=== PATIENT | female | born 1945 | race Caucasian/White ===

== ENCOUNTER 2019-12-16 10:18 | Outpatient (CLI) | payer MEDICARE, BC, SELFPAY ==
--- NOTE | ~2019-12-16 | MM_ITS ---
EXAMINATION: MM screening [facility] BI w bud HISTORY: Screening mammogram TECHNIQUE: Craniocaudal and mediolateral oblique 3-D tomosynthesis images were obtained and synthetic 2-D images were generated. CAD analysis was submitted and interpreted. COMPARISON: 12/12/2018, 11/06/2017, 05/15/2016 bilateral digital screening mammogram examinations BREAST PARENCHYMAL COMPOSITION: There are scattered areas of fibroglandular density. FINDINGS: New microcalcifications are noted in the central left breast anteriorly; diagnostic mammogr am with magnification views is recommended. Otherwise there is no evidence of suspicious mass, calcification, or architectural distortion to sugg est malignancy in either breast. There has been no other suspicious interval change. IMPRESSION: 1. New microcalcifications on the left 2. Diagnostic left mammogram with magnification views is recommended. BI-RADS Category 0: Incomplete: Needs additional imaging evaluation. Reviewed, dictated and finalized at location A.
== END 2019-12-16 10:19 | disposition home or self-care (01) ==
LOC: ANHIMG 10:26
PROVIDERS: PCP Family Medicine; Visit Provider Family Medicine
DX: Z12.31 Encounter for screening mammogram for malignant neoplasm of breast (principal); R92.8 Other abnormal and inconclusive findings on diagnostic imaging of breast
CPT/HCPCS: 77063; 77067

== ENCOUNTER 2020-01-01 13:10 | Outpatient (CLI) | payer MEDICARE, BC, SELFPAY ==
--- NOTE | ~2020-01-01 | MMUS_ITS ---
EXAMINATION: MM diagnostic mammo unilat LT, US breast LT complete HISTORY: 12/16/2019 mammogram report of new microcalcifications on the left TECHNIQUE: Additional ML 3-D tomosynthesis images of the left breast were performed and synthetic 2-D images were generated. Magnification views of left breast in ML, MLO and CC projections. CAD analysi s was submitted and interpreted. High resolution complete left breast ultrasound was performed. COMPARISON: 12/16/2019 bilateral digital screening mammogram FINDINGS: MAMMOGRAPHIC FINDINGS: There are scattered primarily punctate and rounded microcalcifications and an approximately 2.3 mm sm all area of calcified fat necrosis. No apparent malignant features are noted at any of the calcificat ions. As a precaution, complete left breast ultrasound examination was performed. ULTRASOUND: There is no evidence of focal abnormal solid or cystic lesion or shadowing of the left breast. IMPRESSION: 1. No mammographic or sonographic evidence of malignancy; benign-appearing calcifications 2. 6 month diagnostic left mammogram follow-up is recommended for the microcalcifications. BI-RADS category 3, probably benign findings. Reviewed, dictated and finalized at location A. IMPRESSION: 1. No mammographic or sonographic evidence of malignancy; benign-appearing calc ifications 2. 6 month diagnostic left mammogram follow-up is recommended for the microcalc ifications. BI-RADS category 3, probably benign findings.
== END 2020-01-01 13:11 | disposition home or self-care (01) ==
LOC: ANHIMG 13:17
PROVIDERS: PCP Family Medicine; Visit Provider Family Medicine
DX: R92.8 Other abnormal and inconclusive findings on diagnostic imaging of breast (principal)
CPT/HCPCS: 76641; 77065

== ENCOUNTER 2020-07-29 13:22 | Outpatient (CLI) | payer MEDICARE, BC, SELFPAY ==
--- NOTE | ~2020-07-29 | MM_ITS ---
EXAMINATION: MM diagnostic [facility] LT w bud HISTORY: Follow-up left breast calcifications TECHNIQUE: Additional 3-D tomosynthesis images of the left breast were performed and synthetic 2-D im ages were generated. CAD analysis was submitted and interpreted. COMPARISON: Comparison to multiple prior studies sequentially, with oldest reviewed study dated 11/18. BREAST PARENCHYMAL COMPOSITION: Breast composed of scattered areas of fibroglandular density. FINDINGS: There are clustered calcifications centered in the upper central aspect of the left breast which have increased slightly in number and density. There are no masses or architectural distortion. . IMPRESSION: 1. Clustered indeterminate left breast calcifications. 2. Stereotactic left breast biopsy. BI-RADS category 4, suspicious findings. Reviewed, dictated and finalized at location A. GER FLORAL
== END 2020-07-29 13:23 | disposition home or self-care (01) ==
LOC: ANHIMG 13:23
PROVIDERS: PCP Family Medicine; Visit Provider Family Medicine
DX: R92.8 Other abnormal and inconclusive findings on diagnostic imaging of breast (principal)
CPT/HCPCS: 77061; 77065; G0279

== ENCOUNTER 2023-02-28 14:16 | Outpatient (CLI) | payer MEDICARE, BC, SELFPAY ==
--- NOTE | ~2023-02-28 | XR_ITS ---
XR chest 2V DATE: 02/28/2023 15:16 INDICATION: Leukocytosis TECHNIQUE: PA and lateral views COMPARISON: 08/04/2014 portable AP chest FINDINGS: Heart size is within normal range. Is aortic calcification and unfolding. No hilar or media stinal enlargement. No pulmonary infiltrate or consolidation, pleural effusion or pulmonary vascular congestion or pneumo thorax. Degenerative changes of the thoracic and lumbar spine. Postoperative change of the abdomen. Ursula coleman IMPRESSION: No active cardiopulmonary disease Aortic atherosclerosis Reviewed, dictated and finalized at location []
[2023-02-28 15:34] LABS: Basophils Absolute Auto 0.1 K/mm3 (0.0-0.1); Basophils Percent Auto 0.4 % (0.2-1.2); Eosinophils Absolute Auto 0.1 K/mm3 (0-0.3); Eosinophils Percent Auto 0.7 % (0-4.4); Hematocrit 39.7 % (37.0-47.0); Hemoglobin 13.1 g/dL (12.0-15.0); Immature Granulocyte Absolute 0.07 K/mm3 (0.00-0.031); Immature Granulocyte Percent A 0.6 % (0-0.5); Lymphocytes Absolute Auto 1.62 K/mm3 (0.9-3.2); Lymphocytes Percent Auto 12.9 % (18.3-44.2); Mean Corpuscular Hemoglobin 29.5 pg (26-34); Mean Corpuscular Volume 89.4 fl (80-100); Mean Platelet Volume 10.8 fl (7.4-10.4); Monocytes Absolute Auto 1.2 K/mm3 (0.1-0.6); Monocytes Percent Auto 9.7 % (2.6-8.5); Neutrophils Absolute Auto 9.6 K/mm3 (1.3-6.7); Neutrophils Percent Auto 75.7 % (45.5-73.1); Platelet Count Result 340 k/mm3 (150-375); Red Blood Count 4.44 M/mm3 (4.2-5.4); Red Cell Distribution Width 12.2 % (11.5-14.5); White Blood Count 12.6 K/mm3 (4.5-10.0)
[2023-02-28 15:44] LABS: Alanine Aminotransferase 89 U/L (6-35); Albumin Level 4.1 g/dL (3.5-5.1); Alkaline Phosphatase 113 U/L (38-126); Anion Gap 7 mmol/L (8-16); Aspartate Amino Transferase 34 U/L (14-36); Bilirubin,Total 0.8 mg/dL (0.2-1.3); Blood Urea Nitrogen 38 mg/dL (7-17); Calcium 10.5 mg/dL (8.4-10.2); Carbon Dioxide 32 mmol/L (22-30); Chloride 94 mmol/L (98-107); Estimated Glomerular Filt Rate 44; Glucose 106 mg/dL (65-110); Potassium 3.4 mmol/L (3.4-5.0); Sodium 133 mmol/L (137-145)
[2023-02-28 15:54] LABS: Hemoglobin A1C 6.2 % (<5.7)
[2023-02-28 15:55] LABS: Monoscreen Negative (Negative); Negative Monotest Control Negative (Negative); Positive Monotest Control Positive (Positive)
== END 2023-02-28 14:17 | disposition home or self-care (01) ==
PROVIDERS: PCP Family Medicine; Visit Provider Nurse Practitioner Gerontology
DX: D72.829 Elevated white blood cell count, unspecified (principal); R59.1 Generalized enlarged lymph nodes; R55 Syncope and collapse; J02.9 Acute pharyngitis, unspecified; R53.83 Other fatigue; R50.9 Fever, unspecified; R73.9 Hyperglycemia, unspecified
CPT/HCPCS: 36415; 71046; 80053; 83036; 85025; 86308

== ENCOUNTER 2023-03-14 12:49 | Outpatient (CLI) | payer MEDICARE, BC, SELFPAY ==
[2023-03-14 13:11] LABS: Appearance Urine Turbid (Clear); Bacteria Urine 4+ /hpf; Bilirubin Urine Negative (Negative); Color Urine Yellow (Yellow); Glucose Urine UA Negative (Negative); Ketones Urine Negative (Negative); Leukocyte Esterase Ur 3+ LEU/UL (Negative); Nitrate Urine Positive (Negative); Non Pathogenic Casts 0-2; Protein Urine Negative (Negative); RBC Urine 0-2 /hpf (0-2); Specific Grav Ur 1.015 (1.001-1.035); Squamous Epithelial Cell Urine None seen /hpf (Few); Urobilinogen Urine 0.2 mg/dL (<2.0); WBC Urine >100 /hpf; pH Urine 6.5 (5.0-9.0)
[2023-03-14 13:46] LABS: Add Urine Microscopic? YES
== END 2023-03-14 12:50 | disposition home or self-care (01) ==
PROVIDERS: PCP Family Medicine; Visit Provider Physician Assistant
DX: R30.0 Dysuria (principal)
CPT/HCPCS: 81001; 87077; 87086; 87186

== ENCOUNTER 2023-03-30 11:29 | Outpatient (CLI) | payer MEDICARE, BC, SELFPAY ==
[2023-03-30 13:08] LABS: Appearance Urine Clear (Clear); Bacteria Urine None Seen /hpf; Bilirubin Urine Negative (Negative); Blood Urine Negative (Negative); Color Urine Yellow (Yellow); Glucose Urine UA Negative (Negative); Ketones Urine Negative (Negative); Leukocyte Esterase Ur 1+ LEU/UL (Negative); Need Manual Microscopic Reviewed; Nitrate Urine Negative (Negative); Non Pathogenic Casts 0-2; Protein Urine Negative (Negative); RBC Urine 0-2 /hpf (0-2); Specific Grav Ur 1.013 (1.001-1.035); Squamous Epithelial Cell Urine None seen /hpf (Few); Urobilinogen Urine 0.2 mg/dL (<2.0); WBC Urine 0-5 /hpf; pH Urine 6.5 (5.0-9.0)
[2023-03-30 13:28] LABS: Add Urine Microscopic? YES
== END 2023-03-30 11:30 | disposition home or self-care (01) ==
LOC: ANHLAB 11:31
PROVIDERS: PCP Family Medicine; Visit Provider Physician Assistant
DX: R30.0 Dysuria (principal)
CPT/HCPCS: 81001

== ENCOUNTER 2023-09-05 10:35 | Outpatient (CLI) | payer MEDICARE, BC, SELFPAY ==
[2023-09-05 11:11] LABS: Appearance Urine Cloudy (Clear); Bacteria Urine 4+ /hpf; Bilirubin Urine Negative (Negative); Blood Urine Negative (Negative); Color Urine Yellow (Yellow); Glucose Urine UA Negative (Negative); Ketones Urine Negative (Negative); Leukocyte Esterase Ur 2+ LEU/UL (Negative); Nitrate Urine Negative (Negative); Non Pathogenic Casts 0-2; Protein Urine Negative (Negative); RBC Urine 0-2 /hpf (0-2); Specific Grav Ur 1.017 (1.001-1.035); Squamous Epithelial Cell Urine None seen /hpf (Few); Urobilinogen Urine 0.2 mg/dL (<2.0); WBC Urine >100 /hpf; pH Urine 6.5 (5.0-9.0)
[2023-09-05 11:14] LABS: Add Urine Microscopic? YES
== END 2023-09-05 10:36 | disposition home or self-care (01) ==
PROVIDERS: PCP Family Medicine; Visit Provider Family Medicine
DX: R30.0 Dysuria (principal)
CPT/HCPCS: 81001; 87077; 87086; 87186

== ENCOUNTER 2023-09-25 14:03 | Outpatient (CLI) | payer MEDICARE, BC, SELFPAY ==
[2023-09-25 14:48] LABS: Appearance Urine Cloudy (Clear); Bacteria Urine 1+ /hpf; Bilirubin Urine Negative (Negative); Color Urine Yellow (Yellow); Glucose Urine UA Negative (Negative); Ketones Urine Negative (Negative); Leukocyte Esterase Ur 3+ LEU/UL (Negative); Nitrate Urine Negative (Negative); Non Pathogenic Casts 0-2; Protein Urine Negative (Negative); RBC Urine 0-2 /hpf (0-2); Squamous Epithelial Cell Urine None seen /hpf (Few); Urobilinogen Urine 0.2 mg/dL (<2.0); WBC Urine >100 /hpf
[2023-09-25 15:21] LABS: Add Urine Microscopic? YES
== END 2023-09-25 14:04 | disposition home or self-care (01) ==
PROVIDERS: PCP Family Medicine; Visit Provider Physician Assistant
DX: R30.0 Dysuria (principal)
CPT/HCPCS: 81001; 87077; 87086; 87186

== ENCOUNTER 2023-10-08 14:31 | Outpatient (CLI) | payer MEDICARE, BC, SELFPAY ==
--- NOTE | ~2023-10-08 | US_ITS ---
EXAMINATION: US renal BI DATE: 10/08/2023 15:16 INDICATION: Chronic kidney disease TECHNIQUE: Multiple grayscale and Doppler ultrasound images of the kidneys were obtained. COMPARISON: None. FINDINGS: The right kidney measures 9.7 x 4.8 x 4.6 cm. The left kidney measures 10.1 x 5.7 x 6.0 cm. The kidneys demonstrate normal parenchymal echogenicity. There is no hydronephrosis. The bladder is normal. IMPRESSION: 1. Normal kidneys without hydronephrosis. Reviewed, dictated and finalized at location F. LINE WALKER
== END 2023-10-08 14:32 | disposition home or self-care (01) ==
LOC: ANHIMG 14:32
PROVIDERS: PCP Family Medicine; Visit Provider Physician Assistant
DX: N18.9 Chronic kidney disease, unspecified (principal)
CPT/HCPCS: 76775

== ENCOUNTER 2024-02-20 12:27 | Outpatient (CLI) | payer MEDICARE, BC, SELFPAY ==
[2024-02-20 13:00] LABS: Appearance Urine Clear (Clear); Bacteria Urine None Seen /hpf; Bilirubin Urine Negative (Negative); Blood Urine Negative (Negative); Color Urine Yellow (Yellow); Glucose Urine UA Negative (Negative); Ketones Urine Negative (Negative); Leukocyte Esterase Ur 2+ LEU/UL (Negative); Nitrate Urine Negative (Negative); Non Pathogenic Casts 0-2; Protein Urine Negative (Negative); RBC Urine 0-2 /hpf (0-2); Specific Grav Ur 1.009 (1.001-1.035); Squamous Epithelial Cell Urine None Seen /hpf (Few); Urobilinogen Urine 0.2 mg/dL (<2.0); WBC Urine 21-50 /hpf (0-3); pH Urine 6.5 (5.0-9.0)
[2024-02-20 13:08] LABS: Add Urine Microscopic? YES
== END 2024-02-20 12:28 | disposition home or self-care (01) ==
PROVIDERS: PCP Family Medicine; Visit Provider Physician Assistant
DX: N39.0 Urinary tract infection, site not specified (principal)
CPT/HCPCS: 81001; 87077; 87086; 87088; 87186

== ENCOUNTER 2024-04-08 10:59 | Outpatient (CLI) | payer MEDICARE, BC, SELFPAY ==
[2024-04-08 11:32] LABS: Appearance Urine Turbid (Clear); Bacteria Urine 4+ /hpf; Bilirubin Urine Negative (Negative); Blood Urine Negative (Negative); Color Urine Yellow (Yellow); Glucose Urine UA Negative (Negative); Ketones Urine Negative (Negative); Leukocyte Esterase Ur 3+ LEU/UL (Negative); Nitrate Urine Positive (Negative); Protein Urine Negative (Negative); RBC Urine 0-2 /hpf (0-2); Specific Grav Ur 1.018 (1.001-1.035); Squamous Epithelial Cell Urine None Seen /hpf (Few); WBC Urine >100 /hpf (0-3)
[2024-04-08 12:03] LABS: Add Urine Microscopic? YES
== END 2024-04-08 11:00 | disposition home or self-care (01) ==
LOC: ANHLAB 11:02
PROVIDERS: PCP Family Medicine; Visit Provider Student in an Organized Health Care Education/Training Program
DX: R30.0 Dysuria (principal)
CPT/HCPCS: 81001; 87077; 87086; 87186

== ENCOUNTER 2024-09-11 14:58 | Outpatient (CLI) | payer MEDICARE, BC, OTHER, SELFPAY ==
[2024-09-11 15:35] LABS: Add Urine Microscopic? YES; Appearance Urine Turbid (Clear); Bacteria Urine 4+ /hpf; Bilirubin Urine Negative (Negative); Blood Urine Non-Hemolyzed Trace (Negative); Color Urine Yellow (Yellow); Glucose Urine UA Negative (Negative); Ketones Urine Trace mg/dL (Negative); Leukocyte Esterase Ur 3+ LEU/UL (Negative); Need Manual Microscopic Reviewed; Nitrate Urine Positive (Negative); Non Pathogenic Casts 0-2; Protein Urine Negative (Negative); Specific Grav Ur 1.018 (1.001-1.035); Squamous Epithelial Cell Urine None Seen /hpf (Few); Urobilinogen Urine 0.2 mg/dL (<2.0); WBC Clumps Urine Present /HPF; WBC Urine >100 /hpf (0-3)
[2024-09-11 16:23] LABS: Amorphous Sediment Urine Few
== END 2024-09-11 14:59 | disposition home or self-care (01) ==
LOC: ANHLAB 14:59
PROVIDERS: PCP Family Medicine; Visit Provider Physician Assistant
DX: R30.0 Dysuria (principal)
CPT/HCPCS: 81001; 87077; 87086; 87186

== ENCOUNTER 2024-10-10 06:38 | Outpatient (CLI) | payer MEDICARE, BC, OTHER, SELFPAY ==
--- NOTE | ~2024-10-10 | MR_ITS ---
EXAMINATION: MR lumbar spine wo con DATE: 10/10/2024 07:18 INDICATION: Intervertebral disc disorders with radiculopathy. TECHNIQUE: Magnetic resonance imaging (MRI) of the lumbar spine was performed without intravenous con trast. Sequences included sagittal T2-weighted FSE, sagittal T2-weighted FS FSE, sagittal T1-weighted FSE, and axial T2-weighted FSE. COMPARISON: Lumbar spine MRI 10/19/2005 FINDINGS: There is 10 degrees dextroscoliosis of lumbar spine. There is 3 mm retrolisthesis of T12 on L1, 6 mm retrolisthesis of L1 on L2, 5 mm retrolisthesis of L2 on L3, 4 mm retrolisthesis of L3 on L 4, and 5 mm anterolisthesis of L4 on L5. The distal spinal cord signal intensity is normal. The conus medullaris is at at L1. The following disc levels are specifically discussed: L1-L2: The disc is bulging and has an annular fissure. There is severe bilateral facet joint osteoart hritis. There is moderate bilateral neural foraminal stenosis. There is mild central canal stenosis. L2-L3: The disc is bulging. There is severe bilateral facet joint osteoarthritis. There is mild bilat eral neural foraminal stenosis. There is mild central canal stenosis. L3-L4: The disc is bulging and has an annular fissure. There is severe bilateral facet joint osteoart hritis. There is mild bilateral neural foraminal stenosis. There is mild central canal stenosis. L4-L5: The disc is bulging and has an annular fissure. There is severe bilateral facet joint osteoart hritis. There is moderate bilateral neural foraminal stenosis. There is moderate central canal stenos is. L5-S1: The disc is bulging and has an annular fissure. There is severe bilateral facet joint osteoart hritis. There is mild bilateral neural foraminal stenosis. There is mild central canal stenosis. IMPRESSION: 1. Severe lumbar spondylosis, worsened from 10/19/2005. 2. Lumbar dextroscoliosis. Reviewed, dictated and finalized at location A. 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
--- OUTSIDE RECORDS SUMMARY | 2024-10-16 04:59 | XMS_ITS | Clinical Summary ---
Author Organization [facility] Address [address] [place] [address] Care Team Providers Care Abstract Checker Name Role Phone Rizwana Thakkar MD Primary Care Provider + Source Comments [facility],non-owned Affiliates and Associated Physician Practices is amultiple site organization consisting of ambulatory clinics and hospital sitesin [place], [place], [place] and [place]. This disclosure is being madepursuant to the Care Everywhere program and may not contain all information available regarding this patient. Last updated 18.[facility] Allergies Active Allergy Reactions Criticality Noted Date Comments Gadobenate Nausea Low 07/06/2015 MRI Contrast-Patient became nauseated after Multihance injection. Not enough to stop the test Lisinopril Other Low 04/01/2015 COUGH Lorazepam Shortness of Breath,Other High 08/09/2014 Pt becomes SOB and Hallucinates Medications * Be aware that medications may not be up to date on this document. Alwaysverify current medications with the patient. Medication Sig Dispensed Refills Start Date End Date Status ELIQUIS 5 MG tablet Take 5 mg by mouth 2 times daily 12/19/2017 Active ACETAMINOPHEN, ANALGESICS OTHER, Take 650 mg by mouth 09/28/2015 Active docusate sodium (COLACE) 100 MG capsule Take 100 mg by mouth once daily as needed twice a week Active clobetasol propionate (CLOBEX) 0.05 % shampoo Apply to affected area every 7 days 08/24/2018 Active MAGNESIUM PO Take 250 mg by mouth once daily Active metoprolol succinate XL 24hr (TOPROL XL) 25 MG tablet 12.5 mg once daily 05/28/2019 Acti ve losartan (COZAAR) 100 MG tablet once daily 07/04/2019 Active hydroCHLOROthiazide (HYDRODIURIL) 25 MG tablet 12.5 mg every 24 hours Active SUPER B COMPLEX/C PO Take by mouth at bedtime Active Biotin 97136 MCG TABS Act brock Ascorbic Acid (VITAMIN C) 500 MG Take by mouth at bedtime Active VITAMIN D, ERGOCALCIFEROL, PO Take 1,000 mg by mouth Active oxybutynin CR 24hr (DITROPAN-XL) 5 MG tablet Take 5 mg by mouth once daily 07/05/2020 Active pancrelipase (CREON) 70869-55058 units capsule Take 1 capsule by mouth 3 times daily with meals Active Active Problems Problem Noted Date Diagnosed Date NAFLD (nonalcoholic fatty liver disease) 018 Overview (03/26/2018): 10/03/17 MRI: There is moderate diffuse hepatic steatosis without evidence of cirrhosis. No arterially-enhancing liver lesions are identified. A 9 mm hemangioma in segment 7 is unchanged. 03/11/18 Fibroscan CAP 279, E 7.2 kPa mcm Hypertension 02/04/2018 Colon adenomas 02/04/2018 Overview (03/09/2019): 08/26/15 colonoscopy: multiple adenomas, one SSA removed. 11/07/18 colonoscopy: 2 non-adenomatous polyps removed, repeat in 5 years. Obesity 02/04/2018 Psoriasis 02/04/2018 Overview (02/04/2018): A bit in scalp at hairline. 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 Recurrent right leg DVT in 2017 off apixaban, restarted. Acute pancreatitis 12/22/2014 Overview (02/04/2018): Severe acute necrotizing pancreatitis??s/p endoscopic necrosectomy, IR drains for fluid collections in 2013- at [facility]. DILIP neg, IgG4 wnls, TG 88. No strong family history of pancreatitis Possibly related to gallstone/debris Resolved Problems Problem Noted Date Diagnosed Date Resolved Date Cutaneous abscess 09/18/2015 02/04/2018 Abdominal pain 08/06/2015 02/04/2018 Gastrointestinal hemorrhage 02/28/2015 02/04/2018 Pseudoaneurysm 02/28/2015 02/04/2018 Overview (02/04/2018): Coiled in 2014 Hematemesis 02/08/2015 02/03/2018 Immunizations Name Administration Dates Next Due DTaP VACCINE IM (6wk-6yrs) 06/24/2019 FLU VACCINE TRI IIV3 SPLIT PF IM (FLUVIRIN) 07/25 HEP A VACCINE, ADULT 07/25/2019,06/24/2019 HEP B VACCINE ADOL/ADULT 2 DOSE 07/25/2019,06/24 HIB-PRP-T 4 DOSE 02/27/2015 MENINGOCOCAL MENINGITIS 02/27/2015 Zoster Hzv Vacc Recombinant Inj Im 06/24/2019 Family History Medical History Relation Name Comments Heart Disease Brother 1 Status: Alive Heart Disease Brother 2 Status: Alive Cancer Brother 3 Lung; Status: D eceased None Known Brother 4 Status: Alive None Known Brother 5 Status: Alive Diabetes Father 81 post CABG Heart Disease Father Status: Deceas ed Cancer Mother Status: d Cancer Sister Breast; Status: Alive Thyroid Disease Neg Hx Relation Name Status Comments Brother 1 Brother 2 Brother 3 Brother 4 Brother 5 Father Mother Sister Social History Tobacco Use Types Packs/Day Years Used Date Smoking Tobacco: Former Cigarettes Q uit: 07/27/2014 Smokeless Tobacco: Never Tobacco Cessation:Counseling Given: No Alcohol Use Standard Drinks/Week Comments No 0 (1 standard drink = 0.6 oz pur e alcohol) Sex and Gender Information Value Date Recorded Sex Assigned at Not on file Gender Identity Not on file Sexual Orientation Not on file Last Filed Vital Signs Vital Sign Reading Time Taken Comments Blood Pressure 145/74 07/16/2020 11:04 AM CDT Pulse 57 07/16/2020 11:04 AM CDT Temperature 36.2 ??C (97.2 ??F) 07/16/2020 1 1:04 AM CDT Respiratory Rate 18 09/05/2019 8:03 AM DRY DRUG WORKER Oxygen Saturation 96% 07/16/2020 11: 04 AM CDT Inhaled Oxygen Concentration - - Weight 100.9 kg (222 lb 6.4 oz) 020 11:04 AM CDT Height 162.6 cm (5' 4 ) 07/16/2020 11:0 4 AM CDT Body Mass Index 38.17 07/16/2020 11:04 AM CDT Plan of Treatment Health Maintenance Due Date Last Done Comments BONE DENSITY TESTING 1945 MEDICARE AWV ? 12 MONTHS 1945 HEPATITIS C SCREENING 12/19/1964 PNEUMOCOCCAL VACCINE 50+ (1 of 1 - PCV) 1996 ZOSTER VACCINE (2 of 2) 08/19/2019 06/24/2019 HEPATITIS B VACCINE (3 of 3 - 19+ 3-dose series) 2019 07/25/2019, 06/24/2019 Respiratory Syncytial Virus (RSV) Vaccine Pt: or over 60 yrs (1 - 1-dose 75+ series) 2021 COVID-19 VACCINE ( - 2023-2 5 season) 2024 INFLUENZA VACCINE (#1) 2024 08/07/2015 DEPRESSION SCREENING 09/24/2024 DTAP/TDAP/TD VACCINES (2 - Tdap) 06/24/2029 06/24/2019 HIB VACCINE Aged Out 02/27/2015 No longer eligi ble based on patient's age to complete this topic MENINGOCOCCAL VACCINE Aged Out 02/27/2015 No bethel art eligible based on patient's age to complete this topic HPV VACCINE Aged Out No longer eligi ble based on patient's age to complete this topic MENINGOCOCCAL (Group B) VACCINE Aged Out No longer eligible b ased on patient's age to complete this topic Goals Goal Patient Goal Type Associated Problems Recent Progress Patient-Stated? 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
--- OUTSIDE RECORDS SUMMARY | 2024-10-16 04:59 | XMS_ITS | Referral Summary ---
Author Organization [facility] Address [address] [place] [address] Care Team Providers Care Condenser Operator Name Role Phone Rizwana Thakkar MD Primary Care Provider + Source Comments [facility],non-owned Affiliates and Associated Physician Practices is amultiple site organization consisting of ambulatory clinics and hospital sitesin [place], [place], [place] and [place]. This disclosure is being madepursuant to the Care Everywhere program and may not contain all information available regarding this patient. Last updated 18.[facility] Allergies Active Allergy Reactions Criticality Noted [...] Take by mouth at bedtime Active Biotin 09175 MCG TABS Act brock Ascorbic Acid (VITAMIN C) 500 MG Take by mouth at bedtime Active VITAMIN D, ERGOCALCIFEROL, PO Take 1,000 mg by mouth Active oxybutynin CR 24hr (DITROPAN-XL) 5 MG tablet Take 5 mg by mouth once daily 07/05/2020 Active pancrelipase (CREON) 46232-76424 units capsule Take 1 capsule by mouth [...] drains for fluid collections in 2013- at [facility]. DILIP neg, IgG4 wnls, TG 88. 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 [place] [address] PCP - General 04/27/15
--- OUTSIDE RECORDS SUMMARY | 2024-10-16 05:00 | XMS_ITS | Clinical Summary ---
Author Organization [facility] Address [address] [place] [address] Phone Care Team Providers Care Project Geologist Name Role Phone Rizwana Thakkar MD Primary Care Provider [phone] Allergies Active Allergy Reactions Criticality Noted Date Comments Gadobenate Nausea Low 07/06/2015 MRI Contrast-Patient became nauseated after Multihance injection. ??Not enough to stop the test MRI Contrast-Patient became nauseated after Multihance injection. ??Not enough to stop the test MRI Contrast-Patient became nauseated after Multihance injection. ??Not enough to stop the test MRI Contrast-Patient became nauseated after Multihance injection. ??Not enough to stop the test MRI Contrast-Patient became nauseated after Multihance injection. ??Not enough to stop the test Lisinopril Other (see Comments) Low 04/01/2015 cough Other reaction(s): Cough, Other COUGH COUGH COUGH COUGH COUGH Lorazepam Shortness of Breath,Hallucinations,O ther (see Comments) High 08/09/2014 Other reaction(s): Other Pt becomes SOB and Hallucinates Other reaction(s): Other Pt becomes SOB and Hallucinates Pt becomes SOB and Hallucinates Medications apixaban (ELIQUIS) 5 MG Tablet Take 5 mg by mouth 2 times daily. Active Biotin 1000 MCG Tablet Take by mouth daily. Active Multiple Vitamins-Minera ls (MULTIVITAMIN PO) Take by mouth daily. Active Magnesium 250 MG Tablet Take by mouth daily. Active hydroCHLOROthia zide 25 MG Tablet Take 25 mg by mouth. 07/04/2019 Active losartan (COZAAR) 100 MG Tablet TAKE 1 TABLET BY MOUTH EVERY DAY IN THE MORNING 3 07/04/2019 Active Ascorbic Acid 500 MG Capsule CR Take 500 mg by mouth. Active B Complex Vitamins (Vitamin B-Complex) Tablet Take 1 Tablet by mouth. Active cholecalciferol 25 mcg Tablet Take 1,000 Units by mouth. Active Clobetasol Propionate 0.05 % Shampoo APPLY TO AFFECTED AREA EVERY DAY 01/22/2018 Active oxyCODONE (ROXICODONE) 5 MG Tablet TAKE 1 TABLET BY MOUTH EVERY 4 HOURS NEEDED (BREAKTHROUGH PAIN DESPITE TYLENOL) 10/25/2020 Active Probiotic Product (ALIGN PO) Take by mouth. Active albuterol 108 (90 Base) MCG/ACT Aerosol Solution take 2 Puffs by inhalation. 01/05/2021 Active NIFEdipine CR (PROCARDIA-XL) 60 MG TABLET SR 24 HR TAKE 1 TABLET BY MOUTH IN THE EVENING 10/03/2021 Active omeprazole (PriLOSEC) 40 MG CAPSULE DELAYED RELEASE TAKE 1 CAPSULE BY MOUTH EVERY DAY 1 HOUR PRIOR TO LAST MEAL OF DAY 05/22/2022 Active nebivolol (BYSTOLIC) 2.5 MG Tablet 05/26/2022 Active vitamin E 100 UNIT Capsule Take 100 Units by mouth. Active Mirabegron ER 50 MG TABLET SR 24 HR Take 1 Tablet by mouth daily. 06/04/2024 Active Active Problems Patient Care Coordination No te Formatting of this note migh t be different from the original. 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 01/21/2018 Encounters Date Type Department Care Team Description 08/07/2024 1:15 PM SECURITY COMPLIANCE SPECIALIST Office Visit [facility] [address] [address] Conchita Guzman, VERIFICATION SPECIALIST, WORD PROCESSOR TECHNICIAN Acute embolism and thrombosis of vein of left upper extremity (Primary Dx); Acute deep vein thrombosis (DVT) of lower extremity, unspecified laterality, unspecified vein (HCC) 08/07/2024 Travel from Last 3 Months Immunizations Immunization Administration Dates Next Due Covid-19, Mrna, Lnp-s, PF, 1 00 mcg/0.5 mL Dose (Moderna) 11/05/2020 HEP A/HEP B Combined Vaccine 03/14/2020,08/05/20 19 Hepatitis A And Hepatitis B Vaccine 03/14/2020,1 10/05/2018,07/04/2019 Influenza, High-dose, Quadrivalent 05/18/2020, Pneumococcal Vaccine Adult - 23 Valent 8 TDAP Vaccine 07/02/2019 Zoster Vaccine Recombinant 10/05/2019,08/05/2019 ,06/24/2019 Family History Medical History Relation Name Comments Heart Attack Brother 1 Cancer Brother 2 lung Diabetes Father Heart Attack Father Cancer Mother tongue Cancer Sister breast Relation Name Status Comments Brother 1 Brother 2 Father Mother Sister Social History Tobacco Use Types Packs/Day Years Used Date Smoking Tobacco: Former Cigarettes Q uit: 2013 Smokeless Tobacco: Never Tobacco Cessation:Counseling Given: Not Answered Alcohol Use Standard Drinks/Week Comments No 0 (1 standard drink = 0.6 oz pur e alcohol) PHQ-2 Answer Date Recorded Total Score - Questions 1-9 0 11/22 Comments No Sex and Gender Information Value Date Recorded Sex Assigned at Not on file Legal Sex Female 11:11 PM CDT Gender Identity Not on file Sexual Orientation Not on file Last Filed Vital Signs Vital Sign Reading Time Taken Comments Blood Pressure 140/78 08/07/2024 1:22 PM SECURITY COMPLIANCE SPECIALIST Pulse 66 08/07/2024 1:22 PM SECURITY COMPLIANCE SPECIALIST Temperature 36.2 ??C (97.1 ??F) 08/07/2024 1:22 PM CS T Respiratory Rate 18 08/07/2024 1:22 PM SECURITY COMPLIANCE SPECIALIST Oxygen Saturation 96% 08/07/2024 1:22 PM SECURITY COMPLIANCE SPECIALIST Inhaled Oxygen Concentration - - Weight 98.9 kg (218 lb) 08/07/2024 1:22 PM SECURITY COMPLIANCE SPECIALIST Height 162.6 cm (5' 4 ) 08/07/2024 1:22 PM SECURITY COMPLIANCE SPECIALIST Body Mass Index 37.42 08/07/2024 1:22 PM SECURITY COMPLIANCE SPECIALIST Plan of Treatment Upcoming Encounters Date Type Department Care Team (Late st Contact Info) Description 02/05/2025 1:30 PM CDT Office Visit [facility] [address] [place] [address] Luis Titus MD [address] [place] [address] Health Maintenance Due Date Last Done Comments Pneumococcal Immunization (50+ years) (2 of 2 - PCV) 06/23/2019 06/23/2018 SARS-COV-2 Immunization ( season) 2024 06/09/2024, 06/13/2023, 06/26/2022, Additional history exists DEXA Bone Density 04/19/2025 04/19/2023, 03/31/2020 Td Immunization Every 10 Years (Adults With 1 Tdap) 07/02/2029 07/02/2019 Hepatitis C Virus (HCV) Screening Completed 04/10/2018 Pneumococcal Immunization Combined Discontinued 06/23/2018 Colonoscopy High Risk Discontinued 11/07/2018 Colonoscopy Discontinued 11/07/2018 Colorectal Cancer Screening Discontinued DTaP/Tdap/Td Immunization Discontinued 07/02/2019, 09/2018 Zoster Immunization Completed 10/05/2019, 08/05/2019, 06/24/2019 Hepatitis B Immunization Completed 020, 03/14/2020, 08/05/2019, Additional history exists Mammogram Discontinued 06/02/2024, 01/2023, 05/30/2022, Additional history exists Respiratory Syncytial Virus (RSV) Immunization (Adult) Completed 06/05/2024 Influenza Immunization Completed , 07/11/2023, 07/18/2022, Additional history exists Cologuard Discontinued Immunochemical Fecal Occult Blood Discontinued Meningococcal Immunization (ACWY) Aged Out No longer eligible based on patient's age to complete this topic Rotavirus Immunization Aged Out No lo nger eligible based on patient's age to complete this topic Insurance MEDICARE [facility] Care Teams Project Geologist Relationship Specialty Start Date End Date Rizwana Thakkar MD [address] [address] PCP - General Family Medicine 01/17/18
--- OUTSIDE RECORDS SUMMARY | 2024-10-16 05:00 | XMS_ITS | Encounter Summary ---
Author Organization [facility] Address [address] [place] [address]. [place] [address] [place] [address] Care Team Providers Care Hand Plate Stacker Name Role Phone Rizwana Thakkar MD Primary Care Provider + [phone] Kamaljit Dowell MD Unavailable [phone] Encounter Details Date Type Department Care Team (Late st Contact Info) Description 11/26/2017 Abstract [facility] at [facility], [address] [address] Parker Bright MA Social History Tobacco Use Types Packs/Day Years Used Date Smoking Tobacco: Never Assessed Comments Unknown Sex and Gender Information Value Date Recorded Sex Assigned at Female 09/20/2018 10:57 AM PAN CLEANER Legal Sex Female 7:39 PM CDT Gender Identity Female 09/20/2018 10:57 AM PAN CLEANER Sexual Orientation Straight 09/20/2018 10 :57 AM PAN CLEANER documented as of this encounter Plan of Treatment Upcoming Encounters Date Type Department Care Team (Late st Contact Info) Description 05/04/2025 9:15 AM CDT [facility] [address] [place] [phone] Kamaljit Dowell MD [facility]. [facility] [address] [place], [place] [phone] documented as of this encounter Procedures Procedure Name Priority Date/Time Associated Diagnosis Comments COMPREHENSIVE METABOLIC PANEL Routine 04/10/2018 LIPID PANEL Routine 04/10/2018 COMPREHENSIVE METABOLIC PANEL Routine 11/23/2017 MAGNESIUM Routine 11/23/2017 COMPREHENSIVE METABOLIC PANEL Routine 05/01/2016 LIPID PANEL Routine 05/01/2016 HEMOGLOBIN, GLYCOSYLATED Routine 05/01/2016 documented in this encounter Results * LIPID PANEL (04/10/2018) CHOLESTEROL 189 HDL 42 TRIGLYCERIDES 173 NON HDL CHOLESTEROL 147 LDL (CALCULATED) 112.4 04/10/2018 us [facility] Abstract LABORATORY Final Result * COMPREHENSIVE METABOLIC PANEL (04/10/2018) SODIUM S/P/B 143 POTASSIUM S/P/B 4.5 CO2 28.9 CHLORIDE S/P/B 106 GLUCOSE 114 mg/dL CALCIUM S/P/B 10.2 BUN 33 CREATININE S/P/B 0.99 0.5 - 1.0 EGFR AFR. AMER. 66 <=90 EGFR NON-AFR. AMER. 57 <=90 ALKALINE PHOSPHATASE S/P/B 87 ALT 25 AST 11 BILIRUBIN TOTAL S/P/B 0.5 ALBUMIN S/P/B 3.7 3.5 - 5.0 TOTAL PROTEIN S/P/B 7.0 04/10/2018 [facility] Abstract LABORATORY Final Result * MAGNESIUM (11/23/2017) MAGNESIUM 1.9 11/23/2017 us Doc [facility] Abstract LABORATORY Edited Resul t - Final * COMPREHENSIVE METABOLIC PANEL (11/23/2017) SODIUM S/P/B 139 POTASSIUM S/P/B 4.3 CO2 23 CHLORIDE S/P/B 104 GLUCOSE 124 mg/dL CALCIUM S/P/B 10.6 BUN 18 CREATININE S/P/B 0.89 0.5 - 1.0 EGFR NON-AFR. AMER. >60 <=90 ALKALINE PHOSPHATASE S/P/B 74 ALT 19 AST 11 BILIRUBIN TOTAL S/P/B 0.6 ALBUMIN S/P/B 4.0 3.5 - 5.0 TOTAL PROTEIN S/P/B 6.4 PHOSPHORUS 2.6 11/23/2017 us Doc [facility] Abstract LABORATORY Edited [facility] t - Final * LIPID PANEL (05/01/2016) CHOLESTEROL 175 HDL 39 TRIGLYCERIDES 113 LDL (CALCULATED) 113.4 05/01/2016 us Doc [facility] Abstract LABORATORY Edited [facility] t - Final * HEMOGLOBIN, GLYCOSYLATED (05/01/2016) HGB A1C 5.7 05/01/2016 us Doc [facility] Abstract LABORATORY Edited [facility] t - Final * COMPREHENSIVE METABOLIC PANEL (05/01/2016) SODIUM S/P/B 140 POTASSIUM S/P/B 4.1 CO2 26 CHLORIDE S/P/B 107 GLUCOSE 99 mg/dL CALCIUM S/P/B 9.9 BUN 40 CREATININE S/P/B 0.81 0.5 - 1.0 EGFR NON-AFR. AMER. >60 <=90 ALKALINE PHOSPHATASE S/P/B 120 ALT 18 AST 15 BILIRUBIN TOTAL S/P/B 0.4 ALBUMIN S/P/B 3.9 3.5 - 5.0 TOTAL PROTEIN S/P/B 6.1 05/01/2016 us Doc [facility] Abstract LABORATORY Edited [facility] t - Final documented in this encounter Visit Diagnoses Not on filedocumented in this encounter Additional Health Concerns Infection Onset Date Last Indicated Resolved Time COVID-19 Rule Out 07/03/2020 07/03/2020 07/04/2020 12:44 PM CDT COVID-19 Rule Out 02/26/2023 02/26/2023 02/26/2023 2:50 PM CDT documented as of this encounter Care Teams Hand Plate Stacker Relationship Specialty Start Date End Date Rizwana Thakkar MD [address] [facility] [address] [place] [address] PCP - General FAMILY PRACTICE 10/25/17 Kamaljit Dowell MD [facility]. [address] [place] [address] [place] [facility] CARDIOVASCULAR DISEASE 11/15/17 documented as of this encounter
--- OUTSIDE RECORDS SUMMARY | 2024-10-16 05:00 | XMS_ITS | Clinical Summary ---
Author Organization [facility] Address [address] [place] [address]. [place] [address] [place] [address] Care Team Providers Care Irrigation Equipment Remover Name Role Phone Rizwana Gonzalez MD Primary Care Provider [phone] Kamaljit Dowell MD Unavailable [phone] Allergies Active Allergy Reactions Criticality Noted Date Comments Gadobenate Nausea Only Low 07/06/2015 MRI Contrast-Patient became nauseated after Multihance injection. ??Not enough to stop the test MRI Contrast-Patient became nauseated after Multihance injection. ??Not enough to stop the test Lisinopril Other (see comment),Cough Low 04/01/2015 COUGH COUGH Lorazepam Other (see comment),Shortness of Breath High 08/09/2014 Pt becomes SOB and Hallucinates Other reaction(s): Other Pt becomes SOB and Hallucinates Medications Docusate Sodium 100 MG Tab Take 1 tablet by mouth daily as needed. 30 tablet 8 Active Magnesium Gluconate 250 MG Tab Take 1 tablet by mouth daily. 120 tablet 8 Active Clobetasol Propionate 0.05 % Shampoo Apply topically once a week. 8 Active CREON 56020 units CAPSULE ENTERIC COATED PARTICLES as needed. 9 Active losartan 100 MG tablet Take 1 tablet (100 mg total) by mouth every morning. 90 tablet 3 9 Active ELIQUIS 5 MG tablet TAKE 1 TABLET TWICE A DAY 180 tablet 1 9 Active cholecalciferol (VITAMIN D3) 400 Units/mL Liquid liquid Take 100,000 mLs (1,000,000 mcg total) by mouth 3 (three) times a week. Active nebivolol 2.5 MG tablet Take 1 tablet (2.5 mg total) by mouth daily. 30 tablet 4 1 Active omeprazole 40 MG capsule 1 Active B Complex Vitamins (VITAMIN B-COMPLEX) Tab Take 1 tablet by mouth. Active albuterol sulfate HFA 108 (90 Base) MCG/ACT inhalerIndicatio ns:Chronic obstructive pulmonary disease, unspecified COPD type ([facility]) Inhale 2 puffs into the lungs every 6 (six) hours as needed for Wheezing. 6.7 g 6 1 Active NIFEdipine ER (ADALAT CC) 60 MG 24 hr tablet Take 1 tablet (60 mg total) by mouth every evening. 2 Active hydroCHLOROthiaz fina (HYDRODIURIL) 25 MG tablet TAKE 1 TABLET BY MOUTH EVERY DAY IN THE MORNING 90 tablet 1 3 Active Collagen-Vitamin C-Biotin (COLLAGEN 1500/C OR) Take by mouth daily. 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 03/18/2024 Obstructive lung disease ([facility]) 01/04 Posterior tibial tendinitis, left 05/11/2020 Peroneal tendinitis of left lower leg 05/11/2020 Greater trochanteric bursitis of left hip 2018 Chronic deep vein thrombosis (DVT) of proximal vein of lower extremity ([facility]) 2017 Dyspnea on exertion 2017 Hypertension, essential Encounters Date Type Department Care Team Description 10/06/2024 3:20 PM DOVETAILER Office Visit [facility] - [place] [address] Johan Richardson MD Follow Up (Rt hip pain ) 10/06/2024 Travel from Last 3 Months Immunizations Name Administration Dates Next Due Dtap (Acel-Immune) 06/24/2019 Dtap (Generic) 06/24/2019 Fluzone High Dose - >Age 65 (Prefilled Syringe) 05/18/2020,07/04/2019 Hepatitis A (Generic) 03/14/2020, 019,07/25/2019,2018 Hepatitis A/Hepatitis B (Aka Twinrix) 03/14/2020 ,08/05/2019 Hepatitis A/Hepatitis B(Twinrix) 03/14/2020,07/25,07/04/2019 Hepatitis B (Generic: Adult) 07/25/2019,06/24/20 19 Hib Vaccine, Prp-T 02/27/2015 Influenza (Generic) 08/07/2015 Influenza Adult (Generic) 05/18/2020,07/2019,06/23/2018,2016,08/01/2016 MODERNA COVID-19 (12+) MRNA, LNP-S, PF, 100 MCG/ 0.5 ML DOSE 12/03/2020,11/05/2020 Meningococcal(Mcv 4)Aka Menactra 02/27/2015 Pneumococcal (Pneumovax 23) 06/23/2018 Shingrix 10/05/2019,08/05/2019,06/24/2019 Tdap (Boostrix) 07/02/2019 Tdap (Generic) 07/02/2019,01/12/2018 Family History Medical History Relation Comments Heart Attack Brother 1 Cancer Brother 2 Heart Attack Father No Known Problems Maternal Aunt No Known Problems Maternal Grandfather No Known Problems Maternal Grandmother No Known Problems Maternal Uncle Cancer Mother No Known Problems Paternal Aunt No Known Problems Paternal Grandfather No Known Problems Paternal Grandmother No Known Problems Paternal Uncle Cancer Sister Relation Status Comments Brother 1 Alive Brother 2 (Age 59) Father (Age 89) Maternal Aunt Maternal Grandfather Maternal Grandmother Maternal Uncle Mother (Age 87) Paternal Aunt Paternal Grandfather Paternal Grandmother Paternal Uncle Sister Alive Social History Tobacco Use Types Packs/Day Years Used Date Smoking Tobacco: Former Cigarettes 1 1 2013 Smokeless Tobacco: Never Tobacco Cessation:Counseling Given: No Alcohol Use Standard Drinks/Week Comments No 0 (1 standard drink = 0.6 oz pur e alcohol) PHQ-2 Answer Date Recorded Patient Health Questionnaire-2 Score 0 10/06/2024 Comments No Sex and Gender Information Value Date Recorded Sex Assigned at Female 09/20/2018 10:57 AM DOVETAILER Legal Sex Female 7:39 PM CDT Gender Identity Female 09/20/2018 10:57 AM DOVETAILER Sexual Orientation Straight 09/20/2018 10 :57 AM DOVETAILER Occupation Industry Job Start Date Job End Date Not on file Not on file Not on file Not on file Last Filed Vital Signs Vital Sign Reading Time Taken Comments Blood Pressure 125/71 10/06/2024 3:16 PM DOVETAILER Pulse 70 10/06/2024 3:16 PM DOVETAILER Temperature 36.5 ??C (97.7 ??F) 10/06/2024 3:16 PM CS T Respiratory Rate 27 02/26/2023 5:05 PM CDT Oxygen Saturation 97% 03/12/2024 2:19 PM CDT Inhaled Oxygen Concentration - - Weight 98.8 kg (217 lb 12.8 oz) 10/06/2024 3:16 PM DOVETAILER Height 160 cm (5' 3 ) 10/06/2024 3:16 PM DOVETAILER Body Mass Index 38.58 10/06/2024 3:16 PM DOVETAILER Plan of Treatment Upcoming Encounters Date Type Department Care Team (Late st Contact Info) Description 05/04/2025 9:15 AM CDT Office Visit [facility] [id number] [place] [phone] Kamaljit Dowell MD [address] [address] Health Maintenance Due Date Last Done Comments Annual Medicare Wellness Visit 12/25/2011 Lung Cancer Screening 08/10/2015 08/10/2014 Pneumococcal Vaccine: 65+ Years (2 of 2 - PCV) 06/23/2019 06/23/2018 RSV Immunization or 60+ Years (1 - 1-dose 75+ series) 2021 COVID-19 Vaccine ( - season) 2024 12/03/2020, 11/05/2020 Influenza Adult (#1) 2024 05/18/2020, 05/18/2020, 07/04/2019, Additional history exists PHQ-2 (Physician Jarratt) 10/06/2025 10/06/2024 DTaP, Tdap and Td Vaccines (6 - Td or Tdap) 07/02/2029 07/02/2019, 07/02/2019, 06/24/2019, Additional history exists Hepatitis C Completed 04/10/2018 Zoster Vaccines Completed 10/05/2019, 07/25, 06/24/2019 Dexa Scan (General) Completed 04/19/2023, 04/19/2023, 03/31/2020 Meningococcal Vaccine Aged Out No bethel art eligible based on patient's age to complete this topic RSV Immunizations Under 20 Months Aged Out No longer eligible based on patient's age to complete this topic Procedures Procedure Name Priority Date/Time Associated Diagnosis Comments BONE DENSITY/DEXA Routine 04/19/2023 11: 08 AM CDT Asymptomatic menopausal state HEPATITIS C ANTIBODY Routine 04/10/2018 8:07 AM CDT from Last 3 Months or Most Recently Relevant to Health Maintenance Results * BONE DENSITY/DEXA (04/19/2023 11:08 AM CDT) Anatomical Region Laterality Modality Bone Bone Density 04/20/2023 4:01 AM CDT Impressions 04/20/2023 4:04 AM CDT IMPRESSION: WHO Classification: normal. Fracture risk: Not increased Referred By: RIZWANA GONZALEZ Interpreted By: Bubba Melgoza MD, 04/20/2023 4:01 AM Narrative 04/20/2023 4:04 AM CDT Examination: Bone Density Axial Exam Date/Time: 04/19/2023 10:37 AM Reason For Exam: ??asymptomatic menopausal state ?? Asymptomatic menopausal state Comparison: None Findings: ??DEXA bone densitometry ?The bone mineral density (BMD) was determined by dual-energy x-ray absorptiometry, the results are as follows: ?AP Lumbar Spine L1 through L4 ?BMD Patient (/[facility]): 1.406 ?T-Score (Standard deviations from young adult peak bone density): 3.3 ?Right femoral neck: ?BMD Patient (/[facility]): 0.787 ?T-Score (Standard deviations from young adult peak bone density): -0.6 ? Total Left femur: ?BMD Patient (/[facility]): 0.888 ? T-Score (Standard deviations from young adult peak bone density): -0.4 Recommendations: All patients should ensure an adequate intake of dietary calcium and vitamin D. The NOF recommend adults under the age of 50 need 1000 mg of calcium and 400-800 IU of vitamin D daily. Effective therapy for the prevention and treatment of osteoporosis include biphosphonates. Follow-up: People with diagnosed cases of osteoporosis or at high risk for fracture should have regular bone mineral density test. For patients eligible for Medicare, routine testing is allowed once every 2 years. Testing frequency can be increased to one year for patients who have rapidly progressing disease, those who are receiving or discontinuing medical therapy to restore bone mass, or have additional risk factors. Procedure Note Bubba Melgoza MD - 04/20/2023 Examination: Bone Density Axial Exam Date/Time: 04/19/2023 10:37 AM Reason For Exam: asymptomatic menopausal state Asymptomatic menopausal state Comparison: None Findings: DEXA bone densitometry The bone mineral density (BMD) was determined bydual-energy x-ray absorptiometry, the results are as follows: AP Lumbar Spine L1 through L4 BMD Patient (GM/SQCM): 1.406 T-Score (Standard deviations from young adult peak bonedensity): 3.3 Right femoral neck: BMD Patient (GM/SQCM): 0.787 T-Score (Standard deviations from young adult peak bonedensity): -0.6 Total Left femur: BMD Patient (GM/SQCM): 0.888 T-Score (Standard deviations from young adult peak bonedensity): -0.4 Recommendations: All patients should ensure an adequate intake of dietary calcium andvitamin D. The NOF recommend adults under the age of 50 need 1000 mg ofcalcium and 400-800 IU of vitamin D daily. Effective therapy for theprevention and treatment of osteoporosis include biphosphonates. Follow-up: People with diagnosed cases of osteoporosis or at high risk for fractureshould have regular bone mineral density test. For patients eligible forMedicare, routine testing is allowed once every 2 years. Testing frequencycan be increased to one year for patients who have rapidly progressingdisease, those who are receiving or discontinuing medical therapy torestore bone mass, or have additional risk factors. IMPRESSION: WHO Classification: normal. Fracture risk: Not increased Referred By: RIZWANA GONZALEZ Interpreted By: Bubba Melgoza MD, 04/20/2023 4:01 AM Rizwana Gonzalez MD DEXA Final Resu lt * HEPATITIS C ANTIBODY (04/10/2018 8:07 AM CDT) HEPATITIS C AB NON-REACTI VE NON-REACTI VE 04/10/2018 3:03 PM CDT [facility] SERUM OR PLASMA SPECIMEN / Unknown 04/10/2018 8:07 AM CDT 04/10/2018 8:08 AM CDT us Generic Conversion Md [facility] Final R esult [facility] [address] [place] [address], from Last 3 Months or Most Recently Relevant to Health Maintenance Insurance MEDICARE [facility] MEDICARE [facility] Care Teams Irrigation Equipment Remover Relationship Specialty Start Date End Date Rizwana Gonzalez MD [address] [facility] [address] [place] [address] PCP - General FAMILY PRACTICE 10/25/17 Kamaljit Dowell MD [facility]. [address] [place] [address] [place] Softball Player CARDIOVASCULAR DISEASE 11/15/17
--- OUTSIDE RECORDS SUMMARY | 2024-10-16 05:00 | XMS_ITS | Encounter Summary ---
Author Organization [facility] Address [address] [facility] [place] [address] Care Team Providers Care Billboard Poster Helper Name Role Phone Rizwana Thakkar MD Primary Care Provider + Encounter Details Date Type Department Care Team (Late st Contact Info) Description 09/28/2021 Lab Requisition [facility] [address] [facility] [place] [phone] Tomer Grey MD [address] [place] [address] Social History Tobacco Use Types Packs/Day Years Used Date Smoking Tobacco: Former Cigarettes Q uit: 07/27/2014 Smokeless Tobacco: Never Alcohol Use Standard Drinks/Week Comments No 0 (1 standard drink = 0.6 oz pur e alcohol) Sex and Gender Information Value Date Recorded Sex Assigned at Not on file Gender Identity Not on file Sexual Orientation Not on file documented as of this encounter Plan of Treatment Not on file documented as of this encounter Goals Goal Patient Goal Type Associated Problems Recent Progress Patient-Stated? Author Safety General On track( 018 9:32 AM BODY AND FRAME MAN) No Holli Loera RN Note: Expected end date: Ongoing Interventions: Your nurse will assess your risk for falls/injury each visit Use appropriate and safe transfer methods Medication Management General On track( 019 8:15 AM BODY AND FRAME MAN) No Holli Loera RN Note: Expected end date: Ongoing Interventions: Take all medications as prescribed Let your doctor know right away about any changes in your medications documented as of this encounter Procedures Procedure Name Priority Date/Time Associated Diagnosis Comments DERMATOPATHOLOGY Routine 09/27/2021 3:33 AM BODY AND FRAME MAN documented in this encounter Results * DERMATOPATHOLOGY (09/27/2021 3:33 AM BODY AND FRAME MAN) Case Report Dermatopathology Report ? Case: [id number] ? Authorizing Provider: ??Tomer Grey MD ?Collected: ? 09/27/2021 03:33 AM ? Ordering Location: ? [facility] ?Received: ?09/28/2021 06:13 AM ? Pathologist: ? Moon Hill MD ? Specimen: ?Skin, left shoulder ? 2 5:01 PM [facility] Final Diagnosis Specimen A. 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 Path # [id number]. 2 5:01 PM [facility] Gross Description Specimen A: Received is one formalin filled container labeled with the patient's name and designated left shoulder. The specimen consists of a shave biopsy measuring [id number]. Jar 0. 2 5:01 PM [facility]MAT[facility] Microscopic Description Specimen A. SKIN, left shoulder: Sections show nests, cords, and strands of cytologically bland melanocytes that mature with descent into the dermis. There are areas in which the melanocytes have a neuroid appearance. 2 5:01 PM [facility]ERMAT[facility]ORATORY Disclaimer An external and internal positive and negative controls are appropriate for the histochemical, immunohistochemical and immunofluorescence stain(s) in this case (if any), except where stated explicitly. The performance characteristics of the stain(s) cited in this report were developed and its performance characteristic determined by the Dermatopathology Laboratory at [facility], directed by Dr. Jasmin Hill. These tests need not be, and therefore are not, approved by the [place] Food and Drug Administration. The tests are used for clinical purposes. Billing Codes Specimen Charges Stain Charges 73820 1 2 5:01 PM [facility] Embedded Images 2 5:01 PM [facility] Pathology/Cytolo gy TISSUE SPECIMEN FROM SKIN / Unknown 09/27/2021 3:33 AM BODY AND FRAME MAN 09/28/2021 6:13 AM BODY AND FRAME MAN Tomer Grey MD LAB - PATHOLOGY/[facility]TO [facility] ORDERABLES DERMATOPATHOLOGY LABORATORY [facility] - Department of Dermatology [address] [phone] documented in this encounter Visit Diagnoses Not on filedocumented in this encounter Care Teams Billboard Poster Helper Relationship Specialty Start Date End Date Rizwana Thakkar MD [address] [place] [address] PCP - General 04/27/15 documented as of this encounter
--- OUTSIDE RECORDS SUMMARY | 2024-10-16 05:00 | XMS_ITS | Encounter Summary ---
Author Organization [facility] Address [address] [place] [address] Care Team Providers Care Sales Representative Aircraft Name Role Phone Rizwana Thakkar MD Primary Care Provider + Encounter Details Date Type Department Care Team (Late st Contact Info) Description 09/22/2019 Immunization [facility] [address] [place] [address] Deirdre Vu RN Social History Tobacco Use Types Packs/Day Years [...] Safety General On track( 018 9:32 AM LINE ORDERING CLINICIAN) No Koeper, Holli K., RN Note: Expected end date: Ongoing Interventions: Your nurse will assess your risk for falls/injury each visit Use appropriate and safe transfer methods Medication Management General On track( 019 8:15 AM LINE ORDERING CLINICIAN) No Holli Loera, RN Note: Expected end date: Ongoing Interventions: Take all medications as prescribed Let your doctor know right away about any changes in your medications documented as of this encounter Visit Diagnoses Not on filedocumented in this encounter Care Teams Sales Representative Aircraft Relationship Specialty Start Date End Date Rizwana Thakkar MD [address] [place] [address] PCP - General 04/27/15 documented as of this encounter
--- OUTSIDE RECORDS SUMMARY | 2024-10-16 05:00 | XMS_ITS | Referral Summary ---
Author Organization [facility] Address [address] [place] [address] Care Team Providers Care Wagon Washer Name Role Phone Rizwana Thakkar MD Primary Care Provider Rizwana Thakkar MD Unavailable [phone] Allergies Active Allergy Reactions Criticality Noted Date Comments Lorazepam Hallucinations Medium 07/16/2019 Gadobenate Dimeglumine Nausea only Low 07/06/2015 MRI Contrast-Patient became nauseated after Multihance injection. ??Not enough to stop the test MRI Contrast-Patient became nauseated after Multihance injection. ??Not enough to stop the test Lisinopril Cough,Other (See comments) Low 04/01/2015 COUGH COUGH Medications losartan (COZAAR) 100 mg tablet Take 1 tablet (100 mg total) by mouth every morning 3 9 Active MAGNESIUM ORAL Take 400 mg by mouth every morning Active ELIQUIS 5 mg tabletIndications :VTE Prophylaxis Take 1 tablet (5 mg total) by mouth 2 (two) times a day 9 Active clobetasoL (CLOBEX) 0.05 % shampoo APPLY TO AFFECTED AREA EVERY DAY 0 Active oxybutynin XL (DITROPAN-XL) 10 mg 24 hr tabletIndications :Bladder Hyperactivity Take 1 tablet (10 mg total) by mouth nightly 0 Active NIFEdipine (NIFEdipine CC) 60 mg 24 hr tabletIndications :for BP Take 1 tablet (60 mg total) by mouth nightly Active lipase/protease/a mylase (CREON ORAL) Take by mouth as needed Active vitamin b complex tablet Take 1 tablet by mouth nightly Active biotin 10,000 mcg capsule Take by mouth nightly Active ascorbic acid, vitamin C, (Vitamin C) 500 mg capsule, extended release CR capsule Take 1 capsule (500 mg total) by mouth nightly Active cholecalciferol (VITAMIN D-3) 25 mcg (1,000 unit) tablet Take 1 tablet (1,000 Units total) by mouth every other day Active diphenhydrAMINE-a cetaminophen (TYLENOL PM) 25-500 mg tablet Take 1 tablet by mouth as needed for sleep Active blood pressure test kit-large kit 1 Active nystatin-triamcin olone cream APPLY TO AFFECTED AREA TWICE A DAY 1 Active multivitamin tablet Take 1 tablet by mouth daily 8 Active albuterol HFA (PROVENTIL HFA,VENTOLIN HFA,PROAIR HFA) 90 mcg/actuation inhaler Inhale 2 puffs 1 Active nebivoloL (Bystolic) 2.5 mg tablet 1 Active omeprazole (PriLOSEC) 40 mg capsule TAKE 1 CAPSULE BY MOUTH 1 HOUR PRIOR TO LAST MEAL OF DAY ONCE PER DAY 1 Active furosemide (LASIX) 20 mg tablet TAKE 1 TAB BY MOUTH EVERY MORNING . 2 Active tiZANidine (ZANAFLEX) 2 mg tablet TAKE 1 TABLET BY MOUTH THREE TIMES A DAY NEEDED FOR MUSCLE SPASTICITY 2 Active hydroCHLOROthiazi de (HYDRODIURIL) 25 mg tablet Take 1 tablet (25 mg total) by mouth every morning 2 Active Active Problems Problem Noted Date Diagnosed Date Sensorineural hearing loss (SNHL) of both ears 0 05/31/2021 Chronic sore throat 05/31/2021 Ductal carcinoma in situ (DCIS) of left breast 0 09/29/2020 Abnormal mammography 08/24/2020 Posterior tibialis tendon insufficiency 08/06/20 20 Overview (08/06/2020): Added automatically from request for surgery [id number] Enthesopathy of hip region 04/02/2020 Primary localized osteoarthrosis of shoulder reg ion 04/02/2020 Osteoarthritis 04/02/2020 Knee pain 04/02/2020 Greater trochanteric bursitis of left hip 2018 Colon adenomas 02/04/2018 Overview (04/02/2020): 08/26/15 colonoscopy: multiple adenomas, one SSA removed. 11/07/18 colonoscopy: 2 non-adenomatous polyps removed, repeat in 5 years. Hypertension, essential 02/04/2018 Psoriasis 02/04/2018 Overview (04/02/2020): A bit in scalp at hairline. Obesity 02/04/2018 NAFLD (nonalcoholic fatty liver disease) 018 Overview (04/02/2020): 10/03/17 MRI: There is moderate diffuse hepatic steatosis without evidence of cirrhosis. No arterially-enhancing liver lesions are identified. A 9 mm hemangioma in segment 7 is unchanged. 03/11/18 Fibroscan CAP 279, E 7.2 kPa mcm DVT (deep venous thrombosis) (CMS/HCC) 8 Chronic deep vein thrombosis (DVT) of proximal vein of lower extremity 2017 Dyspnea on exertion 2017 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 Anemia 03/01/2015 Exocrine pancreatic insufficiency 02/28/2015 Acute pancreatitis 12/22/2014 Overview (04/02/2020): Severe acute necrotizing pancreatitis??s/p endoscopic necrosectomy, IR drains for fluid collections in 2013- at [facility]. DILIP neg, IgG4 wnls, TG 88. No strong family history of pancreatitis Possibly related to gallstone/debris Social History Tobacco Use Types Packs/Day Years Used Date Smoking Tobacco: Former Cigarettes 1 30.8 1 984 - 07/28/2014 Smokeless Tobacco: Never Tobacco Cessation:Counseling Given: No Alcohol Use Standard Drinks/Week Comments Yes 0 (1 standard drink = 0.6 oz pur e alcohol) rare Comments No Sex and Gender Information Value Date Recorded Sex Assigned at Not on file Legal Sex Female 2:53 AM [employer] Gender Identity Female 05/17/2021 10:12 AM CDT Sexual Orientation Not on file Last Filed Vital Signs Vital Sign Reading Time Taken Comments Blood Pressure 131/72 10/25/2020 11:40 AM [employer]KE K[employer]ER Pulse 80 10/25/2020 11:40 AM [employer]KE [employer]ER Temperature 36.8 ??C (98.2 ??F) 05/31/2021 1:57 PM CD T Respiratory Rate 9 10/25/2020 11:20 AM CAKE KNOCKER Oxygen Saturation 96% 10/25/2020 11:40 AM CAKE KN[employer]ER Inhaled Oxygen Concentration - - Weight 95.3 kg (210 lb) 05/29/2023 7:47 AM CDT Height 162.6 cm (5' 4 ) 05/29/2023 7:47 AM CDT Body Mass Index 36.05 05/29/2023 7:47 AM CDT Plan of Treatment Not on file Medical Devices Implanted Type Area Head Of Business Development Device Identifier Shelf Expiration Date Model / Serial / Lot Aneurysm Coils Aneurysm Coils Arterial Description:Multiple coils i n splenic artery Ivc Filter IVC Filter Heart Procedures Procedure Name Priority Date/Time Associated Diagnosis Comments SCREENING MAMMOGRAM BILATERAL W JORGE Schedule Routine, Read Routine (OP Routine) 06/02/2024 8:16 AM CDT Ductal carcinoma in situ (DCIS) of left breast Encounter for screening mammogram for malignant neoplasm of breast from Last 3 Months or Most Recently Relevant to Health Maintenance Results * Screening Mammogram Bilateral W Jorge (06/02/2024 8:16 AM CDT) Anatomical Region Laterality Modality Breast Bilateral Mammography Narrative 06/02/2024 3:48 PM CDT Mammogram Technique: Bilateral Digital Breast Tomosynthesis, Bilateral C-view 2D Screening mammogram. ??Views obtained: ??bilateral craniocaudal and bilateral mediolateral oblique. ??Computer Aided Detection was performed. Mammogram Findings: The present examination has been compared to prior imaging studies performed at [facility] on 05/24/2021, 05/30/2022 and 05/29/2023. There are scattered areas of fibroglandular density. There are post breast conservation therapy changes in the left breast. There is no suspicious abnormality in either breast. Impression: There is no mammographic evidence of malignancy. As this patient is over 75 years of age, further mammographic screening can be obtained as clinically indicated. OVERALL FINAL ASSESSMENT: BI-RADS CATEGORY 2: ??Benign. Procedure Note Ellen Torres MD - 06/02/2024 Mammogram Technique: Bilateral Digital Breast Tomosynthesis, Bilateral C-view 2D Screening mammogram. Views obtained: bilateral craniocaudal and bilateral mediolateral oblique. Computer Aided Detection was performed. Mammogram Findings: The present examination has been compared to prior imaging studies performed at [facility] on 05/24/2021, 05/30/2022 and 05/29/2023. There are scattered areas of fibroglandular density. There are post breast conservation therapy changes in the left breast. There is no suspicious abnormality in either breast. Impression: There is no mammographic evidence of malignancy. As this patient is over 75 years of age, further mammographic screeningcan be obtained as clinically indicated. OVERALL FINAL ASSESSMENT: BI-RADS CATEGORY 2: Benign. Re Dial MD IMG MAMMO PROCEDURES Fi nal Result from Last 3 Months or Most Recently Relevant to Health Maintenance Insurance MEDICARE [facility] [place] [address] [place] [address] [place] [address] MEDICARE [facility] MEDICARE [facility] [address] [facility] Advance Directives For more information, please contact: [phone] Documents on File Type Date Recorded Patient Online Merchandising Specialist Expl anation ADVANCE DIRECTIVE 10/22/2020 7:37 AM Care Teams Wagon Washer Relationship Specialty Start Date End Date Rizwana Thakkar MD [address] [place] [address] PCP - General 11/04/20 Rizwana Thakkar MD [address] [place] [address] Family Medicine 11/04/20
--- OUTSIDE RECORDS SUMMARY | 2024-10-16 05:00 | XMS_ITS | Patient Health Summary ---
Author Organization [facility] Address [address] 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 This disclosure is being madepursuant to the Care Everywhere program and may not contain all information available regarding this patient. Last updated 18.[facility] Allergies * Gadobenate(Nausea) -Low Criticality * Lisinopril(Other) -Low Criticality * Lorazepam(Shortness of Breath,Other) -High Criticality Medications * Be aware that medications may not be up to date on this document. Alwaysverify current medications with the patient. * ELIQUIS 5 MG tablet(Started 12/19/2017) Take 5 mg by mouth 2 times daily * ACETAMINOPHEN, ANALGESICS OTHER,(Started 09/28/2015) Take 650 mg by mouth * docusate sodium (COLACE) 100 MG capsule Take 100 mg by mouth once daily as needed twice a week * clobetasol propionate (CLOBEX) 0.05 % shampoo(Started 08/24/2018) Apply to affected area every 7 days * MAGNESIUM PO Take 250 mg by mouth once daily * metoprolol succinate XL 24hr (TOPROL XL) 25 MG tablet(Started 05/28/2019) 12.5 mg once daily * losartan (COZAAR) 100 MG tablet(Started 07/04/2019) once daily * hydroCHLOROthiazide (HYDRODIURIL) 25 MG tablet 12.5 mg every 24 hours * SUPER B COMPLEX/C PO Take by mouth at bedtime * Biotin 12517 MCG TABS * Ascorbic Acid (VITAMIN C) 500 MG Take by mouth at bedtime * VITAMIN D, ERGOCALCIFEROL, PO Take 1,000 mg by mouth * oxybutynin CR 24hr (DITROPAN-XL) 5 MG tablet(Started 07/05/2020) Take 5 mg by mouth once daily * pancrelipase (CREON) [id number] units capsule Take 1 capsule by mouth 3 times daily with meals Active Problems Problem Noted Date Diagnosed Date NAFLD (nonalcoholic fatty liver disease) 018 Hypertension 02/04/2018 Colon adenomas 02/04/2018 Obesity 02/04/2018 Psoriasis 02/04/2018 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 Anemia 03/01/2015 Exocrine pancreatic insufficiency 02/28/2015 DVT, bilateral lower limbs 02/28/2015 Acute pancreatitis 12/22/2014 Resolved Problems Problem Noted Date Diagnosed Date Resolved Date Cutaneous abscess 09/18/2015 02/04/2018 Abdominal pain 08/06/2015 02/04/2018 Gastrointestinal hemorrhage 02/28/2015 02/04/2018 Pseudoaneurysm 02/28/2015 02/04/2018 Hematemesis 02/08/2015 02/03/2018 Immunizations * DTaP VACCINE IM (6wk-6yrs)(Given 06/24/2019) * FLU VACCINE TRI IIV3 SPLIT PF IM (FLUVIRIN)(Given 08/07/2015) * HEP A VACCINE, ADULT(Given 07/25/2019, 06/24/2019) * HEP B VACCINE ADOL/ADULT 2 DOSE(Given 07/25/2019, 06/24/2019) * HIB-PRP-T 4 DOSE(Given 02/27/2015) * MENINGOCOCAL MENINGITIS(Given 02/27/2015) * Zoster Hzv Vacc Recombinant Inj Im(Given 06/24/2019) Social History Tobacco Use Types Packs/Day Years [...] CDT Respiratory Rate 18 09/05/2019 8:03 AM 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 Oxygen Saturation 96% 07/16/2020 11: 04 AM CDT Inhaled Oxygen Concentration - - Weight 100.9 kg (222 lb 6.4 oz) 020 11:04 AM CDT Height 162.6 cm (5' 4 ) 07/16/2020 11:0 4 AM CDT Body Mass Index 38.17 07/16/2020 11:04 AM CDT Procedures * DERMATOPATHOLOGY(Performed 09/27/2021) * COMP MET PANEL (EXTERNAL RESULT ENTRY)(Performed 02/11/2019) * COMP MET PANEL (EXTERNAL RESULT ENTRY)(Performed 02/11/2019) * PATHOLOGY TISSUE(Performed 11/07/2018) Performed for History of colon polyps * COLONOSCOPY DIAGNOSTIC(Performed 11/07/2018) Performed for History of colon polyps * ENDOSCOPY, COLON, SCREENING(Performed 11/07/2018) * LIPID PROFILE (EXTERAL RESULT ENTRY)(Performed 04/10/2018) * IRON/SATURATION (EXTERNAL RESULT ENTRY)(Performed 04/10/2018) * COMP MET PANEL (EXTERNAL RESULT ENTRY)(Performed 04/10/2018) * ND LIVER ELASTOGRAPHY(Performed 03/20/2018) Performed for NAFLD (nonalcoholic fatty liver disease) * PROC FIBROSCAN(Performed 03/11/2018) Performed for NAFLD (nonalcoholic fatty liver disease) * MRI ABDOMEN W MRCP WWO CONT W3D(Performed 10/03/2017) * CREATININE BLOOD - POCT (IP) SL[facility](Performed 10/03/2017) * VITAMIN B12(Performed 08/29/2016) * VITAMIN K1(Performed 08/29/2016) * VITAMIN E(Performed 08/29/2016) * VITAMIN D 25-HYDROXY D2+D3(Performed 08/29/2016) * VITAMIN A(Performed 08/29/2016) * MRI PELVIS WWO CONTRAST(Performed 07/31/2016) * MRI ABDOMEN WWO CONTRAST(Performed 07/31/2016) * CREATININE BLOOD - POCT (IP) [facility](Performed 07/31/2016) * IR CHOLANGIOGRAM(Performed 01/11/2016) * IR BILIARY DRAIN REMOVE(Performed 01/11/2016) * IR BILIARY DRAIN CATH EXCHANGE(Performed 12/09/2015) * IR CHOLANGIOGRAM(Performed 12/09/2015) * IR DRAIN W CATH PLACEMENT(Performed 11/19/2015) * MRI PELVIS WWO CONTRAST(Performed 11/08/2015) * MRI ABDOMEN WWO CONTRAST(Performed 11/08/2015) * CREATININE BLOOD - POCT (IP) [facility](Performed 11/08/2015) * PATHOLOGY TISSUE(Performed 10/04/2015) * CULTURE AEROBIC(Performed 10/04/2015) * TYPE + SCREEN PANEL(Performed 10/04/2015) * BASIC METABOLIC PANEL (CALCIUM TOTAL)(Performed 09/28/2015) * CBC W AUTO DIFFERENTIAL(Performed 09/28/2015) * CBC W AUTO DIFFERENTIAL(Performed 09/28/2015) * US ABDOMEN LIMITED(Performed 09/27/2015) * BASIC METABOLIC PANEL (CALCIUM TOTAL)(Performed 09/27/2015) * CBC W AUTO DIFFERENTIAL(Performed 09/27/2015) * CBC W AUTO DIFFERENTIAL(Performed 09/27/2015) * CULTURE BLOOD(Performed 09/26/2015) * CULTURE BLOOD(Performed 09/26/2015) * PT-INR [facility](Performed 09/26/2015) * LIPASE BLOOD(Performed 09/26/2015) * COMPREHENSIVE METABOLIC PANEL(Performed 09/26/2015) * LACTIC ACID BLOOD(Performed 09/26/2015) * CBC W AUTO DIFFERENTIAL(Performed 09/26/2015) * CBC W AUTO DIFFERENTIAL(Performed 09/26/2015) * PT-INR [facility](Performed 09/20/2015) * COMPREHENSIVE METABOLIC PANEL(Performed 09/20/2015) * CBC W AUTO DIFFERENTIAL(Performed 09/20/2015) * CBC W AUTO DIFFERENTIAL(Performed 09/20/2015) * CULTURE BLOOD(Performed 09/19/2015) * CULTURE BLOOD(Performed 09/19/2015) * PT-INR [facility](Performed 09/19/2015) * COMPREHENSIVE METABOLIC PANEL(Performed 09/19/2015) * CBC W AUTO DIFFERENTIAL(Performed 09/19/2015) * CBC W AUTO DIFFERENTIAL(Performed 09/19/2015) * DIFFERENTIAL MANUAL FLUID(Performed 09/18/2015) * CELL COUNT W DIFFERENTIAL FLUID(Performed 09/18/2015) * CELL COUNT FLUID(Performed 09/18/2015) * CULTURE AEROBIC(Performed 09/18/2015) * CULTURE ANAEROBE(Performed 09/18/2015) * CT GUIDED NEEDLE PLACEMENT(Performed 09/18/2015) * CT GUIDED NEEDLE PLACEMENT(Performed 09/18/2015) * URINALYSIS W/MICROSCOPIC NO CULTURE(Performed 09/18/2015) * CT ABDOMEN PELVIS W CONTRAST(Performed 09/18/2015) * PTT [facility](Performed 09/18/2015) * PT-INR [facility](Performed 09/18/2015) * LIPASE BLOOD(Performed 09/18/2015) * COMPREHENSIVE METABOLIC PANEL(Performed 09/18/2015) * LACTIC ACID BLOOD(Performed 09/18/2015) * CBC W AUTO DIFFERENTIAL(Performed 09/18/2015) * CBC W AUTO DIFFERENTIAL(Performed 09/18/2015) * MRI ABDOMEN WWO CONTRAST(Performed 09/01/2015) * MRI PELVIS WWO CONTRAST(Performed 09/01/2015) * PATHOLOGY TISSUE(Performed 08/26/2015) * AMYLASE BLOOD(Performed 08/13/2015) * LIPASE BLOOD(Performed 08/13/2015) * COMPREHENSIVE METABOLIC PANEL(Performed 08/13/2015) * CBC W AUTO DIFFERENTIAL(Performed 08/13/2015) * PANCREATIC ELASTASE FECES(Performed 08/07/2015) * FAT QUALITATIVE FECES RANDOM(Performed 08/07/2015) * PHOSPHORUS BLOOD(Performed 08/07/2015) * MAGNESIUM BLOOD(Performed 08/07/2015) * HEPATIC FUNCTION PANEL(Performed 08/07/2015) * BASIC METABOLIC PANEL (CALCIUM TOTAL)(Performed 08/07/2015) * CBC W AUTO DIFFERENTIAL(Performed 08/07/2015) * CBC W AUTO DIFFERENTIAL(Performed 08/07/2015) * CULTURE URINE(Performed 08/07/2015) * URINALYSIS NO MICROSCOPIC NO CULTURE(Performed 08/07/2015) * SODIUM URINE RANDOM(Performed 08/07/2015) * CREATININE URINE RANDOM(Performed 08/07/2015) * LIPASE BLOOD(Performed 08/06/2015) * VITAMIN A(Performed 08/06/2015) * VITAMIN E(Performed 08/06/2015) * VITAMIN B12(Performed 08/06/2015) * VITAMIN D 25-HYDROXY(Performed 08/06/2015) * FERRITIN(Performed 08/06/2015) * TRANSFERRIN(Performed 08/06/2015) * IRON BLOOD(Performed 08/06/2015) * PTH INTACT W/O CALCIUM(Performed 08/06/2015) * CBC W AUTO DIFFERENTIAL(Performed 08/06/2015) * CBC W AUTO DIFFERENTIAL(Performed 08/06/2015) * COMPREHENSIVE METABOLIC PANEL(Performed 08/06/2015) * PT-INR [facility](Performed 08/06/2015) * MRI PELVIS WWO CONTRAST(Performed 07/06/2015) * MRI ABDOMEN WWO CONTRAST(Performed 07/06/2015) * IR FISTULA OR SINUS TRACT STUDY(Performed 06/22/2015) * IR FISTULA OR SINUS TRACT STUDY(Performed 06/22/2015) * BASIC METABOLIC PANEL (CALCIUM TOTAL)(Performed 06/22/2015) * PTT [facility](Performed 06/22/2015) * PT-INR [facility](Performed 06/22/2015) * CBC W AUTO DIFFERENTIAL(Performed 06/22/2015) * CBC W AUTO DIFFERENTIAL(Performed 06/22/2015) * MRI ABDOMEN WWO CONTRAST(Performed 06/08/2015) * MRI PELVIS WWO CONTRAST(Performed 06/08/2015) * IR FISTULA OR SINUS TRACT STUDY(Performed 05/21/2015) * IR FISTULA OR SINUS TRACT STUDY(Performed 05/21/2015) * MRI PELVIS WWO CONTRAST(Performed 05/19/2015) * MRI ABDOMEN WWO CONTRAST(Performed 05/19/2015) * CREATININE BLOOD - POCT (IP) [facility](Performed 05/19/2015) * CT DRAIN W CATH PLACEMENT(Performed 05/14/2015) * CT LIMITED FOLLOWUP STUDY(Performed 05/14/2015) * CT DRAIN W CATH PLACEMENT(Performed 05/14/2015) * IR FISTULA OR SINUS TRACT STUDY(Performed 05/14/2015) * IR FISTULA OR SINUS TRACT STUDY(Performed 05/14/2015) * CT LIMITED FOLLOWUP STUDY(Performed 05/14/2015) * MRI PELVIS WWO CONTRAST(Performed 04/13/2015) * MRI ABDOMEN WWO CONTRAST(Performed 04/13/2015) * CREATININE BLOOD - POCT (IP) [facility](Performed 04/13/2015) * IR FISTULA OR SINUS TRACT STUDY(Performed 04/08/2015) * IR FISTULA OR SINUS TRACT STUDY(Performed 04/08/2015) * CBC W AUTO DIFFERENTIAL(Performed 04/01/2015) * CBC W AUTO DIFFERENTIAL(Performed 04/01/2015) * IR PERC DRAINAGE CATH EXCHANGE(Performed 04/01/2015) * IR PERC DRAINAGE CATH EXCHANGE(Performed 04/01/2015) * CT DRAIN W CATH PLACEMENT(Performed 03/16/2015) * CULTURE AFB+SMEAR(Performed 03/16/2015) * CULTURE FUNGUS OTHER+FUNGUS SMEAR(Performed 03/16/2015) * CULTURE ANAEROBE(Performed 03/16/2015) * CULTURE AEROBIC(Performed 03/16/2015) * PTT [facility](Performed 03/16/2015) * PT-INR [facility](Performed 03/16/2015) * MRI PELVIS WWO CONTRAST(Performed 03/12/2015) * MRI ABDOMEN WWO CONTRAST(Performed 03/12/2015) * GLUCOSE ACCUCHECK(Performed 03/08/2015) * CT GUIDED NEEDLE PLACEMENT(Performed 03/08/2015) * CT FISTULA OR SINUS TRACT(Performed 03/08/2015) * GLUCOSE ACCUCHECK(Performed 03/08/2015) * PTT [facility](Performed 03/08/2015) * PT-INR [facility](Performed 03/08/2015) * GLUCOSE ACCUCHECK(Performed 03/08/2015) * CBC W/O DIFFERENTIAL(Performed 03/08/2015) * GLUCOSE ACCUCHECK(Performed 03/07/2015) * GLUCOSE ACCUCHECK(Performed 03/07/2015) * GLUCOSE ACCUCHECK(Performed 03/07/2015) * PHOSPHORUS BLOOD(Performed 03/07/2015) * MAGNESIUM BLOOD(Performed 03/07/2015) * COMPREHENSIVE METABOLIC PANEL(Performed 03/07/2015) * PTT [facility](Performed 03/07/2015) * PT-INR [facility](Performed 03/07/2015) * CBC W/O DIFFERENTIAL(Performed 03/07/2015) * GLUCOSE ACCUCHECK(Performed 03/07/2015) * GLUCOSE ACCUCHECK(Performed 03/06/2015) * GLUCOSE ACCUCHECK(Performed 03/06/2015) * GLUCOSE ACCUCHECK(Performed 03/06/2015) * GLUCOSE ACCUCHECK(Performed 03/06/2015) * PHOSPHORUS BLOOD(Performed 03/06/2015) * MAGNESIUM BLOOD(Performed 03/06/2015) * COMPREHENSIVE METABOLIC PANEL(Performed 03/06/2015) * PTT [facility](Performed 03/06/2015) * PT-INR [facility](Performed 03/06/2015) * CBC W/O DIFFERENTIAL(Performed 03/06/2015) * GLUCOSE ACCUCHECK(Performed 03/05/2015) * GLUCOSE ACCUCHECK(Performed 03/05/2015) * CT ABDOMEN WO CONTRAST(Performed 03/05/2015) * PTT [facility](Performed 03/05/2015) * PT-INR [facility](Performed 03/05/2015) * GLUCOSE ACCUCHECK(Performed 03/05/2015) * GLUCOSE ACCUCHECK(Performed 03/05/2015) * PHOSPHORUS BLOOD(Performed 03/05/2015) * MAGNESIUM BLOOD(Performed 03/05/2015) * COMPREHENSIVE METABOLIC PANEL(Performed 03/05/2015) * PTT [facility](Performed 03/05/2015) * CBC W/O DIFFERENTIAL(Performed 03/05/2015) * PTT [facility](Performed 03/04/2015) * GLUCOSE ACCUCHECK(Performed 03/04/2015) * PTT [facility](Performed 03/04/2015) * GLUCOSE ACCUCHECK(Performed 03/04/2015) * PTT [facility](Performed 03/04/2015) * GLUCOSE ACCUCHECK(Performed 03/04/2015) * GLUCOSE ACCUCHECK(Performed 03/04/2015) * PHOSPHORUS BLOOD(Performed 03/04/2015) * MAGNESIUM BLOOD(Performed 03/04/2015) * COMPREHENSIVE METABOLIC PANEL(Performed 03/04/2015) * CBC W/O DIFFERENTIAL(Performed 03/04/2015) * PT-INR [facility](Performed 03/04/2015) * PTT [facility](Performed 03/04/2015) * GLUCOSE ACCUCHECK(Performed 03/03/2015) * PTT [facility](Performed 03/03/2015) * GLUCOSE ACCUCHECK(Performed 03/03/2015) * GLUCOSE ACCUCHECK(Performed 03/03/2015) * PTT [facility](Performed 03/03/2015) * GLUCOSE ACCUCHECK(Performed 03/03/2015) * PTT [facility](Performed 03/02/2015) * GLUCOSE ACCUCHECK(Performed 03/02/2015) * GLUCOSE ACCUCHECK(Performed 03/02/2015) * VAS BILATERAL VENOUS DUPLEX LE(Performed 03/02/2015) * GLUCOSE ACCUCHECK(Performed 03/02/2015) * GLUCOSE ACCUCHECK(Performed 03/02/2015) * PHOSPHORUS BLOOD(Performed 03/02/2015) * MAGNESIUM BLOOD(Performed 03/02/2015) * COMPREHENSIVE METABOLIC PANEL(Performed 03/02/2015) * PT-INR [facility](Performed 03/02/2015) * CBC W/O DIFFERENTIAL(Performed 03/02/2015) * GLUCOSE ACCUCHECK(Performed 03/01/2015) * GLUCOSE ACCUCHECK(Performed 03/01/2015) * GLUCOSE ACCUCHECK(Performed 03/01/2015) * GLUCOSE ACCUCHECK(Performed 03/01/2015) * COMPREHENSIVE METABOLIC PANEL(Performed 03/01/2015) * PHOSPHORUS BLOOD(Performed 03/01/2015) * MAGNESIUM BLOOD(Performed 03/01/2015) * PT-INR [facility](Performed 03/01/2015) * CBC W/O DIFFERENTIAL(Performed 03/01/2015) * GLUCOSE ACCUCHECK(Performed 02/28/2015) * GLUCOSE ACCUCHECK(Performed 02/28/2015) * CBC W/O DIFFERENTIAL(Performed 02/28/2015) * GLUCOSE ACCUCHECK(Performed 02/28/2015) * CBC W AUTO DIFFERENTIAL(Performed 02/28/2015) * CBC W AUTO DIFFERENTIAL(Performed 02/28/2015) * GLUCOSE ACCUCHECK(Performed 02/28/2015) * CBC W/O DIFFERENTIAL(Performed 02/28/2015) * COMPREHENSIVE METABOLIC PANEL(Performed 02/28/2015) * MAGNESIUM BLOOD(Performed 02/28/2015) * PHOSPHORUS BLOOD(Performed 02/28/2015) * TROPONIN I(Performed 02/28/2015) * PT-INR [facility](Performed 02/28/2015) * GLUCOSE ACCUCHECK(Performed 02/27/2015) * TROPONIN I(Performed 02/27/2015) * CBC W/O DIFFERENTIAL(Performed 02/27/2015) * GLUCOSE ACCUCHECK(Performed 02/27/2015) * TROPONIN I(Performed 02/27/2015) * CBC W/O DIFFERENTIAL(Performed 02/27/2015) * GLUCOSE ACCUCHECK(Performed 02/27/2015) * CBC W/O DIFFERENTIAL(Performed 02/27/2015) * TROPONIN I(Performed 02/27/2015) * PHOSPHORUS BLOOD(Performed 02/27/2015) * MAGNESIUM BLOOD(Performed 02/27/2015) * PT-INR [facility](Performed 02/27/2015) * COMPREHENSIVE METABOLIC PANEL(Performed 02/27/2015) * IR ANGIO EXTREMITY PROCEDURAL CODE(Performed 02/26/2015) * IR IVC FILTER PLACEMENT(Performed 02/26/2015) * IR EMBOLIZATION TRANSCATH THPY(Performed 02/26/2015) * IR US GUIDE VASCULAR ACCESS(Performed 02/26/2015) * IR US GUIDE VASCULAR ACCESS(Performed 02/26/2015) * IR VISCERAL ANGIO(Performed 02/26/2015) * IR CAROTID CEREBRAL ANGIOGRAM(Performed 02/26/2015) * VAS BILATERAL VENOUS DUPLEX LE(Performed 02/26/2015) * GLUCOSE ACCUCHECK(Performed 02/26/2015) * TROPONIN I(Performed 02/26/2015) * CBC W/O DIFFERENTIAL(Performed 02/26/2015) * CT ABDOMEN PELVIS W CONTRAST(Performed 02/26/2015) * COMPREHENSIVE METABOLIC PANEL(Performed 02/26/2015) * PHOSPHORUS BLOOD(Performed 02/26/2015) * MAGNESIUM BLOOD(Performed 02/26/2015) * TROPONIN I(Performed 02/26/2015) * PT-INR [facility](Performed 02/26/2015) * CBC W/O DIFFERENTIAL(Performed 02/26/2015) * CROSSMATCH RBC LEUKOREDUCED(Performed 02/25/2015) * CULTURE BLOOD(Performed 02/25/2015) * TYPE + SCREEN PANEL(Performed 02/25/2015) * GLUCOSE ACCUCHECK(Performed 02/25/2015) * URINALYSIS W/MICROSCOPIC NO CULTURE(Performed 02/25/2015) * CULTURE BLOOD(Performed 02/25/2015) * MAGNESIUM BLOOD(Performed 02/25/2015) * COMPREHENSIVE METABOLIC PANEL(Performed 02/25/2015) * TROPONIN I(Performed 02/25/2015) * CK + CKMB PANEL(Performed 02/25/2015) * LIPID PROFILE(Performed 02/25/2015) * PHOSPHORUS BLOOD(Performed 02/25/2015) * AMYLASE BLOOD(Performed 02/25/2015) * LIPASE BLOOD(Performed 02/25/2015) * LACTIC ACID BLOOD(Performed 02/25/2015) * PTT [facility](Performed 02/25/2015) * PT-INR [facility](Performed 02/25/2015) * CBC W AUTO DIFFERENTIAL(Performed 02/25/2015) * CBC W AUTO DIFFERENTIAL(Performed 02/25/2015) * XR CHEST 1VW PORTABLE(Performed 02/25/2015) * ECHO COMPLETE(Performed 02/25/2015) * GLUCOSE ACCUCHECK(Performed 02/12/2015) * PHOSPHORUS BLOOD(Performed 02/12/2015) * MAGNESIUM BLOOD(Performed 02/12/2015) * COMPREHENSIVE METABOLIC PANEL(Performed 02/12/2015) * CBC W AUTO DIFFERENTIAL(Performed 02/12/2015) * CBC W AUTO DIFFERENTIAL(Performed 02/12/2015) * GLUCOSE ACCUCHECK(Performed 02/11/2015) * CBC W/O DIFFERENTIAL(Performed 02/11/2015) * GLUCOSE ACCUCHECK(Performed 02/11/2015) * GLUCOSE ACCUCHECK(Performed 02/11/2015) * CBC W/O DIFFERENTIAL(Performed 02/11/2015) * GLUCOSE ACCUCHECK(Performed 02/11/2015) * CBC W AUTO DIFFERENTIAL(Performed 02/11/2015) * DIFFERENTIAL MANUAL(Performed 02/11/2015) * PHOSPHORUS BLOOD(Performed 02/11/2015) * MAGNESIUM BLOOD(Performed 02/11/2015) * COMPREHENSIVE METABOLIC PANEL(Performed 02/11/2015) * CBC W AUTO DIFFERENTIAL(Performed 02/11/2015) * CBC W/O DIFFERENTIAL(Performed 02/10/2015) * GLUCOSE ACCUCHECK(Performed 02/10/2015) * GLUCOSE ACCUCHECK(Performed 02/10/2015) * GLUCOSE ACCUCHECK(Performed 02/10/2015) * CBC W/O DIFFERENTIAL(Performed 02/10/2015) * GLUCOSE ACCUCHECK(Performed 02/10/2015) * CBC W AUTO DIFFERENTIAL(Performed 02/10/2015) * CBC W AUTO DIFFERENTIAL(Performed 02/10/2015) * PHOSPHORUS BLOOD(Performed 02/10/2015) * COMPREHENSIVE METABOLIC PANEL(Performed 02/10/2015) * CBC W/O DIFFERENTIAL(Performed 02/10/2015) * MAGNESIUM BLOOD(Performed 02/10/2015) * GLUCOSE ACCUCHECK(Performed 02/09/2015) * CBC W/O DIFFERENTIAL(Performed 02/09/2015) * CBC W/O DIFFERENTIAL(Performed 02/09/2015) * GLUCOSE ACCUCHECK(Performed 02/09/2015) * GLUCOSE ACCUCHECK(Performed 02/09/2015) * COMPREHENSIVE METABOLIC PANEL(Performed 02/09/2015) * PHOSPHORUS BLOOD(Performed 02/09/2015) * MAGNESIUM BLOOD(Performed 02/09/2015) * CBC W/O DIFFERENTIAL(Performed 02/09/2015) * CT FISTULA OR SINUS TRACT(Performed 02/09/2015) * CT FISTULA OR SINUS TRACT(Performed 02/09/2015) * CBC W/O DIFFERENTIAL(Performed 02/09/2015) * COMPREHENSIVE METABOLIC PANEL(Performed 02/09/2015) * PHOSPHORUS BLOOD(Performed 02/09/2015) * MAGNESIUM BLOOD(Performed 02/09/2015) * CBC W AUTO DIFFERENTIAL(Performed 02/09/2015) * CBC W AUTO DIFFERENTIAL(Performed 02/09/2015) * CBC W/O DIFFERENTIAL(Performed 02/08/2015) * CBC W/O DIFFERENTIAL(Performed 02/08/2015) * XR CHEST 1VW PORTABLE(Performed 02/08/2015) * CBC W AUTO DIFFERENTIAL(Performed 02/08/2015) * DIFFERENTIAL MANUAL(Performed 02/08/2015) * CK + CKMB PANEL(Performed 02/08/2015) * TROPONIN I(Performed 02/08/2015) * COMPREHENSIVE METABOLIC PANEL(Performed 02/08/2015) * LACTIC ACID BLOOD(Performed 02/08/2015) * PTT [facility](Performed 02/08/2015) * CBC W AUTO DIFFERENTIAL(Performed 02/08/2015) * PT-INR [facility](Performed 02/08/2015) * XR CHEST 1VW PORTABLE(Performed 02/08/2015) * CROSSMATCH RBC LEUKOREDUCED(Performed 02/08/2015) * TYPE + SCREEN PANEL(Performed 02/08/2015) * GLUCOSE ACCUCHECK(Performed 02/08/2015) * COMPREHENSIVE METABOLIC PANEL(Performed 02/08/2015) * DIFFERENTIAL MANUAL(Performed 02/08/2015) * CBC W AUTO DIFFERENTIAL(Performed 02/08/2015) * CBC W AUTO DIFFERENTIAL(Performed 02/08/2015) * PT-INR [facility](Performed 02/08/2015) * PHOSPHORUS BLOOD(Performed 02/08/2015) * MAGNESIUM BLOOD(Performed 02/08/2015) * COMPREHENSIVE METABOLIC PANEL(Performed 02/08/2015) * CBC W AUTO DIFFERENTIAL(Performed 02/08/2015) * CBC W AUTO DIFFERENTIAL(Performed 02/08/2015) * EKG 12-LEAD(Performed 02/08/2015) * PHOSPHORUS BLOOD(Performed 02/07/2015) * MAGNESIUM BLOOD(Performed 02/07/2015) * COMPREHENSIVE METABOLIC PANEL(Performed 02/07/2015) * CBC W AUTO DIFFERENTIAL(Performed 02/07/2015) * CBC W AUTO DIFFERENTIAL(Performed 02/07/2015) * MRI ABDOMEN WWO CONTRAST(Performed 02/06/2015) * CULTURE BLOOD(Performed 02/06/2015) * LIPASE BLOOD(Performed 02/06/2015) * AMYLASE BLOOD(Performed 02/06/2015) * PHOSPHORUS BLOOD(Performed 02/06/2015) * MAGNESIUM BLOOD(Performed 02/06/2015) * COMPREHENSIVE METABOLIC PANEL(Performed 02/06/2015) * CBC W AUTO DIFFERENTIAL(Performed 02/06/2015) * CBC W AUTO DIFFERENTIAL(Performed 02/06/2015) * CULTURE BLOOD(Performed 02/06/2015) * URINALYSIS REFLEX TO MICROSCOPIC NO CULTURE(Performed 02/05/2015) * DIFFERENTIAL MANUAL(Performed 02/05/2015) * CBC W AUTO DIFFERENTIAL(Performed 02/05/2015) * LIPASE BLOOD(Performed 02/05/2015) * COMPREHENSIVE METABOLIC PANEL(Performed 02/05/2015) * CBC W AUTO DIFFERENTIAL(Performed 02/05/2015) * CT ABDOMEN PELVIS WO CONTRAST(Performed 02/05/2015) * IR PERC DRAINAGE CATH EXCHANGE(Performed 01/25/2015) * IR PERC DRAINAGE CATH EXCHANGE(Performed 01/25/2015) * IR PERC DRAINAGE CATH EXCHANGE(Performed 01/25/2015) * IR PERC DRAINAGE CATH EXCHANGE(Performed 01/25/2015) * COMPREHENSIVE METABOLIC PANEL(Performed 01/25/2015) * CBC W AUTO DIFFERENTIAL(Performed 01/25/2015) * CBC W AUTO DIFFERENTIAL(Performed 01/25/2015) * MRI ABDOMEN WWO CONTRAST(Performed 01/18/2015) * CBC W AUTO DIFFERENTIAL(Performed 01/08/2015) * RBC MORPHOLOGY(Performed 01/08/2015) * COMPREHENSIVE METABOLIC PANEL(Performed 01/08/2015) * CBC W AUTO DIFFERENTIAL(Performed 01/08/2015) * CBC W AUTO DIFFERENTIAL(Performed 01/07/2015) * RBC MORPHOLOGY(Performed 01/07/2015) * COMPREHENSIVE METABOLIC PANEL(Performed 01/07/2015) * CBC W AUTO DIFFERENTIAL(Performed 01/07/2015) * MAGNESIUM BLOOD(Performed 01/06/2015) * RBC MORPHOLOGY(Performed 01/06/2015) * CBC W AUTO DIFFERENTIAL(Performed 01/06/2015) * COMPREHENSIVE METABOLIC PANEL(Performed 01/06/2015) * CBC W AUTO DIFFERENTIAL(Performed 01/06/2015) * GLUCOSE ACCUCHECK(Performed 01/05/2015) * RBC MORPHOLOGY(Performed 01/05/2015) * CBC W AUTO DIFFERENTIAL(Performed 01/05/2015) * CBC W AUTO DIFFERENTIAL(Performed 01/05/2015) * COMPREHENSIVE METABOLIC PANEL(Performed 01/05/2015) * GLUCOSE ACCUCHECK(Performed 01/04/2015) * GLUCOSE ACCUCHECK(Performed 01/04/2015) * GLUCOSE ACCUCHECK(Performed 01/04/2015) * GLUCOSE ACCUCHECK(Performed 01/04/2015) * COMPREHENSIVE METABOLIC PANEL(Performed 01/04/2015) * CBC W AUTO DIFFERENTIAL(Performed 01/04/2015) * CBC W AUTO DIFFERENTIAL(Performed 01/04/2015) * GLUCOSE ACCUCHECK(Performed 01/03/2015) * GLUCOSE ACCUCHECK(Performed 01/03/2015) * GLUCOSE ACCUCHECK(Performed 01/03/2015) * CT DRAIN W CATH PLACEMENT(Performed 01/03/2015) * CULTURE AFB+SMEAR(Performed 01/03/2015) * CULTURE FUNGUS OTHER+FUNGUS SMEAR(Performed 01/03/2015) * CULTURE CYTOMEGALOVIRUS(Performed 01/03/2015) * CULTURE ANAEROBE(Performed 01/03/2015) * CULTURE AEROBIC(Performed 01/03/2015) * BLOOD GASES ARTERIAL(Performed 01/03/2015) * GLUCOSE ACCUCHECK(Performed 01/03/2015) * CBC W AUTO DIFFERENTIAL(Performed 01/03/2015) * DIFFERENTIAL MANUAL(Performed 01/03/2015) * COMPREHENSIVE METABOLIC PANEL(Performed 01/03/2015) * CBC W AUTO DIFFERENTIAL(Performed 01/03/2015) * GLUCOSE ACCUCHECK(Performed 01/02/2015) * CBC W AUTO DIFFERENTIAL(Performed 01/02/2015) * CBC W AUTO DIFFERENTIAL(Performed 01/02/2015) * GLUCOSE ACCUCHECK(Performed 01/02/2015) * GLUCOSE ACCUCHECK(Performed 01/02/2015) * GLUCOSE ACCUCHECK(Performed 01/02/2015) * CULTURE BLOOD(Performed 01/02/2015) * CULTURE BLOOD(Performed 01/02/2015) * DIFFERENTIAL MANUAL(Performed 01/02/2015) * CBC W AUTO DIFFERENTIAL(Performed 01/02/2015) * CBC W AUTO DIFFERENTIAL(Performed 01/02/2015) * COMPREHENSIVE METABOLIC PANEL(Performed 01/02/2015) * CBC W/O DIFFERENTIAL(Performed 01/01/2015) * GLUCOSE ACCUCHECK(Performed 01/01/2015) * GLUCOSE ACCUCHECK(Performed 01/01/2015) * GLUCOSE ACCUCHECK(Performed 01/01/2015) * CROSSMATCH RBC LEUKOREDUCED(Performed 01/01/2015) * CROSSMATCH RBC LEUKOREDUCED(Performed 01/01/2015) * CROSSMATCH RBC LEUKOREDUCED(Performed 01/01/2015) * TYPE + SCREEN PANEL(Performed 01/01/2015) * GLUCOSE ACCUCHECK(Performed 01/01/2015) * CBC W AUTO DIFFERENTIAL(Performed 01/01/2015) * DIFFERENTIAL MANUAL(Performed 01/01/2015) * COMPREHENSIVE METABOLIC PANEL(Performed 01/01/2015) * CBC W AUTO DIFFERENTIAL(Performed 01/01/2015) * GLUCOSE ACCUCHECK(Performed 12/31/2014) * GLUCOSE ACCUCHECK(Performed 12/31/2014) * XR CHEST 1VW PORTABLE(Performed 12/31/2014) * DIFFERENTIAL MANUAL(Performed 12/31/2014) * CBC W AUTO DIFFERENTIAL(Performed 12/31/2014) * CBC W AUTO DIFFERENTIAL(Performed 12/31/2014) * PT-INR SLH(Performed 12/31/2014) * COMPREHENSIVE METABOLIC PANEL(Performed 12/31/2014) * GLUCOSE ACCUCHECK(Performed 12/31/2014) * GLUCOSE ACCUCHECK(Performed 12/30/2014) * GLUCOSE ACCUCHECK(Performed 12/30/2014) * GLUCOSE ACCUCHECK(Performed 12/30/2014) * GLUCOSE ACCUCHECK(Performed 12/30/2014) * COMPREHENSIVE METABOLIC PANEL(Performed 12/30/2014) * CBC W AUTO DIFFERENTIAL(Performed 12/30/2014) * CBC W AUTO DIFFERENTIAL(Performed 12/30/2014) * GLUCOSE ACCUCHECK(Performed 12/29/2014) * GLUCOSE ACCUCHECK(Performed 12/29/2014) * GLUCOSE ACCUCHECK(Performed 12/29/2014) * GLUCOSE ACCUCHECK(Performed 12/29/2014) * CBC W AUTO DIFFERENTIAL(Performed 12/29/2014) * DIFFERENTIAL MANUAL(Performed 12/29/2014) * PT-INR SLH(Performed 12/29/2014) * COMPREHENSIVE METABOLIC PANEL(Performed 12/29/2014) * CBC W AUTO DIFFERENTIAL(Performed 12/29/2014) * GLUCOSE ACCUCHECK(Performed 12/28/2014) * GLUCOSE ACCUCHECK(Performed 12/28/2014) * GLUCOSE ACCUCHECK(Performed 12/28/2014) * MRI ABDOMEN WWO CONTRAST(Performed 12/28/2014) * COMPREHENSIVE METABOLIC PANEL(Performed 12/28/2014) * CBC W AUTO DIFFERENTIAL(Performed 12/28/2014) * CBC W AUTO DIFFERENTIAL(Performed 12/28/2014) * GLUCOSE ACCUCHECK(Performed 12/28/2014) * GLUCOSE ACCUCHECK(Performed 12/27/2014) * GLUCOSE ACCUCHECK(Performed 12/27/2014) * GLUCOSE ACCUCHECK(Performed 12/27/2014) * GLUCOSE ACCUCHECK(Performed 12/27/2014) * CBC W AUTO DIFFERENTIAL(Performed 12/27/2014) * DIFFERENTIAL MANUAL(Performed 12/27/2014) * COMPREHENSIVE METABOLIC PANEL(Performed 12/27/2014) * CBC W AUTO DIFFERENTIAL(Performed 12/27/2014) * GLUCOSE ACCUCHECK(Performed 12/26/2014) * GLUCOSE ACCUCHECK(Performed 12/26/2014) * GLUCOSE ACCUCHECK(Performed 12/26/2014) * GLUCOSE ACCUCHECK(Performed 12/26/2014) * CBC W AUTO DIFFERENTIAL(Performed 12/26/2014) * DIFFERENTIAL MANUAL(Performed 12/26/2014) * CBC W AUTO DIFFERENTIAL(Performed 12/26/2014) * COMPREHENSIVE METABOLIC PANEL(Performed 12/26/2014) * LIPASE BLOOD(Performed 12/26/2014) * CULTURE BLOOD(Performed 12/26/2014) * CBC W AUTO DIFFERENTIAL(Performed 12/26/2014) * DIFFERENTIAL MANUAL(Performed 12/26/2014) * CBC W AUTO DIFFERENTIAL(Performed 12/26/2014) * COMPREHENSIVE METABOLIC PANEL(Performed 12/26/2014) * PHOSPHORUS BLOOD(Performed 12/26/2014) * MAGNESIUM BLOOD(Performed 12/26/2014) * CULTURE BLOOD(Performed 12/26/2014) * URINALYSIS W/MICROSCOPIC NO CULTURE(Performed 12/25/2014) * XR CHEST 1VW PORTABLE(Performed 12/25/2014) * GLUCOSE ACCUCHECK(Performed 12/25/2014) * GLUCOSE ACCUCHECK(Performed 12/25/2014) * BASIC METABOLIC PANEL (CALCIUM TOTAL)(Performed 12/25/2014) * HEPATIC FUNCTION PANEL(Performed 12/25/2014) * PHOSPHORUS BLOOD(Performed 12/25/2014) * MAGNESIUM BLOOD(Performed 12/25/2014) * CBC W AUTO DIFFERENTIAL(Performed 12/25/2014) * DIFFERENTIAL MANUAL(Performed 12/25/2014) * CBC W AUTO DIFFERENTIAL(Performed 12/25/2014) * EKG 12-LEAD(Performed 12/25/2014) * GLUCOSE ACCUCHECK(Performed 2014) * GLUCOSE ACCUCHECK(Performed 2014) * GLUCOSE ACCUCHECK(Performed 2014) * IR PICC LINE INSERT(Performed 2014) * IR PICC LINE INSERT(Performed 2014) * IR US GUIDE VASCULAR ACCESS(Performed 2014) * GLUCOSE ACCUCHECK(Performed 2014) * CBC W AUTO DIFFERENTIAL(Performed 2014) * DIFFERENTIAL MANUAL(Performed 2014) * CBC W AUTO DIFFERENTIAL(Performed 2014) * HEPATIC FUNCTION PANEL(Performed 2014) * PHOSPHORUS BLOOD(Performed 2014) * MAGNESIUM BLOOD(Performed 2014) * BASIC METABOLIC PANEL (CALCIUM TOTAL)(Performed 2014) * GLUCOSE ACCUCHECK(Performed 12/23/2014) * GLUCOSE ACCUCHECK(Performed 12/23/2014) * GLUCOSE ACCUCHECK(Performed 12/23/2014) * CULTURE BLOOD(Performed 12/23/2014) * GLUCOSE ACCUCHECK(Performed 12/23/2014) * GLUCOSE ACCUCHECK(Performed 12/23/2014) * PHOSPHORUS BLOOD(Performed 12/23/2014) * DIFFERENTIAL MANUAL(Performed 12/23/2014) * CBC W AUTO DIFFERENTIAL(Performed 12/23/2014) * HEPATIC FUNCTION PANEL(Performed 12/23/2014) * BASIC METABOLIC PANEL (CALCIUM TOTAL)(Performed 12/23/2014) * MAGNESIUM BLOOD(Performed 12/23/2014) * CBC W AUTO DIFFERENTIAL(Performed 12/23/2014) * URINALYSIS W/MICROSCOPIC NO CULTURE(Performed 12/23/2014) * CULTURE URINE(Performed 12/23/2014) * GLUCOSE ACCUCHECK(Performed 12/22/2014) * GLUCOSE ACCUCHECK(Performed 12/22/2014) * CULTURE FUNGUS OTHER+FUNGUS SMEAR(Performed 12/22/2014) * GLUCOSE ACCUCHECK(Performed 12/22/2014) * CT DRAIN W CATH PLACEMENT(Performed 12/22/2014) * CT PERC DRAINAGE CATH EXCHANGE(Performed 12/22/2014) * CT DRAIN W CATH PLACEMENT(Performed 12/22/2014) * CT DRAIN W CATH PLACEMENT(Performed 12/22/2014) * POTASSIUM FLUID(Performed 12/22/2014) * SODIUM FLUID(Performed 12/22/2014) * CULTURE AFB+SMEAR(Performed 12/22/2014) * CULTURE AFB+SMEAR(Performed 12/22/2014) * CULTURE FUNGUS OTHER+FUNGUS SMEAR(Performed 12/22/2014) * CULTURE ANAEROBE(Performed 12/22/2014) * CULTURE ANAEROBE(Performed 12/22/2014) * CULTURE AEROBIC(Performed 12/22/2014) * CULTURE AEROBIC(Performed 12/22/2014) * GLUCOSE ACCUCHECK(Performed 12/22/2014) * CBC W AUTO DIFFERENTIAL(Performed 12/22/2014) * DIFFERENTIAL MANUAL(Performed 12/22/2014) * HEPATIC FUNCTION PANEL(Performed 12/22/2014) * BASIC METABOLIC PANEL (CALCIUM TOTAL)(Performed 12/22/2014) * PHOSPHORUS BLOOD(Performed 12/22/2014) * MAGNESIUM BLOOD(Performed 12/22/2014) * CBC W AUTO DIFFERENTIAL(Performed 12/22/2014) * GLUCOSE ACCUCHECK(Performed 12/21/2014) * GLUCOSE ACCUCHECK(Performed 12/21/2014) * GLUCOSE ACCUCHECK(Performed 12/21/2014) * GLUCOSE ACCUCHECK(Performed 12/21/2014) * CBC W AUTO DIFFERENTIAL(Performed 12/21/2014) * DIFFERENTIAL MANUAL(Performed 12/21/2014) * PT-INR SLH(Performed 12/21/2014) * HEPATIC FUNCTION PANEL(Performed 12/21/2014) * PHOSPHORUS BLOOD(Performed 12/21/2014) * MAGNESIUM BLOOD(Performed 12/21/2014) * BASIC METABOLIC PANEL (CALCIUM TOTAL)(Performed 12/21/2014) * CBC W AUTO DIFFERENTIAL(Performed 12/21/2014) * GLUCOSE ACCUCHECK(Performed 12/20/2014) * GLUCOSE ACCUCHECK(Performed 12/20/2014) * GLUCOSE ACCUCHECK(Performed 12/20/2014) * CT ABDOMEN PELVIS W CONTRAST(Performed 12/20/2014) * GLUCOSE ACCUCHECK(Performed 12/20/2014) * DIFFERENTIAL MANUAL(Performed 12/20/2014) * CBC W AUTO DIFFERENTIAL(Performed 12/20/2014) * HEPATIC FUNCTION PANEL(Performed 12/20/2014) * BASIC METABOLIC PANEL (CALCIUM TOTAL)(Performed 12/20/2014) * PHOSPHORUS BLOOD(Performed 12/20/2014) * MAGNESIUM BLOOD(Performed 12/20/2014) * CBC W AUTO DIFFERENTIAL(Performed 12/20/2014) * URINALYSIS REFLEX TO MICROSCOPIC NO CULTURE(Performed 12/20/2014) * CULTURE URINE(Performed 12/20/2014) * XR CHEST 1VW PORTABLE(Performed 12/19/2014) * GLUCOSE ACCUCHECK(Performed 12/19/2014) * CULTURE BLOOD(Performed 12/19/2014) * CULTURE BLOOD(Performed 12/19/2014) * GLUCOSE ACCUCHECK(Performed 12/19/2014) * GLUCOSE ACCUCHECK(Performed 12/19/2014) * PANCREATIC ELASTASE FECES(Performed 12/19/2014) * LACTOFERRIN FECAL QUALITATIVE(Performed 12/19/2014) * CULTURE STOOL+ E COLI SHIGA-LIKE TOXIN(Performed 12/19/2014) * GLUCOSE ACCUCHECK(Performed 12/19/2014) * VITAMIN E(Performed 12/19/2014) * VITAMIN A(Performed 12/19/2014) * HEMOGLOBIN A1C(Performed 12/19/2014) * DIFFERENTIAL MANUAL(Performed 12/19/2014) * CBC W AUTO DIFFERENTIAL(Performed 12/19/2014) * CBC W AUTO DIFFERENTIAL(Performed 12/19/2014) * BASIC METABOLIC PANEL (CALCIUM TOTAL)(Performed 12/19/2014) * MAGNESIUM BLOOD(Performed 12/19/2014) * PHOSPHORUS BLOOD(Performed 12/19/2014) * HEPATIC FUNCTION PANEL(Performed 12/19/2014) * GLUCOSE ACCUCHECK(Performed 12/18/2014) * GLUCOSE ACCUCHECK(Performed 12/18/2014) * GLUCOSE ACCUCHECK(Performed 12/18/2014) * GLUCOSE ACCUCHECK(Performed 12/18/2014) * CBC W AUTO DIFFERENTIAL(Performed 12/18/2014) * DIFFERENTIAL MANUAL(Performed 12/18/2014) * HEPATIC FUNCTION PANEL(Performed 12/18/2014) * PHOSPHORUS BLOOD(Performed 12/18/2014) * MAGNESIUM BLOOD(Performed 12/18/2014) * BASIC METABOLIC PANEL (CALCIUM TOTAL)(Performed 12/18/2014) * CBC W AUTO DIFFERENTIAL(Performed 12/18/2014) * GLUCOSE ACCUCHECK(Performed 12/17/2014) * GLUCOSE ACCUCHECK(Performed 12/17/2014) * CT DRAIN W CATH PLACEMENT(Performed 12/17/2014) * PATHOLOGY SMEAR BODY FLUID(Performed 12/17/2014) * CELL COUNT W DIFFERENTIAL FLUID(Performed 12/17/2014) * DIFFERENTIAL MANUAL FLUID(Performed 12/17/2014) * CELL COUNT FLUID(Performed 12/17/2014) * CULTURE AFB+SMEAR(Performed 12/17/2014) * CULTURE FUNGUS OTHER+FUNGUS SMEAR(Performed 12/17/2014) * CULTURE ANAEROBE(Performed 12/17/2014) * CULTURE AEROBIC(Performed 12/17/2014) * LIPASE BODY FLUID STL(Performed 12/17/2014) * AMYLASE BODY FLUID(Performed 12/17/2014) * PROTEIN FLUID(Performed 12/17/2014) * GLUCOSE ACCUCHECK(Performed 12/17/2014) * VAS RIGHT VENOUS DUPLEX LE(Performed 12/17/2014) * URINALYSIS W/MICROSCOPIC NO CULTURE(Performed 12/17/2014) * CULTURE URINE(Performed 12/17/2014) * GLUCOSE ACCUCHECK(Performed 12/17/2014) * VITAMIN E(Performed 12/17/2014) * VITAMIN A(Performed 12/17/2014) * VITAMIN K1(Performed 12/17/2014) * HEMOGLOBIN A1C(Performed 12/17/2014) * VITAMIN D 25-HYDROXY(Performed 12/17/2014) * BASIC METABOLIC PANEL (CALCIUM TOTAL)(Performed 12/17/2014) * HEPATIC FUNCTION PANEL(Performed 12/17/2014) * PHOSPHORUS BLOOD(Performed 12/17/2014) * MAGNESIUM BLOOD(Performed 12/17/2014) * CBC W AUTO DIFFERENTIAL(Performed 12/17/2014) * CBC W AUTO DIFFERENTIAL(Performed 12/17/2014) * GLUCOSE ACCUCHECK(Performed 12/17/2014) * CULTURE BLOOD(Performed 12/16/2014) * SOLUBLE TRANSFERRIN RECEPTOR(Performed 12/16/2014) * IGG SUBCLASS 4(Performed 12/16/2014) * DILIP BLOOD SCREEN(Performed 12/16/2014) * FOLATE(Performed 12/16/2014) * VITAMIN B12(Performed 12/16/2014) * LIPASE BLOOD(Performed 12/16/2014) * FERRITIN(Performed 12/16/2014) * DIFFERENTIAL MANUAL(Performed 12/16/2014) * CBC W AUTO DIFFERENTIAL(Performed 12/16/2014) * BASIC METABOLIC PANEL (CALCIUM TOTAL)(Performed 12/16/2014) * HEPATIC FUNCTION PANEL(Performed 12/16/2014) * IRON BLOOD(Performed 12/16/2014) * TRANSFERRIN(Performed 12/16/2014) * PREALBUMIN(Performed 12/16/2014) * PT-INR SLH(Performed 12/16/2014) * CBC W AUTO DIFFERENTIAL(Performed 12/16/2014) * RETIC COUNT(Performed 12/16/2014) * CULTURE BLOOD(Performed 12/16/2014) * MRI ABDOMEN W MRCP WWO CONT W3D(Performed 12/16/2014) * CREATININE BLOOD - POCT (IP) SLH(Performed 12/16/2014) * GLUCOSE ACCUCHECK(Performed 08/20/2014) * GLUCOSE ACCUCHECK(Performed 08/20/2014) * BASIC METABOLIC PANEL (CALCIUM TOTAL)(Performed 08/19/2014) * PHOSPHORUS BLOOD(Performed 08/19/2014) * MAGNESIUM BLOOD(Performed 08/19/2014) * CBC W AUTO DIFFERENTIAL(Performed 08/19/2014) * CBC W AUTO DIFFERENTIAL(Performed 08/19/2014) * GLUCOSE ACCUCHECK(Performed 08/19/2014) * GLUCOSE ACCUCHECK(Performed 08/19/2014) * GLUCOSE ACCUCHECK(Performed 08/19/2014) * GLUCOSE ACCUCHECK(Performed 08/19/2014) * PHOSPHORUS BLOOD(Performed 08/19/2014) * MAGNESIUM BLOOD(Performed 08/19/2014) * VANCOMYCIN LEVEL TROUGH(Performed 08/19/2014) * BASIC METABOLIC PANEL (CALCIUM TOTAL)(Performed 08/19/2014) * CBC W AUTO DIFFERENTIAL(Performed 08/19/2014) * CBC W AUTO DIFFERENTIAL(Performed 08/19/2014) * BLOOD GASES ARTERIAL(Performed 08/19/2014) * GLUCOSE ACCUCHECK(Performed 08/18/2014) * GLUCOSE ACCUCHECK(Performed 08/18/2014) * VAS BILATERAL VENOUS DUPLEX LE(Performed 08/18/2014) * GLUCOSE ACCUCHECK(Performed 08/18/2014) * XR CHEST 1VW PORTABLE(Performed 08/18/2014) * GLUCOSE ACCUCHECK(Performed 08/18/2014) * CBC W AUTO DIFFERENTIAL(Performed 08/18/2014) * CBC W AUTO DIFFERENTIAL(Performed 08/18/2014) * PHOSPHORUS BLOOD(Performed 08/18/2014) * MAGNESIUM BLOOD(Performed 08/18/2014) * BASIC METABOLIC PANEL (CALCIUM TOTAL)(Performed 08/18/2014) * BLOOD GASES ARTERIAL(Performed 08/18/2014) * GLUCOSE ACCUCHECK(Performed 08/17/2014) * GLUCOSE ACCUCHECK(Performed 08/17/2014) * GLUCOSE ACCUCHECK(Performed 08/17/2014) * XR CHEST 1VW PORTABLE(Performed 08/17/2014) * GLUCOSE ACCUCHECK(Performed 08/17/2014) * CHLORIDE FECES(Performed 08/17/2014) * SODIUM FECES(Performed 08/17/2014) * POTASSIUM FECES(Performed 08/17/2014) * FECAL LEUKOCYTES(Performed 08/17/2014) * CULTURE STOOL+ E COLI SHIGA-LIKE TOXIN(Performed 08/17/2014) * C DIFFICILE GDH AG + TOXIN A+B(Performed 08/17/2014) * HEMOGLOBIN A1C(Performed 08/17/2014) * PHOSPHORUS BLOOD(Performed 08/17/2014) * MAGNESIUM BLOOD(Performed 08/17/2014) * BASIC METABOLIC PANEL (CALCIUM TOTAL)(Performed 08/17/2014) * CBC W AUTO DIFFERENTIAL(Performed 08/17/2014) * CBC W AUTO DIFFERENTIAL(Performed 08/17/2014) * BLOOD GASES ARTERIAL(Performed 08/17/2014) * GLUCOSE ACCUCHECK(Performed 08/16/2014) * GLUCOSE ACCUCHECK(Performed 08/16/2014) * URINALYSIS W/MICROSCOPIC NO CULTURE(Performed 08/16/2014) * CULTURE URINE(Performed 08/16/2014) * XR CHEST 1VW PORTABLE(Performed 08/16/2014) * CULTURE BLOOD(Performed 08/16/2014) * GLUCOSE ACCUCHECK(Performed 08/16/2014) * BLOOD GASES ARTERIAL(Performed 08/16/2014) * BASIC METABOLIC PANEL (CALCIUM TOTAL)(Performed 08/16/2014) * PHOSPHORUS BLOOD(Performed 08/16/2014) * MAGNESIUM BLOOD(Performed 08/16/2014) * CBC W AUTO DIFFERENTIAL(Performed 08/16/2014) * CBC W AUTO DIFFERENTIAL(Performed 08/16/2014) * CULTURE BLOOD(Performed 08/16/2014) * XR CHEST 1VW PORTABLE(Performed 08/15/2014) * GLUCOSE ACCUCHECK(Performed 08/15/2014) * COMPREHENSIVE METABOLIC PANEL(Performed 08/15/2014) * LIPASE BLOOD(Performed 08/15/2014) * AMYLASE BLOOD(Performed 08/15/2014) * GLUCOSE ACCUCHECK(Performed 08/15/2014) * GLUCOSE ACCUCHECK(Performed 08/15/2014) * XR CHEST 1VW PORTABLE(Performed 08/15/2014) * GLUCOSE ACCUCHECK(Performed 08/15/2014) * BASIC METABOLIC PANEL (CALCIUM TOTAL)(Performed 08/15/2014) * PHOSPHORUS BLOOD(Performed 08/15/2014) * MAGNESIUM BLOOD(Performed 08/15/2014) * CBC W AUTO DIFFERENTIAL(Performed 08/15/2014) * CBC W AUTO DIFFERENTIAL(Performed 08/15/2014) * BLOOD GASES ARTERIAL(Performed 08/15/2014) * GLUCOSE ACCUCHECK(Performed 08/14/2014) * XR ABDOMEN KUB PORTABLE(Performed 08/14/2014) * GLUCOSE ACCUCHECK(Performed 08/14/2014) * XR CHEST 1VW PORTABLE(Performed 08/14/2014) * GLUCOSE ACCUCHECK(Performed 08/14/2014) * BASIC METABOLIC PANEL (CALCIUM TOTAL)(Performed 08/14/2014) * PHOSPHORUS BLOOD(Performed 08/14/2014) * MAGNESIUM BLOOD(Performed 08/14/2014) * CBC W AUTO DIFFERENTIAL(Performed 08/14/2014) * CBC W AUTO DIFFERENTIAL(Performed 08/14/2014) * BLOOD GASES ARTERIAL(Performed 08/14/2014) * GLUCOSE ACCUCHECK(Performed 08/13/2014) * BASIC METABOLIC PANEL (CALCIUM TOTAL)(Performed 08/13/2014) * GLUCOSE ACCUCHECK(Performed 08/13/2014) * GLUCOSE ACCUCHECK(Performed 08/13/2014) * XR CHEST 1VW PORTABLE(Performed 08/13/2014) * GLUCOSE ACCUCHECK(Performed 08/13/2014) * BASIC METABOLIC PANEL (CALCIUM TOTAL)(Performed 08/13/2014) * PHOSPHORUS BLOOD(Performed 08/13/2014) * MAGNESIUM BLOOD(Performed 08/13/2014) * CBC W AUTO DIFFERENTIAL(Performed 08/13/2014) * CBC W AUTO DIFFERENTIAL(Performed 08/13/2014) * BLOOD GASES ARTERIAL(Performed 08/13/2014) * GLUCOSE ACCUCHECK(Performed 08/12/2014) * BASIC METABOLIC PANEL (CALCIUM TOTAL)(Performed 08/12/2014) * GLUCOSE ACCUCHECK(Performed 08/12/2014) * LDH BLOOD(Performed 08/12/2014) * GLUCOSE ACCUCHECK(Performed 08/12/2014) * XR CHEST 1VW PORTABLE(Performed 08/12/2014) * GLUCOSE ACCUCHECK(Performed 08/12/2014) * BLOOD GASES ARTERIAL(Performed 08/12/2014) * BASIC METABOLIC PANEL (CALCIUM TOTAL)(Performed 08/12/2014) * PHOSPHORUS BLOOD(Performed 08/12/2014) * MAGNESIUM BLOOD(Performed 08/12/2014) * VANCOMYCIN LEVEL TROUGH(Performed 08/12/2014) * CBC W AUTO DIFFERENTIAL(Performed 08/12/2014) * CBC W AUTO DIFFERENTIAL(Performed 08/12/2014) * XR CHEST 1VW PORTABLE(Performed 08/11/2014) * GLUCOSE ACCUCHECK(Performed 08/11/2014) * BASIC METABOLIC PANEL (CALCIUM TOTAL)(Performed 08/11/2014) * BLOOD GASES ARTERIAL(Performed 08/11/2014) * GLUCOSE ACCUCHECK(Performed 08/11/2014) * MANUAL DIFFERENTIAL REVIEWED(Performed 08/11/2014) * CELL COUNT W DIFFERENTIAL FLUID(Performed 08/11/2014) * DIFFERENTIAL MANUAL FLUID(Performed 08/11/2014) * CELL COUNT FLUID(Performed 08/11/2014) * PROTEIN FLUID(Performed 08/11/2014) * LDH BODY FLUID(Performed 08/11/2014) * CHOLESTEROL FLUID(Performed 08/11/2014) * GLUCOSE BODY FLUID(Performed 08/11/2014) * AMYLASE BODY FLUID(Performed 08/11/2014) * PH FLUID(Performed 08/11/2014) * CULTURE AEROBIC(Performed 08/11/2014) * XR CHEST 1VW PORTABLE(Performed 08/11/2014) * GLUCOSE ACCUCHECK(Performed 08/11/2014) * GLUCOSE ACCUCHECK(Performed 08/11/2014) * DIFFERENTIAL MANUAL(Performed 08/11/2014) * CBC W AUTO DIFFERENTIAL(Performed 08/11/2014) * PHOSPHORUS BLOOD(Performed 08/11/2014) * MAGNESIUM BLOOD(Performed 08/11/2014) * BASIC METABOLIC PANEL (CALCIUM TOTAL)(Performed 08/11/2014) * CBC W AUTO DIFFERENTIAL(Performed 08/11/2014) * CT CHEST PE W ABD PELVIS W CONT(Performed 08/10/2014) * GLUCOSE ACCUCHECK(Performed 08/10/2014) * VANCOMYCIN LEVEL TROUGH(Performed 08/10/2014) * GLUCOSE ACCUCHECK(Performed 08/10/2014) * BLOOD GASES ARTERIAL(Performed 08/10/2014) * XR CHEST 1VW PORTABLE(Performed 08/10/2014) * BLOOD GASES ARTERIAL(Performed 08/10/2014) * VAS BILATERAL VENOUS DUPLEX LE(Performed 08/10/2014) * GLUCOSE ACCUCHECK(Performed 08/10/2014) * C DIFFICILE GDH AG + TOXIN A+B(Performed 08/10/2014) * GLUCOSE ACCUCHECK(Performed 08/10/2014) * CBC W AUTO DIFFERENTIAL(Performed 08/10/2014) * DIFFERENTIAL MANUAL(Performed 08/10/2014) * CBC W AUTO DIFFERENTIAL(Performed 08/10/2014) * BASIC METABOLIC PANEL (CALCIUM TOTAL)(Performed 08/10/2014) * PHOSPHORUS BLOOD(Performed 08/10/2014) * MAGNESIUM BLOOD(Performed 08/10/2014) * EKG 12-LEAD(Performed 08/10/2014) * GLUCOSE ACCUCHECK(Performed 08/09/2014) * GLUCOSE ACCUCHECK(Performed 08/09/2014) * BASIC METABOLIC PANEL (CALCIUM TOTAL)(Performed 08/09/2014) * GLUCOSE ACCUCHECK(Performed 08/09/2014) * CULTURE URINE(Performed 08/09/2014) * CK + CKMB PANEL(Performed 08/09/2014) * TROPONIN I(Performed 08/09/2014) * BASIC METABOLIC PANEL (CALCIUM TOTAL)(Performed 08/09/2014) * CULTURE BLOOD(Performed 08/09/2014) * CULTURE BLOOD(Performed 08/09/2014) * INFLUENZA A+B ANTIGEN RAPID(Performed 08/09/2014) * URINALYSIS W/MICROSCOPIC NO CULTURE(Performed 08/09/2014) * UREA NITROGEN URINE RANDOM(Performed 08/09/2014) * CREATININE URINE RANDOM(Performed 08/09/2014) * SODIUM URINE RANDOM(Performed 08/09/2014) * EOSINOPHIL URINE SMEAR(Performed 08/09/2014) * LACTIC ACID BLOOD(Performed 08/09/2014) * BLOOD GASES ARTERIAL(Performed 08/09/2014) * CBC W AUTO DIFFERENTIAL(Performed 08/09/2014) * DIFFERENTIAL MANUAL(Performed 08/09/2014) * COMPREHENSIVE METABOLIC PANEL(Performed 08/09/2014) * CBC W AUTO DIFFERENTIAL(Performed 08/09/2014) * BLOOD GASES ARTERIAL(Performed 08/09/2014) * EKG 12-LEAD(Performed 08/09/2014) * EKG 12-LEAD(Performed 08/09/2014) * XR CHEST 1VW PORTABLE(Performed 08/09/2014) * BASIC METABOLIC PANEL (CALCIUM TOTAL)(Performed 08/08/2014) * DIFFERENTIAL MANUAL(Performed 08/08/2014) * CBC W AUTO DIFFERENTIAL(Performed 08/08/2014) * CBC W AUTO DIFFERENTIAL(Performed 08/08/2014) * BASIC METABOLIC PANEL (CALCIUM TOTAL)(Performed 08/08/2014) * HEPATIC FUNCTION PANEL(Performed 08/08/2014) * PHOSPHORUS BLOOD(Performed 08/08/2014) * MAGNESIUM BLOOD(Performed 08/08/2014) * LACTIC ACID BLOOD(Performed 08/08/2014) * PT-INR SLH(Performed 08/08/2014) * XR ABDOMEN KUB PORTABLE(Performed 08/07/2014) * XR ABDOMEN KUB PORTABLE(Performed 08/07/2014) * XR ABDOMEN KUB PORTABLE(Performed 08/07/2014) * CBC W AUTO DIFFERENTIAL(Performed 08/07/2014) * DIFFERENTIAL MANUAL(Performed 08/07/2014) * HEPATIC FUNCTION PANEL(Performed 08/07/2014) * BASIC METABOLIC PANEL (CALCIUM TOTAL)(Performed 08/07/2014) * PHOSPHORUS BLOOD(Performed 08/07/2014) * MAGNESIUM BLOOD(Performed 08/07/2014) * LACTIC ACID BLOOD(Performed 08/07/2014) * PT-INR SLH(Performed 08/07/2014) * CBC W AUTO DIFFERENTIAL(Performed 08/07/2014) * VANCOMYCIN LEVEL TROUGH(Performed 08/06/2014) * IR PICC LINE INSERT(Performed 08/06/2014) * IR US GUIDE VASCULAR ACCESS(Performed 08/06/2014) * CULTURE BLOOD(Performed 08/06/2014) * CULTURE BLOOD(Performed 08/06/2014) * BASIC METABOLIC PANEL (CALCIUM TOTAL)(Performed 08/06/2014) * HEPATIC FUNCTION PANEL(Performed 08/06/2014) * PHOSPHORUS BLOOD(Performed 08/06/2014) * MAGNESIUM BLOOD(Performed 08/06/2014) * LACTIC ACID BLOOD(Performed 08/06/2014) * PT-INR [facility](Performed 08/06/2014) * CBC W AUTO DIFFERENTIAL(Performed 08/06/2014) * CBC W AUTO DIFFERENTIAL(Performed 08/06/2014) * TROPONIN I(Performed 08/05/2014) * CT ABDOMEN PELVIS W CONTRAST(Performed 08/05/2014) * CULTURE SPUTUM+GRAM STAIN(Performed 08/05/2014) * TYPE + SCREEN PANEL(Performed 08/05/2014) * C-REACTIVE PROTEIN(Performed 08/05/2014) * XR ABDOMEN KUB(Performed 08/05/2014) * XR CHEST 1VW PORTABLE(Performed 08/05/2014) * BLOOD GASES ARTERIAL(Performed 08/05/2014) * CULTURE BLOOD(Performed 08/05/2014) * CK + CKMB PANEL(Performed 08/05/2014) * TROPONIN I(Performed 08/05/2014) * POTASSIUM URINE RANDOM(Performed 08/05/2014) * SODIUM URINE RANDOM(Performed 08/05/2014) * CREATININE URINE RANDOM(Performed 08/05/2014) * LIPID PROFILE(Performed 08/05/2014) * PT-INR [facility](Performed 08/05/2014) * DIFFERENTIAL MANUAL(Performed 08/05/2014) * CBC W AUTO DIFFERENTIAL(Performed 08/05/2014) * CBC W AUTO DIFFERENTIAL(Performed 08/05/2014) * MAGNESIUM BLOOD(Performed 08/05/2014) * LIPASE BLOOD(Performed 08/05/2014) * COMPREHENSIVE METABOLIC PANEL(Performed 08/05/2014) * AMYLASE BLOOD(Performed 08/05/2014) * PHOSPHORUS BLOOD(Performed 08/05/2014) * URINALYSIS W/MICROSCOPIC NO CULTURE(Performed 08/05/2014) * LACTIC ACID BLOOD(Performed 08/05/2014) * CULTURE BLOOD(Performed 08/05/2014) * CULTURE URINE(Performed 08/05/2014) * ECHO COMPLETE(Performed 08/05/2014) * EKG 12-LEAD(Performed 08/05/2014) * CULTURE BLOOD(Performed 08/03/2014) * CULTURE BLOOD(Performed 08/03/2014) * CULTURE SPUTUM+GRAM STAIN(Performed 08/02/2014) * CULTURE URINE(Performed 07/31/2014) * CULTURE BLOOD(Performed 07/31/2014) * CULTURE BLOOD(Performed 07/31/2014) * CULTURE MRSA(Performed 07/30/2014) Results * DERMATOPATHOLOGY (09/27/2021 3:33 AM 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) Case Report Dermatopathology Report ? Case: [id number] ? Authorizing Provider: ??Tomer Grey MD ?Collected: ? 09/27/2021 03:33 AM ? Ordering Location: ? [facility] ?Received: ?09/28/2021 06:13 AM ? Pathologist: ? Moon Hill MD ? Specimen: ?Skin, left shoulder ? 2 5:01 PM [facility] Final Diagnosis Specimen A. 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 Path # [id number]. 2 5:01 PM [facility] Gross Description Specimen A: Received is one formalin filled container labeled with the patient's name and designated left shoulder. The specimen consists of a shave biopsy measuring [id number]. Jar 0. 2 5:01 PM [facility] Microscopic Description Specimen A. SKIN, left shoulder: Sections show nests, cords, and strands of cytologically bland melanocytes that mature with descent into the dermis. There are areas in which the melanocytes have a neuroid appearance. 2 5:01 PM [facility] Disclaimer An external and internal positive and negative controls are appropriate for the histochemical, immunohistochemical and immunofluorescence stain(s) in this case (if any), except where stated explicitly. The performance characteristics of the stain(s) cited in this report were developed and its performance characteristic determined by the Dermatopathology Laboratory at [facility], directed by Dr. Jasmin Hill. These tests need not be, and therefore are not, approved by the [place] Food and Drug Administration. The tests are used for clinical purposes. Billing Codes Specimen Charges Stain Charges 96856 1 2 5:01 PM [facility] DERMATOPATHOLOGY LABORATORY Embedded Images 2 5:01 PM [facility] DERMATOPATHOLOGY LABORATORY Pathology/Cytolo gy TISSUE SPECIMEN FROM SKIN / Unknown 09/27/2021 3:33 AM 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 09/28/2021 6:13 AM 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 Tomer Grey MD LAB - PATHOLOGY/CYTO LOGY ORDERABLES DERMATOPATHOLOGY LABORATORY [facility] - Department of Dermatology [address], 3rd Floor [address] [phone] * (ABNORMAL) COMP MET PANEL (EXTERNAL RESULT ENTRY) (02/11/2019 7:14 AM CDT) Only the most recent of3 resultswithin the time period is included. Glucose (EXTERNAL) 129(A) 70 - 99 mg/dL Sodium (EXTERNAL RESULT) 141 136 - 145 mmol/L Potassium (EXTERNAL RESULT) 4.4 3.5 - 5.1 mmol/L Chloride (EXTERNAL RESULT) 103 100 - 108 mmol/L CO2 (EXTERNAL) 28.3 21 - 32 mmol/L Calcium (EXTERNAL RESULT) 10.1 8.5 - 10.1 mg/dL Anion Gap (EXTERNAL RESULT) 14.1 8 - 20 mmol/L BUN (EXTERNAL RESULT) 38(A) 7 - 18 mg/dL Creatinine (EXTERNAL RESULT) 0.88 0.55 - 1.02 mg/dl Alkaline Phosphatase (EXTERNAL RESULT) 113 50 - 136 U/L ALT (EXTERNAL RESULT) 34 14 - 55 U/L AST (EXTERNAL RESULT) 14(A) 15 - 37 U/L Protein Total (EXTERNAL RESULT) 6.5 6.4 - 8.2 gm/dL Albumin (EXTERNAL RESULT) 3.7 3.4 - 5.0 gm/dL Bilirubin Total (EXTERNAL RESULT) 0.4 0.2 - 1.2 mg/dL eGFR MDRD (EXTERNAL RESULT) 66 >90 mL/min/1.7 3m2 eGFR (EXTERNAL) mL/min/1.7 3m2 Blood BLOOD SPECIMEN / Unknown 02/11/2019 7:14 AM CDT Historical Provider LAB - CHEMISTRY O RDERABLES * PATHOLOGY TISSUE (11/07/2018 1:45 PM 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) Only the most recent of3 resultswithin the time period is included. Case Report Surgical Pathology Report ? Case: [id number] ? Authorizing Provider: ??Martir Vee MD ?Collected: ? 11/07/2018 01:45 PM ? Ordering Location: ? [facility] ?Received: ?11/07/2018 03:14 PM ? Pathologist: ? Ban Garcia MD ? Specimens: ?? A) - Colon, Cecal Polyp ? B) - Large Intestine, Transverse Colon, Transverse Colon Polyp ? 11/08/2018 3:24 PM [facility] PATHOLOGY LAB Final Diagnosis Large intestine, cecal polyp, biopsy (A): - Benign polypoid mucosa Large intestine, transverse colon polyp, biopsy (B): - Hyperplastic polyp 11/08/2018 3:24 PM [facility] PATHOLOGY LAB Microscopic Description and Comment Microscopic examination including multiple deeper levels on A and B substantiates the final diagnosis. 11/08/2018 3:24 PM [facility] PATHOLOGY LAB Clinical History The patient is a 72-year-old woman who presents for screening colonoscopy. Findings: 1 mm polyp in the cecum; 4 mm polyp in the transverse colon. 11/08/2018 3:24 PM [facility] PATHOLOGY LAB Gross Description The requisition and specimen label(s) are identified with the patient name, Rissa Pemberton. Received in formalin, specimen A, cecal polyp , is one soft, pink-luna tissue fragment measuring 0.3 x 0.2 x 0.2 cm. The specimen is submitted in toto in cassette A1. Received in formalin, specimen B, transverse colon polyp , is one soft, pale luna tissue fragment measuring 0.3 x 0.1 x 0.1 cm. The specimen is submitted in toto in cassette B1. DORON/miguel 11/08/2018 3:24 PM [facility] PATHOLOGY LAB Disclaimer The performance characteristics of all immunohistochemical and indirect immunofluorescence stains (if any) cited in this report were determined by the Histopathology Laboratory of [facility]. Some of these tests were developed by our own laboratory and have not been cleared or approved by the US Food and Drug Administration. The FDA does not require this test to go through premarket FDA review. These tests are used for clinical purposes. They should not be regarded as investigational or for research. This laboratory is certified under the Clinical Laboratory Improvement Amendments (CLIA) as qualified to perform high complexity clinical laboratory testing. This case has been personally reviewed and interpreted by the attending (teaching) pathologist. 11/08/2018 3:24 PM 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 [facility] PATHOLOGY LAB Embedded Images 11/08/2018 3:24 PM 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 [facility] PATHOLOGY LAB Biopsy, NOS COLON PART / Unknown 11/07/2018 1:45 PM 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 11/07/2018 3:14 PM 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 Biopsy, NOS (Large Intestine, Transverse Colon) 11/07/2018 1:49 PM 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 11/07/2018 3:14 PM 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 Martir Vee MD LAB - PATHOLOGY/CYTO LOGY ORDERABLES Performing Organization Address City/State/[facility] de Phone Number [facility] PATHOLOGY LAB [address] [facility] [phone] * ENDOSCOPY, COLON, SCREENING (11/07/2018 1:17 PM 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) Report Endoscopy POC Endoscopy Department Report _ Patient Name: Rissa Pemberton ? Procedure Date: 11/07/2018 1:17 PM ? Date of : 1945 Classification: Outpatient ?Gender: Female _ Providers: ?Martir Vee MD Referring MD: ? Rizwana Thakkar MD (Referring MD) Procedure: ?Colonoscopy Indications: ?Screening for colorectal malignant neoplasm Medications: ?Monitored Anesthesia Care Description of Procedure: Pre-Anesthesia Assessment: ?- Prior to the procedure, a History and Physical ?was performed, and patient medications and ?allergies were reviewed. The patient's tolerance of ?previous anesthesia was also reviewed. The risks ?and benefits of the procedure and the sedation ?options and risks were discussed with the patient. ?All questions were answered, and informed consent ?was obtained. Prior Anticoagulants: The patient has ?taken Eliquis (apixaban), last dose was 3 days ?prior to procedure. ASA Grade Assessment: III - A ?patient with severe systemic disease. After ?reviewing the risks and benefits, the patient was ?deemed in satisfactory condition to undergo the ?procedure. ?After I obtained informed consent, the scope was ?passed under direct vision. Throughout the ?procedure, the patient's blood pressure, pulse, and ?oxygen saturations were monitored continuously. The ?[id number] was introduced through the anus and ?advanced to the cecum, identified by appendiceal ?orifice and ileocecal valve. The ileocecal valve, ?appendiceal orifice, and rectum were photographed. ?The quality of the bowel preparation was good. ? Findings: ? The perianal and digital rectal examinations were normal. ? A 1 mm polyp was found in the cecum. The polyp was sessile. The polyp ? was removed with a jumbo cold forceps. Resection and retrieval were ? complete. To prevent bleeding after the polypectomy, one hemostatic clip ? was successfully placed (MR conditional). There was no bleeding at the ? end of the procedure. ? A 4 mm polyp was found in the transverse colon. The polyp was sessile. ? The polyp was removed with a cold snare. Resection and retrieval were ? complete. ? Multiple small and large-mouthed diverticula were found in the ? recto-sigmoid colon, descending colon, transverse colon and ascending ? colon. ? External hemorrhoids were found during retroflexion. ? Estimated Blood Loss: ? Estimated blood loss was minimal. Complications: ?No immediate complications. Estimated blood loss: ?Minimal. Impression: ? 1) One 1 mm polyp in the cecum, removed with a ?jumbo cold forceps. Resected and retrieved. Clip ?(MR conditional) was placed. ?2) One 4 mm polyp in the transverse colon, removed ?with a cold snare. Resected and retrieved. ?3) Diverticulosis in the recto-sigmoid colon, in ?the descending colon, in the transverse colon and ?in the ascending colon. ?4) External hemorrhoids. Recommendation: ? - Discharge patient to home (ambulatory). ?- Patient has a contact number available for ?emergencies. The signs and symptoms of potential ?delayed complications were discussed with the ?patient. Return to normal activities tomorrow. ?Written discharge instructions were provided to the ?patient. ?- Resume previous diet. ?- Continue present medications. ?- Await pathology results. ?- Repeat colonoscopy in 5 years for surveillance. ?- Resume Eliquis ? Attending Participation: ??I personally performed the entire procedure. ? Procedure Code(s): ? --- Professional --- ? 41153, Colonoscopy, flexible; with removal of tumor(s), polyp(s), or ? other lesion(s) by snare technique ? 67992, 59, Colonoscopy, flexible; with biopsy, single or multiple Diagnosis Code(s): ?--- Professional --- ?Z12.11, Encounter for screening for malignant ?neoplasm of colon ?D12.0, Benign neoplasm of cecum ?D12.3, Benign neoplasm of transverse colon (hepatic ?flexure or splenic flexure) ?K64.4, Residual hemorrhoidal skin tags ?K57.30, Diverticulosis of large intestine without ?perforation or abscess without bleeding CPT copyright 2016 [employer] [place] [employer]. All rights reserved. The codes documented in this report are preliminary and upon shear scrapman review may be revised to meet current compliance requirements. Martir Vee MD 11/07/2018 2:00:56 PM This report has been signed electronically. Note Initiated On: 11/07/2018 1:17 PM Number of Addenda: 0 ? [facility] ? [address] [place] [address] [facility] 11/07/2018 1:17 PM 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 Martir Vee MD GI PROCEDURE ORDERAB LES [facility] [employer] * IRON/SATURATION (EXTERNAL RESULT ENTRY) (04/10/2018) Iron (EXTERNAL RESULT) 83 50 - 170 mcg/dl Transferrin (EXTERNAL RESULT) mg/dl Transferrin Saturation (EXTERNAL RESULT) % Blood BLOOD SPECIMEN / Unknown 04/10/2018 Historical Provider LAB - CHEMISTRY O RDERABLES * LIPID PROFILE (EXTERAL RESULT ENTRY) (04/10/2018) Cholesterol (EXTERNAL RESULT) 189 mg/dL Triglycerides (EXTERNAL RESULT) 173 mg/dL HDL (EXTERNAL RESULT) 42 mg/dL LDL (EXTERNAL RESULT) 112.4 mg/dL VLDL (EXTERNAL RESULT) 35 mg/dL Chol HDL Ratio (External Result) Blood BLOOD SPECIMEN / Unknown 04/10/2018 Historical Provider LAB - CHEMISTRY O RDERABLES * ND LIVER ELASTOGRAPHY (03/20/2018 3:31 PM CDT) Narrative Shlomo Root MD - 03/20/2018 3:31 PM CDT Shlomo Root MD ? 03/20/2018 ??3:31 PM Diagnosis: NAFLD RN verified patient not , no implanted devices and NPO for prior 3 hours. Vital signs taken, procedure explained and consent signed. Date of Exam: 03/11/2018 Liver Stiffness: (E, kPa) median: ??7.2 IQR (interquartile range): ?? 0.5 IQR/Median% (ideally < 30%): ??7% CAP (controlled attenuation parameter): ??279 Technical Difficulty: None Ordering Provider: Dr. Shlomo Root Phone Fax Fibroscan interpretation: I have personally reviewed the Fibroscan report and associated tracings. The calculated liver stiffness (E, kPa) indicates that: The probability of advanced liver fibrosis is: low to moderate. The loss of ultrasound signal, (controlled attenuation parameter, CAP [dB/m]), indicates that the probability of hepatic steatosis is: moderate. Shlomo Root MD The following criteria are used to indicate the probability of advanced (stage 3-4) fibrosis: < 7.0 kPa: low 7.0-8.9 kPa: low to moderate 9.0-14.9 kPa: moderate 15-20 kPa: high > 20 kPa: very high Liver stiffness > 20 kPa is also associated with a high probability of complications of portal hypertension including varices and ascites. Liver stiffness > 50 kPa is associated with a high risk of variceal bleeding. Note: Liver stiffness is increased by factors other than fibrosis including passive congestion, infiltrative processes, active alcoholism, biliary obstruction and marked inflammation. The interpretation of the Fibroscan result provided above may not have taken such factors into account. Disease etiology also influences Fibroscan cutoff values for fibrosis stages and the following cutoffs have been proposed (Kwadwo et al, Clin Gastro Hepatol 2015; 13:27-36): Cutoffs for Stage 3 and Stage 4 fibrosis respectively: Hepatitis B: >9 and >11.7 kPa Hepatitis C: >9.5 and >12.5 kPa HCV-HIV: >11 and >14 kPa Cholestatic liver diseases: >10 and >17.9 kPa NAFLD/ROBERTSON: >10 and >14 kPa CAP estimates of steatosis: normal <200 dB/m maybe present 200 to 250 dB/m moderate 250-300 dB/m substantial > 300 dB/m (Note that Fibroscan is not a quantitative measure of liver fat and the risk of NAFLD progression is unrelated to the degree of steatosis.) These criteria are estimates and may change as additional supporting data becomes available. [email or web address] Shlomo Matthews MD PROCEDURE/ MINOR SURGICAL ORDERABLES * PROC FIBROSCAN (03/11/2018 9:22 AM CDT) Shlomo Matthews MD PROCEDURE/ MINOR SURGICAL ORDERABLES * MRI ABDOMEN W MRCP WWO CONT W3D (10/03/2017 1:42 PM 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) Only the most recent of2 resultswithin the time period is included. Anatomical Region Laterality Modality Other Impressions 10/03/2017 5:39 PM 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 IMPRESSION: 1. ??Chronic changes of prior necrotizing pancreatitis. No acute findings within the abdomen. 2. ??Moderate diffuse hepatic steatosis. 3. ??Normal MRCP. Dictated by Rajan Root MD (president and chief operating officer). This report was approved ??by Rajan Root M.D. ?? on 10/03/2017 3:14 PM . I, Dr. DYANA PEÑA M.D. have personally reviewed and interpreted this examination/study. This report was electronically signed by DYANA PEÑA M.D. ??on 10/03/2017 5:39 PM . Narrative 10/03/2017 5:39 PM 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 EXAMINATION: 1. Magnetic resonance imaging (MRI) of the abdomen without and with contrast 2. Magnetic resonance cholangiopancreatography (MRCP) with 3-D reconstruction and analysis HISTORY: 71-year-old female with history of necrotizing pancreatitis and walled off necrosis TECHNIQUE: MRI of the abdomen was performed prior to and following the uneventful administration of 18 mL of Multihance intravenous gadolinium contrast according to standard protocol, including dynamic imaging for MRCP. Image data was analyzed on a dedicated 3-D workstation for the MRCP portion of the exam. COMPARISON: Comparison is made to MR abdomen and pelvis dated 07/31/2016 and MRCP dated 12/16/2014 FINDINGS: MRI: The visible lung bases are clear. There is moderate diffuse hepatic steatosis without evidence of cirrhosis. No arterially-enhancing liver lesions are identified. A 9 mm hemangioma in segment 7 is unchanged. The hepatic arterial anatomy is conventional. The portal vein and its major branches are patent. The hepatic veins are patent. An accessory left renal artery is noted. Areas of susceptibility artifact may relate to infrarenal IVC filter placement and are unchanged. The gallbladder is surgically absent. Mildly decreased signal in portions of the pancreas can be seen in the setting of chronic pancreatitis. There is no peripancreatic fluid collection. A few cysts in the pancreatic tail are unchanged. No pancreatic mass is identified. 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 Other than a 10 mm left renal cysts, the adrenal glands and kidneys are normal. No free intraperitoneal fluid is identified. Multilevel degenerative changes are again seen in the thoracolumbar spine. A hemangioma is seen in the L2 vertebral body, unchanged. A fat containing left lumbar hernia is present. MRCP: The intrahepatic and extrahepatic bile ducts are nondilated. No filling defect or stricture is seen in the biliary system. The pancreatic duct is nondilated. Procedure Note Anh Garcia MD - 12/26/2017 EXAMINATION: 1. Magnetic resonance imaging (MRI) of the abdomen without and withcontrast 2. Magnetic resonance cholangiopancreatography (MRCP) with 3-Dreconstruction and analysis HISTORY: 71-year-old female with history of necrotizing pancreatitis andwalled off necrosis TECHNIQUE: MRI of the abdomen was performed prior to and following theuneventful administration of 18 mL of Multihance intravenous gadoliniumcontrast according to standard protocol, including dynamic imaging forMRCP. Image data was analyzed on a dedicated 3-D workstation for the MRCP portion of the exam. COMPARISON: Comparison is made to MR abdomen and pelvis dated 07/31/2016and MRCP dated 12/16/2014 FINDINGS: MRI: The visible lung bases are clear. There is moderate diffuse hepatic steatosis without evidence of cirrhosis.No arterially-enhancing liver lesions are identified. A 9 mm hemangioma insegment 7 is unchanged. The hepatic arterial anatomy is conventional. The portal vein and itsmajor branches are patent. The hepatic veins are patent. An accessory leftrenal artery is noted. Areas of susceptibility artifact may relate toinfrarenal IVC filter placement and are unchanged. The gallbladder is surgically absent. Mildly decreased signal in portionsof the pancreas can be seen in the setting of chronic pancreatitis. Thereis no peripancreatic fluid collection. A few cysts in the pancreatic tailare unchanged. No pancreatic mass is identified. 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 Other than a 10 mm leftrenal cysts, the adrenal glands and kidneys are normal. No freeintraperitoneal fluid is identified. Multilevel degenerative changes are again seen in the thoracolumbar spine.A hemangioma is seen in the L2 vertebral body, unchanged. A fat containingleft lumbar hernia is present. MRCP: The intrahepatic and extrahepatic bile ducts are nondilated. No fillingdefect or stricture is seen in the biliary system. The pancreatic duct is nondilated. IMPRESSION IMPRESSION: 1. Chronic changes of prior necrotizing pancreatitis. No acute findingswithin the abdomen. 2. Moderate diffuse hepatic steatosis. 3. Normal MRCP. Dictated by Rajan Root MD (president and chief operating officer). This report was approved by Rajan Root M.D. on 10/03/2017 3:14 PM. I, Dr. DYANA PEÑA M.D. have personally reviewed and interpreted thisexamination/study. This report was electronically signed by DYANA PEÑA M.D. on10/03/2017 5:39 PM . Martir Vee MD MR ORDERABLES * (ABNORMAL) CREATININE BLOOD - POCT (IP) [facility] (10/03/2017) Only the most recent of6 resultswithin the time period is included. Creatinine POCT 1.03 0.3 - 1.3 mg/dL [facility] eGFR POCT 56(A) 60 ml/min [facility] 10/03/2017 Martir Vee MD LAB - POINT OF CARE ORDERABLES [facility] [address] * (ABNORMAL) VITAMIN D 25-HYDROXY D2+D3 BY TANDEM MASS (08/29/2016 9:55 AM 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) [facility] Vitamin D, 25 Hydroxy 29(L) ng/mL [facility] ([facility]) Comment: Reference Range: All Ages: Target levels 30 - 100 Vitamin D, 2 25 Hydroxy <1.0 ng/mL [facility] (BEAKER) Vitamin D 3 25 Hydroxy 28 ng/mL [facility] ([facility]) Blood specimen (specimen) BLOOD SPECIMEN / Unknown 08/29/2016 9:55 AM 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 08/29/2016 Narrative [facility] ([facility]) - 09/01/2016 5:09 PM 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 Performed at: ??01 - [facility] [address] [place] [address] ??[phone] Meeting Facilitator: Steve Borjas MD, Phone: ??[phone] Martir Vee MD LAB - CHEMISTRY [place] Performing Organization Address City/[facility]/ZIP Co de Phone Number [facility] ([facility]) * VITAMIN K1 (08/29/2016 9:55 AM 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) Only the most recent of2 resultswithin the time period is included. [facility] Vitamin K 1.21 0.13 - 1.88 ng/mL [facility] ([facility]) Blood specimen (specimen) BLOOD SPECIMEN / Unknown 08/29/2016 9:55 AM 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 08/29/2016 Narrative [facility] ([facility]) - 09/01/2016 5:09 PM 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 Performed at: ??02 - [facility] [address] ??[phone] Meeting Facilitator: Adebayo Landaverde MD, Phone: ??[phone] Martir Vee MD LAB - CHEMISTRY [place] Performing Organization Address City/[facility]/ZIP Co de Phone Number [facility] ([facility]) * VITAMIN A (08/29/2016 9:55 AM 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) Only the most recent of4 resultswithin the time period is included. [facility] Vitamin A 67 26 - 82 ug/dL [facility] ([facility]) Blood specimen (specimen) BLOOD SPECIMEN / Unknown 08/29/2016 9:55 AM 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 08/29/2016 Narrative [facility] ([place]) - 09/01/2016 5:09 PM 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 Performed at: ??02 - [address] ??[phone] Meeting Facilitator: Adebayo Landaverde MD, Phone: ??[phone] Martir Vee MD LAB - CHEMISTRY [place] Performing Organization Address [facility] Co de Phone Number [facility] ([facility]) * VITAMIN E (08/29/2016 9:55 AM 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) Only the most recent of4 resultswithin the time period is included. Vitamin E Alpha Tocopherol 11.6 6.5 - 21.5 mg/L [facility] ([facility]) Blood specimen (specimen) BLOOD SPECIMEN / Unknown 08/29/2016 9:55 AM 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 08/29/2016 Narrative [facility] - 09/01/2016 5:09 PM 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 Performed at: ??02 - [address] ??[phone] Meeting Facilitator: Adebayo Landvaerde MD, Phone: ??[phone] Martir Vee MD LAB - CHEMISTRY [place] Performing Organization Address [facility] Co de Phone Number [facility] * VITAMIN B12 (08/29/2016 9:55 AM 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) Only the most recent of3 resultswithin the time period is included. Vitamin B12 758 211 - 946 pg/mL [facility] Blood specimen (specimen) BLOOD SPECIMEN / Unknown 08/29/2016 9:55 AM 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 08/29/2016 Narrative [facility] ([facility]) - 09/01/2016 5:09 PM 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 Performed at: ??03 - [facility] [address] ??[phone] Meeting Facilitator: Jaime Alan PhD, Phone: ??[phone] Martir Vee MD LAB - CHEMISTRY [place] [facility] ([facility]) * MRI PELVIS WWO CONTRAST (07/31/2016 2:17 PM 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) Only the most recent of8 resultswithin the time period is included. Anatomical Region Laterality Modality Pelvis Other Impressions 07/31/2016 3:29 PM 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 IMPRESSION: Resolved left posterior abdominal and paraspinal fluid collections. Dictated by Alfonzo Renae MD (president and chief operating officer). This report was approved ??by Alfonzo Renae M.D. ?? on 07/31/2016 3:29 PM . I, Dr. MANOLO GONSALES M.D. have personally reviewed and interpreted this examination/study. This report was electronically signed by MANOLO GONSALES M.D. ??on 07/31/2016 3:29 PM . Narrative 07/31/2016 3:29 PM 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 EXAMINATION: Magnetic resonance imaging (MRI) of the abdomen and pelvis without and with contrast HISTORY: Necrotizing pancreatitis and walled off necrosis status post drainage TECHNIQUE: MRI of the abdomen and pelvis was performed prior to and following the uneventful administration of 16 mL of Multihance intravenous gadolinium contrast according to standard protocol. COMPARISON: Comparison is made with a study from 11/08/2015 and 01/18/2015. FINDINGS: Abdomen: The visible lung bases are clear. There is no evidence of hepatic steatosis. No liver surface nodularity is seen to suggest hepatic cirrhosis. A wedge-shaped area of peripheral arterial hyperenhancement in hepatic segments 8/5 is unchanged and likely represents transient hepatic intensity difference. A 10 mm hemangioma in hepatic segment 7 is unchanged (series 23 image 20). The intrahepatic and extrahepatic bile ducts are nondilated. The hepatic arterial anatomy is conventional. An accessory left renal artery is noted. The abdominal aorta is atherosclerotic but normal in course and caliber. The portal vein and its major branches are patent. The hepatic veins are patent. An inferior vena cava filter is in place. The gallbladder is surgically absent. A small wedge-shaped splenic infarct is unchanged. Other than an unchanged 10 mm left renal cyst, the adrenal glands and kidneys are normal. Trace perisplenic fluid is unchanged. Scarring at the site of a resolved left perinephric fluid collection is unchanged (series 22 images 15-17). Left posterior abdominal and paraspinal fluid collections are resolved with scarring. The pancreas has unchanged mildly decreased signal intensity diffusely, which can be seen in the setting of chronic pancreatitis. The pancreas enhances normally without evidence of mass or peripancreatic fluid collection. A few cysts in the pancreatic tail measuring up to 3 mm are unchanged (for reference, series 31 image 13). Pelvis: The bladder is distended with fluid and appears normal. Small nabothian cysts are unchanged. Otherwise the uterus and adnexa appear normal. No free pelvic fluid is identified. Multilevel degenerative changes are again seen throughout the thoracolumbar spine with unchanged L4-5 grade 1 anterolisthesis. A hemangioma in the right aspect of L2 vertebral body is unchanged. 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 COMPARISON: Comparison is made with a study from 11/08/2015 and01/18/2015. FINDINGS: Abdomen: The visible lung bases are clear. There is no evidence of hepatic steatosis. No liver surface nodularity isseen to suggest hepatic cirrhosis. A wedge-shaped area of peripheralarterial hyperenhancement in hepatic segments 8/5 is unchanged and likelyrepresents transient hepatic intensity difference. A 10 mm hemangioma in hepatic segment 7 is unchanged(series 23 image 20). The intrahepatic and extrahepatic bile ducts are nondilated. The hepaticarterial anatomy is conventional. An accessory left renal artery is noted.The abdominal aorta is atherosclerotic but normal in course and caliber.The portal vein and its major branches are patent. The hepatic veins are patent. An inferior vena cavafilter is in place. The gallbladder is surgically absent. A small wedge-shaped splenic infarctis unchanged. Other than an unchanged 10 mm left renal cyst, the adrenalglands and kidneys are normal. Trace perisplenic fluid is unchanged.Scarring at the site of a resolved left perinephric fluid collection is unchanged (series 22 images 15-17).Left posterior abdominal and paraspinal fluid collections are resolvedwith scarring. The pancreas has unchanged mildly decreased signal intensity diffusely,which can be seen in the setting of chronic pancreatitis. The pancreasenhances normally without evidence of mass or peripancreatic fluidcollection. A few cysts in the pancreatic tail measuring up to 3 mm are unchanged (for reference, series 31 image13). Pelvis: The bladder is distended with fluid and appears normal. Small nabothiancysts are unchanged. Otherwise the uterus and adnexa appear normal. Nofree pelvic fluid is identified. Multilevel degenerative changes are againseen throughout the thoracolumbar spine with unchanged L4-5 grade 1 anterolisthesis. A hemangioma in theright aspect of L2 vertebral body is unchanged. IMPRESSION IMPRESSION: Resolved left posterior abdominal and paraspinal fluid collections. Dictated by Alfonzo Renae MD (president and chief operating officer). This report was approved by Alfonzo Renae M.D. on 07/31/2016 3:[address] MANOLO Mir M.D. have personally reviewed and interpreted thisexamination/study. This report was electronically signed by MANOLO GONSALES M.D. on 07/31/20163:29 PM . Martir Vee MD MR ORDERABLES * MRI ABDOMEN WWO CONTRAST (07/31/2016 2:16 PM 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) Only the most recent of11 resultswithin the time period is included. Anatomical Region Laterality Modality Abdomen Other Impressions 07/31/2016 3:29 PM 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 IMPRESSION: Resolved left posterior abdominal and paraspinal fluid collections. Dictated by Alfonzo Renae MD (president and chief operating officer). This report was approved ??by Alfonzo Renae M.D. ?? on 07/31/2016 3:[address] MANOLO Mir M.D. have personally reviewed and interpreted this examination/study. This report was electronically signed by MANOLO GONSALES M.D. ??on 07/31/2016 3:29 PM . Narrative 07/31/2016 3:29 PM 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 EXAMINATION: Magnetic resonance imaging (MRI) of the abdomen and pelvis without and with contrast HISTORY: Necrotizing pancreatitis and walled off necrosis status post drainage TECHNIQUE: MRI of the abdomen and pelvis was performed prior to and following the uneventful administration of 16 mL of Multihance intravenous gadolinium contrast according to standard protocol. COMPARISON: Comparison is made with a study from 11/08/2015 and 01/18/2015. FINDINGS: Abdomen: The visible lung bases are clear. There is no evidence of hepatic steatosis. No liver surface nodularity is seen to suggest hepatic cirrhosis. A wedge-shaped area of peripheral arterial hyperenhancement in hepatic segments 8/5 is unchanged and likely represents transient hepatic intensity difference. A 10 mm hemangioma in hepatic segment 7 is unchanged (series 23 image 20). The intrahepatic and extrahepatic bile ducts are nondilated. The hepatic arterial anatomy is conventional. An accessory left renal artery is noted. The abdominal aorta is atherosclerotic but normal in course and caliber. The portal vein and its major branches are patent. The hepatic veins are patent. An inferior vena cava filter is in place. The gallbladder is surgically absent. A small wedge-shaped splenic infarct is unchanged. Other than an unchanged 10 mm left renal cyst, the adrenal glands and kidneys are normal. Trace perisplenic fluid is unchanged. Scarring at the site of a resolved left perinephric fluid collection is unchanged (series 22 images 15-17). Left posterior abdominal and paraspinal fluid collections are resolved with scarring. The pancreas has unchanged mildly decreased signal intensity diffusely, which can be seen in the setting of chronic pancreatitis. The pancreas enhances normally without evidence of mass or peripancreatic fluid collection. A few cysts in the pancreatic tail measuring up to 3 mm are unchanged (for reference, series 31 image 13). Pelvis: The bladder is distended with fluid and appears normal. Small nabothian cysts are unchanged. Otherwise the uterus and adnexa appear normal. No free pelvic fluid is identified. Multilevel degenerative changes are again seen throughout the thoracolumbar spine with unchanged L4-5 grade 1 anterolisthesis. A hemangioma in the right aspect of L2 vertebral body is unchanged. 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 COMPARISON: Comparison is made with a study from 11/08/2015 and01/18/2015. FINDINGS: Abdomen: The visible lung bases are clear. There is no evidence of hepatic steatosis. No liver surface nodularity isseen to suggest hepatic cirrhosis. A wedge-shaped area of peripheralarterial hyperenhancement in hepatic segments 8/5 is unchanged and likelyrepresents transient hepatic intensity difference. A 10 mm hemangioma in hepatic segment 7 is unchanged(series 23 image 20). The intrahepatic and extrahepatic bile ducts are nondilated. The hepaticarterial anatomy is conventional. An accessory left renal artery is noted.The abdominal aorta is atherosclerotic but normal in course and caliber.The portal vein and its major branches are patent. The hepatic veins are patent. An inferior vena cavafilter is in place. The gallbladder is surgically absent. A small wedge-shaped splenic infarctis unchanged. Other than an unchanged 10 mm left renal cyst, the adrenalglands and kidneys are normal. Trace perisplenic fluid is unchanged.Scarring at the site of a resolved left perinephric fluid collection is unchanged (series 22 images 15-17).Left posterior abdominal and paraspinal fluid collections are resolvedwith scarring. The pancreas has unchanged mildly decreased signal intensity diffusely,which can be seen in the setting of chronic pancreatitis. The pancreasenhances normally without evidence of mass or peripancreatic fluidcollection. A few cysts in the pancreatic tail measuring up to 3 mm are unchanged (for reference, series 31 image13). Pelvis: The bladder is distended with fluid and appears normal. Small nabothiancysts are unchanged. Otherwise the uterus and adnexa appear normal. Nofree pelvic fluid is identified. Multilevel degenerative changes are againseen throughout the thoracolumbar spine with unchanged L4-5 grade 1 anterolisthesis. A hemangioma in theright aspect of L2 vertebral body is unchanged. IMPRESSION IMPRESSION: Resolved left posterior abdominal and paraspinal fluid collections. Dictated by Alfonzo Renae MD (president and chief operating officer). This report was approved by Alfonzo Renae M.D. on 07/31/2016 3:29 PM. I, Dr. MANOLO GONSALES M.D. have personally reviewed and interpreted thisexamination/study. This report was electronically signed by MANOLO GONSALES M.D. on 07/31/20163:29 PM . Martir Vee MD MR ORDERABLES * IR BILIARY DRAIN REMOVE (01/11/2016 9:09 AM CDT) Anatomical Region Laterality Modality Abdomen Other Impressions 01/14/2016 8:47 AM CDT Impression:?Abscessogram through existing catheter demonstrated no significant residual cavity. Removal of existing 10 Russian APDL catheter. I, Dr. Carter, was present and performed/supervised the entire procedure. This report was approved ??by Cade Issa D.O. ?? on 01/11/2016 3:58 PM . I, Dr. PATRICIA CARTER M.D. have personally reviewed and interpreted this examination/study. This report was electronically signed by PATRICIA CARTER M.D. ??on 01/14/2016 8:47 AM . Narrative 01/14/2016 8:47 AM CDT Clinical History: 70-year-old female with a history of necrotizing pancreatitis and walled off necrosis status post drainage catheter placement. She presents today for evaluation of the drainage catheter with possible exchange or removal. Operators: 1. ??Dr. Carter, Attending Physician 2. ??Dr. Issa, Resident Physician Anesthesia: 1. ??None Procedure: 1. ??Abscessogram through existing catheter 2. Removal of 10 Russian APDL catheter Duration of the procedure: Approximately 10 minutes. Fluoroscopy time: 0.1 minutes. Contrast used: 5 mL Omnipaque 240 Procedure in detail: ??The procedure, possible complications and the use of conscious sedation were explained to the patient in detail, and informed consent was obtained.? The patient was brought to the angiography suite and placed in the supine position on the fluoroscopic table and the external component of left flank catheter (10 Russian APDL) and the skin around the region was prepped and draped in a sterile manner. A qualified radiology nurse monitored patient?s vital signs. A neonatal doctor film of the abdomen was obtained which demonstrated the known left flank catheter with tip overlying the left mid abdomen. After anesthetizing with 1% lidocaine at the catheter entry site, contrast was hand injected through the existing catheter and an abscessogram was obtained. The abscessogram through the existing catheter demonstrates no significant residual pocket. The existing 10 Russian APDL catheter was cut and then removed. Procedure Note Patricia Carter MD - 12/22/2017 Clinical History: 70-year-old female with a history of necrotizingpancreatitis and walled off necrosis status post drainage catheterplacement. She presents today for evaluation of the drainage catheter withpossible exchange or removal. Operators: 1. Dr. Carter, Attending Physician 2. Dr. Issa, Resident Physician Anesthesia: 1. None Procedure: 1. Abscessogram through existing catheter 2. Removal of 10 Russian APDL catheter Duration of the procedure: Approximately 10 minutes. Fluoroscopy time: 0.1 minutes. Contrast used: 5 mL Omnipaque 240 Procedure in detail: The procedure, possible complications and the use ofconscious sedation were explained to the patient in detail, and informedconsent was obtained.? The patient was brought to the angiography suite and placed in the supineposition on the fluoroscopic table and the external component of leftflank catheter (10 Russian APDL) and the skin around the region was preppedand draped in a sterile manner. A qualified radiology nurse monitored patient?s vital signs. A neonatal doctor film of the abdomen was obtained which demonstrated the known leftflank catheter with tip overlying the left mid abdomen. Afteranesthetizing with 1% lidocaine at the catheter entry site, contrast washand injected through the existing catheter and an abscessogram was obtained. The abscessogram through the existing catheter demonstrates no significantresidual pocket. The existing 10 Russian APDL catheter was cut and thenremoved. IMPRESSION Impression:?Abscessogram through existing catheter demonstrated nosignificant residual cavity. Removal of existing [address] Esa Mir, was present and performed/supervised the entireprocedure. This report was approved by Cade Issa D.O. on 01/11/2016 3:[address] PATRICIA Mir M.D. have personally reviewed and interpreted thisexamination/study. This report was electronically signed by PATRICIA CARTER M.D. on 01/14/20168:47 AM . Patricia Carter MD IR ORDERABLES * IR CHOLANGIOGRAM (01/11/2016 9:09 AM CDT) Only the most recent of2 resultswithin the time period is included. Anatomical Region Laterality Modality Abdomen Other Impressions 01/14/2016 8:47 AM CDT Impression:?Abscessogram through existing catheter demonstrated no significant residual cavity. Removal of existing 10 Russian APDL catheter. I, Dr. Carter, was present and performed/supervised the entire procedure. This report was approved ??by Cade Issa D.O. ?? on 01/11/2016 3:58 PM . IDr. PATRICIA M.D. have personally reviewed and interpreted this examination/study. This report was electronically signed by PATRICIA CARTER M.D. ??on 01/14/2016 8:47 AM . Narrative 01/14/2016 8:47 AM CDT Clinical History: 70-year-old female with a history of necrotizing pancreatitis and walled off necrosis status post drainage catheter placement. She presents today for evaluation of the drainage catheter with possible exchange or removal. Operators: 1. ??Dr. Carter, Attending Physician 2. ??Dr. Issa, Resident Physician Anesthesia: 1. ??None Procedure: 1. ??Abscessogram through existing catheter 2. Removal of 10 Russian APDL catheter Duration of the procedure: Approximately 10 minutes. Fluoroscopy time: 0.1 minutes. Contrast used: 5 mL Omnipaque 240 Procedure in detail: ??The procedure, possible complications and the use of conscious sedation were explained to the patient in detail, and informed consent was obtained.? The patient was brought to the angiography suite and placed in the supine position on the fluoroscopic table and the external component of left flank catheter (10 Russian APDL) and the skin around the region was prepped and draped in a sterile manner. A qualified radiology nurse monitored patient?s vital signs. A neonatal doctor film of the abdomen was obtained which demonstrated the known left flank catheter with tip overlying the left mid abdomen. After anesthetizing with 1% lidocaine at the catheter entry site, contrast was hand injected through the existing catheter and an abscessogram was obtained. The abscessogram through the existing catheter demonstrates no significant residual pocket. The existing 10 Russian APDL catheter was cut and then removed. Procedure Note Patricia Carter MD - 12/22/2017 Clinical History: 70-year-old female with a history of necrotizingpancreatitis and walled off necrosis status post drainage catheterplacement. She presents today for evaluation of the drainage catheter withpossible exchange or removal. Operators: 1. Dr. Carter, Attending Physician 2. Dr. Issa, Resident Physician Anesthesia: 1. None Procedure: 1. Abscessogram through existing catheter 2. Removal of 10 Russian APDL catheter Duration of the procedure: Approximately 10 minutes. Fluoroscopy time: 0.1 minutes. Contrast used: 5 mL Omnipaque 240 Procedure in detail: The procedure, possible complications and the use ofconscious sedation were explained to the patient in detail, and informedconsent was obtained.? The patient was brought to the angiography suite and placed in the supineposition on the fluoroscopic table and the external component of leftflank catheter (10 Russian APDL) and the skin around the region was preppedand draped in a sterile manner. A qualified radiology nurse monitored patient?s vital signs. A neonatal doctor film of the abdomen was obtained which demonstrated the known leftflank catheter with tip overlying the left mid abdomen. Afteranesthetizing with 1% lidocaine at the catheter entry site, contrast washand injected through the existing catheter and an abscessogram was obtained. The abscessogram through the existing catheter demonstrates no significantresidual pocket. The existing 10 Russian APDL catheter was cut and thenremoved. IMPRESSION Impression:?Abscessogram through existing catheter demonstrated nosignificant residual cavity. Removal of existing [address] Esa Mir, was present and performed/supervised the entireprocedure. This report was approved by Cade Issa D.O. on 01/11/2016 3:58 PM. IDr. PATRICIA M.D. have personally reviewed and interpreted thisexamination/study. This report was electronically signed by PATRICIA CARTER M.D. on 01/14/20168:47 AM . Patricia Carter MD IR ORDERABLES * IR BILIARY DRAIN CATH EXCHANGE (12/09/2015 9:40 AM CDT) Anatomical Region Laterality Modality Other Impressions 12/13/2015 9:16 AM CDT Impression:?Abscessogram through existing catheter demonstrated small residual cavity. No significant communication with bowel was seen in this study. Exchange of cholecystostomy catheter (10 Russian APDL catheter) for a new 10 Russian APDL catheter, under fluoroscopic guidance. Plan and follow up: The catheter should be flushed with 10 mL of saline. Catheter output should be monitored. The catheter needs to be exchanged in 4 weeks. I, Dr. Carter, was present and performed/supervised the entire procedure. This report was approved ??by Cade Issa D.O. ?? on 12/10/2015 5:40 PM . IDr. PATRICIA M.D. have personally reviewed and interpreted this examination/study. This report was electronically signed by PATRICIA CARTER M.D. ??on 12/13/2015 9:16 AM . Narrative 12/13/2015 9:16 AM CDT Clinical History: 69 year-old female the history of necrotizing pancreatitis and walled off necrosis status post percutaneous drainage catheter placement. Operators: 1. ??Dr. Carter, Attending Physician 2. ??Dr. Issa, Resident Physician Anesthesia: 1. ??Local anesthesia - 5 ml of 1 % lidocaine Procedure: 1. ??Abscessogram through existing catheter 2. Exchange of 10 Russian APDL catheter Duration of the procedure: Approximately 15 minutes. Fluoroscopy time: 2.1 minutes. Contrast used: 5 mL Omnipaque 240 Procedure in detail: ??The procedure, possible complications and the use of conscious sedation were explained to the patient in detail, and informed consent was obtained.? The patient was brought to the angiography suite and placed in the supine position on the fluoroscopic table and the external component of left flank catheter (10 Russian APDL) and the skin around the region was prepped and draped in a sterile manner. A qualified radiology nurse monitored patient?s vital signs. A neonatal doctor film of the abdomen was obtained which demonstrated the known left flank catheter with tip overlying the left mid abdomen. After anesthetizing with 1% lidocaine at the catheter entry site, contrast was hand injected through the existing catheter and an abscessogram was obtained. The abscessogram through the existing catheter demonstrates a small residual pocket. Over a wire, the existing 10 Russian APDL catheter was exchanged for a new 10 Russian APDL catheter. Hand injection of contrast through new catheter confirmed the position of the catheter. The catheter was secured and connected to gravity drainage. There were no complication and the patient tolerated the procedure well. Procedure Note Patricia Carter MD - 12/22/2017 Clinical History: 69 year-old female the history of necrotizingpancreatitis and walled off necrosis status post percutaneous drainagecatheter placement. Operators: 1. Dr. Carter, Attending Physician 2. Dr. Issa, Resident Physician Anesthesia: 1. Local anesthesia - 5 ml of 1 % lidocaine Procedure: 1. Abscessogram through existing catheter 2. Exchange of 10 Russian APDL catheter Duration of the procedure: Approximately 15 minutes. Fluoroscopy time: 2.1 minutes. Contrast used: 5 mL Omnipaque 240 Procedure in detail: The procedure, possible complications and the use ofconscious sedation were explained to the patient in detail, and informedconsent was obtained.? The patient was brought to the angiography suite and placed in the supineposition on the fluoroscopic table and the external component of leftflank catheter (10 Russian APDL) and the skin around the region was preppedand draped in a sterile manner. A qualified radiology nurse monitored patient?s vital signs. A neonatal doctor film of the abdomen was obtained which demonstrated the known leftflank catheter with tip overlying the left mid abdomen. Afteranesthetizing with 1% lidocaine at the catheter entry site, contrast washand injected through the existing catheter and an abscessogram was obtained. The abscessogram through the existing catheter demonstrates a smallresidual pocket. Over a wire, the existing 10 Russian APDL catheter wasexchanged for a new 10 Russian APDL catheter. Hand injection of contrastthrough new catheter confirmed the position of the catheter. The catheter was secured and connected to gravity drainage. There were nocomplication and the patient tolerated the procedure well. IMPRESSION Impression:?Abscessogram through existing catheter demonstrated smallresidual cavity. No significant communication with bowel was seen in thisstudy. Exchange of cholecystostomy catheter (10 Russian APDL catheter) fora new 10 Russian APDL catheter, under fluoroscopic guidance. Plan and follow up: The catheter should be flushed with 10 mL of saline.Catheter output should be monitored. The catheter needs to be exchanged in4 weeks. I, Dr. Carter, was present and performed/supervised the entireprocedure. This report was approved by Cade Issa D.O. on 12/10/2015 5:[address] PATRICIA Mir M.D. have personally reviewed and interpreted thisexamination/study. This report was electronically signed by PATRICIA CARTER M.D. on 12/13/20159:16 AM . Jocelyn Lazar MD IR ORDERABLES * IR DRAIN W CATH PLACEMENT (11/19/2015 2:15 PM 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) Anatomical Region Laterality Modality Abdomen Other Impressions 11/21/2015 5:02 PM 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 Impression: Cutaneous fistulogram demonstrated draining a significant sized cavity in the subcutaneous tissues. A 10 Russian pigtail catheter was subsequently placed under fluoroscopic guidance and should be downsized and 10-14 days. Note: Patient needs flushing with Betadine (5-10 cc) and leave it for 30 -60 minutes before draining, every day until the cavity closes. The catheter also needs to be downsized over time. This report was approved ??by Kyle Parra M.D. ?? on 11/19/2015 5:[address] JOCELYN Mir M.D. have personally reviewed and interpreted this examination/study. This report was electronically signed by JOCELYN LAZAR M.D. ??on 11/21/2015 5:02 PM . 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 Patient was referred for fistulogram and if needed percutaneous drain placement. Operators: 1. ??Dr. Dr Lazar, Attending Physician 2. ??Dr. Parra, Resident Physician Anesthesia: Local anesthesia - 5 ml of 1 % lidocaine Procedure: 1. ??Fistulogram or Sinogram through a catheter placed in the cutaneous fistula. 2. ??Placement of a 10 Russian pigtail catheter under fluoroscopic guidance. Duration of Procedure: Appx 15 minutes. Fluoroscopic time: 3.7 minutes Contrast: 10 mL Omnipaque 240 Procedure in detail: The procedure, risks and possible complications were explained to the patient in detail, and an informed consent was obtained. The patient was placed supine on the angiographic table. ??A neonatal doctor film of abdomen was obtained and demonstrated cholecystectomy clips, an IVC filter, and splenic artery coils Patient?s vital signs were monitored throughout the procedure by a qualified Radiology Nurse. After anesthetizing with local anesthesia, a 4 Russian KMP catheter was inserted into the cutaneous fistula and contrast was hand injected. This demonstrated a significantly sized cavity communicating with fistulous tracts directed superiorly. There is no obvious communication to pancreatic duct was noted, however, since the collection is clear fluid, it is thought to be pancreatic secretion from an injured duct. In view of the size of the cavity and the patient's symptoms, it was decided to place a 10 Russian drain over wire in order to facilitate sclerosis and eventual obliteration of the fistulous cavity. A final hand injection demonstrated the pigtail catheter loop within the largest portion of the cavity with free flow into the communicating tracts. The catheter was secured and connected to gravity drainage bag. The patient tolerated the procedure well was transferred in stable condition. There were no immediate complications associated with the procedure. 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 Patientpresented with recurrent outburst of fluid from a cutaneous sinus. Patientwas referred for fistulogram and if needed percutaneous drain placement. Operators: 1. Dr. Dr Lazar, Attending Physician 2. Dr. Parra, Resident Physician Anesthesia: Local anesthesia - 5 ml of 1 % lidocaine Procedure: 1. Fistulogram or Sinogram through a catheter placed in the cutaneousfistula. 2. Placement of a 10 Russian pigtail catheter under fluoroscopicguidance. Duration of Procedure: Appx 15 minutes. Fluoroscopic time: 3.7 minutes Contrast: 10 mL Omnipaque 240 Procedure in detail: The procedure, risks and possible complications wereexplained to the patient in detail, and an informed consent was obtained.The patient was placed supine on the angiographic table. A neonatal doctor film ofabdomen was obtained and demonstrated cholecystectomy clips, an IVC filter, and splenic arterycoils Patient?s vital signs were monitored throughout the procedure by aqualified Radiology Nurse. After anesthetizing with local anesthesia, a 4 Russian KMP catheter wasinserted into the cutaneous fistula and contrast was hand injected. Thisdemonstrated a significantly sized cavity communicating with fistuloustracts directed superiorly. There is no obvious communication to pancreatic duct was noted, however, since thecollection is clear fluid, it is thought to be pancreatic secretion froman injured duct. In view of the size of the cavity and the patient's symptoms, it wasdecided to place a 10 Russian drain over wire in order to facilitatesclerosis and eventual obliteration of the fistulous cavity. A final handinjection demonstrated the pigtail catheter loop within the largest portion of the cavity with free flow into thecommunicating tracts. The catheter was secured and connected to gravity drainage bag. Thepatient tolerated the procedure well was transferred in stable condition.There were no immediate complications associated with the procedure. IMPRESSION Impression: Cutaneous fistulogram demonstrated draining a significantsized cavity in the subcutaneous tissues. A 10 Russian pigtail catheter wassubsequently placed under fluoroscopic guidance and should be downsizedand 10-14 days. Note: Patient needs flushing with Betadine (5-10 cc) and leave it for 30-60 minutes before draining, every day until the cavity closes. Thecatheter also needs to be downsized over time. This report was approved by Kyle Parra M.D. on 11/19/2015 5:38 PM . I, Dr. JOCELNY LAZAR M.D. have personally reviewed and interpretedthis examination/study. This report was electronically signed by JOCELYN LAZAR M.D. on11/21/2015 5:02 PM . Martir Vee MD IR ORDERABLES * CULTURE AEROBIC (10/04/2015 11:06 AM 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) Only the most recent of8 resultswithin the time period is included. Culture Aerobic No Growth at 1 week [facility] Gram Stain No Organism Seen [facility] Fluid specimen (specimen) 10/04/2015 11:06 AM 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 10/04/2015 12:29 PM 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 Narrative [facility] - 10/11/2015 2:07 PM 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 Peritoneal fluid Specimen Type->Body Fluid Gram Stains are routinely screened for the presence of Polymorphonuclear Cells. Aleisha Robertson MD LAB - MICROBIOLOGY O RDERABLES Performing Organization Address [facility]/ZIP Co de Phone Number [facility] [address] [place] [address] * TYPE + SCREEN PANEL (10/04/2015 8:35 AM 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) Only the most recent of5 resultswithin the time period is included. Typem O POS [facility] Antibody Screen NEG [facility] Blood specimen (specimen) 10/04/2015 8:35 AM 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 10/04/2015 9:02 AM 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 Aleisha Robertson MD LAB - BLOOD BANK ORD ERABLES Performing Organization Address [facility] Co de Phone Number [facility] [address] [place] [address] * CBC W AUTO DIFFERENTIAL (09/28/2015 3:24 AM 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) Only the most recent of131 resultswithin the time period is included. Blood specimen (specimen) BLOOD SPECIMEN / Unknown 09/28/2015 3:24 AM 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 Narrative [facility] - 09/28/2015 3:55 AM 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 The following orders were created for panel order CBC w Differential. Procedure ? Abnormality ? Status ? --------- ? ------ ? CBC WITH DIFFERENTIAL[[id number]] ? Abnormal ?Final result ? Please view results for these tests on the individual orders. Martir Vee MD LAB - HEMATOLOGY ORD LUIS ANTONIO Performing Organization Address [facility]/ZIP Co de Phone Number [facility] [address] * (ABNORMAL) BASIC METABOLIC PANEL (CALCIUM TOTAL) (09/28/2015 3:24 AM 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) Only the most recent of34 resultswithin the time period is included. BUN 17 7 - 26 mg/dL [facility] Creatinine 0.8 0.6 - 1.2 mg/dL [facility] Sodium 142 136 - 145 mmol/L [facility] Potassium 3.7 3.5 - 4.5 mmol/L [facility] Chloride 109(H) 98 - 107 mmol/L [facility] CO2 26 22 - 29 mmol/L [facility] Glucose 81 70 - 115 mg/dL [facility] Calcium 9.4 8.4 - 10.2 mg/dL [facility] Anion Gap 11 8 - 18 [facility] BUN/Creatinine Ratio 21 7 - 23 [facility] Osmolality Calculated 280 270 - 300 mOsm/kg [facility] eGFR >60 >60 mL/min/1.7 3 m2 [facility] Blood specimen (specimen) BLOOD SPECIMEN / Unknown 09/28/2015 3:24 AM 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 09/28/2015 3:48 AM 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 Martir Vee MD LAB - CHEMISTRY [place] CHOI Performing Organization Address [facility]/ZIP Co de Phone Number [facility] [address] [phone] * US ABDOMEN LIMITED (09/27/2015 9:53 AM 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) Anatomical Region Laterality Modality Abdomen Other Impressions 09/27/2015 10:44 AM 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 Impression: Cholelithiasis and mild gallbladder wall thickening with negative Day's sign. ??These findings are equivocal for acute cholecystitis. Further evaluation with a HIDA scan may be obtained if clinically indicated. Reported dictated by Kyle Parra MD (president and chief operating officer). I, Dr. DYANA PEÑA M.D. have personally reviewed and interpreted this examination/study. This report was electronically signed by DYANA PEÑA M.D. ??on 09/27/2015 10:44 AM . Narrative 09/27/2015 10:44 AM 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 Exam: Abdominal ultrasound limited History: Concern for cholecystitis Comparison: CT from similar [address] from September 2015. Findings: The liver is normal in echotexture. There is an indeterminate 1.3 cm hyperechoic lesion in the posterior and lateral right hepatic lobe. No intrahepatic biliary dilation is seen. Limited color Doppler evaluation demonstrates patency of the hepatic and portal veins. No ascites is present. Several gallstones are present with mild gallbladder wall thickening to 5 mm. There is no pericholecystic fluid and Day's sign is negative. The common bile duct is not dilated. The right kidney measures 9.6 cm in length. Limited views demonstrate no evidence of hydronephrosis or calculus. A small renal cyst is noted. The visible pancreatic head and body show normal echogenicity. The spleen is not enlarged. There is an inhomogeneously hypoechoic area within the splenic parenchyma consistent with infarction as demonstrated on prior CT imaging. Procedure Note Dyana Peña MD - 12/22/2017 Exam: Abdominal ultrasound limited History: Concern for cholecystitis Comparison: CT from similar [address] from September2015. Findings: The liver is normal in echotexture. There is an indeterminate 1.3 cmhyperechoic lesion in the posterior and lateral right hepatic lobe. Nointrahepatic biliary dilation is seen. Limited color Doppler evaluationdemonstrates patency of the hepatic and portal veins. No ascites is present. Several gallstones are present with mild gallbladder wall thickening to 5mm. There is no pericholecystic fluid and Day's sign is negative. Thecommon bile duct is not dilated. The right kidney measures 9.6 cm in length. Limited views demonstrate noevidence of hydronephrosis or calculus. A small renal cyst is noted. Thevisible pancreatic head and body show normal echogenicity. The spleen isnot enlarged. There is an inhomogeneously hypoechoic area within the splenic parenchyma consistentwith infarction as demonstrated on prior CT imaging. IMPRESSION Impression: Cholelithiasis and mild gallbladder wall thickening with negative Day'ssign. These findings are equivocal for acute cholecystitis. Furtherevaluation with a HIDA scan may be obtained if clinically indicated. Reported dictated by Kyle Parra MD (president and chief operating officer). I, Dr. DYANA PEÑA M.D. have personally reviewed and interpreted thisexamination/study. This report was electronically signed by DYANA PEÑA M.D. on 09/27/201510:44 AM . Martir Vee MD US ORDERABLES * CULTURE BLOOD (09/26/2015 8:30 PM 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) Only the most recent of29 resultswithin the time period is included. Culture Blood No Growth at 5 days [facility] Blood specimen (specimen) 09/26/2015 8:30 PM 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 09/26/2015 8:36 PM 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 Narrative [facility] - 10/01/2015 8:45 PM 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 Draw 15 minutes after Culture 1 from a different site Martir Vee MD LAB - MICROBIOLOGY O RDERABLES Performing Organization Address [facility] Co de Phone Number [address] [phone] * (ABNORMAL) PT-INR SLU (09/26/2015 5:18 PM 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) Only the most recent of28 resultswithin the time period is included. PT 16.1(H) 12.1 - 14.8 Seconds [facility] INR 1.3 See Comment [facility] Comment: Suggested therapeutic range for low-intensity coumadin therapy for venous thromboembolism prophylaxis is an INR of 2.0-3.0. ??For high risk patients (Mitral Valve Prosthesis, Atrial Fibrillation, history of TIA/stroke), suggested prophylactic therapeutic range is an INR of 2.5-3.5. Blood specimen (specimen) BLOOD SPECIMEN / Unknown 09/26/2015 5:18 PM 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 09/26/2015 5:18 PM 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 Narrative [facility] - 09/26/2015 5:56 PM 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 Is patient on Heparin, Argatroban or Dabigatran?->N Martir Vee MD LAB - COAGULATION OR DERABLES [facility] [address] [place] [address] * (ABNORMAL) COMPREHENSIVE METABOLIC PANEL (09/26/2015 5:18 PM 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) Only the most recent of46 resultswithin the time period is included. BUN 20 7 - 26 mg/dL [facility] Creatinine 0.7 0.6 - 1.2 mg/dL [facility] Sodium 140 136 - 145 mmol/L [facility] Potassium 3.4(L) 3.5 - 4.5 mmol/L [facility] Chloride 109(H) 98 - 107 mmol/L [facility] CO2 26 22 - 29 mmol/L [facility] Glucose 76 70 - 115 mg/dL [facility] Calcium 9.3 8.4 - 10.2 mg/dL [facility] Protein Total 6.1 6.0 - 8.3 g/dL [facility] Albumin 3.2(L) 3.4 - 5.0 g/dL [facility] Bilirubin Total 0.3 0.2 - 1.2 mg/dL [facility] Alkaline Phosphatase 141 40 - 150 Units/L [facility] ALT 27 0 - 55 Units/L [facility] AST 16 5 - 34 Units/L [facility] Anion Gap 8 8 - 18 [facility] BUN/Creatinine Ratio 29(H) 7 - 23 [facility] Osmolality Calculated 277 270 - 300 mOsm/kg [facility] Albumin/Globulin Ratio 1.1 1.1 - 2.3 [facility] eGFR >60 >60 mL/min/1.7 3 m2 [facility] Blood specimen (specimen) BLOOD SPECIMEN / Unknown 09/26/2015 5:18 PM 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 09/26/2015 5:18 PM 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 Martir Vee MD LAB - CHEMISTRY [place] [facility] [address] [phone] * (ABNORMAL) LIPASE BLOOD (09/26/2015 5:18 PM 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) Only the most recent of11 resultswithin the time period is included. Lipase 1,595(H) 8 - 78 Units/L [facility] Comment:Result obtained by kelton espinoza. Blood specimen (specimen) BLOOD SPECIMEN / Unknown 09/26/2015 5:18 PM 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 09/26/2015 5:18 PM 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 Martir Vee MD LAB - CHEMISTRY REM[place] CHOI Performing Organization Address [facility] Co de Phone Number [address] [phone] * LACTIC ACID BLOOD (09/26/2015 5:18 PM 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) Only the most recent of9 resultswithin the time period is included. [facility] Lactic Acid-Stat 0.9 0.5 - 2.2 mmol/L [facility] Blood specimen (specimen) BLOOD SPECIMEN / Unknown 09/26/2015 5:18 PM 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 09/26/2015 5:18 PM 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 Martir Vee MD LAB - CHEMISTRY [place] CHOI Performing Organization Address [facility] Co de Phone Number [address] [phone] * CELL COUNT W DIFFERENTIAL FLUID (09/18/2015 5:59 PM 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) Only the most recent of3 resultswithin the time period is included. Fluid specimen (specimen) SPECIMEN FROM ABSCESS / Unknown 09/18/2015 5:59 PM 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 Narrative [facility] - 09/18/2015 6:48 PM 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 The following orders were created for panel order Body fluid cell count with diff. Procedure ? Abnormality ? Status ? --------- ? ------ ? Body fluid cell count wit...[[id number]] ??Abnormal ?Final result ? MANUAL DIFFERENTIAL FLUID[[id number]] ? Final result ? Please view results for these tests on the individual orders. Dimitris Spence MD LAB - BODY FLUID ORD ERABLES Performing Organization Address [facility] Co de Phone Number [facility] [address] * DIFFERENTIAL MANUAL FLUID (09/18/2015 5:59 PM 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) Only the most recent of3 resultswithin the time period is included. Segs % Fluid 97 % [facility] Monocytes % Fluid 1 % [facility] Eosinophils % Fluid 2 % [facility] Fluid specimen (specimen) SPECIMEN FROM ABSCESS / Unknown 09/18/2015 5:59 PM 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 09/18/2015 6:45 PM 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 Dimitris Spence MD LAB - BODY FLUID ORD ERABLES Performing Organization Address [facility] de Phone Number [facility] [address] [phone] * (ABNORMAL) CULTURE ANAEROBE (09/18/2015 5:59 PM 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) Only the most recent of6 resultswithin the time period is included. Culture Anaerobic BACTEROIDES CACCAE(A) [facility] Comment:Light Growth - anaer obic Bacteroides Caccae Culture Anaerobic BACTEROIDES OVATUS(A) [facility] Comment:Light Growth - anaer obic Bacteroides Ovatus Culture Anaerobic Aerobic growth compatible with Routine Culture. [facility] Abscess 09/18/2015 5:59 PM 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 09/19/2015 7:55 AM 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 Narrative [facility] - 09/26/2015 12:14 PM 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 Left flank Specimen Type->Abscess Organism Antibiotic Method Susceptibility Bacteroides caccae Beta-Lactamase SUSCEPTIBILITY Resistant Bacteroides ovatus Beta-Lactamase SUSCEPTIBILITY Resistant Comment: Resistant Result: ??Organism is Beta-Lactamase Positive. Sensitive Result: ??Organism is Beta-Lactamase Negative. Beta-Lactamase positive results predict resistance to Penicillin and Ampicillin. Anaerobes can be resistant to Beta-Lactam Antimicr obial agents by mechanisms other than Beta-Lactamase production, so a negative result does not rule out resistance. William Sullivan MD LAB - MICROBIOLOGY O RDERABLES Performing Organization Address [facility] Co de Phone Number [address] [phone] * (ABNORMAL) CELL COUNT FLUID (09/18/2015 5:59 PM 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) Only the most recent of3 resultswithin the time period is included. Color Fluid Red(A) Colorles s, Straw [facility] Clarity Fluid Bloody(A) Clear [facility] Volume Fluid mL [facility] Comment:Test not performed. WBC Fluid 53,990 /uL [facility] RBC Fluid 290,000 /uL [facility] Differential Manual Differential to follow. [facility] Fluid specimen (specimen) 09/18/2015 5:59 PM 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 09/18/2015 6:44 PM 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 Narrative [facility] - 09/18/2015 6:46 PM 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 No established reference ranges for WBC and RBC body fluid count. Dimitris Spence MD LAB - BODY FLUID ORD ERABLES Performing Organization Address [facility] [place] [address], [facility] [phone] * CT GUIDED NEEDLE PLACEMENT (09/18/2015 5:49 PM 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) Only the most recent of3 resultswithin the time period is included. Anatomical Region Laterality Modality Abdomen Other Impressions 09/20/2015 3:43 PM 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 Impression: CT guided aspiration of left flank fluid collection, as described above. Note: The aspirate serosanguineous and approximately 3 cc amount of fluid was drained. I Dr. William Sullivan, was present and performed/supervised the entire procedure under moderate sedation. This report was electronically signed by WILLIAM SULLIVAN M.D. ??on 09/20/2015 3:43 PM . Narrative 09/20/2015 3:43 PM 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 History: 69-year-old woman with leukocytosis and left flank presumed abscess. Urgent percutaneous drainage is requested Operators: 1. ??Dr. William Sullivan, Attending Physician Anesthesia: 1. ??Local anesthesia - 5 ml of 1 % lidocaine 2. ??Intravenous Conscious Sedation (Versed 2 mg and Fentanyl 100 mcg). Procedure: 1. ??Limited non-contrast CT examination of abdomen. 2. ??CT guided aspiration of left flank fluid collection Sedation time: 30 minutes Procedure in Detail: The procedure and possible complications were explained to the patient in detail, and informed consent was obtained. The patient was placed in a oblique position on the CT table and a limited non-contrast CT examination was performed with radio-opaque grid markers over the region of interest. The limited CT examination of the abdomen was performed, demonstrating unchanged left flank fluid collection. Patient received intravenous conscious sedation with Versed and Fentanyl. Patient?s vital signs were monitored by a qualified radiology nurse throughout the procedure. The marked site and skin around the region was prepped and draped in a sterile fashion. ??Local anesthesia was provided by the injection with 1% Lidocaine. ??A co-axial needle system was advanced in stages under CT guidance. Upon aspiration, the out-sheath was advanced within the collection. The initial aspirate was serosanguineous and approximately 3 cc amount of fluid was drained. Appropriate amount of aspirate was sent for necessary laboratory work up. ??A final CT image was performed showing near-complete resolution of fluid collection. There is no ??immediate complication like hemorrhage noted. The patient tolerated the procedure. ??The patient was transferred to the holding area in stable condition. Procedure Note William Sullivan MD - 12/22/2017 History: 69-year-old woman with leukocytosis and left flank presumedabscess. Urgent percutaneous drainage is requested Operators: 1. Dr. William Sullivan, Attending Physician Anesthesia: 1. Local anesthesia - 5 ml of 1 % lidocaine 2. Intravenous Conscious Sedation (Versed 2 mg and Fentanyl 100 mcg). Procedure: 1. Limited non-contrast CT examination of abdomen. 2. CT guided aspiration of left flank fluid collection Sedation time: 30 minutes Procedure in Detail: The procedure and possible complications wereexplained to the patient in detail, and informed consent was obtained. The patient was placed in a oblique position on the CT table and a limitednon-contrast CT examination was performed with radio-opaque grid markersover the region of interest. The limited CT examination of the abdomen wasperformed, demonstrating unchanged left flank fluid collection. Patient received intravenous conscious sedation with Versed and Fentanyl.Patient?s vital signs were monitored by a qualified radiology nursethroughout the procedure. The marked site and skin around the region was prepped and draped in asterile fashion. Local anesthesia was provided by the injection with 1%Lidocaine. A co- axial needle system was advanced in stages under CTguidance. Upon aspiration, the out-sheath was advanced within the collection. The initial aspirate wasserosanguineous and approximately 3 cc amount of fluid was drained.Appropriate amount of aspirate was sent for necessary laboratory work up.A final CT image was performed showing near-complete resolution of fluid collection. There is no immediate complication like hemorrhage noted. The patient tolerated the procedure. [facility]. IMPRESSION Impression: CT guided aspiration of left flank fluid collection, asdescribed above. Note: The aspirate serosanguineous and approximately 3 cc amount of fluidwas drained. I Dr. William Sullivan, was present and performed/supervised the entireprocedure under moderate sedation. This report was electronically signed by WILLIAM SULLIVAN M.D. on09/20/2015 3:43 PM . Dimitris Spence MD CT ORDERABLES * (ABNORMAL) URINALYSIS W/MICROSCOPIC NO CULTURE (09/18/2015 11:16 AM 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) Only the most recent of8 resultswithin the time period is included. Color UA Yellow Straw, Yellow, Colorless, Light Yellow [facility] Clarity UA Clear Clear [facility] Specific [place] UA 1.014 1.001 - 1.030 [facility] pH UA 5.5 5.0 - 8.0 [facility] Protein UA Negative <=20 mg/dL [facility] Glucose UA Negative Negative mg/dL [facility] Ketone UA Negative Negative mg/dL [facility] Bilirubin UA Negative Negative mg/dL [facility] Blood UA Negative Negative [facility] Nitrite UA Negative Negative [facility] Leukocyte Esterase Trace(A) Negative [facility] Urobilinogen UA <2.0 <2.0 mg/dL [facility] RBC UA 1 0 - 8 /HPF [facility] WBC UA 1 0 - 2 /HPF [facility] Squamous Epithelial Cells UA <1 0 - 1 /HPF [facility] Mucus UA Rare(A) None /LPF [facility] Urine specimen (specimen) 09/18/2015 11:16 AM 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 09/18/2015 11:23 AM 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 Benny Blake DO LAB - URINALYSIS ORD ERABLES [address] [phone] * CT ABDOMEN PELVIS W CONTRAST (09/18/2015 10:55 AM 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) Only the most recent of4 resultswithin the time period is included. Anatomical Region Laterality Modality Abdomen, Pelvis Other Impressions 09/19/2015 10:26 AM 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 IMPRESSION: Reaccumulation of a rim-enhancing fluid collection in the deep left flank subcutaneous tissues containing foci of gas and measuring 2.7 x 4.4 x 5.3 cm with minimal extension into the left retroperitoneum. Reaccumulation of a fluid collection posterolateral to the left kidney. Evolving splenic infarct without evidence of complication. Incomplete opacification of the portal vein having the appearance of nonocclusive thrombus. Consider correlation with Doppler ultrasound. Findings discussed with Dr. Rolon by Suzi Nguyen on 09/18/2015 at 11:35 AM. Report dictated by Suzi Nguyen M.D. (Resident). I, Dr. LIDIA TUTTLE M.D. have personally reviewed and interpreted this examination/study. This report was electronically signed by LIDIA TUTTLE M.D. ??on 09/19/2015 10:26 AM . Narrative 09/19/2015 10:26 AM 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 EXAMINATION: Computed tomography (CT) of the abdomen and pelvis with contrast HISTORY: 69-year-old female with history of pancreatitis and walled off necrosis presenting with left flank fullness. TECHNIQUE: CT of the abdomen and pelvis was performed after the uneventful administration of 100 mL Omnipaque 350 intravenous contrast according to standard protocol. COMPARISON: CT abdomen and pelvis dated 03/05/2015 and MR abdomen dated 09/01/2015. FINDINGS: Abdomen/Pelvis: Wedge-shaped area of hyperenhancement in the right hepatic lobe is unchanged when compared to the prior MR dated 09/01/2015, most consistent with transient hepatic attenuation difference. A 10 mm hypoattenuating focus within hepatic segment 7 correlates with a hemangioma on the MRI. No new hepatic lesions are identified. Nonocclusive clot is seen within the portal vein; there is decreased opacification of the right and left portal veins. The hepatic veins are patent. The gallbladder is normal without evidence of wall thickening, pericholecystic fluid, or gallstones. The intrahepatic and extrahepatic bile ducts are nondilated. 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 There are calcified splenic granulomas which are unchanged. The adrenal glands are normal. The kidneys enhance symmetrically. There is no evidence of renal calculi or hydronephrosis. The pancreatic parenchymal enhancement is normal. There is mild atrophy of the pancreatic tail with parenchymal calcifications. No peripancreatic stranding or fluid collections are identified. The pancreatic duct is nondilated. There is persistent thickening of the Gerota's fascia posterior to the left kidney in the region of the previous fluid collection. A gas and fluid collection are seen posterolateral to the left kidney at a previous drain site, measuring 3.8 x 1.0 x 2.5 cm. There is reaccumulation of a rim-enhancing fluid collection in the deep left flank subcutaneous tissues with scattered foci of gas and minimal extension into the left retroperitoneum (image 78 series 5). The fluid collection measures 2.7 cm AP by 4.4 cm TV by 5.3 cm CC (image 56 series 7). Hyperdense tract of the previous drain catheter is redemonstrated. The stomach, small bowel, and large bowel are normal in caliber without evidence of wall thickening or obstruction. Normal appendix is identified in the right lower quadrant (image 118 series 5). A left upper abdominal lymph node measures 8 mm in short axis (image 62 series 5). There is no free intraperitoneal air. No free fluid is seen in the abdomen or pelvis. The urinary bladder is distended with fluid and appears normal. The uterus and ovaries are normal. There is no pelvic lymphadenopathy. Other: The visualized lung bases are clear. The imaged heart size is normal. There is no pericardial effusion. The abdominal aorta is normal in course and caliber. Coils are seen in the distal splenic artery and the splenic hilum consistent with prior splenic pseudoaneurysm embolization. An accessory left renal artery is present. An infrarenal inferior vena cava filter is unchanged. Small umbilical hernia is noted. Bone windows demonstrate no suspicious lytic or blastic lesions. Degenerative changes are seen in the lumbar spine with grade 1 anterolisthesis of L4 and L5. Procedure Note Lidia Tuttle MD - 12/22/2017 EXAMINATION: Computed tomography (CT) of the abdomen and pelvis withcontrast HISTORY: 69-year-old female with history of pancreatitis and walled offnecrosis presenting with left flank fullness. TECHNIQUE: CT of the abdomen and pelvis was performed after the uneventfuladministration of 100 mL Omnipaque 350 intravenous contrast according tostandard protocol. COMPARISON: CT abdomen and pelvis dated 03/05/2015 and MR abdomen dated111/02/2014. FINDINGS: Abdomen/Pelvis: Wedge-shaped area of hyperenhancement in the right hepatic lobe isunchanged when compared to the prior MR dated 09/01/2015, most consistentwith transient hepatic attenuation difference. A 10 mm hypoattenuatingfocus within hepatic segment 7 correlates with a hemangioma on the MRI. No new hepatic lesions are identified.Nonocclusive clot is seen within the portal vein; there is decreasedopacification of the right and left portal veins. The hepatic veins arepatent. The gallbladder is normal without evidence of wall thickening, pericholecystic fluid, or gallstones. Theintrahepatic and extrahepatic bile ducts are nondilated. Wedge-shapedevolving splenic infarct is redemonstrated. There are calcified splenicgranulomas which are unchanged. The adrenal glands are normal. The kidneys enhance symmetrically. There is noevidence of renal calculi or hydronephrosis. The pancreatic parenchymal enhancement is normal. There is mild atrophy ofthe pancreatic tail with parenchymal calcifications. No peripancreaticstranding or fluid collections are identified. The pancreatic duct isnondilated. There is persistent thickening of the Gerota's fascia posterior to the left kidney in theregion of the previous fluid collection. A gas and fluid collection areseen posterolateral to the left kidney at a previous drain site, measuring3.8 x 1.0 x 2.5 cm. There is reaccumulation of a rim-enhancing fluid collection in the deep left flanksubcutaneous tissues with scattered foci of gas and minimal extension intothe left retroperitoneum (image 78 series 5). The fluid collectionmeasures 2.7 cm AP by 4.4 cm TV by 5.3 cm CC (image 56 series 7). Hyperdense tract of the previous draincatheter is redemonstrated. The stomach, small bowel, and large bowel are normal in caliber withoutevidence of wall thickening or obstruction. Normal appendix is identifiedin the right lower quadrant (image 118 series 5). A left upper abdominallymph node measures 8 mm in short axis (image 62 series 5). There is no free intraperitoneal air. No freefluid is seen in the abdomen or pelvis. The urinary bladder is distended with fluid and appears normal. The uterusand ovaries are normal. There is no pelvic lymphadenopathy. Other: The visualized lung bases are clear. The imaged heart size is normal.There is no pericardial effusion. The abdominal aorta is normal in course and caliber. Coils are seen in thedistal splenic artery and the splenic hilum consistent with prior splenicpseudoaneurysm embolization. An accessory left renal artery is present. Aninfrarenal inferior vena cava filter is unchanged. Small umbilical hernia is noted. Bone windows demonstrate no suspicious lytic or blastic lesions.Degenerative changes are seen in the lumbar spine with grade 1anterolisthesis of L4 and L5. IMPRESSION IMPRESSION: Reaccumulation of a rim-enhancing fluid collection in the deep left flanksubcutaneous tissues containing foci of gas and measuring 2.7 x 4.4 x 5.3cm with minimal extension into the left retroperitoneum. Reaccumulation of a fluid collection posterolateral to the left kidney. Evolving splenic infarct without evidence of complication. Incomplete opacification of the portal vein having the appearance ofnonocclusive thrombus. Consider correlation with Doppler ultrasound. Findings discussed with Dr. Rolon by Suzi Nguyen on 09/18/2015 at 11:35AM. Report dictated by Suzi Nguyen M.D. (Resident). I, Dr. LIDIA TUTTLE M.D. have personally reviewed and interpreted thisexamination/study. This report was electronically signed by LIDIA TUTTLE M.D. on 09/19/201510:26 AM . Benny Blake DO CT ORDERABLES * PTT SLU (09/18/2015 9:37 AM 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) Only the most recent of17 resultswithin the time period is included. APTT 30.3 23.0 - 38.4 Seconds [facility] Comment:Suggested therapeuti c range for full dose I.V. heparin therapy for venous thromboembolism is 66.0-91.0 seconds. Blood specimen (specimen) BLOOD SPECIMEN / Unknown 09/18/2015 9:37 AM 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 09/18/2015 9:41 AM 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 Narrative [facility] - 09/18/2015 10:15 AM 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 Is patient on Heparin, Argatroban or Dabigatran?->N Benny Blake DO LAB - COAGULATION OR DERABLES [address] [phone] * AMYLASE BLOOD (08/13/2015 10:27 AM 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) Only the most recent of5 resultswithin the time period is included. Amylase 52 31 - 124 U/L [facility] Blood specimen (specimen) BLOOD SPECIMEN / Unknown 08/13/2015 10:27 AM 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 08/13/2015 12:38 PM 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 Narrative [facility] (BEAKER) - 08/14/2015 6:13 AM 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 Performed at: ??01 - [facility] [address] ??[id number] Meeting Facilitator: Jaime Alan PhD, Phone: ??[phone] Martir Vee MD LAB - CHEMISTRY [place] CHOI Performing Organization Address [facility] de Phone Number [facility] ([facility]) * (ABNORMAL) PANCREATIC ELASTASE FECES (08/07/2015 1:43 PM 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) Only the most recent of2 resultswithin the time period is included. Pathologist [facility] Pancreatic Elastase 1 79(L) >=201 ug/g [facility] ([facility]) Comment: INTERPRETIVE INFORMATION: Pancreatic Elastase ??201 ug/g or greater .......... Normal ??100-200 ug/g ................. Moderate to mild ? pancreatic insufficiency. ??99 ug/g or less............... Severe exocrine ? pancreatic insufficiency. Stool specimen (specimen) 08/07/2015 1:43 PM 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 08/07/2015 1:43 PM 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 Rivka Alcaraz MD LAB - BODY FLUID ORDERABLES Performing Organization Address [facility] de Phone Number [facility] ([facility]) * (ABNORMAL) FAT QUALITATIVE FECES RANDOM (08/07/2015 1:43 PM 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) Pathologist [facility] Fat Fecal - Neutral Normal Normal [facility] ([facility]) Fat Fecal - Split Increased( A) Normal [facility] ([facility]) Comment: INTERPRETIVE INFORMATION: Fecal Fat Qualitative Neutral fats include the monoglycerides, diglycerides, and triglycerides while split fats are the free fatty acids that are liberated from them. Impaired synthesis or secretion of pancreatic enzymes or bile may cause an increase in neutral fats while an increase in split fats suggests impaired absorption of nutrients. Stool specimen (specimen) 08/07/2015 1:43 PM 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 08/07/2015 1:43 PM 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 Rivka Alcaraz MD LAB - BODY FLUID ORDERABLES Performing Organization Address City/[facility]/ZIP Co de Phone Number [facility] (BEAKER) * (ABNORMAL) PHOSPHORUS BLOOD (08/07/2015 4:30 AM 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) Only the most recent of44 resultswithin the time period is included. Phosphorus 2.0(L) 2.3 - 4.7 mg/dL [facility] Blood specimen (specimen) BLOOD SPECIMEN / Unknown 08/07/2015 4:30 AM 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 08/07/2015 4:35 AM 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 Rivka Alcaraz MD LAB - CHEMISTRY O RDERALINO Performing Organization Address [facility] Co de Phone Number [address] [phone] * (ABNORMAL) HEPATIC FUNCTION PANEL (08/07/2015 4:30 AM 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) Only the most recent of14 resultswithin the time period is included. Protein Total 5.7(L) 6.0 - 8.3 g/dL [facility] Albumin 2.9(L) 3.4 - 5.0 g/dL [facility] Bilirubin Total 0.4 0.2 - 1.2 mg/dL [facility] Bilirubin Conjugated 0.1 0.0 - 0.5 mg/dL [facility] Bilirubin Unconjugated 0.3 Unconjugated Bilirubin is a calculated value: Reference ranges have not been established. mg/dL [facility] Alkaline Phosphatase 140 40 - 150 Units/L [facility] ALT 40 0 - 55 Units/L [facility] AST 23 5 - 34 Units/L [facility] Albumin/Globulin Ratio 1.0(L) 1.1 - 2.3 [facility] Blood specimen (specimen) BLOOD SPECIMEN / Unknown 08/07/2015 4:30 AM 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 08/07/2015 4:35 AM 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 Rivka Alcaraz MD LAB - CHEMISTRY O RDLUIS ANTONIO [address] [phone] * MAGNESIUM BLOOD (08/07/2015 4:30 AM 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) Only the most recent of45 resultswithin the time period is included. Magnesium 2.0 1.6 - 2.6 mg/dL [facility] Blood specimen (specimen) BLOOD SPECIMEN / Unknown 08/07/2015 4:30 AM 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 08/07/2015 4:35 AM 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 Rivka Alcaraz MD LAB - CHEMISTRY O RDERABLES Performing Organization Address [facility] Co de Phone Number [address] [phone] * CULTURE URINE (08/07/2015 2:30 AM 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) Only the most recent of8 resultswithin the time period is included. Pathologist [facility] Culture Urine Less than 10,000 CFU/ML of Normal Urogenital/ Skin Merry [facility] Comment: Urine specimen (specimen) URINE SPECIMEN OBTAINED BY CLEAN CATCH PROCEDURE / Unknown 08/07/2015 2:30 AM 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 08/07/2015 2:34 AM 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 Narrative [facility] - 08/09/2015 9:14 AM 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 Specimen Type->Urine Rivka Alcaraz MD LAB - MICROBIOLOG Y ORDERABLES Performing Organization Address [facility] Co de Phone Number [address] [phone] * URINALYSIS DIPSTICK AUTO (08/07/2015 2:29 AM 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) Color UA Yellow Straw, Yellow, Colorless, Light Yellow [facility] Clarity UA Clear Clear [facility] Specific [place] UA 1.011 1.001 - 1.030 [facility] pH UA 6.5 5.0 - 8.0 [facility] Protein UA Negative <=20 mg/dL [facility] Glucose UA Negative Negative mg/dL [facility] Ketone UA Negative Negative mg/dL [facility] Bilirubin UA Negative Negative mg/dL [facility] Blood UA Negative Negative [facility] Nitrite UA Negative Negative [facility] Leukocyte Esterase Negative Negative [facility] Urobilinogen UA <2.0 <2.0 mg/dL [facility] Urine specimen (specimen) URINE SPECIMEN OBTAINED BY CLEAN CATCH PROCEDURE / Unknown 08/07/2015 2:29 AM 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 08/07/2015 2:35 AM 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 Rivka Alcaraz MD LAB - URINALYSIS ORDERABLES Performing Organization Address [facility]/ZIP Co de Phone Number [address] [phone] * SODIUM URINE RANDOM (08/07/2015 2:29 AM 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) Only the most recent of3 resultswithin the time period is included. Sodium Urine 61 Not Established mmol/L [facility] Urine specimen (specimen) URINE SPECIMEN OBTAINED BY CLEAN CATCH PROCEDURE / Unknown 08/07/2015 2:29 AM 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 08/07/2015 2:35 AM 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 Rivka Alcaraz MD LAB - URINE CHEMI STRY ORDERABLES Performing Organization Address [facility] Co de Phone Number [address] [phone] * CREATININE URINE RANDOM (08/07/2015 2:29 AM 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) Only the most recent of3 resultswithin the time period is included. Creatinine Urine 82 Not Established mg/dL [facility] Comment:Result obtained by d alexis. Urine specimen (specimen) URINE SPECIMEN OBTAINED BY CLEAN CATCH PROCEDURE / Unknown 08/07/2015 2:29 AM 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 08/07/2015 2:35 AM 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 Rivka Alcaraz MD LAB - URINE CHEMI STRY ORDERABLES Performing Organization Address [facility] Co de Phone Number [address] [phone] * (ABNORMAL) PTH INTACT W/O CALCIUM (08/06/2015 3:25 PM 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) PTH Intact 80.6(H) 15.0 - 65.0 pg/mL [facility] Blood specimen (specimen) BLOOD SPECIMEN / Unknown 08/06/2015 3:25 PM 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 08/06/2015 3:39 PM 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 Rivka Alcaraz MD LAB - CHEMISTRY O ROGELIO Performing Organization Address [facility] de Phone Number [address] [phone] * TRANSFERRIN (08/06/2015 3:25 PM 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) Only the most recent of2 resultswithin the time period is included. Transferrin 181 174 - 382 mg/dL [facility] Transferrin Saturation % 22 16 - 50 % [facility] Blood specimen (specimen) BLOOD SPECIMEN / Unknown 08/06/2015 3:25 PM 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 08/06/2015 3:39 PM 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 Rivka Alcaraz MD LAB - CHEMISTRY O ROGELIO Performing Organization Address [facility] de Phone Number [address] [phone] * VITAMIN D 25-HYDROXY (08/06/2015 3:25 PM 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) Only the most recent of2 resultswithin the time period is included. Vitamin D, 25 Hydroxy 35.0 >30.0 ng/mL [facility] Comment: The recommendations for 25-Hydroxy Vitamin D clinical decision points are as follows: ? Deficient: ? <20.0 ng/mL ? Insufficient: ??20.0 - 30.0 ng/mL ? Sufficient: ?>30.0 ng/mL If the 25-Hydroxy Vitamin D results are inconsitent with clinical evidence, it is recommended that follow-up testing using a method such as LC/MS/MS be performed to confirm the result. ? Blood specimen (specimen) BLOOD SPECIMEN / Unknown 08/06/2015 3:25 PM 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 08/06/2015 3:39 PM 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 Rivka Alcaraz MD LAB - CHEMISTRY O RDERALINO Performing Organization Address [facility] de Phone Number [address] [phone] * IRON BLOOD (08/06/2015 3:25 PM 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) Only the most recent of2 resultswithin the time period is included. Iron 50 40 - 150 mcg/dL [facility] Blood specimen (specimen) BLOOD SPECIMEN / Unknown 08/06/2015 3:25 PM 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 08/06/2015 3:39 PM 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 Rivka Alcaraz MD LAB - CHEMISTRY O ROGELIO Performing Organization Address [facility] de Phone Number [address] [phone] * (ABNORMAL) FERRITIN (08/06/2015 3:25 PM 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) Only the most recent of2 resultswithin the time period is included. Ferritin 274(H) 13 - 204 ng/mL [facility] Blood specimen (specimen) BLOOD SPECIMEN / Unknown 08/06/2015 3:25 PM 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 08/06/2015 3:39 PM 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 Rivka Alcaraz MD LAB - CHEMISTRY O RDERALINO Performing Organization Address [facility] [place] [address], [facility] [phone] * IR FISTULA OR SINUS TRACT STUDY (06/22/2015 11:32 AM CDT) Only the most recent of8 resultswithin the time period is included. Anatomical Region Laterality Modality Abdomen Other Impressions 06/24/2015 1:40 PM CDT Impression: ??Abscessogram/Tube check through both abdominal drainage catheters demonstrated no significant residual abscess cavity. No fistula noted. In view of resolution of the abscess cavity and no clinical symptoms, it was decided to remove both catheters. The catheters were removed under fluoroscopic guidance. Note: The findings were discussed with the patient. The patient was explained possibility of recurrent disease (abscess or collection formation). Dr. Villalba was present and performed/supervised the entire procedure. This report was approved ??by Wilfredo Marquez M.D. ?? on 06/22/2015 1:32 PM . I, Dr. EDITH VILLALBA M.D. have personally reviewed and interpreted this examination/study. This report was electronically signed by EDITH VILLALBA M.D. ??on 06/24/2015 1:40 PM . 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 Percutaneous drainage catheters were originally placed on 12/17/2014 and 01/02/2015 with subsequent exchanges. The patient reports minimal drainage from one of the catheters and no drainage from the other catheter. Recent MRI dated 06/08/2015 demonstrated minimal residual fluid collection. Operators: 1. ??Dr. Villalba, Attending Physician 2. ??Dr. Maddy Marquez, Resident Physician Anesthesia: None Procedure: 1. ??Abscessogram/tube check through existing catheters near the midline and left posterolateral aspect of the back. 2. ??Removal of existing 10 Russian and 8.5 Russian catheters under fluoroscopic guidance. Duration of Procedure: Appx 10 minutes. Fluoroscopic time: 0.3 minutes Contrast: 20 mL of Omnipaque-240 Procedure in detail: The procedure, risks and possible complications were explained to the patient in detail, and an informed consent was obtained. The patient was placed prone on the angiographic table. ??A neonatal doctor film of abdomen was obtained, which showed both catheters terminating in the left abdomen. Patients vital signs were monitored throughout the procedure by a qualified Radiology Nurse. Contrast was injected through the existing 10 Russian catheter just to the left of midline posteriorly and an abscessogram was obtained. No significant residual abscess cavity was seen. Subsequently, contrast was injected through the existing 8.5 Russian catheter in the left posterolateral aspect of the abdomen and an abscessogram was obtained. Again, no significant residual abscess cavity was seen. In view of resolution of the abscess cavity and no clinical symptoms, it was decided to remove both catheters. Both catheters were removed, under fluoroscopic guidance. Gauze and Tegaderm were applied at each site. The patient tolerated the procedure well and was transferred in stable condition. There were no immediate complications associated with the procedure. Procedure Note Edith Villalba MD - 12/22/2017 History: 69-year-old female with history of necrotizing pancreatitiscomplicated by walled off necrosis and multiple intra-abdominal abscesses.Percutaneous drainage catheters were originally placed on 12/17/2014 and01/02/2015 with subsequent exchanges. The patient reports minimal drainage from one of the catheters and nodrainage from the other catheter. Recent MRI dated 06/08/2015 demonstratedminimal residual fluid collection. Operators: 1. Dr. Villalba, Attending Physician 2. Dr. Maddy Marquez, Resident Physician Anesthesia: None Procedure: 1. Abscessogram/tube check through existing catheters near the midlineand left posterolateral aspect of the back. 2. Removal of existing 10 Russian and 8.5 Russian catheters underfluoroscopic guidance. Duration of Procedure: Appx 10 minutes. Fluoroscopic time: 0.3 minutes Contrast: 20 mL of Omnipaque-240 Procedure in detail: The procedure, risks and possible complications wereexplained to the patient in detail, and an informed consent was obtained.The patient was placed prone on the angiographic table. A neonatal doctor film ofabdomen was obtained, which showed both catheters terminating in the left abdomen. Patients vital signs were monitored throughout the procedure by aqualified Radiology Nurse. Contrast was injected through the existing 10 Russian catheter just to theleft of midline posteriorly and an abscessogram was obtained. Nosignificant residual abscess cavity was seen. Subsequently, contrast was injected through the existing 8.5 Frenchcatheter in the left posterolateral aspect of the abdomen and anabscessogram was obtained. Again, no significant residual abscess cavitywas seen. In view of resolution of the abscess cavity and no clinical symptoms, itwas decided to remove both catheters. Both catheters were removed, underfluoroscopic guidance. Gauze and Tegaderm were applied at each site. The patient tolerated the procedure well and was transferred in stablecondition. There were no immediate complications associated with theprocedure. IMPRESSION Impression: Abscessogram/Tube check through both abdominal drainagecatheters demonstrated no significant residual abscess cavity. No fistulanoted. In view of resolution of the abscess cavity and no clinical symptoms, itwas decided to remove both catheters. The catheters were removed underfluoroscopic guidance. Note: The findings were discussed with the patient. The patient wasexplained possibility of recurrent disease (abscess or collectionformation). Dr. Villalba was present and performed/supervised the entire procedure. This report was approved by Wilfredo Marquez M.D. on 06/22/2015 1:32 PM . I, Dr. EDITH VILLALBA M.D. have personally reviewed and interpreted thisexamination/study. This report was electronically signed by EDITH VILLALBA M.D. on06/24/2015 1:40 PM . Edith Villalba MD IR ORDERABLES * CT LIMITED FOLLOWUP STUDY (05/14/2015 1:41 PM CDT) Only the most recent of2 resultswithin the time period is included. Anatomical Region Laterality Modality Other 05/14/2015 1:41 PM CDT Narrative 05/15/2015 8:39 AM CDT Please schedule for tube check. Please define the region or anatomy of interest.->Abscess Reason for Exam->pt. called blood in drain History: 69-year-old female with history of necrotizing pancreatitis and pseudocyst formation. Now presents with drainage from the tract of a previously placed drain. Operators: 1. ??Dr. Villalba, Attending Physician 2. ??Dr. Simmons, Resident Physician Anesthesia: 1. ??Local anesthesia - 8 ml of 1 % lidocaine Procedure: 1. ??Limited computed tomography evaluation of the abdomen. 2. ??Fluoroscopic guided placement of 10 Russian APDL (pig tail) through the previously existing abdominal drain tract. Approximate procedure time: 35 minutes. Procedure in Detail: The procedure and possible complications were explained to the patient in detail, and informed consent was obtained. The patient was placed in a supine position on the computed tomography table and a limited evaluation of the abdomen was performed. It demonstrated good positioning of the indwelling catheter in the subcutaneous collection with a tract which runs up to the tail of the pancreas. The soft tissue track of a previously placed catheter could be followed to a small fluid collection superior to the site of entry of the previous catheter, this tract also runs inferiorly up to the psoas muscle. The patient was then transferred to the fluoroscopy table and he was placed in a left lateral position. Patient?s vital signs were monitored by a qualified radiology nurse throughout the procedure. The marked site and skin around the region was prepped and draped in a sterile fashion. ??Local anesthesia was provided by the injection with 1% Lidocaine. A 0.35 Glidewire was advanced through the skin opening from the prior catheter, this was looped in the fluid collection which is superior to the site of entry. Following a series of exchanges a 10 Russian APDL (pigtail) ??catheter was advanced into the collection. A final imaging showed the catheter in satisfactory position. There is no ??immediate complication like hemorrhage noted. The patient tolerated the procedure well. The patient was transferred to holding area in stable condition. Jocelyn Lazar MD CT ORDERABLES * CT DRAIN W CATH PLACEMENT (05/14/2015 1:41 PM CDT) Only the most recent of8 resultswithin the time period is included. Anatomical Region Laterality Modality Abdomen Other 05/14/2015 1:41 PM CDT Narrative 05/15/2015 8:39 AM CDT Reason for Exam->DRAINAGE CATHETER PLMT History: 69-year-old female with history of necrotizing pancreatitis and pseudocyst formation. Now presents with drainage from the tract of a previously placed drain. Operators: 1. ??Dr. Villalba, Attending Physician 2. ??Dr. Simmons, Resident Physician Anesthesia: 1. ??Local anesthesia - 8 ml of 1 % lidocaine Procedure: 1. ??Limited computed tomography evaluation of the abdomen. 2. ??Fluoroscopic guided placement of 10 Russian APDL (pig tail) through the previously existing abdominal drain tract. Approximate procedure time: 35 minutes. Procedure in Detail: The procedure and possible complications were explained to the patient in detail, and informed consent was obtained. The patient was placed in a supine position on the computed tomography table and a limited evaluation of the abdomen was performed. It demonstrated good positioning of the indwelling catheter in the subcutaneous collection with a tract which runs up to the tail of the pancreas. The soft tissue track of a previously placed catheter could be followed to a small fluid collection superior to the site of entry of the previous catheter, this tract also runs inferiorly up to the psoas muscle. The patient was then transferred to the fluoroscopy table and he was placed in a left lateral position. Patient?s vital signs were monitored by a qualified radiology nurse throughout the procedure. The marked site and skin around the region was prepped and draped in a sterile fashion. ??Local anesthesia was provided by the injection with 1% Lidocaine. A 0.35 Glidewire was advanced through the skin opening from the prior catheter, this was looped in the fluid collection which is superior to the site of entry. Following a series of exchanges a 10 Russian APDL (pigtail) ??catheter was advanced into the collection. A final imaging showed the catheter in satisfactory position. There is no ??immediate complication like hemorrhage noted. The patient tolerated the procedure well. The patient was transferred to holding area in stable condition. Edith Villalba MD CT ORDERABLES * IR PERC DRAINAGE CATH EXCHANGE (04/01/2015 12:02 PM CDT) Only the most recent of6 resultswithin the time period is included. Anatomical Region Laterality Modality Abdomen Other Impressions 04/01/2015 5:42 PM CDT Impression: ??Abscessogram and tube check through indwelling 10 Russian APDL catheter and exchanged over a wire for an 8 Russian APDL catheter. Note: Patient will return in approximately one week for image guided tube check and/or removal. I Dr Lazar was present for the entire procedure. This report was approved ??by Blair Santacruz M.D. ?? on 04/01/2015 12:10 PM . I, Dr. JOCELYN LAZAR M.D. have personally reviewed and interpreted this examination/study. This report was electronically signed by JOCELYN LAZAR M.D. ??on 04/01/2015 5:42 PM . Narrative 04/01/2015 5:42 PM CDT History: 69-year-old female with history of necrotizing pancreatitis complicated by walled off necrosis and multiple intra-abdominal abscesses. Patient underwent IR guided drainage of left posterior subcutaneous fluid collection on 03/16/2015. Patient denies any symptoms at this time, however the drainage tube is still putting out approximately 30-40 mL of purulent fluid per day. Operators: 1. ??Dr. Lazar, Attending Physician 2. ??Dr. Santacruz, Fellow Physician Anesthesia: Local anesthesia - 7 ml of 1 % lidocaine Procedure: 1. ??Abscessogram/tube check through existing catheter in the 10 Russian APDL catheter the posterior left abdomen. 2. ??Exchange of existing 10 Russian catheter for an 8 Russian APDL catheter, under fluoroscopic guidance. Duration of Procedure: Appx 10 minutes. Fluoroscopic time: 0.7 minutes Procedure start time: 1145. ??Initiation of sedation: 1144 ??End time: 1155 Sedation: 1 mg of Versed and 50 mcg of fentanyl. Contrast: 5 mL of Omnipaque-240 Procedure in detail: The procedure, risks and possible complications were explained to the patient in detail, and an informed consent was obtained. The patient was placed supine on the angiographic table. ??A neonatal doctor film of abdomen was obtained, which showed 10 Russian APDL catheter in the in the left posterior abdomen. Patient was given intravenous conscious sedation with Versed and Fentanyl. Patient?s vital signs were monitored throughout the procedure by a qualified Radiology Nurse. After anesthetizing with local anesthesia, the catheter aspirated. The initial aspirate was 3 cc of purulent fluid. Contrast was injected through the existing catheter and an abscessogram was obtained. The abscessogram/tube-check demonstrated a small fistulous tract with the posterior fluid collection is suspected after contrast injection. Over a Bentsen wire the existing 10 Russian APDL was exchanged for a new 8 Russian APDL catheter. Contrast injection confirmed the catheter position. Aspiration of the catheter yielded approximately 3 mL of purulent fluid. The catheter was secured and connected to gravity drainage bag. The patient tolerated the procedure well and was transferred in stable condition. There were no immediate complications associated with the procedure. Procedure Note Jocelyn Lazar MD - 12/22/2017 History: 69-year-old female with history of necrotizing pancreatitiscomplicated by walled off necrosis and multiple intra-abdominal abscesses.Patient underwent IR guided drainage of left posterior subcutaneous fluidcollection on 03/16/2015. Patient denies any symptoms at this time, however the drainage tube is stillputting out approximately 30-40 mL of purulent fluid per day. Operators: 1. Dr. Lazar, Attending Physician 2. Dr. Santacruz, Fellow Physician Anesthesia: Local anesthesia - 7 ml of 1 % lidocaine Procedure: 1. Abscessogram/tube check through existing catheter in the 10 FrenchAPDL catheter the posterior left abdomen. 2. Exchange of existing 10 Russian catheter for an 8 Russian APDL catheter,under fluoroscopic guidance. Duration of Procedure: Appx 10 minutes. Fluoroscopic time: 0.7 minutes Procedure start time: 1145. Initiation of sedation: 1144 End time:1155 Sedation: 1 mg of Versed and 50 mcg of fentanyl. Contrast: 5 mL of Omnipaque-240 Procedure in detail: The procedure, risks and possible complications wereexplained to the patient in detail, and an informed consent was obtained.The patient was placed supine on the angiographic table. A neonatal doctor film ofabdomen was obtained, which showed 10 Russian APDL catheter in the in the left posterior abdomen. Patient was given intravenous conscious sedation with Versed and Fentanyl.Patient?s vital signs were monitored throughout the procedure by aqualified Radiology Nurse. After anesthetizing with local anesthesia, the catheter aspirated. Theinitial aspirate was 3 cc of purulent fluid. Contrast was injected throughthe existing catheter and an abscessogram was obtained. Theabscessogram/tube-check demonstrated a small fistulous tract with the posterior fluid collection is suspected aftercontrast injection. Over a Bentsen wire the existing 10 Russian APDL was exchanged for a new 8French APDL catheter. Contrast injection confirmed the catheter position.Aspiration of the catheter yielded approximately 3 mL of purulent fluid.The catheter was secured and connected to gravity drainage bag. The patient tolerated the procedurewell and was transferred in stable condition. There were no immediatecomplications associated with the procedure. IMPRESSION Impression: Abscessogram and tube check through indwelling 10 Russian APDLcatheter and exchanged over a wire for an 8 Russian APDL catheter. Note: Patient will return in approximately one week for image guided tubecheck and/or removal. I Dr Lazar was present for the entire procedure. This report was approved by Blair Santacruz M.D. on 04/01/2015 12:10 PM. I, Dr. JOCELYN LAZAR M.D. have personally reviewed and interpretedthis examination/study. This report was electronically signed by JOCELYN LAZAR M.D. on04/01/2015 5:42 PM . William Sullivan MD IR ORDERABLES * CULTURE FUNGUS OTHER+FUNGUS SMEAR (03/16/2015 3:49 PM CDT) Only the most recent of5 resultswithin the time period is included. Culture Fungus-Other No Growth Fungi. [facility] Fungus Smear No Fungi seen. [facility] Abscess 03/16/2015 3:49 PM CDT 03/16/2015 4:11 PM CDT Narrative [facility] - 04/13/2015 9:18 AM CDT Left back Specimen Type->Abscess William Sullivan MD LAB - MICROBIOLOGY O RDLUIS ANTONIO Performing Organization Address [facility] Co de Phone Number [address] [phone] * CULTURE AFB+SMEAR (03/16/2015 3:49 PM CDT) Only the most recent of5 resultswithin the time period is included. Culture Acid Fast Bacilli No Growth of Acid Fast bacilli after 8 weeks. [facility] AFB Smear No Acid Fast bacilli seen on direct smear. [facility] AFB Smear No Acid Fast bacilli seen on concentrated smear. [facility] Abscess 03/16/2015 3:49 PM CDT 03/16/2015 4:11 PM CDT Narrative [facility] - 05/10/2015 12:04 PM CDT Specimen Type->Abscess William Sullivan MD LAB - MICROBIOLOGY O RDLUIS ANTONIO Performing Organization Address [place]/[facility] Co de Phone Number [address] [phone] * (ABNORMAL) GLUCOSE ACCUCHECK (03/08/2015 4:50 PM CDT) Only the most recent of172 resultswithin the time period is included. Glucose, Fingerstick 116(H) 70-115mg/d L mg/dL [facility] [place]) Comment:Wirer: GETACHEW Cloud 03/08/2015 4:50 PM CDT Rodri Lo MD LAB - [facility]Y [facility] * CT FISTULA OR SINUS TRACT (03/08/2015 12:09 PM CDT) Only the most recent of3 resultswithin the time period is included. Anatomical Region Laterality Modality Other Impressions 03/08/2015 5:13 PM CDT Impression: ??CT guided tube through two existing catheters in the left retroperitoneal space and left abdominal wall with near complete resolution of the abscesses/collections. In view of symptom free and complete resolution of the cavity, it was decided to remove the catheters. The catheters were removed under CT guidance. The patient was explained possibility of recurrent disease (abscess or collection formation). This report was approved ??by Rajinder Encarnacion M.D. ?? on 03/08/2015 3:06 PM . I, Dr. JOCELYN LAZAR M.D. have personally reviewed and interpreted this examination/study. This report was electronically signed by JOCELYN LAZAR M.D. ??on 03/08/2015 5:13 PM . Narrative 03/08/2015 5:13 PM CDT History: 69 year old female with pancreatitis, intraabdominal abscess, and paraspinal abscess status post drainage catheter placement on 12/17/14 with multiple drain checks since. IR consulted for removal of two drains which are no longer draining. Operators: 1. ??Dr. Jocelyn Lazar, Attending Physician 2. ??Dr. Rajinder Encarnacion, Resident Physician Anesthesia: 1. ??None Procedure: 1. ??CT guided abscessogram/tube check through existing catheter in the left retroperitoneal space. 2. CT guided abscessogram/tube check through existing catheter in the subcutaneous tissues of the left abdominal wall. 3. ??Removal of existing 12 Russian catheter. 4. Removal of existing 14 Russian catheter. Duration of Procedure: Appx 20 minutes. Procedure in detail: The procedure, risks and possible complications were explained to the patient/proxy in detail, and an informed consent was obtained. The patient was placed supine on the CT table. Contrast was hand injected through the existing 12 Russian catheter in the left retroperitoneal space and abscessogram/tube check was performed. The study demonstrated near complete resolution of the previously seen abscess cavity with the known residual abscess/collection. Now attention was directed to the other catheter in the left postero-lateral abdominal wall . Contrast was hand injected and an abscessogram/tube check was performed. The study demonstrated near complete resolution of the previously seen abscess cavity with the known residual abscess/collection. In view of symptom free and complete resolution of the cavity, it was decided to remove the catheters. The catheters were cut and removed. Followup CT examination no residual fragment. Dressing was placed at the catheter entry site over the skin. There were no immediate complications associated with the procedure. Procedure Note Jocelyn Lazar MD - 12/22/2017 History: 69 year old female with pancreatitis, intraabdominal abscess, andparaspinal abscess status post drainage catheter placement on 12/17/14 withmultiple drain checks since. IR consulted for removal of two drains whichare no longer draining. Operators: 1. Dr. Jocelyn Lazar, Attending Physician 2. Dr. Rajinder Encarnacion, Resident Physician Anesthesia: 1. None Procedure: 1. CT guided abscessogram/tube check through existing catheter in theleft retroperitoneal space. 2. CT guided abscessogram/tube check through existing catheter in thesubcutaneous tissues of the left abdominal wall. 3. Removal of existing 12 Russian catheter. 4. Removal of existing 14 Russian catheter. Duration of Procedure: Appx 20 minutes. Procedure in detail: The procedure, risks and possible complications wereexplained to the patient/proxy in detail, and an informed consent wasobtained. The patient was placed supine on the CT table. Contrast was hand injected through the existing 12 Russian catheter in theleft retroperitoneal space and abscessogram/tube check was performed. Thestudy demonstrated near complete resolution of the previously seen abscesscavity with the known residual abscess/collection. Now attention was directed to the other catheter in the leftpostero-lateral abdominal wall . Contrast was hand injected and anabscessogram/tube check was performed. The study demonstrated nearcomplete resolution of the previously seen abscess cavity with the known residual abscess/collection. In view of symptom free and complete resolution of the cavity, it wasdecided to remove the catheters. The catheters were cut and removed.Followup CT examination no residual fragment. Dressing was placed at the catheter entry site over the skin. There wereno immediate complications associated with the procedure. IMPRESSION Impression: CT guided tube through two existing catheters in the leftretroperitoneal space and left abdominal wall with near completeresolution of the abscesses/collections. In view of symptom free and complete resolution of the cavity, it wasdecided to remove the catheters. The catheters were removed under CTguidance. The patient was explained possibility of recurrent disease (abscess orcollection formation). This report was approved by Rajinder Encarnacion M.D. on 03/08/2015 3:06 PM . I, Dr. JOCELYN LAZAR M.D. have personally reviewed and interpretedthis examination/study. This report was electronically signed by JOCELYN LAZAR M.D. on03/08/2015 5:13 PM . Rodri Lo MD CT ORDERABLES * (ABNORMAL) CBC W/O DIFFERENTIAL (03/08/2015 4:39 AM CDT) Only the most recent of26 resultswithin the time period is included. WBC 6.4 3.5 - 10.5 10? 3 /uL [facility] RBC 3.42(L) 3.90 - 5.00 10? 6 /uL [facility] Hemoglobin 9.9(L) 12.0 - 15.5 g/dL [facility] Hematocrit 31.6(L) 35.0 - 45.0 % [facility] MCV 92.4 81.0 - 97.0 fL [facility] MCH 28.9 28.0 - 34.0 pg [facility] MCHC 31.3(L) 32.0 - 36.0 g/dL [facility] Platelet Count 463(H) 150 - 400 10? 3 /uL [facility] RDW-SD 55.4(H) 36.0 - 50.0 fL [facility] RDW-CV 16.4(H) 11.2 - 14.8 % [facility] MPV 9.3 9.3 - 12.8 fL [facility] Blood specimen (specimen) BLOOD SPECIMEN / Unknown 03/08/2015 4:39 AM CDT 03/08/2015 5:00 AM CDT Rodri Lo MD LAB - HEMATOLOGY ORD ERABLES [address] [phone] * CT ABDOMEN WO CONTRAST (03/05/2015 3:40 PM CDT) Anatomical Region Laterality Modality Abdomen Other Impressions 03/05/2015 5:36 PM CDT IMPRESSION: 1. 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 No significant intraperitoneal hemorrhage is identified. 2. Decreased size of left retroperitoneal fluid collection. 3. Minimal residual fluid around the tip of the left paraspinal drainage catheter. 4. Trace left pleural effusion. Report dictated by David Francisco M.D. (resident). I, Dr. DYANA PEÑA M.D. have personally reviewed and interpreted this examination/study. This report was electronically signed by DYANA PEÑA M.D. ??on 03/05/2015 5:36 PM . Narrative 03/05/2015 5:36 PM CDT EXAMINATION: Computed tomography of the abdomen and pelvis without contrast HISTORY: Splenic artery pseudoaneurysm TECHNIQUE: Computed tomography of the abdomen and pelvis was performed without contrast according to standard protocol. FINDINGS: Comparison is made to the prior study of 02/26/2015 There is a small left pleural effusion and associated atelectasis. The heart size is normal without pericardial effusion. Lack of intravenous contrast limits evaluation of the solid intra-abdominal organs. The liver is within normal limits. No focal lesion is identified. The gallbladder contains small stones or sludge. No intrahepatic or extrahepatic biliary ductal dilatation is seen. The adrenal glands are normal. Other than a 8mm hemorrhagic left renal cyst, the kidneys are within normal limits for a noncontrast exam. No hydronephrosis, hydroureter, or urolithiasis is seen. There has been interval embolization of a splenic artery pseudoaneurysm. Streak artifact from coils limits evaluation of this region. Multiple splenic infarcts are noted. Gas is seen in the left anterior pararenal space likely related to the nearby percutaneous drain. No significant fluid is seen around the pigtail drainage catheter. There is trace perisplenic fluid. The body and proximal tail of the pancreas appear normal. The position of the left paraspinal/subcutaneous percutaneous drain is unchanged. A fluid and gas containing collection approximately size of the drainage catheter tip is unchanged. The small and large bowel are normal in caliber and without evidence of obstruction. No free intraperitoneal air is identified. Subcentimeter mesenteric and retroperitoneal lymph nodes are present. Mild fat stranding adjacent to the pancreatic head and mesenteric root could relate to pancreatitis. The unenhanced abdominal aorta is moderately atherosclerotic but normal in caliber. An infrarenal inferior vena cava filter is in place. The urinary bladder is normal. The uterus is unremarkable. Trace free pelvic fluid is present. Bone windows demonstrate no suspicious lytic or blastic lesions. Multilevel degenerative changes are present including grade 1 anterolisthesis of L4 on L5. Procedure Note Dyana Peña MD - 12/22/2017 EXAMINATION: Computed tomography of the abdomen and pelvis withoutcontrast HISTORY: Splenic artery pseudoaneurysm TECHNIQUE: Computed tomography of the abdomen and pelvis was performedwithout contrast according to standard protocol. FINDINGS: Comparison is made to the prior study of 02/26/2015 There is a small left pleural effusion and associated atelectasis. Theheart size is normal without pericardial effusion. Lack of intravenous contrast limits evaluation of the solidintra-abdominal organs. The liver is within normal limits. No focal lesionis identified. The gallbladder contains small stones or sludge. Nointrahepatic or extrahepatic biliary ductal dilatation is seen. The adrenal glands are normal. Other than a 8mmhemorrhagic left renal cyst, the kidneys are within normal limits for anoncontrast exam. No hydronephrosis, hydroureter, or urolithiasis isseen. There has been interval embolization of a splenic artery pseudoaneurysm.Streak artifact from coils limits evaluation of this region. Multiplesplenic infarcts are noted. Gas is seen in the left anterior pararenalspace likely related to the nearby percutaneous drain. No significant fluid is seen around the pigtaildrainage catheter. There is trace perisplenic fluid. The body and proximaltail of the pancreas appear normal. The position of the left paraspinal/subcutaneous percutaneous drain isunchanged. A fluid and gas containing collection approximately size of thedrainage catheter tip is unchanged. The small and large bowel are normal in caliber and without evidence ofobstruction. No free intraperitoneal air is identified. Subcentimetermesenteric and retroperitoneal lymph nodes are present. Mild fat strandingadjacent to the pancreatic head and mesenteric root could relate to pancreatitis. The unenhanced abdominal aorta is moderately atherosclerotic but normal incaliber. An infrarenal inferior vena cava filter is in place. The urinary bladder is normal. The uterus is unremarkable. Trace freepelvic fluid is present. Bone windows demonstrate no suspicious lytic or blastic lesions.Multilevel degenerative changes are present including grade 1anterolisthesis of L4 on L5. IMPRESSION IMPRESSION: 1. 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 No significantintraperitoneal hemorrhage is identified. 2. Decreased size of left retroperitoneal fluid collection. 3. Minimal residual fluid around the tip of the left paraspinal drainagecatheter. 4. Trace left pleural effusion. Report dictated by David Francisco M.D. (resident). I, Dr. DYANA PEÑA M.D. have personally reviewed and interpreted thisexamination/study. This report was electronically signed by DYANA PEÑA M.D. on03/05/2015 5:36 PM . Rodri Lo MD CT ORDERABLES * VAS BILATERAL VENOUS DUPLEX LE (03/02/2015 2:59 PM CDT) Only the most recent of4 resultswithin the time period is included. Anatomical Region Laterality Modality Other Rodri Lo MD VASCULAR LAB ORDERAB LES * TROPONIN I (02/28/2015 12:39 AM CDT) Only the most recent of11 resultswithin the time period is included. Troponin I <0.032 <0.032 ng/mL [facility] Blood specimen (specimen) BLOOD SPECIMEN / Unknown 02/28/2015 12:39 AM CDT 02/28/2015 12:48 AM CDT Omar Tellez MD LAB - CHEMISTRY [facility] [address] [phone] * IR ANGIO EXTREMITY PROCEDURAL CODE (02/26/2015 8:45 PM CDT) Anatomical Region Laterality Modality Other Impressions 03/11/2015 5:15 PM CDT Impression: Successful coil embolization of splenic pseudoaneurysm with fluoroscopy guidance. Successful placement of retrievable IVC filter. This report was electronically signed by EDITH VILLALBA M.D. ??on 03/11/2015 5:15 PM . Narrative 03/11/2015 5:15 PM CDT History: 69-year-old female patient with history of pancreatitis. 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 Pseudoaneurysm embolization requested. Patient also had bilateral lower extremity DVT. Because of pseudoaneurysm and echo ablation has contraindication. IVC filter placement was also requested. Indication: Pseudoaneurysm of the splenic artery. Bilateral lower extremity DVT with contraindication for anticoagulation (IVC filter placement.). Procedure performed: Visceral angiogram and embolization: 1. Ultrasound-guided access of right common femoral artery. 2. Catheterization of celiac axis and angiogram in frontal projection. 3. Catheterization of splenic artery and angiogram in multiple projections. 4. Coil embolization proximal, distal as well as within the pseudoaneurysm with multiple coils. 5. Right common femoral angiogram in frontal projection. 6. Closure of arteriotomy using a closure device. IVC filter placement: 7. Right internal jugular venous access using ultrasound guidance. 8. Inferior venacavogram in frontal projection. 9. Placement of retrievable IVC filter in the infrarenal IVC. Consent: Written and oral consent was obtained after explaining the procedure and its risk factors to the patient in detail. Medications and monitoring: The patient was given 3 mg of Versed and 150 mcg of fentanyl during the procedure. 1 g of Ancef was given during the procedure. Procedure time: 150 minutes. Sedation time: 150 minutes. Fluoroscopy time: 36 minutes. Contrast: 200 ML of Omni 240. Procedure details and findings: The patient was placed supine on the fluoroscopy table. Right groin was prepped and draped in usual sterile fashion. After giving 5 mL lidocaine right common femoral artery was accessed using a micropuncture needle. The micropuncture needle was replaced by micropuncture sheath over the guidewire. The micropuncture sheath was then replaced by 5 Russian sheath over the guidewire. Through this 5 Russian sheath 5 Russian Regalado B. catheter was advanced in the proximal abdominal aorta and celiac axis was catheterized. Celiac angiogram was obtained. Celiac angiogram revealed antegrade flow in the branches of celiac axis. A pseudoaneurysm was noted along the distal portion of the splenic artery. Through this Regalado B. catheter high flow Renegade microcatheter was advanced reaching up to the distal portion of the splenic artery and splenic angiogram was obtained. The splenic angiogram revealed large pseudoaneurysm located along the distal portion of the splenic artery with patent proximal and distal flow. Multiple coils were deployed distal and proximal to the pseudoaneurysm as well as within this should aneurysms with complete occlusion of the splenic artery in that region. Post coil embolization angiogram revealed complete nonvisualization of pseudoaneurysm. Regalado B. catheter as well as microcatheter were removed. Right common femoral angiogram was done in left anterior oblique projection which revealed antegrade flow in the right common femoral artery. Arteriotomy appeared appropriate for using a closure device. The arteriotomy was then closed using Mynx closure device. Subsequently, right neck was prepped and draped in usual sterile fashion. After giving 5 mL lidocaine right internal jugular vein was accessed using a micropuncture needle under real-time ultrasound guidance. The micropuncture needle was replaced by micropuncture sheath over the guidewire. The micropunch the sheath was replaced by 5 Russian Omni Flush catheter. The Omni Flush catheter was advanced in the inferior vena cava over the guidewire an inferior venacavogram was obtained. Inferior venacavogram confirmed patent IVC with size of the IVC appropriate for using a closure device. The Omni Flush catheter was replaced by a 10 Russian sheath over the guidewire. Through this sheath for the deployment device was advanced over the guidewire and retrievable crux filter was deployed in the infrarenal IVC. Inferior venacavogram was obtained through Omni Flush catheter which revealed intra-and the catheter in appropriate location. The sheath was removed and sterile dressing was applied. Both the procedures were done without any immediate complications. Patient left the procedure may preprocedure baseline condition. Procedure Note Edith Villalba MD - 12/22/2017 History: 69-year-old female patient with history of pancreatitis. 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 Patient also had bilateral lowerextremity DVT. Because of pseudoaneurysm and echo ablation has contraindication. IVC filter placement was alsorequested. Indication: Pseudoaneurysm of the splenic artery. Bilateral lowerextremity DVT with contraindication for anticoagulation (IVC filterplacement.). Procedure performed: Visceral angiogram and embolization: 1. Ultrasound-guided access of right common femoral artery. 2. Catheterization of celiac axis and angiogram in frontal projection. 3. Catheterization of splenic artery and angiogram in multipleprojections. 4. Coil embolization proximal, distal as well as within the pseudoaneurysmwith multiple coils. 5. Right common femoral angiogram in frontal projection. 6. Closure of arteriotomy using a closure device. IVC filter placement: 7. Right internal jugular venous access using ultrasound guidance. 8. Inferior venacavogram in frontal projection. 9. Placement of retrievable IVC filter in the infrarenal IVC. Consent: Written and oral consent was obtained after explaining theprocedure and its risk factors to the patient in detail. Medications and monitoring: The patient was given 3 mg of Versed and 150mcg of fentanyl during the procedure. 1 g of Ancef was given during theprocedure. Procedure time: 150 minutes. Sedation time: 150 minutes. Fluoroscopy time: 36 minutes. Contrast: 200 ML of Omni 240. Procedure details and findings: The patient was placed supine on the fluoroscopy table. Right groin wasprepped and draped in usual sterile fashion. After giving 5 mL lidocaineright common femoral artery was accessed using a micropuncture needle. Themicropuncture needle was replaced by micropuncture sheath over the guidewire. The micropuncture sheath wasthen replaced by 5 Russian sheath over the guidewire. Through this 5 Russian sheath 5 Russian Regalado B. catheter was advanced inthe proximal abdominal aorta and celiac axis was catheterized. Celiacangiogram was obtained. Celiac angiogram revealed antegrade flow in thebranches of celiac axis. A pseudoaneurysm was noted along the distal portion of the splenic artery.Through this Regalado B. catheter high flow Renegade microcatheter wasadvanced reaching up to the distal portion of the splenic artery andsplenic angiogram was obtained. The splenic angiogram revealed large pseudoaneurysm located along the distal portionof the splenic artery with patent proximal and distal flow. Multiple coilswere deployed distal and proximal to the pseudoaneurysm as well as withinthis should aneurysms with complete occlusion of the splenic artery in that region. Post coilembolization angiogram revealed complete nonvisualization ofpseudoaneurysm. Regalado B. catheter as well as microcatheter were removed. Right commonfemoral angiogram was done in left anterior oblique projection whichrevealed antegrade flow in the right common femoral artery. Arteriotomyappeared appropriate for using a closure device. The arteriotomy was then closed using Mynx closure device. Subsequently, right neck was prepped and draped in usual sterile fashion.After giving 5 mL lidocaine right internal jugular vein was accessed usinga micropuncture needle under real-time ultrasound guidance. Themicropuncture needle was replaced by micropuncture sheath over the guidewire. The micropunch the sheath wasreplaced by 5 Russian Omni Flush catheter. The Omni Flush catheter wasadvanced in the inferior vena cava over the guidewire an inferiorvenacavogram was obtained. Inferior venacavogram confirmed patent IVC with size of the IVC appropriate forusing a closure device. The Omni Flush catheter was replaced by a 10French sheath over the guidewire. Through this sheath for the deploymentdevice was advanced over the guidewire and retrievable crux filter was deployed in the infrarenal IVC. Inferiorvenacavogram was obtained through Omni Flush catheter which revealedintra-and the catheter in appropriate location. The sheath was removed andsterile dressing was applied. Both the procedures were done without any immediate complications. Patientleft the procedure may preprocedure baseline condition. IMPRESSION Impression: Successful coil embolization of splenic pseudoaneurysm with fluoroscopyguidance. Successful placement of retrievable IVC filter. This report was electronically signed by EDITH VILLALBA M.D. on03/11/2015 5:15 PM . Jocelyn Lazar MD IR ORDERABLES * IR CAROTID CEREBRAL ANGIOGRAM (02/26/2015 8:45 PM CDT) Anatomical Region Laterality Modality Head Other Impressions 03/11/2015 5:15 PM CDT Impression: Successful coil embolization of splenic pseudoaneurysm with fluoroscopy guidance. Successful placement of retrievable IVC filter. This report was electronically signed by EDITH VILLALBA M.D. ??on 03/11/2015 5:15 PM . Narrative 03/11/2015 5:15 PM CDT History: 69-year-old female patient with history of pancreatitis. 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 Pseudoaneurysm embolization requested. Patient also had bilateral lower extremity DVT. Because of pseudoaneurysm and echo ablation has contraindication. IVC filter placement was also requested. Indication: Pseudoaneurysm of the splenic artery. Bilateral lower extremity DVT with contraindication for anticoagulation (IVC filter placement.). Procedure performed: Visceral angiogram and embolization: 1. Ultrasound-guided access of right common femoral artery. 2. Catheterization of celiac axis and angiogram in frontal projection. 3. Catheterization of splenic artery and angiogram in multiple projections. 4. Coil embolization proximal, distal as well as within the pseudoaneurysm with multiple coils. 5. Right common femoral angiogram in frontal projection. 6. Closure of arteriotomy using a closure device. IVC filter placement: 7. Right internal jugular venous access using ultrasound guidance. 8. Inferior venacavogram in frontal projection. 9. Placement of retrievable IVC filter in the infrarenal IVC. Consent: Written and oral consent was obtained after explaining the procedure and its risk factors to the patient in detail. Medications and monitoring: The patient was given 3 mg of Versed and 150 mcg of fentanyl during the procedure. 1 g of Ancef was given during the procedure. Procedure time: 150 minutes. Sedation time: 150 minutes. Fluoroscopy time: 36 minutes. Contrast: 200 ML of Omni 240. Procedure details and findings: The patient was placed supine on the fluoroscopy table. Right groin was prepped and draped in usual sterile fashion. After giving 5 mL lidocaine right common femoral artery was accessed using a micropuncture needle. The micropuncture needle was replaced by micropuncture sheath over the guidewire. The micropuncture sheath was then replaced by 5 Russian sheath over the guidewire. Through this 5 Russian sheath 5 Russian Regalado B. catheter was advanced in the proximal abdominal aorta and celiac axis was catheterized. Celiac angiogram was obtained. Celiac angiogram revealed antegrade flow in the branches of celiac axis. A pseudoaneurysm was noted along the distal portion of the splenic artery. Through this Regalado B. catheter high flow Renegade microcatheter was advanced reaching up to the distal portion of the splenic artery and splenic angiogram was obtained. The splenic angiogram revealed large pseudoaneurysm located along the distal portion of the splenic artery with patent proximal and distal flow. Multiple coils were deployed distal and proximal to the pseudoaneurysm as well as within this should aneurysms with complete occlusion of the splenic artery in that region. Post coil embolization angiogram revealed complete nonvisualization of pseudoaneurysm. Regalado B. catheter as well as microcatheter were removed. Right common femoral angiogram was done in left anterior oblique projection which revealed antegrade flow in the right common femoral artery. Arteriotomy appeared appropriate for using a closure device. The arteriotomy was then closed using Mynx closure device. Subsequently, right neck was prepped and draped in usual sterile fashion. After giving 5 mL lidocaine right internal jugular vein was accessed using a micropuncture needle under real-time ultrasound guidance. The micropuncture needle was replaced by micropuncture sheath over the guidewire. The micropunch the sheath was replaced by 5 Russian Omni Flush catheter. The Omni Flush catheter was advanced in the inferior vena cava over the guidewire an inferior venacavogram was obtained. Inferior venacavogram confirmed patent IVC with size of the IVC appropriate for using a closure device. The Omni Flush catheter was replaced by a 10 Russian sheath over the guidewire. Through this sheath for the deployment device was advanced over the guidewire and retrievable crux filter was deployed in the infrarenal IVC. Inferior venacavogram was obtained through Omni Flush catheter which revealed intra-and the catheter in appropriate location. The sheath was removed and sterile dressing was applied. Both the procedures were done without any immediate complications. Patient left the procedure may preprocedure baseline condition. Procedure Note Edith Villalba MD - 12/22/2017 History: 69-year-old female patient with history of pancreatitis. 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 Patient also had bilateral lowerextremity DVT. Because of pseudoaneurysm and echo ablation has contraindication. IVC filter placement was alsorequested. Indication: Pseudoaneurysm of the splenic artery. Bilateral lowerextremity DVT with contraindication for anticoagulation (IVC filterplacement.). Procedure performed: Visceral angiogram and embolization: 1. Ultrasound-guided access of right common femoral artery. 2. Catheterization of celiac axis and angiogram in frontal projection. 3. Catheterization of splenic artery and angiogram in multipleprojections. 4. Coil embolization proximal, distal as well as within the pseudoaneurysmwith multiple coils. 5. Right common femoral angiogram in frontal projection. 6. Closure of arteriotomy using a closure device. IVC filter placement: 7. Right internal jugular venous access using ultrasound guidance. 8. Inferior venacavogram in frontal projection. 9. Placement of retrievable IVC filter in the infrarenal IVC. Consent: Written and oral consent was obtained after explaining theprocedure and its risk factors to the patient in detail. Medications and monitoring: The patient was given 3 mg of Versed and 150mcg of fentanyl during the procedure. 1 g of Ancef was given during theprocedure. Procedure time: 150 minutes. Sedation time: 150 minutes. Fluoroscopy time: 36 minutes. Contrast: 200 ML of Omni 240. Procedure details and findings: The patient was placed supine on the fluoroscopy table. Right groin wasprepped and draped in usual sterile fashion. After giving 5 mL lidocaineright common femoral artery was accessed using a micropuncture needle. Themicropuncture needle was replaced by micropuncture sheath over the guidewire. The micropuncture sheath wasthen replaced by 5 Russian sheath over the guidewire. Through this 5 Russian sheath 5 Russian Regalado B. catheter was advanced inthe proximal abdominal aorta and celiac axis was catheterized. Celiacangiogram was obtained. Celiac angiogram revealed antegrade flow in thebranches of celiac axis. A pseudoaneurysm was noted along the distal portion of the splenic artery.Through this Regalado B. catheter high flow Renegade microcatheter wasadvanced reaching up to the distal portion of the splenic artery andsplenic angiogram was obtained. The splenic angiogram revealed large pseudoaneurysm located along the distal portionof the splenic artery with patent proximal and distal flow. Multiple coilswere deployed distal and proximal to the pseudoaneurysm as well as withinthis should aneurysms with complete occlusion of the splenic artery in that region. Post coilembolization angiogram revealed complete nonvisualization ofpseudoaneurysm. Regalado B. catheter as well as microcatheter were removed. Right commonfemoral angiogram was done in left anterior oblique projection whichrevealed antegrade flow in the right common femoral artery. Arteriotomyappeared appropriate for using a closure device. The arteriotomy was then closed using Mynx closure device. Subsequently, right neck was prepped and draped in usual sterile fashion.After giving 5 mL lidocaine right internal jugular vein was accessed usinga micropuncture needle under real-time ultrasound guidance. Themicropuncture needle was replaced by micropuncture sheath over the guidewire. The micropunch the sheath wasreplaced by 5 Russian Omni Flush catheter. The Omni Flush catheter wasadvanced in the inferior vena cava over the guidewire an inferiorvenacavogram was obtained. Inferior venacavogram confirmed patent IVC with size of the IVC appropriate forusing a closure device. The Omni Flush catheter was replaced by a 10French sheath over the guidewire. Through this sheath for the deploymentdevice was advanced over the guidewire and retrievable crux filter was deployed in the infrarenal IVC. Inferiorvenacavogram was obtained through Omni Flush catheter which revealedintra-and the catheter in appropriate location. The sheath was removed andsterile dressing was applied. Both the procedures were done without any immediate complications. Patientleft the procedure may preprocedure baseline condition. IMPRESSION Impression: Successful coil embolization of splenic pseudoaneurysm with fluoroscopyguidance. Successful placement of retrievable IVC filter. This report was electronically signed by EDITH VILLALBA M.D. on03/11/2015 5:15 PM . Jocelyn Lazar MD IR ORDERABLES * IR US GUIDE VASCULAR ACCESS (02/26/2015 8:45 PM CDT) Only the most recent of4 resultswithin the time period is included. Anatomical Region Laterality Modality Other Impressions 03/11/2015 5:15 PM CDT Impression: Successful coil embolization of splenic pseudoaneurysm with fluoroscopy guidance. Successful placement of retrievable IVC filter. This report was electronically signed by EDITH VILLALBA M.D. ??on 03/11/2015 5:15 PM . Narrative 03/11/2015 5:15 PM CDT History: 69-year-old female patient with history of pancreatitis. 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 Pseudoaneurysm embolization requested. Patient also had bilateral lower extremity DVT. Because of pseudoaneurysm and echo ablation has contraindication. IVC filter placement was also requested. Indication: Pseudoaneurysm of the splenic artery. Bilateral lower extremity DVT with contraindication for anticoagulation (IVC filter placement.). Procedure performed: Visceral angiogram and embolization: 1. Ultrasound-guided access of right common femoral artery. 2. Catheterization of celiac axis and angiogram in frontal projection. 3. Catheterization of splenic artery and angiogram in multiple projections. 4. Coil embolization proximal, distal as well as within the pseudoaneurysm with multiple coils. 5. Right common femoral angiogram in frontal projection. 6. Closure of arteriotomy using a closure device. IVC filter placement: 7. Right internal jugular venous access using ultrasound guidance. 8. Inferior venacavogram in frontal projection. 9. Placement of retrievable IVC filter in the infrarenal IVC. Consent: Written and oral consent was obtained after explaining the procedure and its risk factors to the patient in detail. Medications and monitoring: The patient was given 3 mg of Versed and 150 mcg of fentanyl during the procedure. 1 g of Ancef was given during the procedure. Procedure time: 150 minutes. Sedation time: 150 minutes. Fluoroscopy time: 36 minutes. Contrast: 200 ML of Omni 240. Procedure details and findings: The patient was placed supine on the fluoroscopy table. Right groin was prepped and draped in usual sterile fashion. After giving 5 mL lidocaine right common femoral artery was accessed using a micropuncture needle. The micropuncture needle was replaced by micropuncture sheath over the guidewire. The micropuncture sheath was then replaced by 5 Russian sheath over the guidewire. Through this 5 Russian sheath 5 Russian Regalado B. catheter was advanced in the proximal abdominal aorta and celiac axis was catheterized. Celiac angiogram was obtained. Celiac angiogram revealed antegrade flow in the branches of celiac axis. A pseudoaneurysm was noted along the distal portion of the splenic artery. Through this Regalado B. catheter high flow Renegade microcatheter was advanced reaching up to the distal portion of the splenic artery and splenic angiogram was obtained. The splenic angiogram revealed large pseudoaneurysm located along the distal portion of the splenic artery with patent proximal and distal flow. Multiple coils were deployed distal and proximal to the pseudoaneurysm as well as within this should aneurysms with complete occlusion of the splenic artery in that region. Post coil embolization angiogram revealed complete nonvisualization of pseudoaneurysm. Regalado B. catheter as well as microcatheter were removed. Right common femoral angiogram was done in left anterior oblique projection which revealed antegrade flow in the right common femoral artery. Arteriotomy appeared appropriate for using a closure device. The arteriotomy was then closed using Mynx closure device. Subsequently, right neck was prepped and draped in usual sterile fashion. After giving 5 mL lidocaine right internal jugular vein was accessed using a micropuncture needle under real-time ultrasound guidance. The micropuncture needle was replaced by micropuncture sheath over the guidewire. The micropunch the sheath was replaced by 5 Russian Omni Flush catheter. The Omni Flush catheter was advanced in the inferior vena cava over the guidewire an inferior venacavogram was obtained. Inferior venacavogram confirmed patent IVC with size of the IVC appropriate for using a closure device. The Omni Flush catheter was replaced by a 10 Russian sheath over the guidewire. Through this sheath for the deployment device was advanced over the guidewire and retrievable crux filter was deployed in the infrarenal IVC. Inferior venacavogram was obtained through Omni Flush catheter which revealed intra-and the catheter in appropriate location. The sheath was removed and sterile dressing was applied. Both the procedures were done without any immediate complications. Patient left the procedure may preprocedure baseline condition. Procedure Note Edith Villalba MD - 12/22/2017 History: 69-year-old female patient with history of pancreatitis. 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 Patient also had bilateral lowerextremity DVT. Because of pseudoaneurysm and echo ablation has contraindication. IVC filter placement was alsorequested. Indication: Pseudoaneurysm of the splenic artery. Bilateral lowerextremity DVT with contraindication for anticoagulation (IVC filterplacement.). Procedure performed: Visceral angiogram and embolization: 1. Ultrasound-guided access of right common femoral artery. 2. Catheterization of celiac axis and angiogram in frontal projection. 3. Catheterization of splenic artery and angiogram in multipleprojections. 4. Coil embolization proximal, distal as well as within the pseudoaneurysmwith multiple coils. 5. Right common femoral angiogram in frontal projection. 6. Closure of arteriotomy using a closure device. IVC filter placement: 7. Right internal jugular venous access using ultrasound guidance. 8. Inferior venacavogram in frontal projection. 9. Placement of retrievable IVC filter in the infrarenal IVC. Consent: Written and oral consent was obtained after explaining theprocedure and its risk factors to the patient in detail. Medications and monitoring: The patient was given 3 mg of Versed and 150mcg of fentanyl during the procedure. 1 g of Ancef was given during theprocedure. Procedure time: 150 minutes. Sedation time: 150 minutes. Fluoroscopy time: 36 minutes. Contrast: 200 ML of Omni 240. Procedure details and findings: The patient was placed supine on the fluoroscopy table. Right groin wasprepped and draped in usual sterile fashion. After giving 5 mL lidocaineright common femoral artery was accessed using a micropuncture needle. Themicropuncture needle was replaced by micropuncture sheath over the guidewire. The micropuncture sheath wasthen replaced by 5 Russian sheath over the guidewire. Through this 5 Russian sheath 5 Russian Regalado B. catheter was advanced inthe proximal abdominal aorta and celiac axis was catheterized. Celiacangiogram was obtained. Celiac angiogram revealed antegrade flow in thebranches of celiac axis. A pseudoaneurysm was noted along the distal portion of the splenic artery.Through this Regalado B. catheter high flow Renegade microcatheter wasadvanced reaching up to the distal portion of the splenic artery andsplenic angiogram was obtained. The splenic angiogram revealed large pseudoaneurysm located along the distal portionof the splenic artery with patent proximal and distal flow. Multiple coilswere deployed distal and proximal to the pseudoaneurysm as well as withinthis should aneurysms with complete occlusion of the splenic artery in that region. Post coilembolization angiogram revealed complete nonvisualization ofpseudoaneurysm. Regalado B. catheter as well as microcatheter were removed. Right commonfemoral angiogram was done in left anterior oblique projection whichrevealed antegrade flow in the right common femoral artery. Arteriotomyappeared appropriate for using a closure device. The arteriotomy was then closed using Mynx closure device. Subsequently, right neck was prepped and draped in usual sterile fashion.After giving 5 mL lidocaine right internal jugular vein was accessed usinga micropuncture needle under real-time ultrasound guidance. Themicropuncture needle was replaced by micropuncture sheath over the guidewire. The micropunch the sheath wasreplaced by 5 Russian Omni Flush catheter. The Omni Flush catheter wasadvanced in the inferior vena cava over the guidewire an inferiorvenacavogram was obtained. Inferior venacavogram confirmed patent IVC with size of the IVC appropriate forusing a closure device. The Omni Flush catheter was replaced by a 10French sheath over the guidewire. Through this sheath for the deploymentdevice was advanced over the guidewire and retrievable crux filter was deployed in the infrarenal IVC. Inferiorvenacavogram was obtained through Omni Flush catheter which revealedintra-and the catheter in appropriate location. The sheath was removed andsterile dressing was applied. Both the procedures were done without any immediate complications. Patientleft the procedure may preprocedure baseline condition. IMPRESSION Impression: Successful coil embolization of splenic pseudoaneurysm with fluoroscopyguidance. Successful placement of retrievable IVC filter. This report was electronically signed by EDITH VILLALBA M.D. on03/11/2015 5:15 PM . Omar Tellez MD IR ORDERABLES * IR IVC FILTER PLACEMENT (02/26/2015 8:45 PM CDT) Anatomical Region Laterality Modality Abdomen Other Impressions 03/11/2015 5:15 PM CDT Impression: Successful coil embolization of splenic pseudoaneurysm with fluoroscopy guidance. Successful placement of retrievable IVC filter. This report was electronically signed by EDITH VILLALBA M.D. ??on 03/11/2015 5:15 PM . Narrative 03/11/2015 5:15 PM CDT History: 69-year-old female patient with history of pancreatitis. 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 Pseudoaneurysm embolization requested. Patient also had bilateral lower extremity DVT. Because of pseudoaneurysm and echo ablation has contraindication. IVC filter placement was also requested. Indication: Pseudoaneurysm of the splenic artery. Bilateral lower extremity DVT with contraindication for anticoagulation (IVC filter placement.). Procedure performed: Visceral angiogram and embolization: 1. Ultrasound-guided access of right common femoral artery. 2. Catheterization of celiac axis and angiogram in frontal projection. 3. Catheterization of splenic artery and angiogram in multiple projections. 4. Coil embolization proximal, distal as well as within the pseudoaneurysm with multiple coils. 5. Right common femoral angiogram in frontal projection. 6. Closure of arteriotomy using a closure device. IVC filter placement: 7. Right internal jugular venous access using ultrasound guidance. 8. Inferior venacavogram in frontal projection. 9. Placement of retrievable IVC filter in the infrarenal IVC. Consent: Written and oral consent was obtained after explaining the procedure and its risk factors to the patient in detail. Medications and monitoring: The patient was given 3 mg of Versed and 150 mcg of fentanyl during the procedure. 1 g of Ancef was given during the procedure. Procedure time: 150 minutes. Sedation time: 150 minutes. Fluoroscopy time: 36 minutes. Contrast: 200 ML of Omni 240. Procedure details and findings: The patient was placed supine on the fluoroscopy table. Right groin was prepped and draped in usual sterile fashion. After giving 5 mL lidocaine right common femoral artery was accessed using a micropuncture needle. The micropuncture needle was replaced by micropuncture sheath over the guidewire. The micropuncture sheath was then replaced by 5 Russian sheath over the guidewire. Through this 5 Russian sheath 5 Russian Regalado B. catheter was advanced in the proximal abdominal aorta and celiac axis was catheterized. Celiac angiogram was obtained. Celiac angiogram revealed antegrade flow in the branches of celiac axis. A pseudoaneurysm was noted along the distal portion of the splenic artery. Through this Regalado B. catheter high flow Renegade microcatheter was advanced reaching up to the distal portion of the splenic artery and splenic angiogram was obtained. The splenic angiogram revealed large pseudoaneurysm located along the distal portion of the splenic artery with patent proximal and distal flow. Multiple coils were deployed distal and proximal to the pseudoaneurysm as well as within this should aneurysms with complete occlusion of the splenic artery in that region. Post coil embolization angiogram revealed complete nonvisualization of pseudoaneurysm. Regalado B. catheter as well as microcatheter were removed. Right common femoral angiogram was done in left anterior oblique projection which revealed antegrade flow in the right common femoral artery. Arteriotomy appeared appropriate for using a closure device. The arteriotomy was then closed using Mynx closure device. Subsequently, right neck was prepped and draped in usual sterile fashion. After giving 5 mL lidocaine right internal jugular vein was accessed using a micropuncture needle under real-time ultrasound guidance. The micropuncture needle was replaced by micropuncture sheath over the guidewire. The micropunch the sheath was replaced by 5 Russian Omni Flush catheter. The Omni Flush catheter was advanced in the inferior vena cava over the guidewire an inferior venacavogram was obtained. Inferior venacavogram confirmed patent IVC with size of the IVC appropriate for using a closure device. The Omni Flush catheter was replaced by a 10 Russian sheath over the guidewire. Through this sheath for the deployment device was advanced over the guidewire and retrievable crux filter was deployed in the infrarenal IVC. Inferior venacavogram was obtained through Omni Flush catheter which revealed intra-and the catheter in appropriate location. The sheath was removed and sterile dressing was applied. Both the procedures were done without any immediate complications. Patient left the procedure may preprocedure baseline condition. Procedure Note Edith Villalba MD - 12/22/2017 History: 69-year-old female patient with history of pancreatitis. 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 Patient also had bilateral lowerextremity DVT. Because of pseudoaneurysm and echo ablation has contraindication. IVC filter placement was alsorequested. Indication: Pseudoaneurysm of the splenic artery. Bilateral lowerextremity DVT with contraindication for anticoagulation (IVC filterplacement.). Procedure performed: Visceral angiogram and embolization: 1. Ultrasound-guided access of right common femoral artery. 2. Catheterization of celiac axis and angiogram in frontal projection. 3. Catheterization of splenic artery and angiogram in multipleprojections. 4. Coil embolization proximal, distal as well as within the pseudoaneurysmwith multiple coils. 5. Right common femoral angiogram in frontal projection. 6. Closure of arteriotomy using a closure device. IVC filter placement: 7. Right internal jugular venous access using ultrasound guidance. 8. Inferior venacavogram in frontal projection. 9. Placement of retrievable IVC filter in the infrarenal IVC. Consent: Written and oral consent was obtained after explaining theprocedure and its risk factors to the patient in detail. Medications and monitoring: The patient was given 3 mg of Versed and 150mcg of fentanyl during the procedure. 1 g of Ancef was given during theprocedure. Procedure time: 150 minutes. Sedation time: 150 minutes. Fluoroscopy time: 36 minutes. Contrast: 200 ML of Omni 240. Procedure details and findings: The patient was placed supine on the fluoroscopy table. Right groin wasprepped and draped in usual sterile fashion. After giving 5 mL lidocaineright common femoral artery was accessed using a micropuncture needle. Themicropuncture needle was replaced by micropuncture sheath over the guidewire. The micropuncture sheath wasthen replaced by 5 Russian sheath over the guidewire. Through this 5 Russian sheath 5 Russian Regalado B. catheter was advanced inthe proximal abdominal aorta and celiac axis was catheterized. Celiacangiogram was obtained. Celiac angiogram revealed antegrade flow in thebranches of celiac axis. A pseudoaneurysm was noted along the distal portion of the splenic artery.Through this Regalado B. catheter high flow Renegade microcatheter wasadvanced reaching up to the distal portion of the splenic artery andsplenic angiogram was obtained. The splenic angiogram revealed large pseudoaneurysm located along the distal portionof the splenic artery with patent proximal and distal flow. Multiple coilswere deployed distal and proximal to the pseudoaneurysm as well as withinthis should aneurysms with complete occlusion of the splenic artery in that region. Post coilembolization angiogram revealed complete nonvisualization ofpseudoaneurysm. Regalado B. catheter as well as microcatheter were removed. Right commonfemoral angiogram was done in left anterior oblique projection whichrevealed antegrade flow in the right common femoral artery. Arteriotomyappeared appropriate for using a closure device. The arteriotomy was then closed using Mynx closure device. Subsequently, right neck was prepped and draped in usual sterile fashion.After giving 5 mL lidocaine right internal jugular vein was accessed usinga micropuncture needle under real-time ultrasound guidance. Themicropuncture needle was replaced by micropuncture sheath over the guidewire. The micropunch the sheath wasreplaced by 5 Russian Omni Flush catheter. The Omni Flush catheter wasadvanced in the inferior vena cava over the guidewire an inferiorvenacavogram was obtained. Inferior venacavogram confirmed patent IVC with size of the IVC appropriate forusing a closure device. The Omni Flush catheter was replaced by a 10French sheath over the guidewire. Through this sheath for the deploymentdevice was advanced over the guidewire and retrievable crux filter was deployed in the infrarenal IVC. Inferiorvenacavogram was obtained through Omni Flush catheter which revealedintra-and the catheter in appropriate location. The sheath was removed andsterile dressing was applied. Both the procedures were done without any immediate complications. Patientleft the procedure may preprocedure baseline condition. IMPRESSION Impression: Successful coil embolization of splenic pseudoaneurysm with fluoroscopyguidance. Successful placement of retrievable IVC filter. This report was electronically signed by EDITH VILLALBA M.D. on03/11/2015 5:15 PM . Omar Tellez MD IR ORDERABLES * IR EMBOLIZATION TRANSCATH THPY (02/26/2015 8:45 PM CDT) Anatomical Region Laterality Modality Other Impressions 03/11/2015 5:15 PM CDT Impression: Successful coil embolization of splenic pseudoaneurysm with fluoroscopy guidance. Successful placement of retrievable IVC filter. This report was electronically signed by EDITH VILLALBA M.D. ??on 03/11/2015 5:15 PM . Narrative 03/11/2015 5:15 PM CDT History: 69-year-old female patient with history of pancreatitis. 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 Pseudoaneurysm embolization requested. Patient also had bilateral lower extremity DVT. Because of pseudoaneurysm and echo ablation has contraindication. IVC filter placement was also requested. Indication: Pseudoaneurysm of the splenic artery. Bilateral lower extremity DVT with contraindication for anticoagulation (IVC filter placement.). Procedure performed: Visceral angiogram and embolization: 1. Ultrasound-guided access of right common femoral artery. 2. Catheterization of celiac axis and angiogram in frontal projection. 3. Catheterization of splenic artery and angiogram in multiple projections. 4. Coil embolization proximal, distal as well as within the pseudoaneurysm with multiple coils. 5. Right common femoral angiogram in frontal projection. 6. Closure of arteriotomy using a closure device. IVC filter placement: 7. Right internal jugular venous access using ultrasound guidance. 8. Inferior venacavogram in frontal projection. 9. Placement of retrievable IVC filter in the infrarenal IVC. Consent: Written and oral consent was obtained after explaining the procedure and its risk factors to the patient in detail. Medications and monitoring: The patient was given 3 mg of Versed and 150 mcg of fentanyl during the procedure. 1 g of Ancef was given during the procedure. Procedure time: 150 minutes. Sedation time: 150 minutes. Fluoroscopy time: 36 minutes. Contrast: 200 ML of Omni 240. Procedure details and findings: The patient was placed supine on the fluoroscopy table. Right groin was prepped and draped in usual sterile fashion. After giving 5 mL lidocaine right common femoral artery was accessed using a micropuncture needle. The micropuncture needle was replaced by micropuncture sheath over the guidewire. The micropuncture sheath was then replaced by 5 Russian sheath over the guidewire. Through this 5 Russian sheath 5 Russian Regalado B. catheter was advanced in the proximal abdominal aorta and celiac axis was catheterized. Celiac angiogram was obtained. Celiac angiogram revealed antegrade flow in the branches of celiac axis. A pseudoaneurysm was noted along the distal portion of the splenic artery. Through this Regalado B. catheter high flow Renegade microcatheter was advanced reaching up to the distal portion of the splenic artery and splenic angiogram was obtained. The splenic angiogram revealed large pseudoaneurysm located along the distal portion of the splenic artery with patent proximal and distal flow. Multiple coils were deployed distal and proximal to the pseudoaneurysm as well as within this should aneurysms with complete occlusion of the splenic artery in that region. Post coil embolization angiogram revealed complete nonvisualization of pseudoaneurysm. Fabricio Gonzalez catheter as well as microcatheter were removed. Right common femoral angiogram was done in left anterior oblique projection which revealed antegrade flow in the right common femoral artery. Arteriotomy appeared appropriate for using a closure device. The arteriotomy was then closed using Mynx closure device. Subsequently, right neck was prepped and draped in usual sterile fashion. After giving 5 mL lidocaine right internal jugular vein was accessed using a micropuncture needle under real-time ultrasound guidance. The micropuncture needle was replaced by micropuncture sheath over the guidewire. The micropunch the sheath was replaced by 5 Russian Omni Flush catheter. The Omni Flush catheter was advanced in the inferior vena cava over the guidewire an inferior venacavogram was obtained. Inferior venacavogram confirmed patent IVC with size of the IVC appropriate for using a closure device. The Omni Flush catheter was replaced by a 10 Russian sheath over the guidewire. Through this sheath for the deployment device was advanced over the guidewire and retrievable crux filter was deployed in the infrarenal IVC. Inferior venacavogram was obtained through Omni Flush catheter which revealed intra-and the catheter in appropriate location. The sheath was removed and sterile dressing was applied. Both the procedures were done without any immediate complications. Patient left the procedure may preprocedure baseline condition. Procedure Note Edith Villalba MD - 12/22/2017 History: 69-year-old female patient with history of pancreatitis. 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 Patient also had bilateral lowerextremity DVT. Because of pseudoaneurysm and echo ablation has contraindication. IVC filter placement was alsorequested. Indication: Pseudoaneurysm of the splenic artery. Bilateral lowerextremity DVT with contraindication for anticoagulation (IVC filterplacement.). Procedure performed: Visceral angiogram and embolization: 1. Ultrasound-guided access of right common femoral artery. 2. Catheterization of celiac axis and angiogram in frontal projection. 3. Catheterization of splenic artery and angiogram in multipleprojections. 4. Coil embolization proximal, distal as well as within the pseudoaneurysmwith multiple coils. 5. Right common femoral angiogram in frontal projection. 6. Closure of arteriotomy using a closure device. IVC filter placement: 7. Right internal jugular venous access using ultrasound guidance. 8. Inferior venacavogram in frontal projection. 9. Placement of retrievable IVC filter in the infrarenal IVC. Consent: Written and oral consent was obtained after explaining theprocedure and its risk factors to the patient in detail. Medications and monitoring: The patient was given 3 mg of Versed and 150mcg of fentanyl during the procedure. 1 g of Ancef was given during theprocedure. Procedure time: 150 minutes. Sedation time: 150 minutes. Fluoroscopy time: 36 minutes. Contrast: 200 ML of Omni 240. Procedure details and findings: The patient was placed supine on the fluoroscopy table. Right groin wasprepped and draped in usual sterile fashion. After giving 5 mL lidocaineright common femoral artery was accessed using a micropuncture needle. Themicropuncture needle was replaced by micropuncture sheath over the guidewire. The micropuncture sheath wasthen replaced by 5 Russian sheath over the guidewire. Through this 5 Russian sheath 5 Russian Regalado B. catheter was advanced inthe proximal abdominal aorta and celiac axis was catheterized. Celiacangiogram was obtained. Celiac angiogram revealed antegrade flow in thebranches of celiac axis. A pseudoaneurysm was noted along the distal portion of the splenic artery.Through this Regalado B. catheter high flow Renegade microcatheter wasadvanced reaching up to the distal portion of the splenic artery andsplenic angiogram was obtained. The splenic angiogram revealed large pseudoaneurysm located along the distal portionof the splenic artery with patent proximal and distal flow. Multiple coilswere deployed distal and proximal to the pseudoaneurysm as well as withinthis should aneurysms with complete occlusion of the splenic artery in that region. Post coilembolization angiogram revealed complete nonvisualization ofpseudoaneurysm. Regalado B. catheter as well as microcatheter were removed. Right commonfemoral angiogram was done in left anterior oblique projection whichrevealed antegrade flow in the right common femoral artery. Arteriotomyappeared appropriate for using a closure device. The arteriotomy was then closed using Mynx closure device. Subsequently, right neck was prepped and draped in usual sterile fashion.After giving 5 mL lidocaine right internal jugular vein was accessed usinga micropuncture needle under real-time ultrasound guidance. Themicropuncture needle was replaced by micropuncture sheath over the guidewire. The micropunch the sheath wasreplaced by 5 Russian Omni Flush catheter. The Omni Flush catheter wasadvanced in the inferior vena cava over the guidewire an inferiorvenacavogram was obtained. Inferior venacavogram confirmed patent IVC with size of the IVC appropriate forusing a closure device. The Omni Flush catheter was replaced by a 10French sheath over the guidewire. Through this sheath for the deploymentdevice was advanced over the guidewire and retrievable crux filter was deployed in the infrarenal IVC. Inferiorvenacavogram was obtained through Omni Flush catheter which revealedintra-and the catheter in appropriate location. The sheath was removed andsterile dressing was applied. Both the procedures were done without any immediate complications. Patientleft the procedure may preprocedure baseline condition. IMPRESSION Impression: Successful coil embolization of splenic pseudoaneurysm with fluoroscopyguidance. Successful placement of retrievable IVC filter. This report was electronically signed by EDITH VILLALBA M.D. on03/11/2015 5:15 PM . Omar Tellez MD IR ORDERABLES * IR VISCERAL ANGIO (02/26/2015 8:45 PM CDT) Anatomical Region Laterality Modality Abdomen Other Impressions 03/11/2015 5:15 PM CDT Impression: Successful coil embolization of splenic pseudoaneurysm with fluoroscopy guidance. Successful placement of retrievable IVC filter. This report was electronically signed by EDITH VILLALBA M.D. ??on 03/11/2015 5:15 PM . Narrative 03/11/2015 5:15 PM CDT History: 69-year-old female patient with history of pancreatitis. 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 Pseudoaneurysm embolization requested. Patient also had bilateral lower extremity DVT. Because of pseudoaneurysm and echo ablation has contraindication. IVC filter placement was also requested. Indication: Pseudoaneurysm of the splenic artery. Bilateral lower extremity DVT with contraindication for anticoagulation (IVC filter placement.). Procedure performed: Visceral angiogram and embolization: 1. Ultrasound-guided access of right common femoral artery. 2. Catheterization of celiac axis and angiogram in frontal projection. 3. Catheterization of splenic artery and angiogram in multiple projections. 4. Coil embolization proximal, distal as well as within the pseudoaneurysm with multiple coils. 5. Right common femoral angiogram in frontal projection. 6. Closure of arteriotomy using a closure device. IVC filter placement: 7. Right internal jugular venous access using ultrasound guidance. 8. Inferior venacavogram in frontal projection. 9. Placement of retrievable IVC filter in the infrarenal IVC. Consent: Written and oral consent was obtained after explaining the procedure and its risk factors to the patient in detail. Medications and monitoring: The patient was given 3 mg of Versed and 150 mcg of fentanyl during the procedure. 1 g of Ancef was given during the procedure. Procedure time: 150 minutes. Sedation time: 150 minutes. Fluoroscopy time: 36 minutes. Contrast: 200 ML of Omni 240. Procedure details and findings: The patient was placed supine on the fluoroscopy table. Right groin was prepped and draped in usual sterile fashion. After giving 5 mL lidocaine right common femoral artery was accessed using a micropuncture needle. The micropuncture needle was replaced by micropuncture sheath over the guidewire. The micropuncture sheath was then replaced by 5 Russian sheath over the guidewire. Through this 5 Russian sheath 5 Russian Regalado B. catheter was advanced in the proximal abdominal aorta and celiac axis was catheterized. Celiac angiogram was obtained. Celiac angiogram revealed antegrade flow in the branches of celiac axis. A pseudoaneurysm was noted along the distal portion of the splenic artery. Through this Regalado B. catheter high flow Renegade microcatheter was advanced reaching up to the distal portion of the splenic artery and splenic angiogram was obtained. The splenic angiogram revealed large pseudoaneurysm located along the distal portion of the splenic artery with patent proximal and distal flow. Multiple coils were deployed distal and proximal to the pseudoaneurysm as well as within this should aneurysms with complete occlusion of the splenic artery in that region. Post coil embolization angiogram revealed complete nonvisualization of pseudoaneurysm. Regalado B. catheter as well as microcatheter were removed. Right common femoral angiogram was done in left anterior oblique projection which revealed antegrade flow in the right common femoral artery. Arteriotomy appeared appropriate for using a closure device. The arteriotomy was then closed using Mynx closure device. Subsequently, right neck was prepped and draped in usual sterile fashion. After giving 5 mL lidocaine right internal jugular vein was accessed using a micropuncture needle under real-time ultrasound guidance. The micropuncture needle was replaced by micropuncture sheath over the guidewire. The micropunch the sheath was replaced by 5 Russian Omni Flush catheter. The Omni Flush catheter was advanced in the inferior vena cava over the guidewire an inferior venacavogram was obtained. Inferior venacavogram confirmed patent IVC with size of the IVC appropriate for using a closure device. The Omni Flush catheter was replaced by a 10 Russian sheath over the guidewire. Through this sheath for the deployment device was advanced over the guidewire and retrievable crux filter was deployed in the infrarenal IVC. Inferior venacavogram was obtained through Omni Flush catheter which revealed intra-and the catheter in appropriate location. The sheath was removed and sterile dressing was applied. Both the procedures were done without any immediate complications. Patient left the procedure may preprocedure baseline condition. Procedure Note Edith Villalba MD - 12/22/2017 History: 69-year-old female patient with history of pancreatitis. 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 Patient also had bilateral lowerextremity DVT. Because of pseudoaneurysm and echo ablation has contraindication. IVC filter placement was alsorequested. Indication: Pseudoaneurysm of the splenic artery. Bilateral lowerextremity DVT with contraindication for anticoagulation (IVC filterplacement.). Procedure performed: Visceral angiogram and embolization: 1. Ultrasound-guided access of right common femoral artery. 2. Catheterization of celiac axis and angiogram in frontal projection. 3. Catheterization of splenic artery and angiogram in multipleprojections. 4. Coil embolization proximal, distal as well as within the pseudoaneurysmwith multiple coils. 5. Right common femoral angiogram in frontal projection. 6. Closure of arteriotomy using a closure device. IVC filter placement: 7. Right internal jugular venous access using ultrasound guidance. 8. Inferior venacavogram in frontal projection. 9. Placement of retrievable IVC filter in the infrarenal IVC. Consent: Written and oral consent was obtained after explaining theprocedure and its risk factors to the patient in detail. Medications and monitoring: The patient was given 3 mg of Versed and 150mcg of fentanyl during the procedure. 1 g of Ancef was given during theprocedure. Procedure time: 150 minutes. Sedation time: 150 minutes. Fluoroscopy time: 36 minutes. Contrast: 200 ML of Omni 240. Procedure details and findings: The patient was placed supine on the fluoroscopy table. Right groin wasprepped and draped in usual sterile fashion. After giving 5 mL lidocaineright common femoral artery was accessed using a micropuncture needle. Themicropuncture needle was replaced by micropuncture sheath over the guidewire. The micropuncture sheath wasthen replaced by 5 Russian sheath over the guidewire. Through this 5 Russian sheath 5 Russian Regalado B. catheter was advanced inthe proximal abdominal aorta and celiac axis was catheterized. Celiacangiogram was obtained. Celiac angiogram revealed antegrade flow in thebranches of celiac axis. A pseudoaneurysm was noted along the distal portion of the splenic artery.Through this Regalado B. catheter high flow Renegade microcatheter wasadvanced reaching up to the distal portion of the splenic artery andsplenic angiogram was obtained. The splenic angiogram revealed large pseudoaneurysm located along the distal portionof the splenic artery with patent proximal and distal flow. Multiple coilswere deployed distal and proximal to the pseudoaneurysm as well as withinthis should aneurysms with complete occlusion of the splenic artery in that region. Post coilembolization angiogram revealed complete nonvisualization ofpseudoaneurysm. Regalado B. catheter as well as microcatheter were removed. Right commonfemoral angiogram was done in left anterior oblique projection whichrevealed antegrade flow in the right common femoral artery. Arteriotomyappeared appropriate for using a closure device. The arteriotomy was then closed using Mynx closure device. Subsequently, right neck was prepped and draped in usual sterile fashion.After giving 5 mL lidocaine right internal jugular vein was accessed usinga micropuncture needle under real-time ultrasound guidance. Themicropuncture needle was replaced by micropuncture sheath over the guidewire. The micropunch the sheath wasreplaced by 5 Russian Omni Flush catheter. The Omni Flush catheter wasadvanced in the inferior vena cava over the guidewire an inferiorvenacavogram was obtained. Inferior venacavogram confirmed patent IVC with size of the IVC appropriate forusing a closure device. The Omni Flush catheter was replaced by a 10French sheath over the guidewire. Through this sheath for the deploymentdevice was advanced over the guidewire and retrievable crux filter was deployed in the infrarenal IVC. Inferiorvenacavogram was obtained through Omni Flush catheter which revealedintra-and the catheter in appropriate location. The sheath was removed andsterile dressing was applied. Both the procedures were done without any immediate complications. Patientleft the procedure may preprocedure baseline condition. IMPRESSION Impression: Successful coil embolization of splenic pseudoaneurysm with fluoroscopyguidance. Successful placement of retrievable IVC filter. This report was electronically signed by EDITH VILLALBA M.D. on03/11/2015 5:15 PM . Jocelyn Lazar MD IR ORDERABLES * CROSSMATCH RBC LEUKOREDUCED (02/25/2015 7:15 PM CDT) Only the most recent of5 resultswithin the time period is included. [facility] Unit RBC-WBCD [id number] transfused [facility] ([facility]) Unit ABO O [facility] ([facility]) Unit Rh POS [facility] ([facility] Unit Number [id number] [facility] ([facility]AKER) Unit Status Transfused [facility] OD [facility] ([facility]) 02/25/2015 7:15 PM CDT 02/25/2015 7:15 PM CDT Narrative [facility] ([facility]AKER) - 02/25/2015 7:15 PM CDT # of Units->2 Omar Tellez MD LAB - BLOOD BANK ORD ERABLES [facility] (BEAKER) * CK + CKMB PANEL (02/25/2015 5:38 PM CDT) Only the most recent of4 resultswithin the time period is included. [facility] CK Total 79 30 - 200 Units/L [facility] CK-MB 1.4 0.0 - 6.6 ng/mL [facility] Blood specimen (specimen) BLOOD SPECIMEN / Unknown 02/25/2015 5:38 PM CDT 02/25/2015 5:45 PM CDT Omar Tellez MD LAB - CHEMISTRY [place] [facility] [address] [place] [address] * (ABNORMAL) LIPID PROFILE (02/25/2015 5:38 PM CDT) Only the most recent of2 resultswithin the time period is included. Pathologist [facility] Cholesterol Total 120 <200 mg/dL [facility] HDL 21(L) >40 mg/dL [facility] Comment: ATP III Classification of HDL Cholesterol: ? <40 mg/dL: ??Considered a major risk factor. ? >60 mg/dL: ??Considered a negative risk factor. ? LDL Calculated 56 <100 mg/dL [facility] Comment: ATP III Classification of LDL Cholesterol: ?<100 mg/dL: ??Optimal ? 100 - 129 mg/dL: ??Near Optimal/Above Optimal ? 130 - 159 mg/dL: ??Borderline High ? 160 - 189 mg/dL: ??High ?>190 mg/dL: ??Very High ? Triglycerides 217(H) <150 mg/dL [facility] Comment: ATP III Classification of Triglycerides: ?<150 mg/dL: ??Normal ? 150 - 199 mg/dL: ??Borderline High ? 200 - 400 mg/dL: ??High ?>500 mg/dL: ??Very High Blood specimen (specimen) BLOOD SPECIMEN / Unknown 02/25/2015 5:38 PM CDT 02/25/2015 5:45 PM CDT Omar Tellez MD LAB - CHEMISTRY [place] [facility] Organization Address City/State/ZIP Co de Phone Number [address] [phone] * XR CHEST 1VW PORTABLE (02/25/2015 5:26 PM CDT) Only the most recent of19 resultswithin the time period is included. Anatomical Region Laterality Modality Chest Other Impressions 02/26/2015 6:18 PM CDT Findings/impression: The enteric tube can be followed into the stomach, but terminates out of the field of view. The lungs are small in volume, but clear. There is no pleural effusion. No pneumothorax is identified on this supine view. The cardiomediastinal silhouette is normal. The aorta is atherosclerotic. No rib fractures are identified. This report has been dictated by Anna Calvillo M.D. (Resident). This report was approved ??by Anna Calvillo ?? on 02/26/2015 11:[address] Richy Mir M.D. have personally reviewed and interpreted this examination/study. This report was electronically signed by Richy GARCIA M.D. ??on 02/26/2015 6:18 PM . Narrative 02/26/2015 6:18 PM CDT Exam: Chest, portable AP supine view Date: 02/25/2015 History: 69-year-old female with chest pain after CPR. Comparison: Rule chest radiograph dated 02/08/2015 at 2:05 PM. Procedure Note Anh Garcia MD - 12/22/2017 Exam: Chest, portable AP supine view Date: 02/25/2015 History: 69-year-old female with chest pain after CPR. Comparison: Rule chest radiograph dated 02/08/2015 at 2:05 PM. IMPRESSION Findings/impression: The enteric tube can be followed into the stomach, but terminates out ofthe field of view. The lungs are small in volume, but clear. There is no pleural effusion. Nopneumothorax is identified on this supine view. The cardiomediastinalsilhouette is normal. The aorta is atherosclerotic. No rib fractures areidentified. This report has been dictated by Anna Calvillo M.D. (Resident). This report was approved by Anna Calvillo on 02/26/2015 11:07 AM . IDr. Richy M.D. have personally reviewed and interpreted thisexamination/study. This report was electronically signed by Richy GARCIA M.D. on02/26/2015 6:18 PM . Omar Tellez MD DIAGNOSTIC IMAGING O RDERABLES * ECHO W DOPPLER AND COLOR FLOW (02/25/2015 12:00 AM CDT) Only the most recent of2 resultswithin the time period is included. Anatomical Region Laterality Modality Other 02/25/2015 Omar Tellez MD ECHOCARDIOGRAPHY RAD IANT * (ABNORMAL) DIFFERENTIAL MANUAL (02/11/2015 5:18 AM CDT) Only the most recent of27 resultswithin the time period is included. WBC (corrected for NRBC) 6.4 10? 3 /uL [facility] Total Cell Count 100 [facility] Neutrophils Absolute Manual 3.01 1.60 - 7.00 10? 3 /uL [facility] Comment:(BANDS+SEGS) x WBC = NEUT # (ANC) Lymphocyte Absolute Manual 2.62 0.80 - 2.90 10? 3 /uL [facility] Monocytes Absolute Manual 0.45 0.14 - 0.66 10? 3 /uL [facility] Eosinophils Absolute Manual 0.26(H) 0.00 - 0.22 10? 3 /uL [facility] Basophil Absolute Manual 0.06 0.00 - 0.06 10? 3 /uL [facility] Neutrophil % Manual 47 30 - 60 % [facility] Lymphocyte % Manual 41 20 - 45 % [facility] Monocytes % Manual 7 2 - 10 % [facility] Eosinophils % Manual 4 1 - 6 % [facility] Basophils % Manual 1 0 - 3 % [facility] Platelet Estimate Adequate Adequate [facility] RBC Morphology Normal [facility] Blood specimen (specimen) BLOOD SPECIMEN / Unknown 02/11/2015 5:18 AM CDT 02/11/2015 5:39 AM CDT Moon Kahn MD LAB - HEMATOLOGY ORD ERABLES Performing Organization Address City/[facility]/ZIP Co de Phone Number [address] [phone] * EKG 12-LEAD (02/08/2015 12:00 AM CDT) Only the most recent of6 resultswithin the time period is included. EKG [facility] Comment: Exam Date/Time: ?? Feb 08 2015 11:12:05 Test Reason : tachycardia Blood Pressure : / mmHG Vent. Rate : 115 BPM ? Atrial Rate : 115 BPM ?? P-R Int : 136 ms ?QRS Dur : 078 ms ?QT Int : 338 ms ? P-R-T Axes : 025 004 065 degrees ?? QTc Int : 467 ms Sinus tachycardia Otherwise normal ECG When compared with ECG of 25-DEC-2014 21:27, No significant change was found Confirmed by MD Néstor, Karsten ([id number]), technical editor Michael Pennington ([id number]) on 02/21/2015 2:27:17 PM Referred By: ??belinda ? Confirmed By:Karsten Palm MD 02/08/2015 Moon Kahn MD ECG ORDERABLES Performing Organization Address City/[facility]/ZIP Co de Phone Number [facility] * (ABNORMAL) URINALYSIS REFLEX TO MICROSCOPIC NO CULTURE (02/05/2015 11:11 PM CDT) Only the most recent of2 resultswithin the time period is included. Color UA Yellow Straw, Yellow, Colorless, Light Yellow [facility] Clarity UA Clear Clear [facility] Specific [place] UA 1.015 1.001 - 1.030 [facility] pH UA 6.0 5.0 - 8.0 [facility] Protein UA Negative <=20 mg/dL [facility] Glucose UA Negative Negative mg/dL [facility] Ketone UA Negative Negative mg/dL [facility] Bilirubin UA Negative Negative mg/dL [facility] Blood UA Negative Negative [facility] Nitrite UA Negative Negative [facility] Leukocyte Esterase Small(A) Negative [facility] Urobilinogen UA <2.0 <2.0 mg/dL [facility] RBC UA 6 0 - 8 /HPF [facility] WBC UA 13(H) 0 - 2 /HPF [facility] Bacteria UA Rare Rare, Occasional, None /HPF [facility] Squamous Epithelial Cells UA 2(H) 0 - 1 /HPF [facility] Mucus UA Many(A) None /LPF [facility] Urine specimen (specimen) URINE SPECIMEN OBTAINED BY CLEAN CATCH PROCEDURE / Unknown 02/05/2015 11:11 PM CDT 02/06/2015 4:57 AM CDT Rissa Rivero MD LAB - URINALYSIS ORD ERABLES [facility] [address] [place] [address] * CT ABDOMEN PELVIS WO CONTRAST (02/05/2015 6:11 PM CDT) Anatomical Region Laterality Modality Abdomen, Pelvis Other Impressions 02/06/2015 10:51 AM CDT IMPRESSION: 1. Mildly decreased peripancreatic fluid collections status post drainage with 2 cystogastrostomy tubes and a percutaneous drainage catheter since the recent prior MRI. These collections are substantially decreased from the 12/20/2012 CT abdomen. 2. Mildly decreased size of subcutaneous left flank collection status post percutaneous drainage. Dr. Sanchez discussed preliminary findings with Dr. Neves at 1908 hours on 02/05/2015. Report Dictated by David Sanchez M.D. (Nylon Winder) I, Dr. DYANA PEÑA M.D. have personally reviewed and interpreted this examination/study. This report was electronically signed by DYANA PEÑA M.D. ??on 02/06/2015 10:51 AM . Narrative 02/06/2015 10:51 AM CDT EXAMINATION: Computed tomography of the abdomen and pelvis without contrast HISTORY:63-year-old female with abdominal pain. History of peripancreatic fluid collection status post placement of 2 left flank percutaneous catheters as well as endoscopic microdiscectomy and cystogastrostomy. TECHNIQUE: Computed tomography of the abdomen, and pelvis was performed without intravenous contrast according to standard protocol. FINDINGS: Comparison is made to prior CT from 12/20/2014 as well as MRI dated 01/18/2015. The lung bases are clear. The heart is normal. There is no pleural or pericardial effusion. Within the limitations of a noncontrast examination, the liver appears normal. A low attenuating focus within segment 7 is unchanged and may represent a cyst or hemangioma. The gallbladder is contracted and there is no evidence of pericholecystic fluid/stranding. Numerous calcifications throughout the spleen are evidence of prior granulomatous disease. The kidneys are normal in size and shape. A hyperattenuating focus near the interpolar region of the left kidney is consistent with a hemorrhagic/proteinaceous cyst when compared with the prior MR. There is no hydroureteronephrosis. The right adrenal gland is normal. There is thickening of the left adrenal gland with maintenance of its normal adeniform shape. Multiple drains are redemonstrated including 2 endoscopically placed drains via a cystgastrostomy as well as 2 percutaneous drains. One of the percutaneous drains terminates along the left retroperitoneal space collection and the second percutaneous drain terminates in a collection in the soft tissues of the left flank. ??Gas is seen in both of these collections. Gas is also seen along the anterior aspect of the pancreas, likely within an additional focal collection (series 3 image 53) which appears to communicate with the larger lesser sac collection on the prior examination. The size of the collections is difficult to accurately assess in the absence of intravenous contrast however, grossly, these appear slightly decreased from the MR on 01/18/2015 and are significantly decreased from the 12/20/2014 CT abdomen. The questionable fistulous connection from the collection into the colon is better evaluated on the prior MR. A small fat-containing umbilical hernia is present. No significant free fluid is seen in the abdomen. The small bowel and colon are normal in course and caliber without evidence of obstruction. There is a suggestion of small bowel wall thickening in the left upper quadrant, likely reactive. Moderate amount of mesenteric stranding in the left upper quadrant is also likely reactive. The abdominal aorta is normal in course and caliber and demonstrates scattered vascular calcification. ??Mesenteric and retroperitoneal lymph nodes are present. The remaining unenhanced abdominal vascular structures are normal. There is no free intra-abdominal air. The bladder is mildly distended with fluid. ??The uterus is present. There is no free fluid in the pelvis. Bone windows demonstrate no suspicious lytic or blastic lesions. Degenerative changes are present in the thoracolumbar spine. Procedure Note Dyana Peña MD - 12/22/2017 EXAMINATION: Computed tomography of the abdomen and pelvis withoutcontrast HISTORY:63-year-old female with abdominal pain. History of peripancreaticfluid collection status post placement of 2 left flank percutaneouscatheters as well as endoscopic microdiscectomy and cystogastrostomy. TECHNIQUE: Computed tomography of the abdomen, and pelvis was performedwithout intravenous contrast according to standard protocol. FINDINGS: Comparison is made to prior CT from 12/20/2014 as well as MRI date01/18/2015. The lung bases are clear. The heart is normal. There is no pleural orpericardial effusion. Within the limitations of a noncontrast examination, the liver appearsnormal. A low attenuating focus within segment 7 is unchanged and mayrepresent a cyst or hemangioma. The gallbladder is contracted and there isno evidence of pericholecystic fluid/stranding. Numerous calcifications throughout the spleen areevidence of prior granulomatous disease. The kidneys are normal in sizeand shape. A hyperattenuating focus near the interpolar region of the leftkidney is consistent with a hemorrhagic/proteinaceous cyst when compared with the prior MR. There isno hydroureteronephrosis. The right adrenal gland is normal. There isthickening of the left adrenal gland with maintenance of its normaladeniform shape. Multiple drains are redemonstrated including 2 endoscopically placeddrains via a cystgastrostomy as well as 2 percutaneous drains. One of thepercutaneous drains terminates along the left retroperitoneal spacecollection and the second percutaneous drain terminates in a collection in the soft tissues of the left flank.Gas is seen in both of these collections. Gas is also seen along theanterior aspect of the pancreas, likely within an additional focalcollection (series 3 image 53) which appears to communicate with the larger lesser sac collection on the priorexamination. The size of the collections is difficult to accurately assessin the absence of intravenous contrast however, grossly, these appearslightly decreased from the MR on 01/18/2015 and are significantly decreased from the 12/20/2014 CT abdomen. Thequestionable fistulous connection from the collection into the colon isbetter evaluated on the prior MR. A small fat-containing umbilical hernia is present. No significant freefluid is seen in the abdomen. The small bowel and colon are normal incourse and caliber without evidence of obstruction. There is a suggestionof small bowel wall thickening in the left upper quadrant, likely reactive. Moderate amount of mesentericstranding in the left upper quadrant is also likely reactive. Theabdominal aorta is normal in course and caliber and demonstrates scatteredvascular calcification. Mesenteric and retroperitoneal lymph nodes are present. The remaining unenhancedabdominal vascular structures are normal. There is no free intra-abdominalair. The bladder is mildly distended with fluid. The uterus is present. Thereis no free fluid in the pelvis. Bone windows demonstrate no suspicious lytic or blastic lesions.Degenerative changes are present in the thoracolumbar spine. IMPRESSION IMPRESSION: 1. Mildly decreased peripancreatic fluid collections status post drainagewith 2 cystogastrostomy tubes and a percutaneous drainage catheter sincethe recent prior MRI. These collections are substantially decreased fromthe 12/20/2012 CT abdomen. 2. Mildly decreased size of subcutaneous left flank collection status postpercutaneous drainage. Dr. Sanchez discussed preliminary findings with Dr. Neves at 1908 hours on02/05/2015. Report Dictated by David Sanchez M.D. (Nylon Winder) I, Dr. DYANA PEÑA M.D. have personally reviewed and interpreted thisexamination/study. This report was electronically signed by DYANA PEÑA M.D. on02/06/2015 10:51 AM . Rissa Rivero MD CT ORDERABLES * (ABNORMAL) RBC MORPHOLOGY (01/08/2015 3:30 AM CDT) Only the most recent of4 resultswithin the time period is included. Platelet Estimate Adequate Adequate [facility] Anisocytosis 1+(A) None [facility] Hypochromia 1+(A) None [facility] Ovalocytes Occasional(A ) None [facility] Tear Drop Cells Occasional(A ) None [facility] Blood specimen (specimen) BLOOD SPECIMEN / Unknown 01/08/2015 3:30 AM CDT 01/08/2015 3:54 AM CDT Renetta Arevalo MD LAB - HEMATOLOGY ORDERABLES [address] [phone] * CULTURE CYTOMEGALOVIRUS (01/03/2015 11:08 AM CDT) Pathologist [facility] Cytomegalovirus Culture Comment [facility] ([place]) Comment:No Cytomegalovirus i solated. Abscess SPECIMEN FROM ABSCESS / Unknown 01/03/2015 11:08 AM CDT 01/03/2015 4:37 PM CDT Narrative [facility] ([place]) - 01/16/2015 6:14 AM CDT Specimen Sources->Abscess Performed at: ??01 - [facility] [address] ??[id number] Meeting Facilitator: Adebayo Landaverde MD, Phone: ??[phone] Sofia Snyder MD LAB - MICROBIOLOGY O RDERABLES Performing Organization Address City/[facility]/ZIP Co de Phone Number [facility] ([place]) * (ABNORMAL) BLOOD GASES ART (01/03/2015 7:20 AM CDT) Only the most recent of15 resultswithin the time period is included. pH Arterial 7.48(H) 7.35 - 7.45 [facility] pCO2 Arterial 43 35 - 45 mmHg [facility] pO2 Arterial 66(L) 71 - 95 mmHg [facility] HCO3 Arterial 31.4(H) 22.0 - 26.0 mmol/L [facility] TCO2 Arterial 32.7(H) 25.0 - 29.0 mmol/L [facility] Base Excess Arterial 7.2(H) -2.0 - 2.0 mmol/L [facility] Hemoglobin Arterial 9.5(L) 12.0 - 15.5 g/dL [facility] Oxyhemoglobin Arterial 91.3(L) 95.0 - 100.0 % [facility] Carboxyhemoglobin 1.3 0.0 - 3.0 % [facility] Methemoglobin 0.3 0.0 - 2.0 % [facility] FI O2 Arterial 21.0 % [facility] Blood specimen (specimen) BLOOD SPECIMEN / Unknown 01/03/2015 7:20 AM CDT 01/03/2015 7:20 AM CDT Narrative [facility] - 01/03/2015 7:23 AM CDT FIO2->21 Renetta Arevalo MD LAB - BLOOD GASES ORDERABLES Performing Organization Address City/State/[facility] Co de Phone Number [address] [phone] * IR PICC LINE INSERT (2014 10:41 AM CDT) Only the most recent of3 resultswithin the time period is included. Anatomical Region Laterality Modality Other Impressions 2014 3:33 PM CDT Impression: Successful placement of 36 cm 5 Russian single-lumen power PICC via the right basilic vein with the tip at the cavo-atrial junction. Note: The catheter can be used now. Dr. Sriram Lazar was present and performed/supervised the entire procedure. This report was approved ??by Amaris Crowley M.D. ?? on 2014 10:43 AM . I, Dr. JOCELYN LAZAR M.D. have personally reviewed and interpreted this examination/study. This report was electronically signed by JOCELYN LAZAR M.D. ??on 2014 3:33 PM . Narrative 2014 3:33 PM CDT History: 69-year-old female with pancreatitis complicated by pseudocysts. Need for long-term antibiotics. Image guided placement of peripherally inserted central catheter requested. Operators: 1. ??Dr. Sriram Lazar, Attending Physician 2. ??Dr. Whit Crowley, Resident Physician Anesthesia: 1. ??Local anesthesia - 10 ml of 1% lidocaine Procedures: 1. ??Limited extremity ultrasound to assess vascular patency. 2. ??Ultrasound-guided access of the right basilic vein. 3. ??Fluoroscopy-guided placement of a peripherally inserted central catheter via the right basilic vein. Fluoroscopy time: 1 minutes, 21 seconds Procedure in detail: The procedure, risks, benefits, and alternatives were explained to the patient in detail, and informed consent was obtained. The patient was placed supine on the angiography table. The right arm was prepped and draped in the usual sterile manner. Limited ultrasound of the right basilic vein demonstrated a patent and compressible vein. A fernandez scale image was documented. After administering 1% lidocaine for local anesthesia, the right basilic vein was accessed using a micropuncture needle. The needle entry was documented. A ??0.018-inch guidewire was then advanced centrally. A small dermatotomy was made at the puncture site, and a peel-away sheath was advanced into the vein. The PICC line was then introduced through the peel-away sheath and advanced to the right atrium near the cavoatrial junction under fluoroscopic guidance. It was flushed to assure patency. A final image confirmed proper position of the catheter tip at the cavoatrial junction. A sterile dressing was placed. The patient tolerated the procedure well and was transferred to the holding area in stable condition. There were no immediate complications associated with the procedure. Procedure Note Jocelyn Lazar MD - 12/22/2017 History: 69-year-old female with pancreatitis complicated by pseudocysts.Need for long-term antibiotics. Image guided placement of peripherallyinserted central catheter requested. Operators: 1. Dr. Sriram Lazar, Attending Physician 2. Dr. Whit Crowley, Resident Physician Anesthesia: 1. Local anesthesia - 10 ml of 1% lidocaine Procedures: 1. Limited extremity ultrasound to assess vascular patency. 2. Ultrasound-guided access of the right basilic vein. 3. Fluoroscopy-guided placement of a peripherally inserted centralcatheter via the right basilic vein. Fluoroscopy time: 1 minutes, 21 seconds Procedure in detail: The procedure, risks, benefits, and alternatives wereexplained to the patient in detail, and informed consent was obtained. Thepatient was placed supine on the angiography table. The right arm wasprepped and draped in the usual sterile manner. Limited ultrasound of the right basilic vein demonstrated a patent andcompressible vein. A fernandez scale image was documented. After administering1% lidocaine for local anesthesia, the right basilic vein was accessedusing a micropuncture needle. The needle entry was documented. A 0.018-inch guidewire was then advanced centrally. A small dermatotomywas made at the puncture site, and a peel-away sheath was advanced intothe vein. The PICC line was then introduced through the peel-away sheathand advanced to the right atrium near the cavoatrial junction under fluoroscopic guidance. It was flushedto assure patency. A final image confirmed proper position of the cathetertip at the cavoatrial junction. A sterile dressing was placed. The patient tolerated the procedure well and [facility]. There were no immediate complicationsassociated with the procedure. IMPRESSION Impression: Successful placement of 36 cm 5 Russian single-lumen power PICCvia the right basilic vein with the tip at the cavo-atrial junction. Note: The catheter can be used now. Dr. Sriram Lazar was present and performed/supervised the entireprocedure. This report was approved by Amaris Crowley M.D. on 2014 10:43AM . I, Dr. JOCELYN LAZAR M.D. have personally reviewed and interpretedthis examination/study. This report was electronically signed by JOCELYN LAZAR M.D. on2014 3:33 PM . Martir Vee MD IR ORDERABLES * CT PERC DRAINAGE CATH EXCHANGE (12/22/2014 1:02 PM CDT) Anatomical Region Laterality Modality Other Impressions 12/22/2014 3:26 PM CDT Impression: 1. ??CT-guided aspiration of a left paraspinal abscess with removal of 80 mL of purulent fluid. 2. ??CT-guided replacement of a 10 Russian drainage catheter in a left abdominal pancreatic pseudocyst with a 12 Russian APDL (pigtail) drainage catheter. 2 mg alteplase was injected through the catheter and it was capped. The catheter can be opened for gravity drainage in 1 hour. Flush the catheter with 10 mL of saline twice a day. If the output falls below 20 mL/day, please schedule the patient for an image- guided tube check. Dr. Mell Sullivan performed/was present throughout the procedure and provided the moderate sedation service. Please see the nursing sedation flowsheet. This report was approved ??by Amaris Crowley M.D. ?? on 12/22/2014 12:54 PM . I, Dr. WILLIAM SULLIVAN M.D. have personally reviewed and interpreted this examination/study. This report was electronically signed by WILLIAM SULLIVAN M.D. ??on 12/22/2014 3:26 PM . Narrative 12/22/2014 3:26 PM CDT History: 68-year-old female with pancreatitis presenting with a large peripancreatic pseudocyst status post placement of a [address] from 12/20/2014 showed the pseudocyst remained large in size. The patient also has a left paraspinal abscess. Operators: 1. ??Dr. Mell Sullivan, Attending Physician 2. ??Dr. Whit Crowley, Resident Physician Anesthesia: 1. ??Local anesthesia - 10 ml of 1% lidocaine 2. ??Intravenous conscious sedation - Versed 1 mg and Fentanyl 50 mcg Procedure: 1. ??CT-guided aspiration of a left paraspinal abscess 2. ??CT-guided replacement of a 10 Russian drainage catheter in a left upper quadrant pancreatic pseudocyst with a 12 Russian APDL (pigtail) drainage catheter Start time: 1038 ?End time: 1155 ? Sedation initiated time: 1049 Procedure in detail: The procedure, possible risks, and possible complications were explained to the patient in detail, and informed consent was obtained. The patient was placed in a right latera decubitus position on the CT table and a limited non-contrast CT examination of the abdomen was performed with radio- opaque grid markers over the region of interest. The study demonstrated a large loculated fluid collection in the left upper quadrant containing locules of gas and a pre- existing pigtail catheter within this collection along its inferior aspect. There was also a small left paraspinal loculated fluid collection in the soft tissues just medial to the pre-existing pigtail catheter. The patient received intravenous Versed and Fentanyl for conscious sedation. A qualified radiology nurse monitored the patient?s vital signs throughout the procedure. The pre-existing pigtail catheter and the surrounding skin were prepped and draped in sterile fashion. The skin around the catheter was anesthetized with local 1% lidocaine. The catheter was cut and a 0.035 guidewire was passed through the catheter and looped within the fluid collection. The catheter was removed over the guidewire. A new 12 Russian APDL (pigtail) catheter was advanced over the 0.[address] guidance into the fluid collection. The initial aspirate was purulent. An appropriate amount of aspirate was sent for necessary laboratory work up. ??A final imaging showed the catheter in satisfactory position. 2 mg of alteplase was injected through the catheter into the fluid collection and the catheter was then capped. The catheter can be opened for gravity drainage in one hour. Next, attention was turned to the left paraspinal abscess. The marked site and skin around the region were prepped and draped in a sterile fashion. Local anesthesia was provided by the injection of 1% Lidocaine. ??A 19-gauge coaxial needle was advanced in stages under CT guidance into the left paraspinal fluid collection. The outer sheath was advanced over the needle into this collection. Approximately 80 mL of purulent fluid was aspirated. An appropriate amount of fluid was sent for laboratory evaluation. The needle was removed and a sterile Band-Aid was applied. The patient tolerated the procedure well and was transferred to the holding area in stable condition. There were no immediate complications associated with the procedure. Procedure Note William Sullivan MD - 12/22/2017 History: 68-year-old female with pancreatitis presenting with a largeperipancreatic pseudocyst status post placement of a [address] from 12/20/2014 showed the pseudocyst remained large in size.The patient also has a left paraspinal abscess. Operators: 1. Dr. Mell Sullivan, Attending Physician 2. Dr. Whit Crowley, Resident Physician Anesthesia: 1. Local anesthesia - 10 ml of 1% lidocaine 2. Intravenous conscious sedation - Versed 1 mg and Fentanyl 50 mcg Procedure: 1. CT-guided aspiration of a left paraspinal abscess 2. CT-guided replacement of a 10 Russian drainage catheter in a left upperquadrant pancreatic pseudocyst with a 12 Russian APDL (pigtail) drainagecatheter Start time: 1039 End time: 1155 Sedation initiated time: 1049 Procedure in detail: The procedure, possible risks, and possible complications were explainedto the patient in detail, and informed consent was obtained. The patient was placed in a right latera decubitus position on the CTtable and a limited non-contrast CT examination of the abdomen wasperformed with radio- opaque grid markers over the region of interest. Thestudy demonstrated a large loculated fluid collection in the left upper quadrant containing locules of gas and apre- existing pigtail catheter within this collection along its inferioraspect. There was also a small left paraspinal loculated fluid collectionin the soft tissues just medial to the pre-existing pigtail catheter. The patient received intravenous Versed and Fentanyl for conscioussedation. A qualified radiology nurse monitored the patient?s vital signsthroughout the procedure. The pre-existing pigtail catheter and the surrounding skin were preppedand draped in sterile fashion. The skin around the catheter wasanesthetized with local 1% lidocaine. The catheter was cut and a 0.035guidewire was passed through the catheter and looped within the fluid collection. The catheter was removed over theguidewire. A new 12 Russian APDL (pigtail) catheter was advanced over the0.[address] guidance into the fluid collection. The initialaspirate was purulent. An appropriate amount of aspirate was sent for necessary laboratory work up. A finalimaging showed the catheter in satisfactory position. 2 mg of alteplasewas injected through the catheter into the fluid collection and thecatheter was then capped. The catheter can be opened for gravity drainage in one hour. Next, attention was turned to the left paraspinal abscess. The marked siteand skin around the region were prepped and draped in a sterile fashion.Local anesthesia was provided by the injection of 1% Lidocaine. M62-ulrny coaxial needle was advanced in stages under CT guidance into the left paraspinal fluid collection. Theouter sheath was advanced over the needle into this collection.Approximately 80 mL of purulent fluid was aspirated. An appropriate amountof fluid was sent for laboratory evaluation. The needle was removed and a sterile Band-Aid was applied. The patient tolerated the procedure well and was [facility] condition. There were no immediate complicationsassociated with the procedure. IMPRESSION Impression: 1. CT-guided aspiration of a left paraspinal abscess with removal of 80mL of purulent fluid. 2. CT-guided replacement of a 10 Russian drainage catheter in a leftabdominal pancreatic pseudocyst with a 12 Russian APDL (pigtail) drainagecatheter. 2 mg alteplase was injected through the catheter and it wascapped. The catheter can be opened for gravity drainage in 1 hour. Flush the catheter with 10 mL of saline twicea day. If the output falls below 20 mL/day, please schedule the patientfor an image-guided tube check. Dr. Mell Sullivan performed/was present throughout the procedure and providedthe moderate sedation service. Please see the nursing sedationflowsheet. This report was approved by Amaris Crowley M.D. on 12/22/2014 12:54PM . I, Dr. WILLIAM SULLIVAN M.D. have personally reviewed and interpreted thisexamination/study. This report was electronically signed by WILLIAM SULLIVAN M.D. on12/22/2014 3:26 PM . Martir Vee MD CT ORDERABLES * SODIUM FLUID (12/22/2014 11:19 AM CDT) Sodium Fluid 123 Not Established For Fluids mmol/L [facility] Stool specimen (specimen) 12/22/2014 11:19 AM CDT 12/22/2014 11:58 AM CDT Martir Vee MD LAB - BODY FLUID ORD ERABLES [place] [id number] [address] [phone] * POTASSIUM FLUID (12/22/2014 11:19 AM CDT) Potassium Fluid 22.0 Not Established For Fluids mmol/L [facility] Stool specimen (specimen) 12/22/2014 11:19 AM CDT 12/22/2014 11:58 AM CDT Martir Vee MD LAB - BODY FLUID ORD ERABLES Performing Organization Address [facility]/ZIP Co de Phone Number [address] [phone] * CULTURE STOOL+ E COLI SHIGA-LIKE TOXIN (12/19/2014 6:29 AM CDT) Only the most recent of2 resultswithin the time period is included. Culture Feces No Salmonella, Shigella, Yersinia, Campylobacter or Escherichia Coli 0157:H7 isolated. Negative for Shiga Toxin by Immunoassay. [facility] Stool specimen (specimen) STOOL SPECIMEN / Unknown 12/19/2014 6:29 AM CDT 12/19/2014 6:29 AM CDT Narrative [facility] - 12/22/2014 12:41 PM CDT Specimen Type->Stool Martir Vee MD LAB - MICROBIOLOGY O RDERABLES Performing Organization Address [facility] Co de Phone Number [address] [phone] * (ABNORMAL) LACTOFERRIN FECAL QUALITATIVE (12/19/2014 6:29 AM CDT) Lactoferrin Fecal Positive( A) Negative [facility] Comment: A positive result is indicative of the presence of lactoferrin, a marker for fecal leukocytes. Stool specimen (specimen) STOOL SPECIMEN / Unknown 12/19/2014 6:29 AM CDT 12/19/2014 6:29 AM CDT Martir Vee MD LAB - BODY FLUID ORD ERABLES [facility] ([place] * (ABNORMAL) HEMOGLOBIN A1C (12/19/2014 3:33 AM CDT) Only the most recent of3 resultswithin the time period is included. Hemoglobin A1c 6.6(H) 4.4 - 6.3 % [facility] Estimated Average Glucose 143 mg/dL [facility] Comment: HbA1c Interpretation: Treatment target values recommended by ADA and other clinical organizations, not reference intervals, should be used to evaluate metabolic control in patients. Treatment Target Values: Normal : < 5.7% Pre-diabetes: 5.7-6.4% Diabetes: > 6.4% Test results diagnostic of diabetes should be repeated for confirmation. The Tosoh G8 assay for the measurement of HbA1c is a National Glycohemoglobin Standardization Program (NGSP)certified method. Results for patients with HbE disease should be interpreted with caution as this hemoglobinopathy has been shown to interfere with the Tosoh G8 assay. Blood specimen (specimen) BLOOD SPECIMEN / Unknown 12/19/2014 3:33 AM CDT 12/19/2014 9:07 AM CDT Martir Vee MD LAB - [facility]MISTRY [facility] Performing Organization Address [facility] Co de Phone Number [address] [phone] * PATHOLOGY SMEAR BODY FLUID (12/17/2014 4:25 PM CDT) Pathologist [facility] Pathology Diff Review DIFFERENTIAL REVIEW - CONFIRMED DIFFERENTIAL REVIEW - CONFIRMED [facility] Comment: The fluid smear contains abundant white cells that are obscured by large aggregates of bacteria. Most of the white cells appear to be neutrophils, but the nuclear features and morphology are largely degenerated. These findings must be correlated with imaging, clinical findings, and microbiology studies, which showed abundant mixed merry on Gram staining. Fluid specimen (specimen) SPECIMEN FROM ABSCESS / Unknown 12/17/2014 4:25 PM CDT 12/18/2014 12:32 PM CDT Martir Vee MD LAB - PATHOLOGY/CYTO LOGY ORDERABLES Performing Organization Address [facility] [place] [address], [facility] [phone] * LIPASE BODY FLUID ([facility] HOSPITAL ONLY) (12/17/2014 4:24 PM CDT) Lipase Fluid 77 Not Established For Fluids Units/L [facility] Fluid specimen (specimen) 12/17/2014 4:24 PM CDT 12/17/2014 4:25 PM CDT Martir Vee MD LAB - BODY FLUID ORD ERABLES Performing Organization Address City/[facility]/ZIP Co de Phone Number [address] [phone] * AMYLASE BODY FLUID ([facility] ONLY) (12/17/2014 4:24 PM CDT) Only the most recent of2 resultswithin the time period is included. Amylase Fluid 35 Not Established For Fluids Units/L [facility] Fluid specimen (specimen) 12/17/2014 4:24 PM CDT 12/17/2014 4:25 PM CDT Martir Vee MD LAB - BODY FLUID ORD ERABLES Performing Organization Address [facility]/ZIP Co de Phone Number [address] [phone] * PROTEIN FLUID (12/17/2014 4:24 PM CDT) Only the most recent of2 resultswithin the time period is included. Protein Fluid 1.4 Not Established For Fluids g/dL [facility] Fluid specimen (specimen) 12/17/2014 4:24 PM CDT 12/17/2014 4:25 PM CDT Martir Vee MD LAB - BODY FLUID ORD ERABLES Performing Organization Address City/[facility]/ZIP Co de Phone Number [address] [phone] * VAS RIGHT VENOUS DUPLEX LE (12/17/2014 10:47 AM CDT) Anatomical Region Laterality Modality Other Martir Vee MD VASCULAR LAB ORDERAB LES * IGG SUBCLASS 4 (12/16/2014 9:06 PM CDT) Pathologist [facility] IgG Subclass 4 37 1 - 291 mg/dL [facility] ([facility]) Blood specimen (specimen) BLOOD SPECIMEN / Unknown 12/16/2014 9:06 PM CDT 12/16/2014 10:05 PM CDT Narrative [facility] ([facility]) - 12/19/2014 9:14 AM CDT Performed at: ??01 - [facility] [address] ??[id number] Meeting Facilitator: Adebayo Landaverde MD, Phone: ??[phone] Martir Vee MD LAB - CHEMISTRY [place]) * DILIP BLOOD SCREEN (12/16/2014 9:06 PM CDT) Pathologist [facility] DILIP None Detected None Detected [facility] Venous blood specimen (specimen) 12/16/2014 9:06 PM CDT 12/16/2014 10:05 PM CDT Martir Vee MD LAB - CHEMISTRY [place] [address] [phone] * SOLUBLE TRANSFERRIN RECEPTOR (12/16/2014 9:06 PM CDT) Pathologist [facility] Soluble Transferrin Receptor 19.0 12.2 - 27.3 nmol/L [facility]) Blood specimen (specimen) BLOOD SPECIMEN / Unknown 12/16/2014 9:06 PM CDT 12/16/2014 10:04 PM CDT Narrative [facility] ([facility]) - 12/21/2014 5:13 PM CDT Performed at: ??01 - [facility] [address] ??[id number] Meeting Facilitator: Adebayo Landaverde MD, Phone: ??[phone] Martir Vee MD LAB - CHEMISTRY [place] [facility] (BEAKER) * RETIC COUNT (12/16/2014 9:06 PM CDT) Reticulocyte % 1.7 0.4 - 2.5 % [facility] Reticulocyte Absolute 0.06 0.02 - 0.13 10? 6 /uL [facility] Blood specimen (specimen) BLOOD SPECIMEN / Unknown 12/16/2014 9:06 PM CDT 12/16/2014 10:05 PM CDT Martir Vee MD LAB - HEMATOLOGY [place] Performing Organization Address [facility]/ZIP Co de Phone Number [address] [phone] * (ABNORMAL) PREALBUMIN (12/16/2014 9:06 PM CDT) Pathologist [facility] Prealbumin 8(L) 16 - 45 mg/dL [facility] Blood specimen (specimen) BLOOD SPECIMEN / Unknown 12/16/2014 9:06 PM CDT 12/16/2014 10:05 PM CDT Martir Vee MD LAB - CHEMISTRY [place] Performing Organization Address [facility] Co de Phone Number [address] [phone] * FOLATE (12/16/2014 9:06 PM CDT) Pathologist [facility] Folate 9.1 7.0 - 31.4 ng/mL [facility] Blood specimen (specimen) BLOOD SPECIMEN / Unknown 12/16/2014 9:06 PM CDT 12/16/2014 10:05 PM CDT Martir Vee MD LAB - CHEMISTRY [place] Performing Organization Address [facility]/ZIP Co de Phone Number [address] [phone] * VANCOMYCIN LEVEL TROUGH (08/19/2014 12:25 AM 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) Only the most recent of4 resultswithin the time period is included. Vancomycin Trough 14.4 10.0 - 20.0 mcg/mL [facility] Blood specimen (specimen) BLOOD SPECIMEN / Unknown 08/19/2014 12:25 AM 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 08/19/2014 12:32 AM 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 Historical Provider MD LAB - CHEMISTRY O RDERABLES Performing Organization Address City/[facility]/ZIP Co de Phone Number [address] [phone] * CHLORIDE FECES (08/17/2014 12:31 AM 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) Stool specimen (specimen) STOOL SPECIMEN / Unknown 08/17/2014 12:31 AM 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 08/17/2014 12:39 AM 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 Perla Hobson MD LAB - BODY FLUI D ORDERABLES Performing Organization Address [facility] Co de Phone Number [place] [phone] [address] * CLOSTRIDIUM DIFFICILE GD AG + TOXIN A+B (08/17/2014 12:30 AM 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) Only the most recent of2 resultswithin the time period is included. C difficile Antigen Negative Negative [facility] C difficile Toxin Negative Negative [facility] Stool specimen (specimen) STOOL SPECIMEN / Unknown 08/17/2014 12:30 AM 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 08/17/2014 12:39 AM 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 Narrative [facility] - 08/17/2014 11:24 AM 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 Specimen Type->Stool Perla Hobson MD LAB - MICROBIOL OGY ORDERABLES Performing Organization Address [facility] Co de Phone Number [address] [phone] * SODIUM FECES (08/17/2014 12:30 AM 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) Sodium Fecal 85.8 0.0 - 159.9 mmol/L [facility] ([employer]) Comment: Reference Range Normal 0.0 - 159.9 Elevated > 159.9 The performance characteristics of the listed ??assay was validated by [employer]. The [place] FDA has not approved or cleared this test. The results of this assay can be used for clinical diagnosis without FDA approval. [employer]. is a CLIA certified, CAP accredited laboratory for performing high complexity assays such as this one. Stool specimen (specimen) STOOL SPECIMEN / Unknown 08/17/2014 12:30 AM 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 08/17/2014 12:48 AM 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 Narrative [facility] ([facility]) - 08/24/2014 7:07 PM 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 Performed at: ??01 - [employer] [address] [place] [address] ??[phone] Meeting Facilitator: Holli Mckinley , Phone: ??[phone] Historical Provider LAB - BODY FLUID ORDERABLES Performing Organization Address [facility] Co de Phone Number [facility] ([employer]) * POTASSIUM FECES (08/17/2014 12:30 AM 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) Potassium Fecal 28.8 0.0 - 199.9 mmol/L [facility] ([employer]) Comment: Reference Range Normal 0.0 - 199.9 Elevated >199.9 The performance characteristics of the listed ??assay was validated by [employer]. The [place] FDA has not approved or cleared this test. The results of this assay can be used for clinical diagnosis without FDA approval. [employer]. is a CLIA certified, CAP accredited laboratory for performing high complexity assays such as this one. Stool specimen (specimen) STOOL SPECIMEN / Unknown 08/17/2014 12:30 AM 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 08/17/2014 12:48 AM 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 Narrative [facility] ([facility]) - 08/24/2014 7:07 PM 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 Performed at: ??01 - [employer] [address] [place] [address] ??[id number] Meeting Facilitator: Holli Mckinley , Phone: ??[phone] Historical Provider LAB - BODY FLUID ORDERABLES Performing Organization Address [facility] Co de Phone Number [facility] ([facility]) * FECAL LEUKOCYTES (08/17/2014 12:30 AM 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) Fecal Leukocytes No White Blood Cells seen. [facility] Stool specimen (specimen) STOOL SPECIMEN / Unknown 08/17/2014 12:30 AM 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 08/17/2014 12:39 AM 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 Narrative [facility] - 08/17/2014 1:36 PM 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 Specimen Type->Stool Perla Hobson MD LAB - BODY FLUI D ORDERABLES [address] [phone] * XR ABDOMEN KUB PORTABLE (08/14/2014 2:35 PM 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) Only the most recent of4 resultswithin the time period is included. Anatomical Region Laterality Modality Other Impressions 08/14/2014 4:23 PM 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 Impression: The enteric tube terminates in the pyloric region/distal stomach. Dictated by Yanira Craven MD. This report was approved ??by Yanira Craven M.D. ?? on 08/14/2014 4:[address] LIDIA Mir M.D. have personally reviewed and interpreted this examination/study. This report was electronically signed by LIDIA TUTTLE M.D. ??on 08/14/2014 4:23 PM . Narrative 08/14/2014 4:23 PM 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 Exam: Abdomen, 1 view. Date: 08/14/2014 Comparison: 08/07/2014 History: ??Feeding tube pulled out Procedure Note Lidia Tuttle MD - 12/22/2017 Exam: Abdomen, 1 view. Date: 08/14/2014 Comparison: 08/07/2014 History: Feeding tube pulled out IMPRESSION Impression: The enteric tube terminates in the pyloric region/distal stomach. Dictated by Yanira Craven MD. This report was approved by Yanira Craven M.D. on 08/14/2014 4:19 PM . I, Dr. LIDIA TUTTLE M.D. have personally reviewed and interpreted thisexamination/study. This report was electronically signed by LIDIA TUTTLE M.D. on 08/14/20144:23 PM . Perla Hobson MD DIAGNOSTIC IMAG ING ORDERABLES * (ABNORMAL) LDH BLOOD (08/12/2014 12:46 PM 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) LDH Total 365(H) 125 - 243 Units/L [facility] Blood specimen (specimen) BLOOD SPECIMEN / Unknown 08/12/2014 12:46 PM 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 08/12/2014 12:46 PM 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 Historical Provider LAB - CHEMISTRY O RDERABLES Performing Organization Address [facility] Co de Phone Number [address] [phone] * LD BODY FLUID ([facility] ONLY) (08/11/2014 2:44 PM 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) Pathologist [facility] LD Fluid 250 Not Established For Fluids Units/L [facility] Pleural fluid specimen (specimen) BODY FLUID SPECIMEN / Unknown 08/11/2014 2:44 PM 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 08/11/2014 2:55 PM 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 Narrative [facility] - 08/11/2014 3:24 PM 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 Tube 1 Historical Provider LAB - BODY FLUID ORDERABLES Performing Organization Address [facility] Co de Phone Number [address] [phone] * GLUCOSE BODY FLUID ([facility] ONLY) (08/11/2014 2:44 PM 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) Glucose Fluid 228 Not Established For Fluids mg/dL [facility] Pleural fluid specimen (specimen) BODY FLUID SPECIMEN / Unknown 08/11/2014 2:44 PM 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 08/11/2014 2:55 PM 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 Narrative [facility] - 08/11/2014 3:24 PM 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 Tube 1 Historical Provider LAB - BODY FLUID ORDERABLES Performing Organization Address City/[facility]/ZIP Co de Phone Number [address] [phone] * MANUAL DIFFERENTIAL REVIEWED (08/11/2014 2:44 PM 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) Manual Differential Reviewed DIFFERENTIAL REVIEW - CONFIRMED DIFFERENTIAL REVIEW - CONFIRMED [facility] Comment:Few clumps of cells. OCC reactive mesothelial cells noted. Pleural fluid specimen (specimen) BLOOD SPECIMEN / Unknown 08/11/2014 2:44 PM 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 08/11/2014 3:45 PM 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 [facility] - 08/14/2014 4:57 PM 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 Tube 2 Historical Provider LAB - HEMATOLOGY ORDERABLES Performing Organization Address [facility] Co de Phone Number [address] [phone] * CHOLESTEROL FLUID (08/11/2014 2:44 PM 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) Total Cholesterol Body Fluid 31 See Comment mg/dL [facility] Pleural fluid specimen (specimen) BODY FLUID SPECIMEN / Unknown 08/11/2014 2:44 PM 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 08/11/2014 2:55 PM 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 [facility] - 08/11/2014 3:24 PM 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 Tube 1 Historical Provider LAB - BODY FLUID ORDERABLES Performing Organization Address [facility] Co de Phone Number [address] [phone] * PH FLUID (08/11/2014 2:44 PM 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) pH Fluid 7.407 Not Established For Fluids [facility] Pleural fluid specimen (specimen) 08/11/2014 2:44 PM 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 08/11/2014 2:54 PM 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 [facility] - 08/11/2014 3:09 PM 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 Tube 3 Historical Provider LAB - BODY FLUID ORDERABLES Performing Organization Address [facility]/ZIP Co de Phone Number [address] [phone] * CT CHEST PE W ABD PELVIS W CONT (08/10/2014 9:17 PM 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) Anatomical Region Laterality Modality Chest, Abdomen, Pelvis Other Impressions 08/11/2014 5:09 PM 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 IMPRESSION: 1. No evidence of pulmonary embolism. 2. Interstitial pancreatitis with peripancreatic edema with interval increase in ascites since 08/05/2014. Slight increase in size of the lesser sac fluid collection. No focal areas of absent pancreatic enhancement to suggest necrosis. 3. ??Several small splenic infarcts. 4. Bilateral pleural effusions with associated left lower lobe collapse. Scattered groundglass opacities bilaterally likely representing an infectious/inflammatory process. Focal areas of linear atelectasis in the right upper lobe. 5. A 7 mm low attenuating lesion in the mid left kidney with density greater than simple fluid. Renal ultrasound is recommended on a nonemergent basis for further evaluation. Dictated by Yanira AMAYA I, Dr. Richy GARCIA M.D. have personally reviewed and interpreted this examination/study. This report was electronically signed by Richy GARCIA M.D. ??on 08/11/2014 5:09 PM . Narrative 08/11/2014 5:09 PM 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 EXAMINATION: Computed tomography angiography (CTA) of the chest with contrast. Computed tomography (CT) abdomen, and pelvis with contrast HISTORY: Hypoxia, tachypnea, pancreatitis TECHNIQUE: CT of the chest was performed using a pulmonary embolism protocol following the uneventful administration of 150 mL Omnipaque 350 intravenous contrast. ??CT abdomen and pelvis was subsequently performed according to standard protocol. FINDINGS: Comparison is made with CT abdomen and pelvis from 08/05/2014. Chest: There are no filling defects in the pulmonary arteries to suggest pulmonary embolism. There is a large left pleural effusion with associated compressive atelectasis and complete collapse of the left lower lobe. A small right pleural effusion is present with associated right basilar atelectasis. Scattered groundglass opacities are present in both lungs which may be infectious/inflammatory in nature. Focal linear atelectasis present in the right upper lobe. There is no significant mediastinal lymphadenopathy. ??No pneumothorax is present. The heart size is normal and is no pericardial effusion. The aortic arch and pulmonary artery are normal in course and caliber. Abdomen and Pelvis: There is an enteric tube which terminates in the fourth portion of the duodenum. A moderate amount of ascites is present which has increased since 08/05/2014. There is no free intra-abdominal air. The liver enhances homogenously. There is an 8 mm low-density lesion in the right hepatic lobe (series 7, image 25) which is too small to characterize and likely represents a hepatic cyst. This focal mild intrahepatic dilatation involving the anterior segment of the right lobe (image #38 series 7), unchanged. There is no extrahepatic biliary ductal dilatation. Several small wedge-shaped areas of hypoattenuation are seen in the spleen which likely represents infarcts. The pancreas is edematous with mildly decreased enhancement of the pancreas diffusely without focal areas of absent enhancement to suggest necrosis. An approximately 8.7 x 5.6 cm fluid collection is again noted in the lesser sac, which is slightly increased from 7.0 x 5.3 cm on the prior exam. This fluid collection compresses and displaces the stomach anteriorly. The gallbladder is decompressed with diffuse gallbladder wall thickening likely secondary to decompressed state. The kidneys enhance symmetrically bilaterally. There is a 7 mm low attenuating lesion in the mid left kidney with a density greater than simple fluid. There is no hydronephrosis or hydroureter. The small bowel and large bowel are normal in course and caliber without evidence of bowel obstruction. There is diffuse bowel wall thickening is likely reactive to the ascites. There is a rectal tube. Several subcentimeter mesenteric lymph nodes are present. The abdominal aorta is normal in course and caliber. The bladder is distended with fluid. The uterus is present and contains a small calcified fibroid. Diffuse anasarca is noted. Bone windows demonstrate no suspicious lytic or blastic lesions. There is grade 1 L4-5 anterolisthesis. There are degenerative changes at L4-5 and L5-S1. Procedure Note Anh Garcia MD - 12/22/2017 EXAMINATION: Computed tomography angiography (CTA) of the chest withcontrast. Computed tomography (CT) abdomen, and pelvis with contrast HISTORY: Hypoxia, tachypnea, pancreatitis TECHNIQUE: CT of the chest was performed using a pulmonary embolismprotocol following the uneventful administration of 150 mL Omnipaque 350intravenous contrast. CT abdomen and pelvis was subsequently performedaccording to standard protocol. FINDINGS: Comparison is made with CT abdomen and pelvis from 08/05/2014. Chest: There are no filling defects in the pulmonary arteries to suggestpulmonary embolism. There is a large left pleural effusion with associatedcompressive atelectasis and complete collapse of the left lower lobe. Asmall right pleural effusion is present with associated right basilar atelectasis. Scattered groundglass opacitiesare present in both lungs which may be infectious/inflammatory in nature.Focal linear atelectasis present in the right upper lobe. There is nosignificant mediastinal lymphadenopathy. No pneumothorax is present. The heart size is normal andis no pericardial effusion. The aortic arch and pulmonary artery arenormal in course and caliber. Abdomen and Pelvis: There is an enteric tube which terminates in the fourth portion of theduodenum. A moderate amount of ascites is present which has increasedsince 08/05/2014. There is no free intra-abdominal air. The liver enhanceshomogenously. There is an 8 mm low-density lesion in the right hepatic lobe (series 7, image 25) which istoo small to characterize and likely represents a hepatic cyst. This focalmild intrahepatic dilatation involving the anterior segment of the rightlobe (image #38 series 7), unchanged. There is no extrahepatic biliary ductal dilatation. Severalsmall wedge-shaped areas of hypoattenuation are seen in the spleen whichlikely represents infarcts. The pancreas is edematous with mildlydecreased enhancement of the pancreas diffusely without focal areas of absent enhancement to suggest necrosis.An approximately 8.7 x 5.6 cm fluid collection is again noted in thelesser sac, which is slightly increased from 7.0 x 5.3 cm on the priorexam. This fluid collection compresses and displaces the stomach anteriorly. The gallbladder is decompressed withdiffuse gallbladder wall thickening likely secondary to decompressedstate. The kidneys enhance symmetrically bilaterally. There is a 7 mm lowattenuating lesion in the mid left kidney with a density greater than simple fluid. There is nohydronephrosis or hydroureter. The small bowel and large bowel are normal in course and caliber withoutevidence of bowel obstruction. There is diffuse bowel wall thickening islikely reactive to the ascites. There is a rectal tube. Severalsubcentimeter mesenteric lymph nodes are present. The abdominal aorta is normal in course and caliber. The bladderis distended with fluid. The uterus is present and contains a smallcalcified fibroid. Diffuse anasarca is noted. Bone windows demonstrate nosuspicious lytic or blastic lesions. There is grade 1 L4-5 anterolisthesis. There are degenerative changes atL4-5 and L5-S1. IMPRESSION IMPRESSION: 1. No evidence of pulmonary embolism. 2. Interstitial pancreatitis with peripancreatic edema with intervalincrease in ascites since 08/05/2014. Slight increase in size of thelesser sac fluid collection. No focal areas of absent pancreaticenhancement to suggest necrosis. 3. Several small splenic infarcts. 4. Bilateral pleural effusions with associated left lower lobe collapse.Scattered groundglass opacities bilaterally likely representing aninfectious/inflammatory process. Focal areas of linear atelectasis in theright upper lobe. 5. A 7 mm low attenuating lesion in the mid left kidney with densitygreater than simple fluid. Renal ultrasound is recommended on anonemergent basis for further evaluation. Dictated by Yanira AMAYA I, Dr. Richy GARCIA M.D. have personally reviewed and interpreted thisexamination/study. This report was electronically signed by Richy GARCIA M.D. on08/11/2014 5:09 [address] . Historical Provider [address] ORDERABLES * INFLUENZA A+B ANTIGEN RAPID (08/09/2014 7:43 AM 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) Influenza A Rapid Test Negative Negative [facility] Influenza B Rapid Test Negative Negative [facility] Nasopharyngeal 08/09/2014 7: 43 AM 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 08/09/2014 8:01 AM FINAL INSPECTOR SHUTTLE Narrative [facility] - 08/09/2014 9:09 AM FINAL INSPECTOR SHUTTLE Specimen Type->Nasopharyngeal The positive and negative predictive values of rapid influenza testing vary considerably depending upon the prevalence on influenza in the community. *False-positive results are more likely to occur when disease prevalence is low. *False-negative results are more likely to occur when disease prevalence is high. *Current local influenza prevalence can be obtained by calling the Director of Microbiology at [phone]. Historical Provider LAB - MICROBIOLOG Y ORDERABLES [address] [phone] * EOSINOPHIL URINE SMEAR (08/09/2014 7:42 AM FINAL INSPECTOR SHUTTLE) Eosin Stain Urine None None [facility] Urine specimen (specimen) 08/09/2014 7:42 AM FINAL INSPECTOR SHUTTLE 08/09/2014 8:01 AM FINAL INSPECTOR SHUTTLE Historical Provider LAB - URINE CHEMI STRY ORDERABLES Performing Organization Address [facility]/ZIP Co de Phone Number [address] [phone] * UREA NITROGEN URINE RANDOM (08/09/2014 7:42 AM FINAL INSPECTOR SHUTTLE) Urea Nitrogen Random Urine 841 Not Established mg/dL [facility] Urine specimen (specimen) 08/09/2014 7:42 AM FINAL INSPECTOR SHUTTLE 08/09/2014 8:01 AM FINAL INSPECTOR SHUTTLE Historical Provider LAB - URINE CHEMI STRY ORDERABLES Performing Organization Address [facility] de Phone Number [address] [phone] * CULTURE SPUTUM+GRAM STAIN (08/05/2014 5:54 AM FINAL INSPECTOR SHUTTLE) Only the most recent of2 resultswithin the time period is included. Culture Sputum Respiratory Merry [facility] Gram Stain Few Epithelial Cells [facility] Gram Stain Few Polymorphonuclear Cells [facility] Gram Stain No Organism Seen [facility] Sputum specimen (specimen) SPUTUM / Unknown 08/05/2014 5:54 AM FINAL INSPECTOR SHUTTLE 08/05/2014 6:06 AM FINAL INSPECTOR SHUTTLE Narrative [facility] - 08/07/2014 1:16 PM FINAL INSPECTOR SHUTTLE Specimen Type->Sputum Gram Stains are routinely screened for the presence of Polymorphonuclear Cells. Christiano Perez MD LAB - MICROBIOLOGY O RDERABLES Performing Organization Address City/[facility]/ZIP Co de Phone Number [address] [phone] * (ABNORMAL) C-REACTIVE PROTEIN (08/05/2014 5:53 AM FINAL INSPECTOR SHUTTLE) C-Reactive Protein 26.6(H) <=0.5 mg/dL [facility] Blood specimen (specimen) 08/05/2014 5:53 AM FINAL INSPECTOR SHUTTLE 08/05/2014 6:06 AM FINAL INSPECTOR SHUTTLE Christiano Perez MD LAB - CHEMISTRY [place] [facility] [address] [place] [address], [facility] [phone] * XR ABDOMEN KUB (08/05/2014 5:35 AM FINAL INSPECTOR SHUTTLE) Anatomical Region Laterality Modality Abdomen Other Impressions 08/05/2014 9:03 AM FINAL INSPECTOR SHUTTLE Impression: A nasogastric tube is present with its tip ending in the gastric fundus. Report Dictated by David Sanchez M.D. (Nylon Winder) Dr. DYANA Mir M.D. have personally reviewed and interpreted this examination/study. This report was electronically signed by DYANA PEÑA M.D. ??on 08/05/2014 9:03 AM . Narrative 08/05/2014 9:03 AM FINAL INSPECTOR SHUTTLE Exam: Abdomen, 1 view. Date: 08/05/2014 Comparison: None History: ??ng tube placement Procedure Note Dyana Peña MD - 12/22/2017 Exam: Abdomen, 1 view. Date: 08/05/2014 Comparison: None History: ng tube placement IMPRESSION Impression: A nasogastric tube is present with its tip ending in the gastric fundus. Report Dictated by David Sanchez M.D. (Nylon Winder) Dr. DYANA Mir M.D. have personally reviewed and interpreted thisexamination/study. This report was electronically signed by DYANA PEÑA M.D. on08/05/2014 9:03 AM . Christiano Perez MD DIAGNOSTIC IMAGING O RDERABLES * POTASSIUM URINE RANDOM (08/05/2014 3:40 AM FINAL INSPECTOR SHUTTLE) Potassium Urine 22 Not Established mmol/L [facility] Urine specimen (specimen) URINE / Unknown 08/05/2014 3:40 AM FINAL INSPECTOR SHUTTLE 08/05/2014 6:07 AM FINAL INSPECTOR SHUTTLE Christiano Perez MD LAB - URINE CHEMISTR Y ORDERABLES Performing Organization Address City/[facility]/ZIP Co de Phone Number [address] [phone] * CULTURE MRSA (07/30/2014 10:00 PM FINAL INSPECTOR SHUTTLE) Culture MRSA Screen No Growth of Methicillin Resistant Staphylococcus aureus. [facility] Nasopharyngeal 07/30/2014 10 :00 PM FINAL INSPECTOR SHUTTLE 07/31/2014 10:44 AM FINAL INSPECTOR SHUTTLE Narrative [facility] - 08/01/2014 12:06 PM FINAL INSPECTOR SHUTTLE AndersonSpecimen#[id number] Rocael Loc/Rm/Bed: ICU/ICU/08 Historical Provider LAB - MICROBIOLOG Y ORDERABLES [address] [phone] Care Teams Substitute Bus Driver Relationship Specialty Start Date End Date Rizwana Thakkar MD [address] [place] [address] PCP - General 04/27/15
--- OUTSIDE RECORDS SUMMARY | 2024-10-16 05:00 | XMS_ITS | Clinical Summary ---
Author Organization [facility] Address [address] [place] [address] Care Team Providers Care Facilities Planner Name Role Phone Rizwana Thakkar MD Primary Care Provider Rizwana Thakkar MD Unavailable [phone] Allergies Active Allergy Reactions Criticality Noted Date [...] (08/06/2020): Added automatically from request for surgery [id number] Enthesopathy of hip region 04/02/2020 Primary localized [...] drains for fluid collections in 2013- at [facility]. DILIP neg, IgG4 wnls, TG 88. No strong family history of pancreatitis Possibly related to gallstone/debris Surgical History Surgery Date Site/Laterality Comments BREAST BIOPSY 09/08/2020 Left 2005 LASIK PORT PLACEMENT CHEST >5 YEARS 2014 N/A PORT PLACEMENT CHEST >5 YEARS 2014 N/A PORT PLACEMENT CHEST >5 YEARS 08/06/2014 N/A Medical History Medical History Date Comments Arthritis Deep vein thrombosis (CMS/HCC) (HCC) Hypertension Hypertension Family History Medical History Relation Name Comments Heart attack Brother Lung cancer Brother Heart attack Father Throat cancer Mother Breast cancer Paternal Grandmother Breast cancer Sister Anesthesia problems Neg Hx Relation Name Status Comments Brother Father Mother Paternal Grandmother Sister Social History Tobacco Use Types Packs/Day [...] on file Legal Sex Female 2:53 AM GLASS BLOCK BENDER Gender Identity Female 05/17/2021 10:12 AM CDT Sexual Orientation Not on file Obstetrics History Last Filed Vital Signs Vital Sign Reading Time Taken Comments Blood Pressure 131/72 10/25/2020 11:40 AM GLASS BLOCK BENDER Pulse 80 10/25/2020 11:40 AM GLASS BLOCK BENDER Temperature 36.8 ??C (98.2 ??F) 05/31/2021 1:57 PM CD T Respiratory Rate 9 10/25/2020 11:20 AM GLASS BLOCK BENDER Oxygen Saturation 96% 10/25/2020 11:40 AM GLASS BLOCK BENDER Inhaled Oxygen Concentration - - Weight 95.3 kg (210 lb) 05/29/2023 7:47 AM CDT Height 162.6 cm (5' 4 ) 05/29/2023 7:47 AM CDT Body Mass Index 36.05 05/29/2023 7:47 AM CDT Plan of Treatment Health Maintenance Due Date Last Done Comments Depression Screening 1945 Hepatitis C Screening 1945 Lung Cancer Screening 1996 Well Visit 65+ 12/25/2011 Pneumococcal vaccine 65+ (2 of 2 - PCV) 06/23/2019 06/23/2018 Fall Risk Assessment 10/25/2021 10/25/2020 Covid-19 Vaccine (3 - 2023-2 5 season) 2024 12/03/2020, 11/05/2020 Influenza Vaccine (#1) 2024 , 07/04/2019, 06/23/2018, Additional history exists Osteoporosis Screening-Bone Density Scan 04/19/2025 04/19/2023, 03/31/2020 DTaP/Tdap/Td Vaccine (4 - Td or Tdap) 07/02/2029 07/02/2019, 06/24/2019, 01/12/2018 Zoster Vaccine Completed 10/05/2019, 07/25, 06/24/2019 Breast Cancer Screening-Mammogram Discontinued 06/02/2024, 05/29/2023, 05/29/2023, Additional history exists Medical Devices Implanted Type Area Corporate Tax Preparer Device Identifier Shelf Expiration Date Model / [...] compared to prior imaging studies performed at [facility] on 05/24/2021, 05/30/2022 and 05/29/2023. There are [...] compared to prior imaging studies performed at [facility] on 05/24/2021, 05/30/2022 and 05/29/2023. There are [...] Recently Relevant to Health Maintenance Insurance MEDICARE [facility] Address: [address] [place] [address] [facility] [place] [address] MEDICARE [facility] Address: [address] [place] [address] MEDICARE [facility] [place] [address] [facility] [employer] Advance Directives For more information, please contact: [phone] Documents on File Type Date Recorded Patient Unit Support Representative Expl anation ADVANCE DIRECTIVE 10/22/2020 7:37 AM Care Teams Facilities Planner Relationship Specialty Start Date End Date Rizwana Thakkar MD [address] [facility] [address] [place] [address] PCP - General 11/04/20 Rizwana Thakkar MD [address] [facility] [address] [place] [address] Family Medicine 11/04/20
--- OUTSIDE RECORDS SUMMARY | 2024-10-16 05:00 | XMS_ITS | Encounter Summary ---
Author Organization [facility] Address [address] [place] [address]. [place] [address] [place] [address] Care Team Providers Care Tele Grout Sewer Line Repairer Name Role Phone Rizwana Thakkar MD Primary Care Provider [phone]- [phone] Kamaljit Dowell MD Unavailable [phone] Encounter Details Date Type Department Care Team (Latest Contact Info) Description 07/30/2018 Abstract [facility] , Mirtha Gooden MD Social History Tobacco Use Types Packs/Day Years Used Date Smoking Tobacco: Former Cigarettes Q uit: 2013 Smokeless Tobacco: Never Alcohol Use Standard Drinks/Week Comments No 0 (1 standard drink = 0.6 oz pur e alcohol) Comments Unknown Sex and Gender Information Value Date Recorded Sex Assigned at Female 09/20/2018 10:57 AM DIRECTORY OPERATOR Legal Sex Female 7:39 PM CDT Gender Identity Female 09/20/2018 10:57 AM DIRECTORY OPERATOR Sexual Orientation Straight 09/20/2018 10 :57 AM DIRECTORY OPERATOR Occupation Industry Job Start Date Job End Date Not on file Not on file Not on file Not on file documented as of this encounter Plan of Treatment Upcoming Encounters Date Type Department Care Team (Late st Contact Info) Description 05/04/2025 9:15 AM CDT Office Visit [facility] [address] [place] [address] Kamaljit Dowell MD [facility]. [address] [address] documented as of this encounter Visit Diagnoses Not on filedocumented in this encounter Additional Health Concerns Infection Onset Date Last Indicated Resolved Time COVID-19 Rule Out 07/03/2020 07/03/2020 07/04/2020 12:44 PM CDT COVID-19 Rule Out 02/26/2023 02/26/2023 02/26/2023 2:50 PM CDT documented as of this encounter Care Teams Tele Grout Sewer Line Repairer Relationship Specialty Start Date End Date Rizwana Thakkar MD [address] [facility] [address] [place] [address] PCP - General FAMILY PRACTICE 10/25/17 Kamaljit Dowell MD [facility]. [address] [place] [address] [place] Family Protection Specialist CARDIOVASCULAR DISEASE 11/15/17 documented as of this encounter
--- OUTSIDE RECORDS SUMMARY | 2024-10-16 05:00 | XMS_ITS | Encounter Summary ---
Author Organization [facility] Address [address] [place] [address]. [place], [place] [address] [place] [address] Care Team Providers Care Night Time Nanny Name Role Phone Rizwana Thakkar MD Primary Care Provider [phone] Kamaljit Dowell MD Unavailable [phone] Encounter Details Date Type Department Care Team (Late Contact Info) Description 03/21/2023 MyChart Message Enc [facility] Medical [facility] - [facility] [address] [place], [place] [address] [place] Provider Air Quality Message Social History Tobacco Use Types Packs/Day Years Used Date Smoking Tobacco: Former Cigarettes 1 2013 Smokeless Tobacco: Never Alcohol Use Standard Drinks/Week Comments No 0 (1 standard drink = 0.6 oz pur e alcohol) Comments No Sex and Gender Information Value Date Recorded Sex Assigned at Female 09/20/2018 10:57 AM EMPLOYMENT SERVICE SPECIALIST Legal Sex Female 7:39 PM CDT Gender Identity Female 09/20/2018 10:57 AM EMPLOYMENT SERVICE SPECIALIST Sexual Orientation Straight 09/20/2018 10 :57 AM EMPLOYMENT SERVICE SPECIALIST Occupation Industry Job Start Date Job End Date Not on file Not on file Not on file Not on file COVID-19 Exposure Response Date Recorded In the last 10 days, have yo u been in contact with someone who was confirmed or suspected to have Coronavirus/COVID-19? No / Unsure 02/26/2023 2:23 PM CDT documented as of this encounter Plan of Treatment Upcoming Encounters Date Type Department Care Team (Late Contact Info) Description 05/04/2025 9:15 AM CDT [facility] [address] [place] [address] Kamaljit Dowell MD [facility]. [address] [place] [address] documented as of this encounter Visit Diagnoses Not on filedocumented in this encounter Care Teams Night Time Nanny Relationship Specialty Start Date End Date Rizwana Thakkar MD [address] [facility] [address] [place] [address] PCP - General FAMILY PRACTICE 10/25/17 Kamaljit Dowell MD [address] [facility]. [address] [place] [address] Camron Tile Ditcher CARDIOVASCULAR DISEASE 11/15/17 documented as of this encounter
== END 2024-10-10 06:39 | disposition home or self-care (01) ==
PROVIDERS: PCP Family Medicine; Visit Provider Student in an Organized Health Care Education/Training Program
DX: M51.16 Intervertebral disc disorders with radiculopathy, lumbar region (principal); M47.896 Other spondylosis, lumbar region
CPT/HCPCS: 72148

== ENCOUNTER 2025-02-02 07:36 | Outpatient (CLI) | payer MEDICARE, BC, OTHER, SELFPAY ==
--- NOTE | ~2025-02-02 | XR_ITS ---
EXAMINATION: XR chest 2V DATE: 02/02/2025 08:22 INDICATION: Lumbar spinal stenosis for preoperative evaluation with risk factors of hypertension TECHNIQUE: PA and lateral views of the chest were obtained. COMPARISON: Chest radiograph dated 02/28/2023 FINDINGS: The lungs are clear with no focal airspace opacities, pulmonary edema, pleural effusion or pneumothor ax. The cardiomediastinal silhouette is normal. Cholecystectomy clips in right upper quadrant. Emboli zation coils in the left upper quadrant. Moderate to severe degenerative skeletal changes in the spin e and at both shoulders IMPRESSION: 1. No acute cardiopulmonary disease. Reviewed, dictated and finalized at location A.
--- OUTSIDE RECORDS SUMMARY | 2025-02-02 07:47 | XMS_ITS | Encounter Summary ---
Author Organization [facility] Address [facility] [place] [address] Care Team Providers Care Manufacturing Scheduler Name Role Phone Rizwana Thakkar MD Primary Care Provider + [phone] Kamaljit Dowell MD Unavailable [phone] Martir Desai MD Primary Care Provider [phone] Ana Maria Martines MD Primary Care Provider + Encounter Details Date Type Department Care Team (Latest Contact Info) Description 07/30/2018 Abstract [facility] , Mirtha Gooden MD Social History Tobacco Use Types Packs/Day Years Used Date Smoking Tobacco: Former Cigarettes Q uit: 2013 Smokeless Tobacco: Never Alcohol Use Standard Drinks/Week Comments No 0 (1 standard drink = 0.6 oz pur e alcohol) Comments Unknown Sex and Gender Information Value Date Recorded Sex Assigned at Female 09/20/2018 10:57 AM HEATING TECHNICIAN Legal Sex Female 7:39 PM CDT Gender Identity Female 09/20/2018 10:57 AM HEATING TECHNICIAN Sexual Orientation Straight 09/20/2018 10 :57 AM HEATING TECHNICIAN Occupation Industry Job Start Date Job End Date Not on file Not on file Not on file Not on file documented as of this encounter Plan of Treatment Upcoming Encounters Date Type Department Care Team (Late st Contact Info) Description 07/02/2025 10:15 AM CDT [facility] [address] [place] [address] Allie Dunaway, VICE PRESIDENT CORPORATE COMMUNICATIONS [address] [facility] [address] [place] [address] documented as of this encounter Visit Diagnoses Not on filedocumented in this encounter Additional Health Concerns Infection Onset Date Last Indicated Resolved Time COVID-19 Rule Out 07/03/2020 07/03/2020 07/04/2020 12:44 PM CDT COVID-19 Rule Out 02/26/2023 02/26/2023 02/26/2023 2:50 PM CDT documented as of this encounter Care Teams Manufacturing Scheduler Relationship Specialty Start Date End Date Rizwana Thakkar MD [address] [place] [address] PCP - General FAMILY PRACTICE 10/25/17 10/28/24 Martir Desai MD [address] [place] [address] PCP - General FAMILY PRACTICE 10/29/24 12/09/24 Ana Maria Martines MD [address] [place] [address] PCP - General FAMILY PRACTICE 12/10/24 [facility]jit Dowell MD [facility] [address] [place] [address] Grayling Cabana Attendant CARDIOVASCULAR DISEASE 11/15/17 documented as of this encounter
--- OUTSIDE RECORDS SUMMARY | 2025-02-02 07:47 | XMS_ITS | Clinical Summary ---
Author Organization [facility] Address [address] [place] [address] Care Team Providers Care Paradi Operator Name Role Phone Rizwana Thakkar MD Primary Care Provider + Source Comments [facility],non-owned Affiliates and Associated Physician Practices is amultiple site organization consisting of ambulatory clinics and hospital sitesin [place], [place], [place] and [place]. This disclosure is being madepursuant to the Care Everywhere program and may not contain all information available regarding this patient. Last updated 18.[facility] Allergies Active Allergy Reactions Criticality Noted Date Comments Gadobenate Nausea Low 07/06/2015 MRI Contrast-Patient became nauseated after Multihance injection. Not enough to stop the test Lisinopril Other Low 04/01/2015 COUGH Lorazepam Shortness of Breath,Other High 08/09/2014 Pt becomes SOB and Hallucinates Medications * Be aware that medications may not be up to date on this document. Alwaysverify current medications with the patient. ELIQUIS 5 MG tablet Take 5 mg [...] MG tablet 12.5 mg once daily 05/28/2019 Active losartan (COZAAR) 100 MG tablet once daily 07/04/2019 Active hydroCHLOROthia zide (HYDRODIURIL) 25 MG tablet 12.5 mg every 24 hours Active SUPER B COMPLEX/C PO Take by mouth at bedtime Active Biotin 04627 MCG TABS Active Ascorbic Acid (VITAMIN C) 500 MG Take by mouth at bedtime Active VITAMIN D, ERGOCALCIFEROL, PO Take 1,000 mg by mouth Active oxybutynin CR 24hr (DITROPAN-XL) 5 MG tablet Take 5 mg by mouth once daily 07/05/2020 Active pancrelipase (CREON) 68061-[address]29 units capsule Take 1 capsule by mouth [...] pancreatitis 12/22/2014 Overview (02/04/2018): 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 DILIP neg, IgG4 wnls, TG 88. No strong family history of pancreatitis Possibly related to gallstone/debris Resolved Problems Problem Noted Date Diagnosed Date Resolved Date Cutaneous abscess 09/18/2015 02/04/2018 Abdominal pain 08/06/2015 02/04/2018 Gastrointestinal hemorrhage 02/28/2015 02/04/2018 Pseudoaneurysm 02/28/2015 02/04/2018 Overview (02/04/2018): Coiled in 2014 Hematemesis 02/08/2015 02/03/2018 Immunizations Immunization Administration Dates Next Due DTaP VACCINE IM [...] at Not on file Legal Sex Female 5:15 PM SOFTWARE TECHNICIAN Gender Identity Not on file Sexual Orientation Not on file Last Filed Vital Signs Vital Sign Reading Time Taken Comments Blood Pressure 145/74 07/16/2020 11:04 AM CDT Pulse 57 07/16/2020 11:04 AM CDT Temperature 36.2 C (97.2 F) 07/16/2020 11:04 AM CDT Respiratory Rate 18 09/05/2019 8:03 AM SOFTWARE TECHNICIAN Oxygen Saturation 96% 07/16/2020 11: 04 AM CDT Inhaled Oxygen Concentration - - Weight 100.9 kg (222 lb 6.4 oz) 020 11:04 AM CDT Height 162.6 cm (5' 4 ) 07/16/2020 11:0 4 AM CDT Body Mass Index 38.17 07/16/2020 11:04 AM CDT Plan of Treatment Health Maintenance Due Date Last Done Comments BONE DENSITY TESTING 1945 HEPATITIS C SCREENING 12/19/1964 PNEUMOCOCCAL VACCINE 50+ (1 of 1 - PCV) 1996 ZOSTER VACCINE (2 of 2) 08/19/2019 06/24/2019 HEPATITIS B VACCINE (3 of 3 - 19+ 3-dose series) 2019 07/25/2019, 06/24/2019 Respiratory Syncytial Virus (RSV) Vaccine Pt: or over 60 yrs (1 - 1-dose 75+ series) 2021 COVID-19 VACCINE ( - 2023-2 5 season) 2024 DEPRESSION SCREENING 09/24/2024 INFLUENZA VACCINE (Season Ended) 2025 08/07/2015 DTAP/TDAP/TD VACCINES (2 - Tdap) 06/24/2029 06/24/2019 HIB VACCINE Aged Out 02/27/2015 No longer eligi ble based on patient's age to complete this topic MENINGOCOCCAL GROUPS A/C/Y/W VACCINE Aged Out 02/27/2015 No longer eligible b ased on patient's age to complete this topic HPV VACCINE Aged Out No longer eligi ble based on patient's age to complete this topic MENINGOCOCCAL (Group B) VACCINE SHARED DECISION-MAKING Aged Out No longer eligible based on patient's age to complete this topic Goals Goal Patient Goal Type Associated Problems Recent Progress Patient-Stated? Author Safety General On track( 018 9:32 AM SOFTWARE TECHNICIAN) Holli Mcdaniel RN Note: Expected end date: Ongoing Interventions: Your nurse will assess your risk for falls/injury each visit Use appropriate and safe transfer methods Medication Management General On track( 019 8:15 AM SOFTWARE TECHNICIAN) Holli Mcdaniel RN Note: Expected end date: Ongoing Interventions: Take all medications as prescribed Let your doctor know right away about any changes in your medications Insurance MEDIC[facility] Advance Directives Documents on File Type Date Recorded Patient Operations Architect Expl anation Adv Directive/Living Will/POA 10/25/2020 3:27 PM Advance Directives and Livin g Will 09/26/2015 12:00 AM Care Teams Paradi Operator Relationship Specialty Start Date End Date Rizwana Thakkar MD [address] [place] [address] PCP - General 04/27/15
--- OUTSIDE RECORDS SUMMARY | 2025-02-02 07:47 | XMS_ITS | Clinical Summary ---
Author Organization [facility] Address [address] [place] [address] Care Team Providers Care Fire Alarm Dispatcher Name Role Phone Rizwana Thakkar MD Primary Care Provider Rizwana Thakkar MD Unavailable [phone] Allergies Active Allergy Reactions Criticality Noted Date Comments Lorazepam Hallucinations Medium 07/16/2019 Gadobenate Dimeglumine Nausea only Low 07/06/2015 MRI Contrast-Patient became nauseated after Multihance injection. Not enough to stop the test MRI Contrast-Patient became nauseated after Multihance injection. 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 DILIP neg, IgG4 wnls, TG 88. No strong family history of pancreatitis Possibly related to gallstone/debris Surgical History Surgery Date Site/Laterality Comments BREAST BIOPSY 09/08/2020 Left 2004 ELLEN PORT PLACEMENT CHEST >5 YEARS 2014 N/A PORT PLACEMENT CHEST >5 YEARS 2014 N/A PORT PLACEMENT CHEST >5 YEARS 08/06/2014 N/A Medical History Medical History Date Comments Arthritis Deep vein thrombosis (HCC) Hypertension Hypertension Family History Medical History [...] on file Legal Sex Female 2:53 AM PERCUSSION TEACHER Gender Identity Female 05/17/2021 10:12 AM CDT Sexual Orientation Not on file Obstetrics History Last Filed Vital Signs Vital Sign Reading Time Taken Comments Blood Pressure 131/72 10/25/2020 11:40 AM PERCUSSION TEACHER Pulse 80 10/25/2020 11:40 AM PERCUSSION TEACHER Temperature 36.8 C (98.2 F) 05/31/2021 1:57 PM CDT Respiratory Rate 9 10/25/2020 11:20 AM PERCUSSION TEACHER Oxygen Saturation 96% 10/25/2020 11:40 AM PERCUSSION TEACHER Inhaled Oxygen Concentration - - Weight 95.3 [...] - 2023-2 5 season) 2024 12/03/2020, 11/05/2020 Osteoporosis Screening-Bone Density Scan 04/19/2025 04/19/2023, 03/31/2020 Influenza Vaccine (Season Ended) 2025 05/18/2020, 07/04/2019, 06/23/2018, Additional history exists DTaP/Tdap/Td Vaccine (4 - Td or Tdap) 07/02/2029 07/02/2019, 06/24/2019, 01/12/2018 Zoster Vaccine Completed 10/05/2019, 07/25, 06/24/2019 Breast Cancer Screening-Mammogram Discontinued 06/02/2024, 05/29/2023, 05/29/2023, Additional history exists Medical Devices Implanted Type Area Renewable Energy Technician Device Identifier Shelf Expiration Date Model / [...] compared to prior imaging studies performed at [facility] on 05/24/2021, 05/30/2022 and 05/29/2023. There are [...] OVERALL FINAL ASSESSMENT: BI-RADS CATEGORY 2: Benign. Procedure Note Ellen Torres MD - 06/02/2024 Mammogram Technique: Bilateral Digital Breast Tomosynthesis, Bilateral C-view 2D Screening mammogram. Views obtained: bilateral craniocaudal and bilateral mediolateral oblique. Computer Aided Detection was performed. Mammogram Findings: The present examination has been compared to prior imaging studies performed at [facility] on 05/24/2021, 05/30/2022 and 05/29/2023. There are [...] Recently Relevant to Health Maintenance Insurance [facility]ICARE [facility] Address: [facility] [address] [address] [place] [address] MEDICARE [facility] MEDICARE 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
--- OUTSIDE RECORDS SUMMARY | 2025-02-02 07:47 | XMS_ITS | Encounter Summary ---
Author Organization [facility] Address [address] [facility] [address] Care Team Providers Care Cashier Name Role Phone Rizwana Thakkar MD Primary Care Provider + Encounter Details Date Type Department Care Team (Late st Contact Info) Description 09/22/2019 Immunization [facility] [address] [place] [address] Deirdre Vu, RN Social History Tobacco Use Types Packs/Day Years Used Date Smoking Tobacco: Former Cigarettes Q uit: 07/27/2014 Smokeless Tobacco: Never Alcohol Use Standard Drinks/Week Comments No 0 (1 standard drink = 0.6 oz pur e alcohol) Comments No Sex and Gender Information Value Date Recorded Sex Assigned at Not on file Legal Sex Female 5:15 PM FASHION CONSULTANT SELLING Gender Identity Not on file Sexual Orientation Not on file documented as of this encounter Plan of Treatment Not on file documented as of this encounter Goals Goal Patient Goal Type Associated Problems Recent Progress Patient-Stated? Author Safety General On track( 018 9:32 AM FASHION CONSULTANT SELLING) Holli Mcdaniel, RN Note: Expected end date: Ongoing Interventions: Your nurse will assess your risk for falls/injury each visit Use appropriate and safe transfer methods Medication Management General On track( 019 8:15 AM FASHION CONSULTANT SELLING) Holli Mcdaniel, RN Note: Expected end date: Ongoing Interventions: Take all medications as prescribed Let your doctor know right away about any changes in your medications documented as of this encounter Visit Diagnoses Not on filedocumented in this encounter Care Teams Cashier Relationship Specialty Start Date End Date Rizwana Thakkar MD [address] [place] [address] PCP - General 04/27/15 documented as of this encounter
--- OUTSIDE RECORDS SUMMARY | 2025-02-02 07:47 | XMS_ITS | Clinical Summary ---
Author Organization [facility] Address [address] [place] [address] Phone Care Team Providers Care Eradicator Name Role Phone Rizwana Thakkar MD Primary Care Provider [phone] Allergies Active Allergy Reactions Criticality Noted Date [...] th rombosis (DVT) of lower extremity 01/21/2018 Immunizations Immunization Administration Dates Next Due Covid-19, [...] Comments Blood Pressure 140/78 08/07/2024 1:22 PM DOG TRAINER Pulse 66 08/07/2024 1:22 PM DOG TRAINER Temperature 36.2 C (97.1 F) 08/07/2024 1:22 PM DOG TRAINER Respiratory Rate 18 08/07/2024 1:22 PM DOG TRAINER Oxygen Saturation 96% 08/07/2024 1:22 PM DOG TRAINER Inhaled Oxygen Concentration - - Weight 98.9 kg (218 lb) 08/07/2024 1:22 PM DOG TRAINER Height 162.6 cm (5' 4 ) 08/07/2024 1:22 PM DOG TRAINER Body Mass Index 37.42 08/07/2024 1:22 PM DOG TRAINER Plan of Treatment Upcoming Encounters Date Type Department Care Team (Late st Contact Info) Description 02/05/2025 1:30 PM CDT Office Visit [facility] [address] [address] Luis Titus MD [address] [place] [phone] Health Maintenance Due Date Last Done [...] 07/11/2023, 07/18/2022, Additional history exists Cologuard Discontinued Human Papillomavirus (HPV) Immunization Aged Out No longer eligible based on patient's age to complete this topic Immunochemical Fecal Occult Blood Discontinued Meningococcal Immunization (ACWY) Aged Out No longer eligible based on patient's age to complete this topic Rotavirus Immunization Aged Out No lo nger eligible based on patient's age to complete this topic Insurance MEDICARE [facility] Care Teams Eradicator Relationship Specialty Start Date End Date Rizwana Thakkar MD [address] [facility] [address] [place] [address] PCP - General Family Medicine 01/17/18
--- OUTSIDE RECORDS SUMMARY | 2025-02-02 07:47 | XMS_ITS | Encounter Summary ---
Author Organization [facility] Address [address] [place] [address] Care Team Providers Care Account Services Manager Name Role Phone Rizwana Thakkar MD Primary Care Provider [phone] Kamaljit Dowell MD Unavailable [phone] Martir Desai MD Primary Care Provider [phone] Ana Maria Martines MD Primary Care Provider + Encounter Details Date Type Department Care Team (Late st Contact Info) Description 03/21/2023 MyChart Message Enc [facility] - [facility] [address] [place] [id number] [facility] Provider Air Quality Message Social History Tobacco Use Types Packs/Day Years Used Date Smoking Tobacco: Former Cigarettes 1 2013 Smokeless Tobacco: Never Alcohol Use Standard Drinks/Week Comments No 0 (1 standard drink = 0.6 oz pur e alcohol) Comments No Sex and Gender Information Value Date Recorded Sex Assigned at Female 09/20/2018 10:57 AM COLD ROLL INSPECTOR Legal Sex Female 7:39 PM CDT Gender Identity Female 09/20/2018 10:57 AM COLD ROLL INSPECTOR Sexual Orientation Straight 09/20/2018 10 :57 AM COLD ROLL INSPECTOR Occupation Industry Job Start Date Job End [...] Description 07/02/2025 10:15 AM CDT Office Visit [facility] [address] [place] [address] Allie Dunaway, BACKEND PYTHON DEVELOPER [address] [facility] [address] [place] [address] documented as of this encounter Visit Diagnoses Not on filedocumented in this encounter Care Teams Account Services Manager Relationship Specialty Start Date End Date Rizwana Thakkar MD [address] [facility] [address] [place] [address] PCP - General FAMILY PRACTICE 10/25/17 10/28/24 Martir Desai MD [address] [place] [address] PCP - General FAMILY PRACTICE 10/29/24 12/09/24 Ana Maria Martines MD [address] [place] [address] PCP - General FAMILY PRACTICE 12/10/24 Kamaljit Dowell MD [address] [facility]. [address] [place] [address] [place] Astronomy Department Chair CARDIOVASCULAR DISEASE 11/15/17 documented as of this encounter
--- OUTSIDE RECORDS SUMMARY | 2025-02-02 07:47 | XMS_ITS | Clinical Summary ---
Author Organization [facility] Address [address] [place] [address] Care Team Providers Care Geospatial Technician Name Role Phone Regan Echevarria MD Unavailable [phone] Ana Maria Martines MD Primary Care Provider + Allergies Active Allergy Reactions Criticality Noted Date [...] Apply topically once a week. 8 Active losartan 100 MG tablet Take 1 [...] Active omeprazole 40 MG capsule 1 Active albuterol sulfate HFA 108 (90 Base) MCG/ACT inhalerIndicatio ns:Chronic obstructive pulmonary disease, unspecified COPD type ([facility]) Inhale 2 puffs into the lungs every 6 (six) hours as needed for Wheezing. 6.7 g 6 1 Active NIFEdipine ER (ADALAT CC) 60 MG 24 hr tablet Take 1 tablet (60 mg total) by mouth every evening. 2 Active Collagen-Vitamin C-Biotin (COLLAGEN 1500/C OR) Take by mouth daily. Active mirabegron ER (MYRBETRIQ) 50 MG 24 hr tablet Take 1 tablet (50 mg total) by mouth daily. 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 03/18/2024 Obstructive lung disease ([facility]) 01/04 Posterior tibial tendinitis, left 05/11/2020 Peroneal tendinitis of left lower leg 05/11/2020 Greater trochanteric bursitis of left hip 2018 Chronic deep vein thrombosis (DVT) of proximal vein of lower extremity ([facility]) 2017 Dyspnea on exertion 2017 Hypertension, essential Encounters Date Type Department Care Team Description 01/28/[address] [address] Regan Echevarria MD Information ([facility] ) 01/19/2025 8:10 AM CDT - 01/19/2025 11:59 PM CDT Hospital Encounter [facility] Cardiopulmonary Services [address] [place] [address] Regan Echevarria MD Discharge Disposition: Home or Self Care (Routine Discharge) 01/19/2025 7:20 AM CDT - 01/19/2025 8:09 AM CDT Hospital Encounter [facility] Nuclear Medicine [id number] [place] [address] Regan Echevarria MD Discharge Disposition: Home or Self Care (Routine Discharge) 01/19/2025 Results Follow-Up [facility] [address] [place] [address] Haylie Bailey RN NM PHARM NUC STRESS TEST 1 DAY W TRACING 01/19/2025 Travel 01/01/2025 10:30 AM CDT Office Visit [facility] [address] [place] [address] Regan Echevarria MD Concerns (Shortness of breath); Surgical Clearance (INTRACEPT PROCEDURE AT L4, L5, S1 ON 02/10/25 W/ DR SUNITHA DHALIWAL) 01/01/2025 Travel 12/29/2024 Telephone [facility] [place] [place] [address] Regan Echevarria MD Surgical Clearance 12/18/2024 1:50 PM CDT Laboratory Only [facility] [address] [place] [address] Dimitris Harrison MD 12/18/2024 Travel 12/10/2024 3:54 PM CDT - 12/10/2024 11:59 PM CDT Hospital Encounter [facility] [address] [place] [address] Romi James FNP Discharge Disposition: Home or Self Care (Routine Discharge) 12/10/2024 Orders Only [facility] [address] [place] [address] Romi James FNP 12/10/2024 Orders Only [facility] [address] [place] [address] Romi James FNP 12/10/2024 Travel 11/18/2024 Telephone [facility] [address] [place] [address] Allie Dunaway FNP Concerns from Last 3 Months Immunizations Immunization Administration Dates Next Due Dtap (Acel-Immune) 06/24/2019 [...] Used Date Smoking Tobacco: Former Cigarettes 1 20 1 2013 Smokeless Tobacco: Never Tobacco Cessation:Counseling Given: No Alcohol Use Standard Drinks/Week Comments No 0 (1 standard drink = 0.6 oz pur e alcohol) PHQ-2 Answer Date Recorded Patient Health Questionnaire-2 Score 0 10/06/2024 Comments No Sex and Gender Information Value Date Recorded Sex Assigned at Female 09/20/2018 10:57 AM DIRECTOR OF EDUCATION AND TRAINING Legal Sex Female 7:39 PM CDT Gender Identity Female 09/20/2018 10:57 AM DIRECTOR OF EDUCATION AND TRAINING Sexual Orientation Straight 09/20/2018 10 :57 AM DIRECTOR OF EDUCATION AND TRAINING Occupation Industry Job Start Date Job End Date Not on file Not on file Not on file Not on file Last Filed Vital Signs Vital Sign Reading Time Taken Comments Blood Pressure 138/80 01/01/2025 10:27 AM CDT Pulse 62 01/01/2025 10:27 AM CDT Temperature 36.5 C (97.7 F) 10/06/2024 3:16 PM DIRECTOR OF EDUCATION AND TRAINING Respiratory Rate 27 02/26/2023 5:05 PM CDT Oxygen Saturation 98% 01/01/2025 10:27 AM CDT Inhaled Oxygen Concentration - - Weight 98.9 kg (218 lb) 01/01/2025 10:27 AM CDT Height 160 cm (5' 3 ) 01/01/2025 10:27 AM CDT Body Mass Index 38.62 01/01/2025 10:27 AM CDT Plan of Treatment Upcoming Encounters Date Type Department Care Team (Late st Contact Info) Description 07/02/2025 10:15 AM CDT Office Visit [facility] [address] [phone] Allie Dunaway FNP [address] [place] [address] Health Maintenance Due Date Last Done Comments Annual Medicare Wellness Visit 12/25/2011 Pneumococcal Vaccine: 50+ Years (2 of 2 - PCV) 06/23/2019 06/23/2018 RSV Immunization or 60+ Years (1 - 1-dose 75+ series) 2021 COVID-19 Vaccine ( - season) 2024 12/03/2020, 11/05/2020 DTaP, Tdap and Td Vaccines (6 - Td or Tdap) 07/02/2029 07/02/2019, 07/02/2019, 06/24/2019, Additional history exists Hepatitis C Completed 04/10/2018 Zoster Vaccines Completed 10/05/2019, 07/25, 06/24/2019 Dexa Scan (General) Completed 04/19/2023, 04/19/2023, 03/31/2020 PHQ-2 (Physician [place]) Completed 10/06/2024 Meningococcal B Vaccine Aged Out No l onger eligible based on patient's age to complete this topic Meningococcal Vaccine Aged Out No bethel art eligible based on patient's age to complete this topic RSV Immunizations Under 20 Months Aged Out No longer eligible based on patient's age to complete this topic Procedures Procedure Name Priority Date/Time Associated Diagnosis Comments NM PHARM NUC STRESS TEST 1DAY W TRACING Routine 01/19/2025 9:47 AM CDT Pre-operative clearance QUINTERO (dyspnea on exertion) CARDIOLOGY STRESS TEST ONLY, EXERCISE Routine 01/19/2025 8:48 AM CDT Pre-operative clearance QUINTERO (dyspnea on exertion) ELECTROCARDIOGRAM (NON MIDMARK ACQUIRED) Routine 01/01/2025 11:01 AM CDT Pre-operative clearance HEMOGLOBIN, GLYCOSYLATED Routine 025 1:53 PM CDT BONE DENSITY/DEXA Routine 04/19/2023 11: 08 AM CDT Asymptomatic menopausal state HEPATITIS C ANTIBODY Routine 04/10/2018 8:07 AM CDT from Last 3 Months or Most Recently Relevant to Health Maintenance Results * NM PHARM NUC STRESS TEST 1 DAY W TRACING (01/19/2025 9:47 AM CDT) Anatomical Region Laterality Modality Cardiac Nuclear Medicine 01/19/2025 11:3 4 AM CDT Impressions 01/19/2025 11:56 AM CDT IMPRESSION: 1. No stress-induced reversible perfusion abnormality to suggest ischemia. 2. Small area of mildly reduced uptake in the mid to apical anteroseptal wall improves/changes position with prone imaging and is likely secondary to attenuation artifact. 3. Normal left ventricular size and systolic function. Ordered By: REGAN ECHEVARRIA Interpreted By: Silvia Kern MD, 01/19/2025 11:34 AM Narrative 01/19/2025 11:[address] [facility] [address] [place] [address] EXAMINATION: MYOCARDIAL IMAGING (REST AND PHARMACOLOGIC-STRESS/SPECT) DATE OF STUDY: 01/19/2025 RADIOPHARMACEUTICAL: 10.5 mCi, 32.4 mCi Tc-99m sestamibi i.v. HISTORY: Shortness of breath, preoperative clearance, hypertension, hyperlipidemia, former smoker, CHF, multiple DVTs. Evaluate for ischemia and/or myocardial infarction. The patient's body mass index (BMI) was 38.62. FINDINGS: Standard myocardial perfusion images were obtained after resting tracer injection. Subsequently, an intravenous infusion of Regadenoson (0.4 mg of A2A adenosine receptor agonist Regadenoson (Lexiscan), infused intravenously over approximately 10 seconds, followed approximately after another 20 seconds by tracer infusion) was performed without low level exercise on the date indicated above. The stress test and EKG were performed under the supervision of Dr. Echevarria. Standard myocardial perfusion images were obtained after tracer injection at the peak effect of the drug. Images were obtained in a supine position. Additional prone post-stress images also were obtained to allow for better evaluation of the inferior wall. COMPARISON: Myocardial perfusion scintigraphy 10/13/2021 The projection images were reviewed for image quality, and reveal patient motion and extracardiac activity. Soft tissue attenuation. Small area of mildly reduced uptake along the mid apical anteroseptal wall improves/changes position with prone imaging and is likely secondary to attenuation artifact. No stress-induced reversible perfusion abnormality to suggest ischemia. Gated post-stress images demonstrate normal left ventricular volume, normal left ventricular wall motion and? normal ejection fraction of 57 % (normal >45%). Procedure Note Silvia Kern MD - 01/19/2025 [facility] [address] [place] [address] EXAMINATION: MYOCARDIAL IMAGING (REST AND PHARMACOLOGIC-STRESS/SPECT) DATE OF STUDY: 01/19/2025 RADIOPHARMACEUTICAL: 10.5 mCi, 32.4 mCi Tc-99m sestamibi i.v. HISTORY: Shortness of breath, preoperative clearance, hypertension,hyperlipidemia, former smoker, CHF, multiple DVTs. Evaluate for ischemiaand/or myocardial infarction. The patient's body mass index (BMI) was38.62. FINDINGS: Standard myocardial perfusion images were obtained after restingtracer injection. Subsequently, an intravenous infusion of Regadenoson(0.4 mg of A2A adenosine receptor agonist Regadenoson (Lexiscan), infusedintravenously over approximately 10 seconds, followed approximately afteranother 20 seconds by tracer infusion) was performed without low levelexercise on the date indicated above. The stress test and EKG wereperformed under the supervision of Dr. Echevarria. Standard myocardial perfusion images were obtained after tracer injectionat the peak effect of the drug. Images were obtained in a supineposition. Additional prone post-stress images also were obtained to allowfor better evaluation of the inferior wall. COMPARISON: Myocardial perfusion scintigraphy 10/13/2021 The projection images were reviewed for image quality, and reveal patientmotion and extracardiac activity. Soft tissue attenuation. Small area of mildly reduced uptake along the mid apical anteroseptal wallimproves/changes position with prone imaging and is likely secondary toattenuation artifact. No stress-induced reversible perfusion abnormalityto suggest ischemia. Gated post-stress images demonstrate normal left ventricular volume,normal left ventricular wall motion and? normal ejection fraction of 57 %(normal >45%). IMPRESSION: 1. No stress-induced reversible perfusion abnormality to suggestischemia. 2. Small area of mildly reduced uptake in the mid to apical anteroseptalwall improves/changes position with prone imaging and is likely secondaryto attenuation artifact. 3. Normal left ventricular size and systolic function. Ordered By: REGAN ECHEVARRIA Interpreted By: Silvia Kern MD, 01/19/2025 11:34 AM us Regan Echevarria MD NUC MED Final Resul t * CARDIOLOGY STRESS TEST ONLY, EXERCISE (01/19/2025 8:48 AM CDT) 01/19/2025 8:48 AM CDT Narrative [facility] RAD - 01/26/2025 10:[address] 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 Baseline EKG sinus with occasional PVCs Patient underwent a Lexiscan Stress. Given 0.4mg of Lexiscan followed by the isotope. Test ended: per protocol Patient symptoms: mild SOB Stress EKG: no changes CONCLUSIONS: 1. Electrocardiographically: negative 2. Clinically: negative 3. Await nuclear images Procedure Note Regan Echevarria MD - 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 Baseline EKG sinuswith occasional PVCs Patient underwent a Lexiscan Stress. Given 0.4mg of Lexiscan followed bythe isotope. Test ended: per protocol Patient symptoms: mild SOB Stress EKG: no changes CONCLUSIONS: 1. Electrocardiographically: negative 2. Clinically: negative 3. Await nuclear images us Regan Echevarria MD CV CARDIAC SERVICES ORDERAB LES Final Result Performing Organization Address City/[facility] Co de Phone Number [facility] RAD * ELECTROCARDIOGRAM (01/01/2025 11:01 AM CDT) 01/01/2025 11:0 1 AM CDT Narrative [facility] - 01/01/2025 2:29 PM CDT [facility] Test Date: 2025-01-01 Pat Name: RISSA KERNS Department: 107 Room: Gender: Female Electronics Installer: : 1945 Requested By: REGAN ECHEVARRIA Order Number: [id number] Reading : Regan Echevarria Measurements Intervals [place] Rate: 61 P: 31 WV: 217 QRS: 27 QRSD: 89 T: 44 QT: 389 QTc: 392 Interpretive Statements SINUS RHYTHM WITH FIRST DEGREE AV BLOCK Since prior tracing no significant change Procedure Note Regan Echevarria MD - 01/01/2025 [facility] Test Date: 2025-01-01 Pat Name: RISSA KERNS Department: 107 Room: Gender: Female 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 Installer: : 1945 Requested By: REGAN ECHEVARRIA Order Number: [id number] Reading RONALD Echevarria Measurements Intervals [place] Rate: 61 P: 31 WV: 217 QRS: 27 QRSD: 89 T: 44 QT: 389 QTc: 392 Interpretive Statements SINUS RHYTHM WITH FIRST DEGREE AV BLOCK Since prior tracing no significant change us Regan Echevarria MD PROCEDURES-ORDERABLE NO STEPHANIE RGE Final Result Performing Organization Address City/[facility] Co de Phone Number [facility] * (ABNORMAL) HEMOGLOBIN, GLYCOSYLATED (12/18/2024 1:53 PM CDT) HGB A1C 6.3(H) <5.7 % 12/18/2024 5:38 PM CDT [facility] Comment: INCREASED RISK OF DIABETES <5.7% NON-DIABETES 5.7-6.4% INCREASED RISK FOR FUTURE DIABETES > OR = 6.5 CONSISTENT WITH DIABETES STANDARDS OF MEDICAL CARE IN DIABETES-2010 DIABETES CARE, 33(SUPP 1): S1-S61,2010 ESTIMATED AVG GLUCOSE 134 mg/dL 12/18/2024 5:38 PM CDT [facility] 12/18/2024 1:53 PM CDT Dimitris Harrison MD LABORATORY Final Result Performing Organization Address [facility] Co de Phone Number [facility] [address] [place] [address], [place] [phone] * BONE DENSITY/DEXA (04/19/2023 11:08 AM CDT) Anatomical Region Laterality Modality Bone Bone Density 04/20/2023 4:01 AM CDT Impressions 04/20/2023 4:04 AM CDT IMPRESSION: WHO Classification: normal. Fracture risk: Not increased Referred By: RADHA THAKKAR Interpreted By: Bubba Melgoza MD, 04/20/2023 4:01 AM Narrative 04/20/2023 4:04 AM CDT Examination: Bone Density Axial Exam Date/Time: 04/19/2023 10:37 AM Reason For Exam: asymptomatic menopausal state Asymptomatic menopausal state Comparison: None Findings: DEXA bone densitometry The bone mineral density (BMD) was determined by dual-energy x-ray absorptiometry, the results are as follows: AP Lumbar Spine L1 through L4 BMD Patient (GM/SQCM): 1.406 T-Score (Standard deviations from young adult peak bone density): 3.3 Right femoral neck: BMD Patient (GM/SQCM): 0.787 T-Score (Standard deviations from young adult peak bone density): -0.6 Total Left femur: BMD Patient (GM/SQCM): [...] normal. Fracture risk: Not increased Referred By: RADHA THAKKAR Interpreted By: Bubba Melgoza MD, 04/20/2023 4:01 AM us Radha Thakkar MD DEXA Final Resu lt * HEPATITIS C ANTIBODY (04/10/2018 8:07 AM CDT) HEPATITIS C AB NON-REACTI VE NON-REACTI VE 04/10/2018 3:03 PM CDT [facility] SERUM OR PLASMA SPECIMEN / Unknown 04/10/2018 8:07 AM CDT 04/10/2018 8:08 AM CDT us Generic Conversion Md [facility] Final R esult [facility] [address] [facility] [place] [address], from Last 3 Months or Most Recently Relevant to Health Maintenance Insurance MEDICARE [facility] MEDICARE [facility] FRAN Care Teams Geospatial Technician Relationship Specialty Start Date End Date Ana Maria Martines MD [address] [place] [address] PCP - General FAMILY PRACTICE 12/10/24 Regan Echevarria MD [facility]. [address] [place] [address] [address] [place] Associate Director Of Development CARDIOVASCULAR DISEASE 11/15/17
--- OUTSIDE RECORDS SUMMARY | 2025-02-02 07:47 | XMS_ITS | Referral Summary ---
Author Organization [facility] Address [address] [place] [address] Care Team Providers Care Production Illustrator Name Role Phone Rizwana Thakkar MD Primary Care Provider Rizwana Thakkar MD Unavailable [phone] Allergies Active Allergy Reactions Criticality Noted Date [...] (08/06/2020): Added automatically from request for surgery [id number] Enthesopathy of hip region 04/02/2020 Primary localized [...] for fluid collections in 2013- at [facility]. DILIP neg, IgG4 wnls, TG 88. [...] on file Legal Sex Female 2:53 AM PUBLIC SAFETY DISPATCHER Gender Identity Female 05/17/2021 10:12 AM CDT Sexual Orientation Not on file Last Filed Vital Signs Vital Sign Reading Time Taken Comments Blood Pressure 131/72 10/25/2020 11:40 AM PUBLIC SAFETY DISPATCHER Pulse 80 10/25/2020 11:40 AM PUBLIC SAFETY DISPATCHER Temperature 36.8 C (98.2 F) 05/31/2021 1:57 PM CDT Respiratory Rate 9 10/25/2020 11:20 AM PUBLIC SAFETY DISPATCHER Oxygen Saturation 96% 10/25/2020 11:40 AM PUBLIC SAFETY DISPATCHER Inhaled Oxygen Concentration - - Weight 95.3 kg (210 lb) 05/29/2023 7:47 AM CDT Height 162.6 cm (5' 4 ) 05/29/2023 7:47 AM CDT Body Mass Index 36.05 05/29/2023 7:47 AM CDT Plan of Treatment Not on file Medical Devices Implanted Type Area Leather Belt Loop Cutter Device Identifier Shelf Expiration Date Model / [...] compared to prior imaging studies performed at [facility] on 05/24/2021, 05/30/2022 and 05/29/2023. There are [...] compared to prior imaging studies performed at [facility] on 05/24/2021, 05/30/2022 and 05/29/2023. There are [...] to Health Maintenance Insurance MEDICARE [facility] MEDICARE [facility] MEDICARE [facility] FEDERAL Member Subscriber Plan / Payer (Ef fective 2017-Present) Name:Rissa Pemberton Relation to Subscriber:Self Name:Rissa Pemberton Payer ID:[id number] (NAIC) Group ID:[id number] Type:[facility] Address: [address] [place] [id number] [facility] [place] [address] Advance Directives For more information, please contact: [phone] Documents on File Type Date Recorded Patient Principal Architectural Firm Expl anation ADVANCE DIRECTIVE 10/22/2020 7:37 AM Care Teams Production Illustrator Relationship Specialty Start Date End Date Rizwana Thakkar MD [address] [facility] [address] [place] [address] PCP - General 11/04/20 Rizwana Thakkar MD [address] [facility] [address] [place] [address] Family Medicine 11/04/20
--- OUTSIDE RECORDS SUMMARY | 2025-02-02 07:47 | XMS_ITS | Encounter Summary ---
Author Organization [facility] Address [facility] [place] [address] Care Team Providers Care Steel Shot Header Operator Name Role Phone Rizwana Thakkar MD Primary Care Provider + [phone] Kamaljit Dowell MD Unavailable [phone] Martir Desai MD Primary Care Provider [phone] Ana Maria Martines MD Primary Care Provider + Encounter Details Date Type Department Care Team (Late st Contact Info) Description 11/26/2017 Abstract [facility] [address] [place] [address] Parker Bright MA Social History Tobacco Use Types Packs/Day Years Used Date Smoking Tobacco: Never Assessed Comments Unknown Sex and Gender Information Value Date Recorded Sex Assigned at Female 09/20/2018 10:57 AM HOUSEKEEPER Legal Sex Female 7:39 PM CDT Gender Identity Female 09/20/2018 10:57 AM HOUSEKEEPER Sexual Orientation Straight 09/20/2018 10 :57 AM HOUSEKEEPER documented as of this encounter Plan of Treatment Upcoming Encounters Date Type Department Care Team (Late st Contact Info) Description 07/02/2025 10:15 AM CDT [facility] [address] [place] [address] Allie Dunaway FNP [address] [facility] [address] [place] [address] documented as of this encounter Procedures Procedure [...] 11/23/2017 us Doc [facility] Abstract LABORATORY Edited [facility] t - Final * COMPREHENSIVE METABOLIC PANEL (11/23/2017) SODIUM S/P/B 139 POTASSIUM S/P/B 4.3 CO2 23 CHLORIDE S/P/B 104 GLUCOSE 124 mg/dL CALCIUM S/P/B 10.6 BUN 18 CREATININE S/P/B 0.89 0.5 - 1.0 EGFR NON-AFR. AMER. >60 <=90 ALKALINE PHOSPHATASE S/P/B 74 ALT 19 AST 11 BILIRUBIN TOTAL S/P/B 0.6 ALBUMIN S/P/B 4.0 3.5 - 5.0 TOTAL PROTEIN S/P/B 6.4 PHOSPHORUS 2.6 11/23/2017 [facility] Abstract LABORATORY Edited [facility] t - Final * LIPID PANEL (05/01/2016) CHOLESTEROL 175 HDL 39 TRIGLYCERIDES 113 LDL (CALCULATED) 113.4 05/01/2016 [facility] Abstract LABORATORY Edited [facility] t - Final * HEMOGLOBIN, GLYCOSYLATED (05/01/2016) HGB A1C 5.7 05/01/2016 us Doc [facility] Abstract LABORATORY Edited [facility] t - Final * COMPREHENSIVE METABOLIC PANEL [...] 05/01/2016 us Doc [facility] Abstract LABORATORY Edited Resul t - Final documented in this encounter Visit Diagnoses Not on filedocumented in this encounter Additional Health Concerns Infection Onset Date Last Indicated Resolved Time COVID-19 Rule Out 07/03/2020 07/03/2020 07/04/2020 12:44 PM CDT COVID-19 Rule Out 02/26/2023 02/26/2023 02/26/2023 2:50 PM CDT documented as of this encounter Care Teams Steel Shot Header Operator Relationship Specialty Start Date End Date Rizwana Thakkar MD [address] [place] [address] PCP - General FAMILY PRACTICE 10/25/17 10/28/24 Martir Desai MD [address] [place] [address] PCP - General FAMILY PRACTICE 10/29/24 12/09/24 Ana Maria Martines MD [address] [place] [address] PCP - General FAMILY PRACTICE 12/10/24 Kamaljit Dowell MD [facility]. [address] [place] [address] [place] [employer] Bullet Maker CARDIOVASCULAR DISEASE 11/15/17 documented as of this encounter
--- OUTSIDE RECORDS SUMMARY | 2025-02-02 07:48 | XMS_ITS | Encounter Summary ---
Author Organization [facility] Address [address] [facility] [place] [address] Care Team Providers Care Machine Preservative Filler Name Role Phone Rizwana Thakkar MD Primary Care Provider + Encounter Details Date Type Department Care Team (Late st Contact Info) Description 09/28/2021 Lab Requisition [facility] [address] [facility] [place] [id number] Tomer Grey MD [address] [place], [place] [id number] Social History Tobacco Use Types Packs/Day Years Used Date Smoking Tobacco: Former Cigarettes Q uit: 07/27/2014 Smokeless Tobacco: Never Alcohol Use Standard Drinks/Week Comments No 0 (1 standard drink = 0.6 oz pur e alcohol) Comments No Sex and Gender Information Value Date Recorded Sex Assigned at Not on file Legal Sex Female 5:15 PM AUTOMATIC MACHINES SUPERVISOR Gender Identity Not on file Sexual Orientation Not on file documented as of this encounter Plan of Treatment Not on file documented as of this encounter Goals Goal Patient Goal Type Associated Problems Recent Progress Patient-Stated? Author Safety General On track( 018 9:32 AM AUTOMATIC MACHINES SUPERVISOR) Holli Mcdaniel, YASMIN Note: Expected end date: Ongoing Interventions: Your nurse will assess your risk for falls/injury each visit Use appropriate and safe transfer methods Medication Management General On track( 019 8:15 AM AUTOMATIC MACHINES SUPERVISOR) Holli Mcdaniel RN Note: Expected end date: Ongoing Interventions: Take all medications as prescribed Let your doctor know right away about any changes in your medications documented as of this encounter Procedures Procedure Name Priority Date/Time Associated Diagnosis Comments DERMATOPATHOLOGY Routine 09/27/2021 3:33 AM AUTOMATIC MACHINES SUPERVISOR documented in this encounter Results * DERMATOPATHOLOGY (09/27/2021 3:33 AM AUTOMATIC MACHINES SUPERVISOR) Case Report Dermatopathology Report Case: [id number] Authorizing Provider: Tomer Grey MD Collected: 09/27/2021 03:33 AM Ordering Location: [facility] Received: 09/28/2021 06:13 AM Pathologist: Moon Hill MD Specimen: Skin, left shoulder 2 5:01 PM AUTOMATIC MACHINES SUPERVISOR DERMATOPATHOLOGY LABORATORY Final Diagnosis Specimen A. 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 Path # [id number]. 2 5:01 PM [facility] DERMATOPATHOLOGY LABORATORY Gross Description Specimen A: Received is one formalin filled container labeled with the patient's name and designated left shoulder. The specimen consists of a shave biopsy measuring [id number]. Jar 0. 2 5:01 PM AUTOMATIC MACHINES SUPERVISOR DERMATOPATHOLOGY LABORATORY Microscopic Description Specimen A. SKIN, left shoulder: Sections show nests, cords, and strands of cytologically bland melanocytes that mature with descent into the dermis. There are areas in which the melanocytes have a neuroid appearance. 2 5:01 PM [facility] DERMATOPATHOLOGY LABORATORY Disclaimer An external and internal positive and negative controls are appropriate for the histochemical, immunohistochemical and immunofluorescence stain(s) in this case (if any), except where stated explicitly. The performance characteristics of the stain(s) cited in this report were developed and its performance characteristic determined by the Dermatopathology Laboratory at [facility], directed by Dr. Jasmin Hill. These tests need not be, and therefore are not, approved by the [place] Food and Drug Administration. The tests are used for clinical purposes. Billing Codes Specimen Charges Stain Charges 39379 1 2 5:01 PM [facility] DERMATOPATHOLOGY LABORATORY Embedded Images 2 5:01 PM [facility] DERMATOPATHOLOGY LABORATORY Pathology/Cytolo gy TISSUE SPECIMEN FROM SKIN / Unknown 09/27/2021 3:33 AM AUTOMATIC MACHINES SUPERVISOR 09/28/2021 6:13 AM AUTOMATIC MACHINES SUPERVISOR Tomer Grey MD LAB - PATHOLOGY/CYTOLOGY ORDER NEDA Final Result DERMATOPATHOLOGY LABORATORY [facility] - Department of Dermatology [facility] Medicine [address] [place] [address], [address] [phone] documented in this encounter Visit Diagnoses Not on filedocumented in this encounter Care Teams Machine Preservative Filler Relationship Specialty Start Date End Date Rizwana Thakkar MD [address] [place] [address] PCP - General 04/27/15 documented as of this encounter
[2025-02-02 09:56] LABS: Hematocrit 41.2 % (37.0-47.0); Hemoglobin 12.8 g/dL (12.0-15.0); Mean Corpuscular HGB Conc 31.1 g/dl (32-36); Mean Corpuscular Hemoglobin 29.8 pg (26-34); Mean Platelet Volume 11.4 fl (7.4-10.4); Platelet Count Result 267 k/mm3 (150-375); Red Blood Count 4.29 M/mm3 (4.2-5.4); Red Cell Distribution Width 12.5 % (11.5-14.5); White Blood Count 8.7 K/mm3 (4.5-10.0)
[2025-02-02 10:07] LABS: Alanine Aminotransferase 19 U/L (6-35); Albumin Level 4.1 g/dL (3.5-5.1); Alkaline Phosphatase 119 U/L (38-126); Anion Gap 10 mmol/L (4-12); Aspartate Amino Transferase 20 U/L (14-36); Bilirubin,Total 0.3 mg/dL (0.2-1.3); Blood Urea Nitrogen 44 mg/dL (7-17); Calcium 10.3 mg/dL (8.4-10.2); Carbon Dioxide 23 mmol/L (22-30); Chloride 105 mmol/L (98-107); Estimated Glomerular Filt Rate 52; Glucose 97 mg/dL (65-110); Potassium 3.8 mmol/L (3.4-5.0); Sodium 138 mmol/L (137-145)
[2025-02-02 10:16] LABS: INR 1.1; Prothrombin Time 14.5 Seconds (11.1-14.7)
== END 2025-02-02 07:37 | disposition home or self-care (01) ==
LOC: ANHSURGERY 07:43
PROVIDERS: PCP Family Medicine; Visit Provider Anesthesiology Pain Medicine
DX: M48.061 Spinal stenosis, lumbar region without neurogenic claudication (principal); Z01.818 Encounter for other preprocedural examination
CPT/HCPCS: 36415; 71046; 80053; 85027; 85610; 85730

== ENCOUNTER 2025-02-10 01:18 | Day surgery (SDC) | payer MEDICARE, BC, OTHER, SELFPAY ==
[2025-01-27 15:06] VITALS: BMI 36.7
--- NOTE | 2025-01-27 15:26 | PC.NURSE ---
Addendum entered by Re Bryan RN 01/27/25 15:54: PT is aware to hold NSAIDS/Motrin,Aleve, all for 7 days prior per PCP, date of last dose is 02/01/25 DIANA Original Note: Report to the Outpatient Waiting Room, entrance under the green pavilion located off [facility], at time __0600am on date __02/10/25 . Planned Procedure Time: __0730am . Time changes happen often and if your time is changed the preop area will call you the afternoon before. - You and your visitor will be asked to self-screen and do not enter if you have any COVID symptoms. Please call surgeon if you need to reschedule. - A mask is optional within the hospital at this time. Patients- No food or drink from midnight until time of surgery and no smoking, or chewing tobacco (or any form of nicotine). No chewing gum, candy or mints. Take only the following medications with a SIP of water on the morning of surgery: Inhaler if needed DO NOT STOP ANY OF YOUR OTHER PRESCRIPTION MEDICATIONS PRIOR TO SURGERY EXCEPT THE FOLLOWING Hold all vitamins and supplements for 3 days per anesthesiologist. Date to take last dose 02/06/25 Medications to discontinue per physician Eliquis 3 day Per Magalys Date to take last dose____02/06/25 Please no make-up, nail mosotho, hairspray, perfume, deodorant, or body powder the day of surgery. No jewelry (including any body piercings) or valuables the day of surgery, leave them at home. Please take a shower or bath the night before, or the morning of, surgery with an antibacterial soap. Wear comfortable, loose fitting clothing. - Jewelry must be removed prior to entering the operating room. Rings and piercings that are not removed may be cut off. - The hospital will not accept responsibility for valuables. - Please leave all valuables, including medications, at home the day of surgery. If you are going home after surgery, a licensed short haul driver must drive you home. - NO public transportation without another adult if you receive anesthesia. - We recommend that an adult stay with you for 24 hours following discharge. - We also recommend that you do not drive, make important decision, drink alcoholic beverages, or take any drugs that were not prescribed by your health care provider for at least 24 hours after your discharge time. Follow any additional instructions given to you from your surgeon. Telephone instructions given to _Patient and asked if any additional questions and then verbalized understanding. Patient advised to call surgeon office or pre surgery nurse liaison [phone] if any additional questions.
[2025-02-10] VITALS (8 sets, daily range): BP systolic 112–163; BP diastolic 71–91; PULSE 54–72; RESP 12–20; TEMP 36.2–36.3; O2SAT 92–100; BMI 37.2
--- NOTE | ~2025-02-10 | XR_ITS ---
EXAMINATION: XR fluoroscopy no charge DATE: 02/10/2025 7:25 CDT INDICATION: INTRACEPT PROCEDURE L4,L5,S1 . TECHNIQUE: 36 fluoroscopic images of the lumbar spine were obtained during L4, L5, S1 Intracept proce dure, performed by Adebayo Browning MD. I was not present during the procedure. Fluoroscopy exposure time was 4 minutes 24.9 seconds. Air Kerma 239.10 mGy. DAP 44.873 mGym2. COMPARISON: None FINDINGS/IMPRESSION: Fluoroscopic documentation of L4, L5, S1 Intracept procedure. Please refer to the operative note for complete procedural details . Reviewed, dictated and finalized at location K.
--- OUTSIDE RECORDS SUMMARY | 2025-02-10 01:21 | XMS_ITS | Clinical Summary ---
Author Organization [facility] Address [address] [place] [address] Care Team Providers Care Business Solutions Architect Name Role Phone Rizwana Thakkar MD Primary Care Provider Rizwana Thakkar MD Unavailable [phone] Allergies Active Allergy Reactions Criticality Noted Date [...] (08/06/2020): Added automatically from request for surgery [id number] Enthesopathy of hip region 04/02/2020 Primary localized [...] drains for fluid collections in 2013- at [facility]. DILIP neg, IgG4 wnls, TG [...] on file Legal Sex Female 2:53 AM LOOM STOP CHECKER Gender Identity Female 05/17/2021 10:12 AM CDT Sexual Orientation Not on file Obstetrics History Last Filed Vital Signs Vital Sign Reading Time Taken Comments Blood Pressure 131/72 10/25/2020 11:40 AM LOOM STOP CHECKER Pulse 80 10/25/2020 11:40 AM LOOM STOP CHECKER Temperature 36.8 C (98.2 F) 05/31/2021 1:57 PM CDT Respiratory Rate 9 10/25/2020 11:20 AM LOOM STOP CHECKER Oxygen Saturation 96% 10/25/2020 11:40 AM LOOM STOP CHECKER Inhaled Oxygen Concentration - - Weight 95.3 [...] history exists Medical Devices Implanted Type Area Tow Motor Operator Device Identifier Shelf Expiration Date Model / [...] compared to prior imaging studies performed at [facility] on 05/24/2021, 05/30/2022 and [...] compared to prior imaging studies performed at [facility] on 05/24/2021, 05/30/2022 and [...] Recently Relevant to Health Maintenance Insurance MEDICARE [facility] [place] [address] MEDICARE [facility] MEDICARE [facility] [place] [address] Advance Directives For more information, please contact: [phone] Documents on File Type Date Recorded Patient Front Desk Agent Expl anation ADVANCE DIRECTIVE 10/22/2020 7:37 AM Care Teams Business Solutions Architect Relationship Specialty Start Date End Date Rizwana Thakkar MD [address] [facility] [address] [place] [address] PCP - General 11/04/20 Rizwana Thakkar MD [address] [place] [place] [address] Family Medicine 11/04/20
--- OUTSIDE RECORDS SUMMARY | 2025-02-10 01:21 | XMS_ITS | Clinical Summary ---
Author Organization [facility] Address [address] [place] [address] Phone Care Team Providers Care Poolroom Table Attendant Name Role Phone Rizwana Thakkar MD Primary Care Provider [phone] Allergies Active Allergy Reactions Criticality Noted Date [...] Tablet Take by mouth daily. Active Multiple Vitamins-Minerals (MULTIVITAMIN PO) Take by mouth daily. Active Magnesium 250 MG Tablet Take by mouth daily. Active hydroCHLOROthiazi de 25 MG Tablet Take 25 mg by mouth. 9 Active losartan (COZAAR) 100 MG Tablet TAKE 1 TABLET BY MOUTH EVERY DAY IN THE MORNING 3 9 Active Ascorbic Acid 500 MG Capsule CR Take 500 mg by mouth. Active cholecalciferol 25 mcg Tablet Take 1,000 Units by mouth. Active Clobetasol Propionate 0.05 % Shampoo APPLY TO AFFECTED AREA EVERY DAY 8 Active oxyCODONE (ROXICODONE) 5 MG Tablet TAKE 1 TABLET BY MOUTH EVERY 4 HOURS NEEDED (BREAKTHROUG H PAIN DESPITE TYLENOL) 1 Active Probiotic Product (ALIGN PO) Take by mouth. Active albuterol 108 (90 Base) MCG/ACT Aerosol Solution take 2 Puffs by inhalation. 1 Active NIFEdipine CR (PROCARDIA-XL) 60 MG TABLET SR 24 HR TAKE 1 TABLET BY MOUTH IN THE EVENING 2 Active omeprazole (PriLOSEC) 40 MG CAPSULE DELAYED RELEASE TAKE 1 CAPSULE BY MOUTH EVERY DAY 1 HOUR PRIOR TO LAST MEAL OF DAY 2 Active nebivolol (BYSTOLIC) 2.5 MG Tablet 2 Active vitamin E 100 UNIT Capsule Take 100 Units by mouth. Active Aug Betamethasone Dipropionate 0.05 % Lotion APPLY TO AFFECTED AREAS ON SCALP TWICE A DAY X2 WEEKS, THEN TAKE A 2 WEEK BREAK. 5 Active ciclopirox (PENLAC) 8 % Solution APPLY ONCE DAILY TO AFFECTED NAILS. REMOVE ONCE A WEEK WITH CANADIAN REMOVER 5 Active B Complex Vitamins (Vitamin B-Complex) Tablet Take 1 Tablet by mouth. 02/06/20 25 Discontin ued(Med List Clean Up) Mirabegron ER 50 MG TABLET SR 24 HR Take 1 Tablet by mouth daily. 4 02/06/20 25 Discontin ued(Med List Clean Up) Active Problems Patient Care Coordination No te Formatting of this note migh t be different from the original. 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, unspecified laterality (HCC) (Primary Dx) 02/05/2025 Travel from Last 3 Months Immunizations Immunization [...] Reading Time Taken Comments Blood Pressure 138/80 02/05/2025 1:38 PM CDT Pulse 70 02/05/2025 1:38 PM CDT Temperature 36.2 C (97.2 F) 02/05/2025 1:38 PM CDT Respiratory Rate 18 02/05/2025 1:38 PM CDT Oxygen Saturation 96% 02/05/2025 1:38 PM CDT Inhaled Oxygen Concentration - - Weight 99 kg (218 lb 3.2 oz) 02/05/2025 1:38 PM CDT Height 162.6 cm (5' 4 ) 02/05/2025 1:38 PM CDT Body Mass Index 37.45 02/05/2025 1:38 PM CDT Plan of Treatment Upcoming Encounters Date Type Department Care Team (Late st Contact Info) Description 02/04/2026 1:30 PM CDT Office Visit [facility] [address] [facility] [address] [place] [address] Luis Titus MD [address] [place] [address] Health Maintenance Due Date Last Done Comments SARS-COV-2 Immunization ( season) 2024 06/09/2024, 06/13/2023, 06/26/2022, Additional history exists DEXA Bone Density 04/19/2025 04/19/2023, 03/31/2020 Td Immunization Every 10 Years (Adults With 1 Tdap) 07/02/2029 07/02/2019 Hepatitis C Virus (HCV) Screening Completed 04/10/2018 Colonoscopy High Risk Discontinued 11/07/2018 Colonoscopy Discontinued 11/07/2018 Colorectal Cancer Screening Discontinued DTaP/Tdap/Td Immunization Discontinued 07/02/2019, 09/2018 Zoster Immunization Completed 10/05/2019, 08/05/2019, 06/24/2019 Hepatitis B Immunization Completed 020, 03/14/2020, 08/05/2019, Additional history exists Mammogram Discontinued 06/02/2024, 01/2023, 05/30/2022, Additional history exists Respiratory Syncytial Virus (RSV) Immunization (Adult) Completed 06/05/2024 Influenza Immunization Completed , 07/11/2023, 07/18/2022, Additional history exists Pneumococcal Immunization (50+ years) Completed 10/14/2024, 06/23/2018 Pneumococcal Immunization Combined Discontinued 10/14/2024, 06/23/2018 Cologuard Discontinued Human Papillomavirus (HPV) Immunization Aged Out No longer eligible based on patient's age to complete this topic Immunochemical Fecal Occult Blood Discontinued Meningococcal Immunization (ACWY) Aged Out No longer eligible based on patient's age to complete this topic Rotavirus Immunization Aged Out No lo nger eligible based on patient's age to complete this topic Insurance MEDICARE [facility] Care Teams Poolroom Table Attendant Relationship Specialty Start Date End Date Rizwana Thakkar MD [address] [facility] [address] [place] [address] PCP - General Family Medicine 01/17/18
--- OUTSIDE RECORDS SUMMARY | 2025-02-10 01:21 | XMS_ITS | Encounter Summary ---
Author Organization [facility] Address [address] [facility] [place] [address] Care Team Providers Care Purchasing Assistant Name Role Phone Rizwana Thakkar MD Primary Care Provider + Encounter Details Date Type Department Care Team (Late st Contact Info) Description 09/28/2021 Lab Requisition [facility] [address] [facility] [place] [id number] Tomer Grey MD [address] [place], [place] [id number] Social History Tobacco Use Types Packs/Day Years Used Date Smoking Tobacco: Former Cigarettes Q uit: 07/27/2014 Smokeless Tobacco: Never Alcohol Use Standard Drinks/Week Comments No 0 (1 standard drink = 0.6 oz pur e alcohol) Comments No Sex and Gender Information Value Date Recorded Sex Assigned at Not on file Legal Sex Female 5:15 PM FOOD SERVICE MANAGER Gender Identity Not on file Sexual Orientation Not on file documented as of this encounter Plan of Treatment Not on file documented as of this encounter Goals Goal Patient Goal Type Associated Problems Recent Progress Patient-Stated? Author Safety General On track( 018 9:32 AM FOOD SERVICE MANAGER) Holli Mcdaniel, YASMIN Note: Expected end date: Ongoing Interventions: Your nurse will assess your risk for falls/injury each visit Use appropriate and safe transfer methods Medication Management General On track( 019 8:15 AM FOOD SERVICE MANAGER) Holli Mcdaniel RN Note: Expected end date: Ongoing Interventions: Take all medications as prescribed Let your doctor know right away about any changes in your medications documented as of this encounter Procedures Procedure Name Priority Date/Time Associated Diagnosis Comments DERMATOPATHOLOGY Routine 09/27/2021 3:33 AM FOOD SERVICE MANAGER documented in this encounter Results * DERMATOPATHOLOGY (09/27/2021 3:33 AM FOOD SERVICE MANAGER) Case Report Dermatopathology Report Case: [id number] Authorizing Provider: Tomer Grey MD Collected: 09/27/2021 03:33 AM Ordering Location: [facility] Lab Received: 09/28/2021 06:13 AM Pathologist: Moon Hill MD Specimen: Skin, left shoulder 2 5:01 PM [facility] DERMATOPATHOLOGY LABORATORY Final Diagnosis Specimen A. 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 Path # [id number]. 2 5:01 PM [facility] DERMATOPATHOLOGY LABORATORY Gross Description Specimen A: Received is one formalin filled container labeled with the patient's name and designated left shoulder. The specimen consists of a shave biopsy measuring [id number]. Jar 0. 2 5:01 PM [facility] DERMATOPATHOLOGY LABORATORY Microscopic Description Specimen A. SKIN, left shoulder: Sections show nests, cords, and strands of cytologically bland melanocytes that mature with descent into the dermis. There are areas in which the melanocytes have a neuroid appearance. 2 5:01 PM [facility] DERMATOPATHOLOGY LABORATORY Disclaimer An external and internal positive and negative controls are appropriate for the histochemical, immunohistochemical and immunofluorescence stain(s) in this case (if any), except where stated explicitly. The performance characteristics of the stain(s) cited in this report were developed and its performance characteristic determined by the Dermatopathology Laboratory at [facility], directed by Dr. Jasmin Hill. These tests need not be, and therefore are not, approved by the [place] Food and Drug Administration. The tests are used for clinical purposes. Billing Codes Specimen Charges Stain Charges 31311 1 2 5:01 PM [facility] DERMATOPATHOLOGY LABORATORY Embedded Images 2 5:01 PM [facility] DERMATOPATHOLOGY LABORATORY Pathology/Cytolo gy TISSUE SPECIMEN FROM SKIN / Unknown 09/27/2021 3:33 AM FOOD SERVICE MANAGER 09/28/2021 6:13 AM FOOD SERVICE MANAGER Tomer Grey MD LAB - PATHOLOGY/CYTOLOGY ORDER NEDA Final Result DERMATOPATHOLOGY LABORATORY [facility] - Department of Dermatology [facility] Medicine [address] [place] [address], [address] [phone] documented in this encounter Visit Diagnoses Not on filedocumented in this encounter Care Teams Purchasing Assistant Relationship Specialty Start Date End Date Rizwana Thakkar MD [address] [place] [address] PCP - General 04/27/15 documented as of this encounter
--- OUTSIDE RECORDS SUMMARY | 2025-02-10 01:21 | XMS_ITS | Clinical Summary ---
Author Organization [facility] Address [address] [place] [address] Care Team Providers Care Sulfuric Acid Plant Supervisor Name Role Phone Rizwana Thakkar MD Primary Care Provider + Source Comments [facility],non-owned Affiliates and Associated Physician Practices is amultiple site organization consisting of ambulatory clinics and hospital sitesin [place], [place], [place]. This disclosure is being madepursuant to the Care Everywhere program and may not contain all information available regarding this patient. Last updated 18.[facility] Allergies Active Allergy Reactions Criticality Noted Date [...] Take by mouth at bedtime Active Biotin 26152 MCG TABS Active Ascorbic Acid (VITAMIN C) 500 MG Take by mouth at bedtime Active VITAMIN D, ERGOCALCIFEROL, PO Take 1,000 mg by mouth Active oxybutynin CR 24hr (DITROPAN-XL) 5 MG tablet Take 5 mg by mouth once daily 07/05/2020 Active pancrelipase (CREON) 42597-560[address] units capsule Take 1 capsule by mouth [...] drains for fluid collections in 2013- at [facility]. DILIP neg, IgG4 wnls, TG 88. [...] on file Legal Sex Female 5:15 PM METER CHANGES RECORDS CLERK Gender Identity Not on file Sexual Orientation Not on file Last Filed Vital Signs Vital Sign Reading Time Taken Comments Blood Pressure 145/74 07/16/2020 11:04 AM CDT Pulse 57 07/16/2020 11:04 AM CDT Temperature 36.2 C (97.2 F) 07/16/2020 11:04 AM CDT Respiratory Rate 18 09/05/2019 8:03 AM METER CHANGES RECORDS CLERK Oxygen Saturation 96% 07/16/2020 11: 04 AM [...] Safety General On track( 018 9:32 AM METER CHANGES RECORDS CLERK) Holli Mcdaniel RN Note: Expected end date: Ongoing Interventions: Your nurse will assess your risk for falls/injury each visit Use appropriate and safe transfer methods Medication Management General On track( 019 8:15 AM METER CHANGES RECORDS CLERK) Holli Mcdaniel RN Note: Expected end date: Ongoing Interventions: Take all medications as prescribed Let your doctor know right away about any changes in your medications Insurance [facility]IC[facility] Advance Directives Documents on File Type Date Recorded Patient Surgical Nurse Expl anation Adv Directive/Living Will/POA 10/25/2020 3:27 PM Advance Directives and Livin g Will 09/26/2015 12:00 AM Care Teams Sulfuric Acid Plant Supervisor Relationship Specialty Start Date End Date Rizwana Thakkar MD [address] [place] [address] PCP - General 04/27/15
--- OUTSIDE RECORDS SUMMARY | 2025-02-10 01:21 | XMS_ITS | Referral Summary ---
Author Organization [facility] Address [address] [place] [address] Care Team Providers Care Supervisor Grain And Yeast Plants Name Role Phone Rizwana Thakkar MD Primary Care Provider Rizwana Thakkar MD Unavailable [phone] Allergies Active Allergy Reactions Criticality Noted Date [...] (08/06/2020): Added automatically from request for surgery [id number] Enthesopathy of hip region 04/02/2020 Primary localized [...] drains for fluid collections in 2013- at [facility]. DILIP neg, IgG4 wnls, TG 88. [...] on file Legal Sex Female 2:53 AM JOB CHECKER Gender Identity Female 05/17/2021 10:12 AM CDT Sexual Orientation Not on file Last Filed Vital Signs Vital Sign Reading Time Taken Comments Blood Pressure 131/72 10/25/2020 11:40 AM JOB CHECKER Pulse 80 10/25/2020 11:40 AM JOB CHECKER Temperature 36.8 C (98.2 F) 05/31/2021 1:57 PM CDT Respiratory Rate 9 10/25/2020 11:20 AM JOB CHECKER Oxygen Saturation 96% 10/25/2020 11:40 AM JOB CHECKER Inhaled Oxygen Concentration - - Weight 95.3 kg (210 lb) 05/29/2023 7:47 AM CDT Height 162.6 cm (5' 4 ) 05/29/2023 7:47 AM CDT Body Mass Index 36.05 05/29/2023 7:47 AM CDT Plan of Treatment Not on file Medical Devices Implanted Type Area Visual Merchandising Assistant Device Identifier Shelf Expiration Date Model / [...] compared to prior imaging studies performed at [facility] on 05/24/2021, 05/30/2022 and 05/29/2023. There are [...] compared to prior imaging studies performed at [facility] on 05/24/2021, 05/30/2022 and 05/29/2023. There are [...] Recently Relevant to Health Maintenance Insurance MEDICARE [facility] [place] [address] MEDICARE [facility] MEDICARE [facility] FEDERAL Member Subscriber Plan / Payer (Ef fective 2017-Present) Name:Rissa Pemberton Relation to Subscriber:Self Name:Rissa Pebmerton Payer ID:[id number] (NAIC) Group ID:[id number] Type:[facility] Address: [address] [place] [id number] [facility] [place] [address] Advance Directives For more information, please contact: [phone] Documents on File Type Date Recorded Patient Roof Cement And Paint Maker Expl anation ADVANCE DIRECTIVE 10/22/2020 7:37 AM Care Teams Supervisor Grain And Yeast Plants Relationship Specialty Start Date End Date Rizwana Thakkar MD [address] [facility] [address] [place] [address] PCP - General 11/04/20 Rizwana Thakkar MD [address] [facility] [address] [place] [address] Family Medicine 11/04/20
--- OUTSIDE RECORDS SUMMARY | 2025-02-10 01:21 | XMS_ITS | Encounter Summary ---
Author Organization [facility] Address [address] [place] [address] Care Team Providers Care Juvenile Justice Specialist Name Role Phone Rizwana Thakkar MD Primary Care Provider + Encounter Details Date Type Department Care Team (Late st Contact Info) Description 09/22/2019 Immunization [facility] [id number] [place] [address] Deirdre Vu, RN Social History Tobacco Use Types Packs/Day Years Used Date Smoking Tobacco: Former Cigarettes Q uit: 07/27/2014 Smokeless Tobacco: Never Alcohol Use Standard Drinks/Week Comments No 0 (1 standard drink = 0.6 oz pur e alcohol) Comments No Sex and Gender Information Value Date Recorded Sex Assigned at Not on file Legal Sex Female 5:15 PM GRIPPER MACHINE OPERATOR Gender Identity Not on file Sexual Orientation Not on file documented as of this encounter Plan of Treatment Not on file documented as of this encounter Goals Goal Patient Goal Type Associated Problems Recent Progress Patient-Stated? Author Safety General On track( 018 9:32 AM GRIPPER MACHINE OPERATOR) Holli Mcdaniel, RN Note: Expected end date: Ongoing Interventions: Your nurse will assess your risk for falls/injury each visit Use appropriate and safe transfer methods Medication Management General On track( 019 8:15 AM GRIPPER MACHINE OPERATOR) Holli Mcdaniel, RN Note: Expected end date: Ongoing Interventions: Take all medications as prescribed Let your doctor know right away about any changes in your medications documented as of this encounter Visit Diagnoses Not on filedocumented in this encounter Care Teams Juvenile Justice Specialist Relationship Specialty Start Date End Date Rizwana Thakkar MD [address] [place] [address] PCP - General 04/27/15 documented as of this encounter
[2025-02-10] MEDS: LACTATED RINGERS 1,000 ML 30 ML IV CONT (07:00)
--- NOTE | 2025-02-10 07:01 | P.HP_ITS ---
History of Present Illness History of Present Illness Consent: Risks, benefits, and alternatives have been discussed and questions answered. Patient agrees to proceed with procedure. Chief complaint: Vertebrogenic low back pain, lumbar spondylosis Narrative: Rissa Pemberton is a 79 year old female with chronic, recalcitrant and disabling bilateral lumbosacral vertebrogenic back pain secondary to degenerative spondylosis, Modic type 1/2 endplate change with failure to respond to aggressive conservative measures including PT, oral and topical analgesics, opioid and nonopioid analgesics, rest, time and activity/behavioral modification over the past 1-2 years who presents for percutaneous transpedicular intraosseous basivertebral nerve ablation (Intracept procedure) of the L4, L5, S1 vertebral levels under fluoroscopic guidance, Review of Systems Review of Systems: Patient denies any new infectious, allergic, cardiopulmonary, neurologic or constitutional symptoms or changes in activity tolerance or exercise capacity including new or progressive SOB/QUINTERO, peripheral edema, productive cough, dysuria, nausea/vomiting, diarrhea, weight change, fevers/chills/night sweats, new or progressive neurologic deficit, cognitive or mood changes since last seen, except as documented in the HPI. 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 Benign essential HTN Psoriasis of scalp 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, bilateral Exocrine pancreatic insufficiency Splenic artery aneurysm Necrotizing pancreatitis Family History Family History Mother Family history of throat cancer Patient's mother is Father Family history of heart disease in male family member before age 55 Patient's father is Social History Social History Social History: Smoking packs per day: 1 Smoking cigarettes per day: 20.0 Years smoked: 20 Smoking pack-years: 20.00 Smoking status: Former smoker Tobacco type: cigarettes Second hand tobacco smoke exposure: No Smoking end date: 09/24/13 Additional smoking assessment comments: denies nicotine Alcohol intake: never Substance use: never Substance use type: does not use Do You Feel Safe in your Home?: Yes Lack of Transportation: No Lack of Food: Never True Current Housing: I Have Housing Concerned About Future Housing: No Difficulty Paying Gas/Electric Bills: No Difficulty Paying for Meds: No Currently Unemployed: YES Education: Decline to Answer Difficulty w/ Childcare or Family Care: No Living arrangements: alone Occupation/Education: retired Gender identity (if verbalized by the patient): Female Sexual Orientation (if Verbalized by the Patient): Straight or Heterosexual Spiritual care concerns: No Meds Home Medications and Allergies Home Medications Medication Instructions Recorded Confirmed Type apixaban 5 mg tablet (Eliquis) See Rx Instructions .Route 04/28/24 01/27/25 Rx .COMPLEX #180 tabs omeprazole 40 mg capsule,delayed See Rx Instructions .Route 06/09/24 01/27/25 Rx release .COMPLEX #90 caps nebivolol 2.5 mg tablet See Rx Instructions .Route 11/12/24 01/27/25 Rx .COMPLEX #90 tabs nifedipine 60 mg tablet,extended See Rx Instructions .Route 11/13/24 01/27/25 Rx release .COMPLEX #90 tabs albuterol sulfate 90 mcg/actuation See Rx Instructions .Route 12/08/24 01/27/25 Rx aerosol inhaler .COMPLEX #8.5 ea losartan 100 mg tablet See Rx Instructions .Route 12/08/24 01/27/25 Rx .COMPLEX #90 tabs clobetasol 0.05 % shampoo 1 applic topical QHS #118 mL 01/09/25 01/27/25 Rx clobetasol 0.05 % topical gel See Rx Instructions .Route 01/09/25 01/27/25 Rx .COMPLEX #30 grams ibuprofen 200 mg tablet (Addaprin) 400 mg PO Q12H PRN pain 01/27/25 01/27/25 History Allergies Allergy/AdvReac Type Severity Reaction Status Date / Time lisinopril Allergy Mild cough Verified 01/27/25 15:01 lorazepam Allergy Mild unknown Verified 01/27/25 15:01 nitrofurantoin (From AdvReac Mild itch Verified 01/27/25 15:01 Macrobid) augmentin AdvReac Intermediate diarrhea Uncoded 01/27/25 15:01 bactrim AdvReac Intermediate body aches Uncoded 01/27/25 15:01 Exam Narrative: The patient's physical exam is essentially unchanged from prior examination on 12/22/2024. Specifically, patient demonstrates normal lung capacity, tidal volume and respiratory rate without wheezes, crackles, rales or rubs. Heart rate and rhythm are regular without murmurs, gallops or rubs. No JVD. Pulses 2+ globally without increasing peripheral edema. AAOx3 with no evidence of confusion, intoxication or altered mental state, NC/AT without acute distress or altered consciousness. Speech, cognition, mood, insight and judgment at baseline and within normal limits. Assessment and Plan Assessment and plan (1) Vertebrogenic low back pain: Code(s): M54.51 - Vertebrogenic low back pain Status: Acute Assessment and Plan: Proceed as planned with percutaneous transpedicular intraosseous basivertebral nerve ablation (Intracept procedure) of the L4, L5, S1 vertebral levels under fluoroscopic guidance. (2) Lumbosacral spondylosis without myelopathy: Code(s): M47.817 - Spondylosis without myelopathy or radiculopathy, lumbosacral region Status: Acute (3) Chronic pain: Code(s): G89.29 - Other chronic pain Status: Acute
--- NOTE | 2025-02-10 07:03 | WPDHPUPDATE1 ---
History and Physical Update Update Date/Time: 02/10/25 07:03 History and Physical has been reviewed, including an updated exam of the patient. There are NO changes in the patient's condition. Risks, benefits, and alternatives have been discussed and questions answered. Patient agrees to proceed with procedure.
--- NOTE | 2025-02-10 07:06 | P.OP_ITS ---
Procedure Note - Detailed Date of Procedure 02/10/25 Pre-op Diagnosis Vertebrogenic low back pain, lumbar spondylosis Post-op Diagnosis Same Procedure Performed Percutaneous transpedicular intraosseous basivertebral nerve thermal radiofre quency ablation (Intracept procedure) at L4, L5, S1 under fluoroscopic guidance. Surgeon Adebayo Browning MD Weigh Boss None. Anesthesia General (GETA] in the [prone] position with infiltration of local anesthetic. ) Description of Procedure INDICATION FOR PROCEDURE: Patient has Modic-type I/II inflammatory degenerative changes of the endplates supplied by the basivertebral nerve at each level listed (as documented on recent MRI) resulting in pugqqlzv-of-alodda chronic axial low back pain that is aggravated by activity. They are significantly limited in their daily and/or work-related activities as a result, including sitting, standing, lifting/carrying and sleeping, with failure to respond to and/or tolerate extensive efforts at more conservative management (i.e. oral and topical analgesics including NSAIDs, acetaminophen and opioids, Physical Therapy and modalities, time/rest, interventional procedures/corticosteroid injections) for greater than 6 months prior to today's procedure establishing medical necessity for this well-studied and FDA-approved pain-relieving procedure. INFORMED CONSENT: Procedure was discussed in detail with the patient at a previous visit and at the time of surgery. During this discussion, the risks, benefits, and alternatives to the procedure, including doing nothing, were thoroughly described to the patient, who expressed explicit understanding and consent to proceed. Specific risks discussed with the patient included, but were not limited to the risk of serious local or systemic infection, skin burn/scarring, major or minor bleeding/bruising, allergic reaction to medications or materials, inadvertent lung or other organ injury, new or worsening spinal fracture, inadvertent thermal or mechanical nerve or spinal cord injury resulting in increased pain, weakness, numbness or loss of bowel or bladder control, the need for repeat or additional surgery, inadvertent dural puncture resulting in acute or chronic CSF leak and post-dural puncture headache, failure to treat pain, and risks associated with general anesthesia in the prone position including eye, dental, joint, nerve, spine or soft tissue injury/pain related to positioning, heart attack, respiratory failure, aspiration, pneumonia, DVT/PE or thrombosis, hemorrhagic or ischemic stroke, hypoxia, hypo- or hypertension, seizure, coma and . Patient understands these risks and agrees that the opportunity for benefit outweighs the potential risk of harm. Procedure specific informed consent form was read, reviewed, signed by the patient and surgeon and witnessed in the pre-operative area. All pertinent questions were asked and answered to the patient's satisfaction. Surgical site was pre-treated with chlorhexidine wipes. All materials required for the procedure were available and site and side of procedure was marked prior to procedure start. Appropriate timeout was conducted by all participants in the OR (patient's ID, procedure to be performed, procedure site and side, al lergies and appropriate medications including pre-operative antibiotics were verified) prior to incision. PROCEDURE IN DETAIL: After full informed consent and adequate IV access was obtained without difficulty; the patient was escorted to the procedural suite. ASA standard monitors were applied and utilized throughout the case. Prophylactic antibiotics were administered prior to procedure start. GETA was initiated without difficulty or event. Eyes were protected. Patient was converted to the prone position in optimal flexion using pillows under the abdomen, hips and ankles. Pressure points were padded, cervical spine and joints were placed in neutral position. Eyes, breasts and genitals were evaluated and protected as appropriate. The thoracolumbar spine to the sacrum was prepared in the usual manner using alcohol scrub followed by broad application of ChloraPrep, and allowed to dry completely for over 3 minutes. Surgical site and C-arm was sterilely draped in the typical fashion. Aseptic technique and strict fluoroscopic guidance was utilized throughout. Fluoroscope was moved into position to visualize the vertebral bodies of interest in the AP and lateral plane, obtaining true linear projections of the endplates at each level, and was rotated in the ipsilateral oblique view approximately 35 degrees from true AP to visualize the vertebrae with respective ipsilateral facet joints visualized bisecting the superior disk space at the midpoint of the vertebral body. The superolateral border of the pedicle of each level treated was identified. After adequate general anesthesia was confirmed, the skin entry point was located and infiltrated with an adequate amount of a 1:1 admixture of 0.5% preservative free bupivacaine and 2.0% preservative-free lidocaine using a 27 gauge 1.5-inch hypodermic needle after negative aspiration for blood or bodily fluid. Appropriate introducer cannula trajectory was identified in the AP, oblique and lateral views, and local anesthesia was extended to periosteum in a similar fashion at each level treated using a 3.5 inch, 22-gauge Quincke spinal needle. A stab skin decision was made with a #11 scalpel blade and an 8-gauge introducer cannula with beveled tip was then introduced through the skin, subcutaneous tissue and paraspinal muscle until contact was made with the bony surface of the pedicle at the target level. Appropriate position was confirmed in both the AP and lateral views. Using a 24- ounce surgical mallet, the trocar was advanced through the left pedicle to the posterior aspect of the vertebral body using a combination of AP and lateral views to ensure appropriate travel through the pedicle without breach of its medial wall or entry into the epidural/neuroforaminal space. Once the trocar had entered the posterior aspect of the L4 vertebral body, the trocar was removed from the cannula and the curved cannula assembly was inserted followed by replacement of the original straight stylette with the Nitinol J – stylette without difficulty. The wingnut on the device was rotated counterclockwise to its endpoint permitting excursion of the J – stylette. The curved cannula assembly was then advanced under intermittent fluoroscopic guidance, using the surgical mallet, in 1 to 2 mm increments with observed travel anteriorly and medially through the vertebral body in both the AP and lateral views. When necessary, the J-stylette was intermittently removed and replaced with the straight stylette during advancement to reach the basivertebral nerve target near the center point of the vertebral body. Target was reached when the tip of the stylette was noted to be a minimum of 1 cm anterior to the posterior wall and approximately 30 to 50% of the posterior to anterior diameter of the targeted vertebral body and at the midpoint of the distance between the superior and inferior endplates, with tip of the stylette crossing midline as represented by the spinous process in the carefully aligned AP projection. J- stylette was then removed and the bipolar radiofrequency probe was connected to the generator and inserted into the introducer cannula until the proximal and distal electrodes straddled the midpoint of the vertebral body. The wingnut was then rotated clockwise to retract the PEEK sleeve and expose the proximal electrode on the radiofrequency probe. The basivertebral nerve was then ablated through activation of the probe and generator. At each level treated, ablation was performed at 85 degrees centigrade for 7 minutes using [facility]'s RFG standard intraosseous ablation algorithm while simultaneously monitoring for any sign of motor or sensory nerve stimulation. While ablative lesioning was progressing to completion at the initial level, the fluoroscope was adjusted to successively visualize the target of entry at the superolateral aspect of the pedicle at each additional level treated, (L5, S1), with each vertebral body subsequently and sequentially accessed and target nerve ablated in a similar manner modified only to accommodate for specific level, location and anatomical variation, alternating the site and side of entry to facilitate cannula placement. This was achieved in all cases without difficulty. Location of each entry point, final cannula and probe position was documented by fluoroscopy in the AP and lateral views with respective images recorded in the patient's chart. In all cases, once intraosseous access was obtained, needle tip remained intraosseous without violation of the pedicular wall, vertebral wall, neuroforamen and/or spinal canal. Once all ablations were complete, instruments were removed from the vertebral bodies without difficulty under direct visualization and fluoroscopic guidance. Pressure was held at each entry site until hemostasis was confirmed. Skin was cleaned with alcohol -soaked gauze and dried with a sterile towel. Surgical wounds were then closed with mastisol and Steri-Strips placed in a crisscrossing fashion and covered with a sterile Telfa and Tegaderm dressing. The patient was returned to the supine position and anesthesia was reversed without difficulty or event. The patient tolerated the procedure well with no evidence of complication. Patient was transported to the recovery room where they were monitored for an appropriate period of time prior to discharge. During this time, the patient demonstrated no evidence of new neurologic symptom or injury, uncontrolled pain, postsurgical or post anesthetic complication. The patient was eventually discharged with both written and verbal instructions for appropriate wound care and activity restriction and with instructions to contact the office or report directly to the emergency department if no immediate response or if after hours with any signs of urgent or emergent complication including but not limited to excessive discharge or bleeding, new focal or diffuse neurologic weakness, numbness or other sensory change in the upper or lower extremities, severe headaches, intractable nausea/vomiting, fevers, chills, night sweats, increasing pain or loss of bowel or bladder control. Patient will otherwise follow-up in person at the clinic in 7 to 10 days for wound check and reevaluation. COMPLICATIONS: None. COMMENTS: None. IV FLUIDS: On Chart. EBL: 10 ml. DRAINS: None. PACKING: None. SPECIMEN: None. Pathology None sent Complications No immediate complications Condition Stable Disposition PACU [facility] Billing Surgery - Charge Forward: Surgery Billing
--- NOTE | 2025-02-10 07:26 | P.PNAN_ITS ---
Anes - Initial Pre Proc Eval Procedure: Operation Date: 02/10/25 07:30 Proposed Procedures p Intracept Procedure L4, L5, S1 Under Fluoroscopic Guidance - Adebayo Browning MD Date/Time: 02/10/25 07:26 Surgeon: Adebayo Browning MD Pre Op Diagnosis: Vertebrogenic low back pain, lumbar spondylosis Patient Data Age: 79 Gender: F Height: 1.63 m Weight: 98.3 kg Last Vital Signs Temp 36.2 C L 02/10/25 07:19 Pulse 72 02/10/25 07:19 BP 159/77 H 02/10/25 07:19 Pulse Ox 98 02/10/25 07:19 O2 Del Method Room Air 02/10/25 07:19 Allergies Allergy/AdvReac Type Severity Reaction Status Date / Time lisinopril Allergy Mild cough Verified 02/10/25 07:16 lorazepam Allergy Mild unknown Verified 02/10/25 07:16 nitrofurantoin (From AdvReac Mild itch Verified 02/10/25 07:16 Macrobid) augmentin AdvReac Intermediate diarrhea Uncoded 02/10/25 07:16 bactrim AdvReac Intermediate body aches Uncoded 02/10/25 07:16 Home Medications Medication Instructions Recorded Confirmed Type apixaban 5 mg tablet (Eliquis) See Rx Instructions .Route 04/28/24 02/10/25 Rx .COMPLEX #180 tabs omeprazole 40 mg capsule,delayed See Rx Instructions .Route 06/09/24 01/27/25 Rx release .COMPLEX #90 caps nebivolol 2.5 mg tablet See Rx Instructions .Route 11/12/24 01/27/25 Rx .COMPLEX #90 tabs nifedipine 60 mg tablet,extended See Rx Instructions .Route 11/13/24 01/27/25 Rx release .COMPLEX #90 tabs albuterol sulfate 90 mcg/actuation See Rx Instructions .Route 12/08/24 02/10/25 Rx aerosol inhaler .COMPLEX #8.5 ea losartan 100 mg tablet See Rx Instructions .Route 12/08/24 01/27/25 Rx .COMPLEX #90 tabs clobetasol 0.05 % shampoo 1 applic topical QHS #118 mL 01/09/25 01/27/25 Rx clobetasol 0.05 % topical gel See Rx Instructions .Route 01/09/25 01/27/25 Rx .COMPLEX #30 grams ibuprofen 200 mg tablet (Addaprin) 400 mg PO Q12H PRN pain 01/27/25 01/27/25 History hydrocodone 5 mg-acetaminophen 325 1 tablet PO Q6H PRN pain 5 days 02/10/25 Rx mg tablet #20 tabs ECG: SR 61, 1st degree AV Block Other studies: Normal stress test 01/19/25 Patient hx anesthesia problems: none Family hx anesthesia problems: none Results Review: All pre-operative results and documents have been reviewed as part of the pre- operative evaluation. 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, bilateral Exocrine pancreatic insufficiency Splenic artery aneurysm Necrotizing pancreatitis Family History Family History Mother Family history of throat cancer Patient's mother is Father Family history of heart disease in male family member before age 55 Patient's father is Social History Social History Social History: Smoking packs per day: 1 Smoking cigarettes per day: 20.0 Years smoked: 20 Smoking pack-years: 20.00 Smoking status: Former smoker Tobacco type: cigarettes Second hand tobacco smoke exposure: No Smoking end date: 09/24/13 Additional smoking assessment comments: denies nicotine Alcohol intake: never Substance use: never Substance use type: does not use Do You Feel Safe in your Home?: Yes Lack of Transportation: No Lack of Food: Never True Current Housing: I Have Housing Concerned About Future Housing: No Difficulty Paying Gas/Electric Bills: No Difficulty Paying for Meds: No Currently Unemployed: YES Education: Decline to Answer Difficulty w/ Childcare or Family Care: No Living arrangements: alone Occupation/Education: retired Gender identity (if verbalized by the patient): Female Sexual Orientation (if Verbalized by the Patient): Straight or Heterosexual Spiritual care concerns: No Anes - Eval Final PreProcedure Day of Procedure 02/10/25 07:26 Patient weight: obese Heart: regular rate and rhythm Lungs: clear to auscultation Airway: Mallampati scale class II Neurological: alert and oriented Last oral intake: >/= 8 hours ASA classification: III Emergent: yes Anesthetic plan: proceed Anesthesia type and monitoring: general Results Review: All pre-operative results and documents have been reviewed as part of the pre- operative evaluation. Informed Consent: The patient's anesthetic plan and its attendant risks and benefits were discussed with the patient/family/POA. Questions were solicited and answers provided to the satisfaction of the patient/family/POA.
[2025-02-10] MEDS: ceFAZolin 2 GM/D5W 50 ML 2 GM/50 ML BAG IVPB (07:32)
[2025-02-10] MEDS: LIDOCAINE 1% LOCAL INJ 10 ML VIAL INFILTRATE (07:53)
[2025-02-10] MEDS: BUPIVACAINE/EPINEPHRINE 0.5% 30 ML VIAL INFILTRATE (07:54)
[2025-02-10] MEDS: fentaNYL CITRATE INJ (*CRX) 100 MCG/2 ML VIAL 25 MCG IV PUSH ×2 (09:21→09:27)
== END 2025-02-10 10:35 | disposition home or self-care (01) ==
PROVIDERS: PCP Family Medicine; Visit Provider Anesthesiology Pain Medicine
PROC: (CPT 64628; principal; 2025-02-10 07:30)
DX: M47.817 Spondylosis without myelopathy or radiculopathy, lumbosacral region (principal); M48.061 Spinal stenosis, lumbar region without neurogenic claudication; M43.16 Spondylolisthesis, lumbar region; G89.29 Other chronic pain; G89.18 Other acute postprocedural pain; R55 Syncope and collapse; E55.9 Vitamin D deficiency, unspecified; R73.03 Prediabetes; E78.2 Mixed hyperlipidemia; K86.1 Other chronic pancreatitis; I10 Essential (primary) hypertension; D64.9 Anemia, unspecified; L40.8 Other psoriasis; K86.81 Exocrine pancreatic insufficiency; E66.9 Obesity, unspecified; Z68.37 Body mass index [BMI] 37.0-37.9, adult; Z79.01 Long term (current) use of anticoagulants; Z79.51 Long term (current) use of inhaled steroids; Z79.891 Long term (current) use of opiate analgesic; Z79.1 Long term (current) use of non-steroidal anti-inflammatories (NSAID); Z87.891 Personal history of nicotine dependence; Z86.718 Personal history of other venous thrombosis and embolism; Z86.79 Personal history of other diseases of the circulatory system; Z87.19 Personal history of other diseases of the digestive system; Z80.1 Family history of malignant neoplasm of trachea, bronchus and lung; Z82.49 Family history of ischemic heart disease and other diseases of the circulatory system
CPT/HCPCS: 64628; 64629; 99199; C1889; J0690; J1100; J2003; J2405; J2704; J3010; J7120